=== PATIENT | male | born 1980 | race Caucasian/White ===

== ENCOUNTER 2017-03-16 21:17 | Emergency (ER) | payer SELFPAY ==
[~2017-03-16] VITALS: Ht 177.8 cm; Wt 114.3 kg
[2017-03-16 21:17] VITALS: Ht 177.8 cm; Wt 114.3 kg
[~2017-03-16 21:17] MED LIST: HYDR-4246 PO
--- NOTE | 2017-03-16 21:25 | NUR ---
PROVIDER DR VEGA IN ROOM TO SEE PT
--- NOTE | 2017-03-16 21:35 | NUR ---
JOHN CONTACTED WELDING PANTOGRAPH OPERATOR TO PAGE ULTRASOUND CONSTRUCTION LABORER
--- NOTE | 2017-03-16 21:46 | ERPDOC ---
Departure Disposition Decision Date: March 16, 2017 Disposition Decision Time: 23:54 Disposition: 01 DISCHARGED HOME, SELF-CARE Impression Impression Impression: Primary Impression: Lower extremity cellulitis Laterality: left Qualified Codes: L03.116 - Cellulitis of left lower limb Additional Impressions: Hypokalemia Dehydration Chronic alcohol abuse Fatty liver Severity: Moderate Condition: Improved Seen By: Physician only Patient Instructions: Cellulitis (ED), Hypokalemia (ED) Problems/Meds/Labs Reviewed?: Yes Medications reviewed and manag: Yes Additional Instructions: Take KDur 20meq daily Keflex 500 mg 3 times daily for 10 days Call [facility] tomorrow to make an appointment for sometime in the next week Reduce alcohol intake as much as possible Drink at least 6-8 glasses of fluid daily Follow up care ordered?: Yes Mental Status: Alert, Oriented Scripts Cephalexin (Keflex) 500 Mg Capsule 500 MG PO TID, #30 CAP Prov: RHODA VEGA MD 03/16/17 Potassium Chloride (Potassium Chloride) 20 Meq Packet 20 MEQ PO DAILY, #10 PACKET Prov: RHODA VEGA MD 03/16/17 HPI - Lower Extremity General Chief Complaint: Lower Extremity Pain Stated Complaint: LT LEG SWELLING Time Seen by Provider: 21:26 Source: patient Exam Limitations: no limitations HPI - Lower Extremity Initial Comments Bilateral feet swelling for the past several months, and then the patient developed increased redness and swelling to the anterior ewing today. And has a long history of alcohol abuse, drinking at least one to one and a half pints of hard liquor daily for the past year and a half. Patient also has a history of untreated hypertension, strong family history of diabetes, and is worried that he might be getting cirrhosis due to frequent morning nausea and vomiting. Patient has no job, no insurance, has not followed up with any physician is one to 2 years. Patient has established care in the past at [facility], and is simply not gone back to them. Patient presents tonight due to the increasing symptoms in the left leg, and his fear of some "major problem." Occurred At: home Onset/Timing: Gradual Severity: moderate Pain/Injury Location: left leg, bilateral foot 1 - Swelling, redness, and mild burning pain 2 - Swelling and redness Method of Injury: unknown Allergies: Coded Allergies: No Known Drug Allergies (Unverified Allergy, Unknown, NONE, 05/08/15) Past History Past Medical History Metabolic: hypertension Psychological: alcohol abuse Surgical History Denies Surgeries Vaccines Hx Tetanus, Diptheria, Pertuss: No Social History Smoking Status: Current every day smoker Does patient use chewing tobac: No Second Hand Exposure: Yes Substance Use Type: does not use Alcohol Intake: daily, 2+ drinks per day Sexuality: female partner Record Review Pertinent history updated: Yes Review of Systems Constitutional Constitutional: DENIES: appetite decrease, appetite increase, chills, dizziness , fever, weakness ENMT Ears: DENIES: pain Hearing: DENIES: hearing loss, tinnitus Balance: DENIES: vertigo Mouth/Throat: DENIES: change in swallowing, change in voice, hoarsness, painful swallowing, sore throat Cardiovascular Cardiac: DENIES: chest pain, dyspnea on exertion Rhythm/Rate: DENIES: irregular beat, palpitations, tachycardia Vascular: DENIES: pedal edema Pulmonary Respiratory: DENIES: cough, dyspnea, pleuritic chest pain GI Upper Abdomen: nausea, vomiting (every morning), DENIES: dysphagia, heartburn/ indigestion, pain Lower Abdomen: DENIES: blood in stool, constipation, diarrhea, pain General: DENIES: burning, dysuria, frequency, pain, urgency Musculoskeletal General: DENIES: cramps, joint pain, joint swelling, pain, weakness Integumentary Skin: DENIES: rash, sores Neurological General: DENIES: headache, numbness, tingling, vertigo, weakness Psychiatric Psychiatric: DENIES: anxiety, depression, nervousness Physical Exam General General Nourishment: well nourished, well developed, appears stated age, no acute distress General Body Habitus: disheveled Vitals and Pain First Documented Vital Signs Date Time Temp Pulse Resp B/P Pulse Ox O2 Delivery O2 Flow Rate FiO2 03/16/17 21:17 98.2 126 20 207/127 95 Room Air Weight: Kilograms: Height (feet): 5 Height (inches): 10.00 Triage Pain Scale: RN VS reviewed by Provider: Yes Normal Exams: Head: Normocephalic w/o trauma Eyes: Pupils are PERRLA w/ EOMI, No scleral icterus, irritation, or foreign bodies noted ENMT: No facial trauma, nasal exudates, pharyngeal erythema, or exudates are noted Neck: Full range of motion, without adenopathy, JVD, bruits or thyromegaly Chest/Resp: Clear all pinzon, with good airflow, and symmetry bilaterally CV: Regular rate and rhythm, without murmur or gallop, Pulses 2+ all extremities, capillary refill, <2 seconds all ext., no pedal edema noted Abdomen: Bowel sounds positive, soft, non-tender, non-distended, no hepatosplenomegaly, masses or bruits noted Integumentary: No rashes, hives, or bruising noted, hair and nails, without abnormality Neurologic: Patient is alert, and oriented, cranial nerves, motor/sensory/ cerebellar, exams w/o gross deficits, to observation Psychiatric: Patient exhibits, appropriate attention, emotion and affect Lymphatic (brief) Lymphatic Brief: FOUND: lymphedema (bilateral 2+ pitting edema, left greater than right, left extending into the anterior as well as posterior lower leg.), NOT FOUND: adenopathy Musculoskeletal (brief) Musculoskeletal Brief: NOT FOUND: deformity, loss of motion, spasm, tenderness Integumentary (brief) Integumentary Brief: FOUND: dry, pink, warm Comments Erythema and warmth to the bilateral feet and anterior left ewing Progress Results/Orders Orders Procedure Category Date Status Time Iv Lock (Ed Only) EDM 03/16/17 Transmitted 21:31 Cbc W/Auto LAB 03/16/17 Complete Diff-Reflex Manual Cmp - Comprehensive LAB 03/16/17 Complete Metabolic Lipase LAB 03/16/17 Complete INR LAB 03/16/17 Complete Ethanol LAB 03/16/17 Complete Us Venous Duplex, US 03/16/17 Logged Lower Ext Bi Lactate - Lactic Acid LAB 03/16/17 Complete Potassium Chloride PHA 03/16/17 Complete (Kdur) 23:15 Normal Saline PHA 03/16/17 In Process (Norm... W/Potassium 23:15 EKG EKG 03/16/17 Logged Us Gallbladder US 03/16/17 Logged Lab Results Laboratory Tests Test 03/16/17 21:59 03/16/17 22:00 Prothromb Time International Ratio 1.12 White Blood Count 7.4T/MM3 Red Blood Count 4.38M/MM3 Hemoglobin 17.4GM/DL Hematocrit 47.7% Mean Corpuscular Volume 108.9UM3 Mean Corpuscular Hemoglobin 39.7UUG Mean Corpuscular Hemoglobin Concent 36.5GM/DL RDW Standard Deviation 48.9FL Platelet Count 157T/MM3 Mean Platelet Volume 10.6UM3 Immature Granulocyte % (Auto) 0.1% Neutrophils (%) (Auto) 73.2% Lymphocytes (%) (Auto) 16.0% Monocytes (%) (Auto) 9.6% Eosinophils (%) (Auto) 0.7% Basophils (%) (Auto) 0.4% Absolute Immature Granulocyte (auto 0.01T/MM3 Absolute Neutrophils (auto) 5.4T/MM3 Absolute Lymphocytes (auto) 1.2T/MM3 Absolute Monocytes (auto) 0.7T/MM3 Absolute Eosinophils (auto) 0.1T/MM3 Absolute Basophils (auto) 0.0T/MM3 Turbidity < 20 Sodium Level 144MEQ/L Potassium Level 2.6MEQ/L Chloride Level 96MEQ/L Carbon Dioxide Level 30MEQ/L Anion Gap 18MEQ/L Blood Urea Nitrogen 5.0MG/DL Creatinine 0.8MG/DL Glomerular Filtration Rate Calc 110 BUN/Creatinine Ratio 6RATIO Glucose Level 135MG/DL Calculated Osmolality 276MOSM/KG Calcium Level 9.6MG/DL Total Bilirubin 1.40MG/DL Icterus Index < 2 Aspartate Amino Transf (AST/SGOT) 165U/L Alanine Aminotransferase (ALT/SGPT) 99U/L Alkaline Phosphatase 134U/L Total Protein 7.9G/DL Albumin 4.7G/DL Globulin 3.2G/DL Albumin/Globulin Ratio 1.5RATIO Lipase 169U/L Plasma Lactate 2.9MMOL/L Chemistry Specimen Hemolysis < 15 Alcohol, Quantitative 236MG/DL Medications Current ED Medications Potassium Chloride 40 meq 40 meq O ONCE PO Last administered on 03/16/17t 23: 16; Start 03/16/17 at 23:15; Stop 03/16/17 at 23:16; Status DC Potassium Chloride/Sodium Chloride (KCl/Normal Saline IV) 1,020 ml @ 125 mls/ hr Q8H10M IV ; Start 03/16/17 at 23:15 Progress Progress CBC - n CMP/L - hypokalemia at 2.6, evidence of dehydration with minor irregularities. Mild elevation in liver enzymes, mild elevation of bilirubin. INR - n EtOH - elevated 236 Bilateral venous Dopplers lower extremity - negative Gallbladder sono negative Case discussed with the patient, this examiner, and hospitalist Dr. Jimenez. Shared decision-making, we will start the patient on outpatient therapy for hypokalemia, and antibody therapy for possible early cellulitis of the left lower extremity. Patient will decrease his alcohol intake as much as possible, hydrate with nonalcoholic fluids, and follow-up at [facility] within the next week. RHODA VEGA MD March 16, 2017 21:46
[2017-03-16 22:10] LABS: INR 1.12 (0.76-1.04); PROTHROMBIN TIME 12.2 SEC (9.31-12.49)
[2017-03-16 22:14] LABS: LACTATE - LACTIC ACID 2.9 MMOL/L (0.6-2.2)
[2017-03-16 22:15] LABS: ALBUMIN 4.7 G/DL (3.5-5.0); ALBUMIN/GLOBULIN RATIO 1.5 RATIO (1.1-2.2); ALKALINE PHOSPHATASE 134 U/L (38-126); ALT (SGPT) 99 U/L (21-72); ANION GAP 18 MEQ/L (5-15); AST (SGOT) 165 U/L (17-59); BUN/CREATININE RATIO 6 RATIO (6-26); CALCIUM 9.6 MG/DL (8.4-10.2); CHLORIDE 96 MEQ/L (98-107); CO2 - CARBON DIOXIDE 30 MEQ/L (22-30); CREATININE 0.8 MG/DL (0.8-1.5); ETHANOL 236 MG/DL (<10); GLOMERULAR FILTRATION RATE 110; GLUCOSE 135 MG/DL (75-110); SODIUM 144 MEQ/L (134-144); TOTAL PROTEIN 7.9 G/DL (6.3-8.2)
[2017-03-16 22:24] LABS: LIPASE 169 U/L (23-300)
[2017-03-16 22:35] LABS: POTASSIUM 2.6 MEQ/L (3.6-5)
[2017-03-16 22:40] LABS: BASOPHILS % (AUTO) 0.4 % (0-2); EOSINOPHILS # (AUTO) 0.1 T/MM3 (0-0.5); EOSINOPHILS % (AUTO) 0.7 % (0-4); HCT - HEMATOCRIT 47.7 % (41-53); HGB - HEMOGLOBIN 17.4 GM/DL (13.5-17.5); IMMATURE GRANULOCYTE # (AUTO) 0.01 T/MM3 (0.00-0.03); IMMATURE GRANULOCYTE % (AUTO) 0.1 % (0.0-0.5); LYMPHOCYTES # (AUTO) 1.2 T/MM3 (1-4.8); MEAN CORPUSCULAR HGB 39.7 UUG (26-34); MEAN CORPUSCULAR HGB CONC(MCHC 36.5 GM/DL (31-37); MEAN CORPUSCULAR VOLUME 108.9 UM3 (80-100); MEAN PLATELET VOLUME 10.6 UM3 (9.4-12.4); MONOCYTES # (AUTO) 0.7 T/MM3 (0-0.8); MONOCYTES % (AUTO) 9.6 % (0-9.0); NEUTROPHILS #(AUTO)-ABSOLUTE 5.4 T/MM3 (1.8-7.7); NEUTROPHILS % (AUTO) 73.2 % (33-66); RED BLOOD COUNT 4.38 M/MM3 (4.50-5.90); WBC - WHITE BLOOD COUNT 7.4 T/MM3 (4.5-11.0)
--- NOTE | 2017-03-16 22:45 | NUR ---
STATUS PT UP TO THE BATHROOM
--- NOTE | 2017-03-16 22:53 | NUR ---
SONO JOURNALISM TEACHER IS HERE AND IN PROCESS OF US LOWER EXT
[2017-03-16] MEDS ORDERED: POTASSIUM CHLORIDE 40 MEQ in NORMAL SALINE 1,000 ML IV SCH (23:15)
[2017-03-16] MEDS ORDERED: POTASSIUM CHLORIDE 20 MEQ TABLET PO ONE (23:15)
--- NOTE | 2017-03-16 23:30 | NUR ---
SONO SONO TECH IN ROOM FOR GALLBLADDER SONO.
[2017-03-16] MEDS ORDERED: CEFTRIAXONE I.V. (ER USE ONLY) 1 G in NORMAL SALINE 100 ML IV ONE (23:45)
[2017-03-16] MEDS ORDERED: CEPH-583 PO (23:57)
[2017-03-16] MEDS ORDERED: [UNRECOGNIZED DRUG - CODE] PO (23:57)
--- NOTE | 2017-03-17 00:22 | NUR ---
STATUS NS WITH 40 KCL STARTED INFUSING. PT UNDERSTANDS THAT THIS WILL TAKE 2 HOURS
--- NOTE | 2017-03-17 01:30 | NUR ---
STATUS PT AND ARE GIVEN A WARM BLANKET
[2017-03-17 02:30] VITALS: BP 183/107; PULSE 127; RESP 18; TEMP 98; O2SAT 97
--- NOTE | 2017-03-17 02:30 | NUR ---
DEPART PT IS GIVEN DISMISSAL INSTRUCTIONS WITH VERBAL UNDERSTANDING. PT GIVEN SCRIPTS. PT LEAVES AMBULATORY WITH TO ED EXIT
--- NOTE | 2017-03-17 08:10 | DI ---
Indication: ITS.REASON: elevated liver enzymes and bili with vomiting PROCEDURE: US GALLBLADDER: Encounter: Initial Comparison: None Technique: Grayscale and color Doppler sonographic imaging of the right upper quadrant of the abdomen was performed. Findings: Hepatic parenchyma is echogenic and sonographically dense without evidence for focal mass. The gallbladder is normal. There is no wall thickening, pericholecystic fluid, sonographic Stock's sign or cholelithiasis. Both the intra and extrahepatic biliary system are of normal caliber with the common duct measuring 5 mm in dimension. Pancreas is not well seen due to shadowing bowel gas. The right kidney is present without collecting system dilatation. The right kidney measures 10.6 cm in length. Impression: Normal gallbladder. Hepatic steatosis. There is a preliminary report by [facility]. .
--- NOTE | 2017-03-17 08:11 | DI ---
Indication: ITS.REASON: BILATERAL LEG SWELLING WITH DVT RISKS PROCEDURE: US VENOUS DUPLEX, LOWER EXT BI: Encounter: Initial Comparison: None Technique: Color Doppler duplex and grayscale sonographic imaging of both lower extremities was performed. Findings: There is no evidence for acute deep venous thrombosis in either thigh. Specifically, serial graded compression was performed from the inguinal ligament to the popliteal bifurcation, bilaterally, demonstrating appropriate compressibility of the deep venous system. In addition, color and pulsed Doppler demonstrate appropriate spontaneous flow, variation with respiration, and augmentation with calf compression. At the ankle, normal flow is identified in the posterior tibial veins; these vessels are also normal in caliber. Impression: No evidence of acute DVT in either lower limb. There is a preliminary report by [facility]. .
== END 2017-03-17 02:30 | disposition home or self-care (01) ==
LOC: ED 21:17
DX: L03.116 Cellulitis of left lower limb (principal); E87.6 Hypokalemia; E86.0 Dehydration; F10.10 Alcohol abuse, uncomplicated; Y90.7 Blood alcohol level of 200-239 mg/100 ml; K76.0 Fatty (change of) liver, not elsewhere classified
CPT/HCPCS: 80053; 80307; 83605; 83690; 85025; 85610; 93005

== ENCOUNTER 2017-06-03 22:47 | Inpatient (IN) ==
[2017-06-03] MEDS ORDERED: ONDANSETRON 4 MG/2 ML INJECTION IVP ONE (23:33)
[2017-06-03] MEDS ORDERED: KETOROLAC 30 MG/ML INJECTION IVP ONE (23:33)
[2017-06-03] MEDS ORDERED: NS 1,000 ML IV ONE (23:33)
--- NOTE | 2017-06-03 23:38 | Emergency Department Report ---
Abdominal Pain HPI - General Chief Complaint: Nausea/Vomiting/Diarrhea Stated Complaint: Trouble breading/vomiting Time Seen by Provider: 06/03/17 23:20 Source: patient, family, old records reviewed Mode of arrival: ambulatory Limitations: no limitations - History of Present Illness HPI narrative: 36yo man presents to the ER tonight for N/V and colicky abdominal pain. Pt had similar sx when he presented to this ER 3 months ago. At that time he was noted to have LE cellulitis b/l and sequelae of alcoholism (electrolyte disturbances, hepatitis, etc). Pt has followed up with his PCM and has been dx'ed/treated for HTN. Tonight, pt has crampy, colicky abd pain that makes catching his breath difficult. In addition, pt has been spitting up fluid 2/2 his nausea. MD complaint: abdominal pain Onset (ago): hour(s) Consistency: colicky Location: epigastric, L flank, R flank Severity: severe Severity scale (1-10): 8 Quality: stabbing, sharp Migration to: no migration Relieving factors: nothing Exacerbating factors: vomiting, movement Context: history of similar episodes Associated symptoms: denies other symptoms Treatments prior to arrival: NSAIDs - Related Data Home Medications Medication Instructions Recorded Confirmed Potassium Chloride 20 meq PO BID 06/04/17 06/04/17 Allergies Allergy/AdvReac Type Severity Reaction Status Date / Time No Known Drug Allergies Allergy Unknown NONE Verified 06/04/17 00:05 Review of Systems All systems: reviewed and negative except as stated Gastrointestinal: Reports: as per HPI, abdominal pain, nausea, vomiting PFSH Medical History Updates: HTN Physical Exam - Limitations Limitations: no limitations - General General appearance: alert, in no apparent distress, obese - Normal Exams: Head:: Normocephalic without trauma Eyes:: Pupils are PERRLA w/ EOMI, No scleral icterus, irritation, or foreign bodies noted ENMT:: No facial trauma, nasal exudates, pharyngeal erythema, or exudates are noted Neck:: Full range of motion, without adenopathy, JVD, bruits or thyromegaly Chest/Respirations:: Clear all pinzon, with good airflow, and symmetry bilaterally Cardiovascular:: Regular rate and rhythm, without murmur or gallop, Pulses 2+ all extremities, capillary refill, <2 seconds all extremities Abdomen:: Bowel sounds positive, soft, non-tender, non-distended, no hepatosplenomegaly, masses or bruits noted Lymphatic:: No lymphadenopathy, or lymphedema noted Musculoskeletal:: No tenderness, or deformity noted, good range of motion, all extremities Integumentary:: No rashes, hives, or bruising noted, hair and nails, without abnormality Neurological:: Patient is alert, and oriented, cranial nerves, motor/sensory/ cerebellar, exams w/o gross deficits, to observation Psychiatric:: Patient exhibits, appropriate attention, emotion and affect Course - Consultations Consultation #1: Ihsan Telemed: Agrees to admit pt, but requests RUQ-US prior to admission. Time: 00:45 Abdominal Pain - Differential Diagnosis Differential diagnosis: Likely: abdominal pain, constipation, diverticulitis, gastroenteritis, pancreatitis, small bowel obstruction - Medical Records Attestation: I reviewed the patient's medical records. - Lab Data Attestation: I reviewed the patient's lab results. Result diagrams: 06/15/17 05:23 06/16/17 05:29 - Radiology Data Attestation: I reviewed the patient's radiology results. Acute Abd series: Non-obstructing bowel gas pattern; No acute CT pathology. Disposition Clinical Impression: PANCREATITIS Disposition: 02 To [facility] Condition: Improved - Seen By: physician
[2017-06-04] MEDS: SALINE FLUSH 10ml SYRINGE IVF PRN ×5 (00:10→12:55)
[2017-06-04] MEDS ORDERED: MORPHINE SULFATE 2 MG SYRINGE IVP ONE (00:45)
[2017-06-04] MEDS ORDERED: ONDANSETRON 4 MG/2 ML INJECTION IVP ONE (01:14)
[2017-06-04] MEDS ORDERED: ONDANSETRON 4 MG/2 ML INJECTION IVP PRN (02:29)
[2017-06-04] MEDS ORDERED: PROMETHAZINE 25 MG INJECTION IVP PRN (02:29)
[2017-06-04] MEDS: NS 1,000 ML IV SCH ×7 (02:42→21:33)
[2017-06-04] MEDS: CEFTRIAXONE 1 G in NS 100 ML IV SCH ×2 (03:01→14:58)
[2017-06-04] MEDS: MORPHINE SULFATE 4 MG SYRINGE IVP PRN ×5 (03:31→20:23)
--- NOTE | 2017-06-04 03:31 | History & Physical Report ---
History of Present Illness Date: 06/04/17 Chief complaint: abdominal pain HPI: 36yo man with PMH of HTN, obesity and alcoholism presented to the ER tonight for N/V and colicky abdominal pain. Pt had similar sx when he presented to this ER 3 months ago. At that time he was noted to have LE cellulitis b/l and sequelae of alcoholism (electrolyte disturbances, hepatitis, etc). Pt has followed up with his PCM and has been dx'ed/treated for HTN. Tonight, pt has crampy, colicky abd pain that makes catching his breath difficult. He reports nausea and vomiting. Reports is has been dark colored fluid. He reports continued drinking. He denies HX of pancreatitis in the past. He was found to have severe pancreatitis in the ED, RUQ US was negative for gallstone obstruction. He was admitted for further evaluation and treatment. Review of Systems Comprehensive ROS: completed and no additional positive findings except those as stated PFSH Patient Stated Medical History Hypertension Yes Pneumonia Yes Gastroesophageal Reflux Yes Disease Substance Use Disorder Yes: PAST, PT DENIES NOW Medical History Updates: HTN - Social History Smoking status: Current every day smoker Medications Home Medications Medication Instructions Recorded Confirmed Type Potassium Chloride 20 meq PO BID 06/04/17 06/04/17 History Allergies Allergy/AdvReac Type Severity Reaction Status Date / Time No Known Drug Allergies Allergy Unknown NONE Verified 06/04/17 00:05 Exam Vital Signs: Temperature 97.8 F 06/04/17 02:32 Pulse Rate 92 06/04/17 03:20 Respiratory Rate 24 06/04/17 02:32 Blood Pressure 175/112 H 06/04/17 03:20 Pulse Oximetry 97 06/04/17 03:20 Oxygen Delivery Method Room Air Height: 1.85 m Weight: 114.2 kg Body Mass Index: 33.2 - Constitutional Present: well nourished, well developed - Routine Cardiovascular Exam Present: RRR. Absent: murmur - Routine Abdominal Exam Present: soft, tenderness, distended Comments: yeast underneath pannus - Routine Extremities Exam Present: normal capillary refill - Routine Skin Exam Present: dry, warm - Routine Neurological Exam Present: alert, oriented X3, CN II-XII intact - Routine Psychiatric Exam Present: normal affect Results - Labs CBC & Chem 7: 06/04/17 00:00 06/04/17 00:00 Assessment and Plan (1) Pancreatitis Current visit: Yes Status: Acute 06/04/17 03:34 due to continued drinking. RUQ US negative for obstructive stones. Patient started on aggressive IVF, electrolyte replacement and morphine PRN. Repeat labs at 7:00 am. Patient does have elevated lacate, likely due to acute pancreatitis. Continue supportive care. (2) Alcoholic liver damage Current visit: Yes Status: Acute (3) Hypertension Current visit: Yes Status: Acute (4) Hypokalemia Current visit: Yes Status: Acute DVT Prophylaxis: SCD's GI Prophylaxis: Protonix Resuscitation Status: Full Code Sepsis Assessment - Evaluation Sepsis screening result: No Definite Risk Possible source: GI tract/intra-abdominal Confirmed Suspected Infection: No Hospital Course Summary Disclaimer: The visit summary below is not to be considered part of the above Progress Note.
[2017-06-04] MEDS: POTASSIUM CHLORIDE PREMIX 10 MEQ/100 ML BAG IV SCH ×10 (03:44→21:31)
--- NOTE | 2017-06-04 07:50 | Ultrasound Report ---
Indication: pancreatitis with elevated bili PROCEDURE: US abdomen limited: Encounter: Initial Comparison: Gallbladder ultrasound dated March 16, 2017 Technique: Grayscale and color Doppler sonographic imaging of the right upper quadrant of the abdomen was performed. Findings: Hepatic parenchyma is sonographically dense without evidence for focal mass. The gallbladder shows echogenic sludge without shadowing gallstones or wall thickening. Sonographic Stock's sign was negative. Intrahepatic bile ducts appear normal. Extrahepatic common duct could not be seen. Pancreas could not be seen due to shadowing bowel gas. The right kidney is present without collecting system dilatation. The right kidney measures 11.3 cm in length. Small amount of ascites Impression: Limited exam with gallbladder sludge. No sonographic evidence for acute cholecystitis. There is a preliminary report by [employer]. .
--- NOTE | 2017-06-04 07:51 | XRay Report ---
Indication: Abd pain; colicky PROCEDURE: PA view of the chest with supine and upright AP views of the abdomen Encounter: Initial Comparison: None FINDINGS: The lungs are clear. There is no abnormal airspace opacity, pleural effusion or pneumothorax identified. The heart size, pulmonary vasculature and mediastinum are within normal limits. There is no free air on the upright view. The bowel gas pattern is nonobstructive and nonspecific. Gas is seen in nondilated small and large bowel to the level of the rectum. Moderate stool is seen throughout the colon. The bony structures are grossly unremarkable. IMPRESSION: 1. No acute cardiopulmonary abnormality. 2. No evidence of acute obstruction or free air. .
[2017-06-04] MEDS: HYDRALAZINE 20 MG/ML INJECTION IVP PRN (08:12)
[2017-06-04] MEDS ORDERED: THIAMINE 100 MG, FOLIC ACID INJ 1 MG, MULTI-VIT INFUSION 10 ML in NS 1,000 ML IV ONE (10:45)
[2017-06-04] MEDS: NICOTINE 21 MG PATCH TD SCH (11:32)
[2017-06-04] MEDS: NICOTINE PATCH REMOVAL TD SCH (11:32)
[2017-06-04] MEDS: OXAZEPAM 30 MG CAPSULE PO SCH ×3 (11:33→20:33)
[2017-06-04] MEDS ORDERED: MAGNESIUM SULFATE 6gm PREMIX 6 GM/50 ML BAG IV ONE (14:02)
[2017-06-04] MEDS ORDERED: MILRINONE DRIP 20 MG/100 ML BAG IV SCH (14:15)
[2017-06-04] MEDS: CLONIDINE 0.2 MG/24 HR PATCH TD SCH (15:16)
--- NOTE | 2017-06-04 18:31 | Magnetic Resonance Report ---
Indication: R/O Biliary obstruction, pancreatitis with high bilirubin PROCEDURE: MR MRCP: Encounter: Initial Comparison: Abdominal ultrasound from earlier today Technique: Multiplanar multisequence MR imaging was performed without contrast. Sequences include Coronal 3-D thick slab heavily T2-weighted MRCP images were performed. Coronal and axial SSFP localizer images were also performed along with axial in and out of phase, T2 axial FSE, T2 coronal FSE and axial diffusion-weighted sequences. Findings: The MRCP images are nondiagnostic due to severe motion artifact and patient body habitus. No acute abnormality seen on the diffusion-weighted sequences. No obvious gallstones seen on the localizer and T2-weighted images. Small left pleural effusion and small volume ascites. The pancreatic head appears somewhat thickened. This could be due to inflammation from pancreatitis or potentially pancreatic mass. The pancreatic duct does not appear dilated. Intrahepatic ducts do not appear dilated. No obvious gallstone within the common duct. Impression: 1. No cholelithiasis or intrahepatic bile duct dilatation. Evaluation of the extrahepatic common duct is poor due to motion artifact and patient body habitus. No obvious common duct stone. 2. Enlargement of the pancreatic head which could be due to inflammation from pancreatitis or potentially neoplasm. Recommend further evaluation with a contrast-enhanced CT of the abdomen. .
[2017-06-05] MEDS: POTASSIUM CHLORIDE PREMIX 10 MEQ/100 ML BAG IV SCH (00:39)
[2017-06-05] MEDS: HYDRALAZINE 20 MG/ML INJECTION IVP PRN (01:45)
[2017-06-05] MEDS: CEFTRIAXONE 1 G in NS 100 ML IV SCH ×2 (01:53→14:18)
[2017-06-05] MEDS ORDERED: HALOPERIDOL 5 MG/ML INJECTION IVP ONE (02:35)
[2017-06-05] MEDS: OXAZEPAM 30 MG CAPSULE PO SCH ×4 (02:50→22:10)
[2017-06-05] MEDS: NS 1,000 ML IV SCH ×2 (03:17→05:37)
[2017-06-05] MEDS: POTASSIUM CHLORIDE INJ 40 MEQ in NS 1,000 ML IV SCH ×3 (07:14→19:30)
[2017-06-05] MEDS: HALOPERIDOL 5 MG/ML INJECTION IVP PRN ×2 (08:04→21:43)
[2017-06-05] MEDS: NICOTINE 21 MG PATCH TD SCH (08:05)
[2017-06-05] MEDS: NICOTINE PATCH REMOVAL TD SCH (08:05)
[2017-06-05] MEDS ORDERED: ZIPRASIDONE 20 MG/ML IM ONE (08:58)
[2017-06-05] MEDS: PROPOFOL 1,000 MG/100 ML VIAL IV PRN ×3 (10:11→22:09)
[2017-06-05] MEDS ORDERED: HYDROMORPHONE 2 MG/ML INJECTION IVP ONE (10:30)
[2017-06-05] MEDS ORDERED: NS IV ONE (11:30)
[2017-06-05] MEDS ORDERED: POTASSIUM PHOSPHATE IV ONE (11:30)
[2017-06-05] MEDS: MORPHINE SULFATE 4 MG SYRINGE IVP PRN ×2 (14:23→19:55)
--- NOTE | 2017-06-05 14:56 | Progress Note ---
Subjective: Pt was very combative this AM and had to be restrained. It took 6 of us to be able to control him after he had received 20mg IM of Geodon and 4mg of IM ativan. About 30 min after these 2 IM injections - pt was still very agitated so he was placed on Propofol which has calmed him down. His HR was 150 to 160 sinus tachycardia - he is not down to 120. Objective Vital signs: Temperature 101.1 F H 06/05/17 14:00 Pulse Rate 133 H 06/05/17 14:00 Respiratory Rate 35 H 06/05/17 14:00 Blood Pressure 120/68 06/05/17 14:00 Pulse Oximetry 99 06/05/17 14:00 Oxygen Delivery Method BiPAP Fraction of Inspired Oxygen 50 Rhythm: Sinus Tachycardia Weight: 115 kg - Constitutional Present: severe distress Comments: Agitated - Routine HEENT Exam Head: Present: normocephalic, atraumatic Eye: Present: EOMI, PERRL ENT: Present: mucous membranes dry - Routine Cardiovascular Exam Comments: Cant examine pt combative - Routine Abdominal Exam Comments: Cant examine pt combative - Routine Extremities Exam Present: clubbing, edema. Absent: cyanosis - Routine Neurological Exam Confused, combative, kicking,biting spitting. - Routine Psychiatric Exam Present: agitated, unable to assess Results - Labs CBC & Chem 7: 06/05/17 04:14 06/05/17 04:14 Assessment and Plan (1) Pancreatitis Current visit: Yes Status: Acute 06/04/17 03:34 due to continued drinking. RUQ US negative for obstructive stones. Patient started on aggressive IVF, electrolyte replacement and morphine PRN. Repeat labs at 7:00 am. Patient does have elevated lacate, likely due to acute pancreatitis. Continue supportive care. (2) Alcoholic liver damage Current visit: Yes Status: Acute (3) Hypertension Current visit: Yes Status: Acute (4) Hypokalemia Current visit: Yes Status: Acute Assessment and Plan: Pt seen and examined, very agitated (See above) A/P 1) ALCOHOL ABUSE WITH A) SEVERE AGITATION/CONFUSION ? OF HALLUCINATIONS MOST LIKELY DUE TO ALCOHOL WITHDRAWALS - On Propofol drip - Tachycardic - Will also give Ativan IV IN. - Check CPK (R/O Rhabdo due to agitation) - Aggressive hydration and electrolyte replenishment. B) Pancreatitis most likely related to ETOH MRCP "........................ Impression: 1. No cholelithiasis or intrahepatic bile duct dilatation. Evaluation of the extrahepatic common duct is poor due to motion artifact and patient body habitus. No obvious common duct stone. 2. Enlargement of the pancreatic head which could be due to inflammation from pancreatitis or potentially neoplasm. Recommend further evaluation with a contrast-enhanced CT of the abdomen. ...................................." - Lipase coming down - Check CA 19-9 prior to D/C and follow closely his pancreatic anatomy by CT/MRI. C) Hypokalemia, hypomagnesemia, hypophosphatemia - Replace K, and K for now. D) Dehydration - continue aggressive hydration. 2) UTI - very high lactate - high WBC - On Rocephin will continue for now. - Check lactate now. 3) Obstructive Sleep Apnea (New Dx) - Elevated hemoglobin on admisison now down to 14.5 (normal range) - Continue with CPAP. PREVENTION DVT - LOVENOX PUD - PPI. - Time spent with patient greater than 35 minutes Sepsis Assessment - Evaluation Sepsis screening result: No Definite Risk Hospital Course Summary Disclaimer: The visit summary below is not to be considered part of the above Progress Note.
[2017-06-05] MEDS: PANTOPRAZOLE 40 MG INJECTION IVP SCH (15:39)
[2017-06-05] MEDS ORDERED: METOPROLOL 5mg/5ml INJECTION IVP PRN (18:55)
[2017-06-05] MEDS: ALBUTEROL/IPRATROPIUM 2.5mg-0.5mg/3ml NEB AEROSOL SCH ×2 (19:00→23:17)
[2017-06-05] MEDS ORDERED: ALBUTEROL/IPRATROPIUM 2.5mg-0.5mg/3ml NEB ORAL INH SCH (21:00)
--- NOTE | 2017-06-05 21:19 | XRay Report ---
Indication: PNEUMONIA XR chest 1V: Comparison: None Technique: Single portable upright chest Findings: Patient shows mild prominence of the heart size with poor definition of the left hemidiaphragm suggesting fluid and infiltrate or atelectasis. Mildly increased markings are seen in the perihilar regions bilaterally. No acute bony findings identified. Impression: 1. Loss of the left diaphragm which suggests fluid and/or infiltrate or atelectasis. 2. Mild perihilar prominence with heart size mildly prominent. .
[2017-06-06] MEDS: POTASSIUM CHLORIDE INJ 40 MEQ in NS 1,000 ML IV SCH (01:20)
[2017-06-06] MEDS: HALOPERIDOL 5 MG/ML INJECTION IVP PRN ×4 (01:47→19:55)
[2017-06-06] MEDS: MORPHINE SULFATE 4 MG SYRINGE IVP PRN ×3 (02:07→14:18)
[2017-06-06] MEDS: PROPOFOL 1,000 MG/100 ML VIAL IV PRN ×4 (03:26→21:07)
[2017-06-06] MEDS: CEFTRIAXONE 1 G in NS 100 ML IV SCH (03:35)
[2017-06-06] MEDS: OXAZEPAM 30 MG CAPSULE PO SCH ×2 (03:37→09:11)
[2017-06-06] MEDS: ALBUTEROL/IPRATROPIUM 2.5mg-0.5mg/3ml NEB AEROSOL SCH ×6 (03:38→23:46)
[2017-06-06] MEDS: NS 1,000 ML IV SCH ×3 (03:42→23:19)
[2017-06-06] MEDS: PANTOPRAZOLE 40 MG INJECTION IVP SCH (09:10)
--- NOTE | 2017-06-06 10:00 | Pharmacy Consult-Antibiotics ---
Pharmacy Consult-Vancomycin - Laboratory Information WBC 6.8 T/MM3 (4.5-11.0) 06/06/17 08:49 BUN 13.0 MG/DL (9-20) 06/06/17 08:50 Creatinine 0.9 MG/DL (0.8-1.5) 06/05/17 14:23 36yo M with suspected aspiration. Covering with Abx [Cefepime, Clindamycin, Vancomycin] Pt wt today = 121.5kg Renal fx has been stable. Will start with VANCOMYCIN 2gm IV q8hrs. Check Vancomycin Trough tomorrow. Target range = 15-20mcg/ml
[2017-06-06] MEDS ORDERED: NS IV ONE (10:45)
[2017-06-06] MEDS ORDERED: SODIUM PHOSPHATE IV ONE (10:45)
[2017-06-06] MEDS: CEFEPIME 1 GM in NS 100 ML IV SCH ×3 (10:47→23:04)
--- NOTE | 2017-06-06 10:52 | Progress Note ---
Subjective: Pt remains in the ICU with propofol drip. Over night sock and stocking ironer was trying to wean him off Propofol. Pt was also on CPAP. Pt oxygenation has severely deteriorated over the last 24 hrs. CXR yesterday showed L pleural effussion which can be seen with pancreatitis - pancreatitis does not seem to be severe enough to explain this large effussion. HRCT was done this AM - showed a Large L pleural effussion - with ? of intrabronchial mass vs a mucus plug. K is now corrected but Phosphorus dropped under 1. Pt has also developed hypocalcemia and his platelets have dropped gradually. Objective Vital signs: Temperature 98.6 F 06/06/17 04:00 Pulse Rate 122 H 06/06/17 08:42 Respiratory Rate 35 H 06/06/17 07:05 Blood Pressure 112/72 06/06/17 06:30 Pulse Oximetry 95 06/06/17 07:05 Oxygen Delivery Method BiPAP Fraction of Inspired Oxygen 80 Rhythm: Sinus Tachycardia Weight: 121.5 kg - Constitutional Comments: Sedated. - Routine HEENT Exam Head: Present: normocephalic, atraumatic Eye: Present: PERRL ENT: Present: mucous membranes dry - Routine Respiratory Exam Present: decreased breath sounds, crackles - Routine Cardiovascular Exam Present: tachycardia - Routine Abdominal Exam Present: distended - Routine Extremities Exam Present: clubbing. Absent: cyanosis, edema - Routine Neurological Exam Pt is sedated due to severe DT Results - Labs CBC & Chem 7: 06/06/17 08:49 06/06/17 08:50 - ABG Interpretation ABG results: 06/05/17 06/06/17 06/06/17 17:41 04:35 09:25 ABG pH 7.360 7.380 7.460 H ABG pCO2 55 H 53 H 42 ABG pO2 114 H 64 L 133 H ABG HCO3 31 H 31 H 30 H ABG Total CO2 32.8 H 33.0 H 31.2 H ABG O2 Saturation 98.0 92.0 L 99.0 H ABG Base Excess 4.4 H 5.0 H 5.5 H Assessment and Plan (1) Pancreatitis Current visit: Yes Status: Acute 06/04/17 03:34 due to continued drinking. RUQ US negative for obstructive stones. Patient started on aggressive IVF, electrolyte replacement and morphine PRN. Repeat labs at 7:00 am. Patient does have elevated lacate, likely due to acute pancreatitis. Continue supportive care. (2) Alcoholic liver damage Current visit: Yes Status: Acute (3) Hypertension Current visit: Yes Status: Acute (4) Hypokalemia Current visit: Yes Status: Acute Assessment and Plan: DIAGNOSIS 1) PULMONARY ASSESMENT A) Pt has developed ALI/ARDS - ABG on FIO2 of 80% showed PaO2 of 133 with CO2 of 42 - huge a-A gradient that has increased since yesterday. - Pt was intubated successfully by ED MD - Saturations are 91 on 100% FIO2. ET tube appears to be well positioned. - Pt requires high PEEP. - Could be related to pancreatitis, or PNA - Pt has a L sided effussion - could be related to pancreatitis. Must R/O Boherhave's syndrome will try a CT chest with gastrograffin injection in the mid esophagus (Discussed with radiologist - Dr Zaidi) - Start coverage for HAP - Vanco + cefepime + steroids - Add Mucomyst for possible mucus plugg. - Case discussed with his NOK - significant other, she consented for intubation. - Reculture blood & sputum B) Obstructive Sleep Apnea (New Dx) - Was on CPAP - now intubated. 2) ALCOHOL ABUSE WITH MULTIPLE COMPLICATIONS - A) SEVERE AGITATION/CONFUSION ? OF HALLUCINATIONS MOST LIKELY DUE TO ALCOHOL WITHDRAWALS - On propofol since yesterday. - On Propofol drip - Continue. - Tachycardic/hypertensive - CPK - 1261 Yesterday - C/W rhadbomyolisis - will rehceck - Aggressive hydration and electrolyte replenishment. B) Pancreatitis most likely related to ETOH MRCP "........................ Impression: 1. No cholelithiasis or intrahepatic bile duct dilatation. Evaluation of the extrahepatic common duct is poor due to motion artifact and patient body habitus. No obvious common duct stone. 2. Enlargement of the pancreatic head which could be due to inflammation from pancreatitis or potentially neoplasm. Recommend further evaluation with a contrast-enhanced CT of the abdomen. ...................................." - Lipase coming down - Check CA 19-9 prior to D/C and follow closely his pancreatic anatomy by CT/MRI. - Add Banana bags - C) Hypokalemia on admission - K is high today. - Stop NS with K - Recheck later. D) Hypomagnesemia - now improved. E) Severe hypophosphatemia - Risk of hemolysis - CHF & could be causing low Platelets. - PO4 is under 1 - Spoke with Pharm Jasmine - Ant De Souza - Will give 90 Mmol of Na Phosphate F) Dehydration - Appears improved now, will hold off on aggressive hydration will place on Banana bag @ 50ml/hr x 3 Liters. G) Rhabdomyolisis - cuuld be due to his severe agitation. - Recheck CPK now. 2) INFECTIOUS DISEASE ASSESMENT A) UTI - very high lactate - high WBC - On Rocephin will continue for now. B) ? Of HAP ? - Will cover with Vanco + Cefepime - Add Mucomyst for possible mucus plug - Continue Duonebs - Add Steroids. - Lactate is dropping 3) CARDIOVASCULAR ASSESSMENT A) Hypertension - moderate to severe - On BB PRN will schedule with parameters B) Will check EKG due to low Ca and due to severe agitation - R.O MO. - Check 2-D echo - Consult Cardiology (BNP was very high and has Pleural effussion - Alcoholic TANK PUMPER ?) PREVENTION DVT - SCD'S PUD - PPI. - Time spent with patient greater than 35 minutes Sepsis Assessment - Evaluation Sepsis screening result: Sepsis Risk Hospital Course Summary Disclaimer: The visit summary below is not to be considered part of the above Progress Note.
[2017-06-06] MEDS: METHYLPREDNISOLONE SOD SUCC 40mg/ml INJECTION IVP SCH ×2 (10:57→17:09)
[2017-06-06] MEDS: CLINDAMYCIN PB 600 MG/50 ML BAG IV SCH ×3 (11:38→23:10)
[2017-06-06] MEDS: METOPROLOL 5mg/5ml INJECTION IVP SCH ×3 (13:17→23:12)
[2017-06-06] MEDS ORDERED: SUCCINYLCHOLINE 20mg/mL 10mL INJECTION IVP ONE (14:12)
[2017-06-06] MEDS ORDERED: PROPOFOL 200 MG/20 ML INJECTION IVP ONE (14:12)
[2017-06-06] MEDS ORDERED: FentaNYL 100 MCG/2 ML INJECTION IVP ONE (14:12)
[2017-06-06] MEDS ORDERED: SALINE FLUSH 10ml SYRINGE IV ONE (14:12)
--- NOTE | 2017-06-06 14:30 | XRay Report ---
Indication: check et tube placement XR chest 1V: Comparison: 06/05/2017 Technique: Single portable chest Findings: Since previous day patient has been intubated. The endotracheal tube is above the prosper. Patient shows much more extensive patchy infiltrative changes throughout both sides of the chest most prominently in the left base where the patient continues to show an obliterated diaphragm indicating fluid and/or infiltrate/atelectasis. The heart size is similar. Impression: 1. Significant worsening in the appearance of the chest since previous day's examination with patchy infiltrative changes throughout both sides of the chest most prominently in the left base. 2. Endotracheal tube now in place 3 cm above the carinal bifurcation. .
--- NOTE | 2017-06-06 14:50 | CT Scan Report ---
Indication: resp distress CT chest high res: Comparison: Chest radiograph earlier in the day Technique: Patient is scanned from above the thoracic inlet to below the diaphragms. Dose reduction imaging technology is utilized with reformatted sagittal and coronal images. Findings: As on the chest radiograph patient shows extensive patchy infiltrative changes throughout most of the pulmonary segments as well as bilateral pleural effusions more prominently on the left side. No abnormal free air was identified to suggest a tear in the esophagus. Patient does however show extensive patchy infiltrates which could represent widespread pneumonitis. The anterior consolidations would not seem typical for aspiration. Reformatted imaging shows mild degenerative changes in the thoracic spine. Impression: 1. No obvious tear in the esophagus as there is no significant abnormal air collections identified. 2. Patchy infiltrative changes throughout most pulmonary segments with most prominent findings in the lung bases particularly on the left side where combination of sizable pleural effusion and infiltrate or atelectasis is identified. .
[2017-06-06] MEDS ORDERED: DIATRIZOATE MEGLUMINE/SOD. (66%/10%) 120ml SOLN ONE (15:13)
[2017-06-06] MEDS ORDERED: DEXTROSE 50% SYRINGE 50ml (1 AMP) IVP PRN (15:28)
[2017-06-06] MEDS ORDERED: MULTI VIT INFUSION IVP SCH (16:00)
[2017-06-06] MEDS ORDERED: NS IVP SCH (16:00)
[2017-06-06] MEDS ORDERED: THIAMINE IVP SCH (16:00)
[2017-06-06] MEDS ORDERED: FOLIC ACID IVP SCH (16:00)
[2017-06-06] MEDS: ACETYLCYSTEINE AEROSOL SCH ×3 (16:20→23:46)
[2017-06-06] MEDS: MORPHINE SULFATE 4 MG SYRINGE IVP SCH ×3 (18:07→23:00)
[2017-06-06] MEDS ORDERED: FUROSEMIDE 20 MG/2 ML INJECTION IVP ONE (20:51)
[2017-06-06] MEDS ORDERED: CALCIUM GLUCONATE 1,000mg/10ml INJECTION IVP ONE (22:40)
[2017-06-07] MEDS: PROPOFOL 1,000 MG/100 ML VIAL IV PRN ×8 (00:14→21:39)
[2017-06-07] MEDS ORDERED: CALCIUM GLUCONATE 1,000mg/10ml INJECTION IVP ONE (00:48)
[2017-06-07] MEDS: METHYLPREDNISOLONE SOD SUCC 40mg/ml INJECTION IVP SCH ×3 (01:02→17:34)
[2017-06-07] MEDS: MORPHINE SULFATE 4 MG SYRINGE IVP SCH ×5 (01:06→12:39)
[2017-06-07] MEDS: NS 1,000 ML IV SCH (02:28)
[2017-06-07] MEDS: ALBUTEROL/IPRATROPIUM 2.5mg-0.5mg/3ml NEB AEROSOL SCH ×5 (03:30→19:47)
[2017-06-07] MEDS: ACETYLCYSTEINE AEROSOL SCH ×5 (03:30→19:48)
[2017-06-07] MEDS: METOPROLOL 5mg/5ml INJECTION IVP SCH ×4 (04:10→20:46)
[2017-06-07] MEDS: CEFEPIME 1 GM in NS 100 ML IV SCH ×4 (04:15→20:15)
[2017-06-07] MEDS: CLINDAMYCIN PB 600 MG/50 ML BAG IV SCH ×4 (04:50→21:38)
[2017-06-07] MEDS: PANTOPRAZOLE 40 MG INJECTION IVP SCH (09:00)
--- NOTE | 2017-06-07 10:19 | XRay Report ---
EXAM: XR chest 1V LOCATION OF DICTATION: [facility] HISTORY: Intubated: ET tube placement, f/u infiltrate. COMPARISON: One day earlier. FINDINGS: Endotracheal tube in stable position 3.9 cm above the prosper. Nasal enteric catheter extends in the stomach. The heart is mildly enlarged and partially obscured. There are patchy alveolar opacities again noted within the bilateral lungs which is stable to slightly improved from one day earlier and continued follow-up is recommended. There are no pleural effusions. There is no pneumothorax. Osseous structures are stable. Impression: 1. Patchy alveolar opacities within the bilateral lungs is stable to slightly improved from one day earlier. Continued follow up is recommended. 2. Endotracheal tube and nasoenteric catheter are in stable position. 3. Heart size is mildly enlarged. .
--- NOTE | 2017-06-07 10:56 | Progress Note ---
Subjective: F/U: Pancreatitis, Acute Respiratory failure, DT Pt sedated and on vent. Per nursing report, pt becomes very restless/agitated with sedation holiday. RT able to decrease FIO2 to 75% and saturations maintained. Objective Vital signs: Temperature 99.3 F 06/07/17 04:00 Pulse Rate 83 06/07/17 10:09 Respiratory Rate 15 06/07/17 09:26 Blood Pressure 143/80 H 06/07/17 05:45 Pulse Oximetry 70 L 06/07/17 10:09 Oxygen Delivery Method Mechanical Ventilation Fraction of Inspired Oxygen 75 Weight: 117 kg - Routine HEENT Exam Head: Present: normocephalic, atraumatic ENT: Present: mucous membranes moist - Routine Respiratory Exam Present: decreased breath sounds, rhonchi, stridor, diminished air movement - Routine Cardiovascular Exam Present: RRR - Routine Abdominal Exam Present: soft, distended (Mild), drain (NG tube). Absent: normoactive bowel sounds (Minimal Bowel sounds ), rebound - Routine Exam Comments: Moe cath - Routine Extremities Exam Present: edema (+2). Absent: cyanosis, clubbing - Routine Musculoskeletal Exam Musculoskeletal: Present: no clubbing or cyanosis - Routine Skin Exam Present: intact, warm. Absent: mottling - Routine Neurological Exam Pt sedated - Routine Psychiatric Exam Present: unable to assess (Pt sedated. ) Results - Labs CBC & Chem 7: 06/07/17 04:15 06/07/17 04:15 Microbiology Results: Microbiology 06/06/17 11:00 Sputum, Suctioned Gram Stain - Final 06/06/17 11:00 Sputum, Suctioned Sputum Culture - Preliminary Culture Initiated - Results Pending 06/06/17 11:34 Peripheral/Iv Start Blood Culture - Preliminary Culture Initiated - Results Pending 06/06/17 11:34 Peripheral/Iv Start Blood Culture - Preliminary Culture Initiated - Results Pending - ABG Interpretation ABG results: 06/05/17 06/06/17 06/06/17 17:41 04:35 09:25 ABG pH 7.360 7.380 7.460 H ABG pCO2 55 H 53 H 42 ABG pO2 114 H 64 L 133 H ABG HCO3 31 H 31 H 30 H ABG Total CO2 32.8 H 33.0 H 31.2 H ABG O2 Saturation 98.0 92.0 L 99.0 H ABG Base Excess 4.4 H 5.0 H 5.5 H 06/06/17 06/07/17 15:05 09:55 ABG pH 7.450 7.370 ABG pCO2 41 52 H ABG pO2 65 L 82 ABG HCO3 29 H 30 H ABG Total CO2 29.8 H 31.7 H ABG O2 Saturation 93.0 L 96.0 ABG Base Excess 4.1 H 3.7 H Assessment and Plan (1) Pancreatitis Problem details: POA: ETOH induced. Current visit: Yes Status: Acute (2) Acute respiratory failure Current visit: Yes Status: Acute (3) DTs (delirium tremens) Current visit: Yes Status: Acute (4) Alcoholic liver damage Current visit: Yes Status: Acute (5) Hypokalemia Problem details: POA Current visit: Yes Status: Acute (6) Hypomagnesemia Problem details: POA Current visit: Yes Status: Acute (7) Hypophosphatemia Current visit: Yes Status: Acute (8) Hypocalcemia Current visit: Yes Status: Acute (9) Rhabdomyolysis Current visit: Yes Status: Acute (10) ETOHism Current visit: Yes Status: Chronic (11) Tobacco dependence Current visit: Yes Status: Chronic (12) Hypertension Current visit: Yes Status: Chronic (13) Obesity (BMI 30-39.9) Current visit: Yes Status: Chronic DVT Prophylaxis: SCD's GI Prophylaxis: Protonix Resuscitation Status: Full Code Assessment and Plan: Will consult with Dr Renee for Pulm evaluation and to help with ventilator management. Continue IV antibiotics - possible aspiration pneumonia/pneumonitis Continue Sedation - with current decreased pulmonary statue, likely too early to work on weaning sedation. Start TPN for nutritional support. Will stop IVF when TPN ready. Continue to monitor lab due to pt's severity of illness. Patient remains critically ill, ICU care warranted. Discussed with CM, nursing, and pt's significant other. Time spent with patient care greater than 35 minutes. High risk medication involved: Propofol for sedation. - Time spent with patient greater than 35 minutes Sepsis Assessment - Evaluation Sepsis screening result: Severe Sepsis Risk Hospital Course Summary Disclaimer: The visit summary below is not to be considered part of the above Progress Note. Hospital Course: 06/04/17 1) Alcohol use and abuse with ongoing pancreatitis, this could be related to ETOH, or due to gallstones (U/S could not see distal CBD - bilirrubin high) or both. - Check Abd/Pelvic CT with IV contrast re: Extent of pancreatic swelling ? abscess ? hemorrhage ? also Pyelonephritis ? - Check MRCP - pt could be obstructed since Bilirrubin is high. Pt states he noticed his skin is yellow. - Aggressive hydration with NS 500cc/hr x 6 hrs then reasses 2) UTI - very high lactate - high WBC - On Rocephin will continue for now. 3) Hypokalemia/Hypomagenesemia - Will give Mg + K 4) Lactic acidosis - due to ? sepsis ? hypoperfusion ? - Will recheck later today. 5) Elevated hemoglobin - Will follow serially. 06/05/17 1) ALCOHOL ABUSE WITH A) SEVERE AGITATION/CONFUSION ? OF HALLUCINATIONS MOST LIKELY DUE TO ALCOHOL WITHDRAWALS - On Propofol drip - Tachycardic - Will also give Ativan IV CO. - Check CPK (R/O Rhabdo due to agitation) - Aggressive hydration and electrolyte replenishment. B) Pancreatitis most likely related to ETOH MRCP Impression: 1. No cholelithiasis or intrahepatic bile duct dilatation. Evaluation of the extrahepatic common duct is poor due to motion artifact and patient body habitus. No obvious common duct stone. 2. Enlargement of the pancreatic head which could be due to inflammation from pancreatitis or potentially neoplasm. Recommend further evaluation with a contrast-enhanced CT of the abdomen. - Lipase coming down - Check CA 19-9 prior to D/C and follow closely his pancreatic anatomy by CT/ MRI. 06/06/17 1) PULMONARY ASSESMENT A) Pt has developed ALI/ARDS - ABG on FIO2 of 80% showed PaO2 of 133 with CO2 of 42 - huge a-A gradient that has increased since yesterday. - Pt was intubated successfully by ED MD - Saturations are 91 on 100% FIO2. ET tube appears to be well positioned. - Pt requires high PEEP. - Could be related to pancreatitis, or PNA - Pt has a L sided effussion - could be related to pancreatitis. Must R/O Boherhave's syndrome will try a CT chest with gastrograffin injection in the mid esophagus. - Start coverage for HAP - Vanco + cefepime + steroids - Add Mucomyst for possible mucus plugg. - Case discussed with his NOK - significant other, she consented for intubation. - Reculture blood & sputum B) Obstructive Sleep Apnea (New Dx) - Was on CPAP - now intubated. 2) ALCOHOL ABUSE WITH MULTIPLE COMPLICATIONS - A) SEVERE AGITATION/CONFUSION ? OF HALLUCINATIONS MOST LIKELY DUE TO ALCOHOL WITHDRAWALS - On propofol since yesterday. - On Propofol drip - Continue. - Tachycardic/hypertensive - CPK - 1261 Yesterday - C/W rhadbomyolisis - will rehceck - Aggressive hydration and electrolyte replenishment. B) Pancreatitis most likely related to ETOH - Lipase coming down - Check CA 19-9 prior to D/C and follow closely his pancreatic anatomy by CT/MRI. - Add Banana bags - C) Hypokalemia on admission - K is high today. - Stop NS with K - Recheck later. D) Hypomagnesemia - now improved. E) Severe hypophosphatemia - Risk of hemolysis - CHF & could be causing low Platelets. - PO4 is under 1 - Spoke with Pharm Jasmine De Souza - Will give 90 Mmol of Na Phosphate F) Dehydration - Appears improved now, will hold off on aggressive hydration will place on Banana bag @ 50ml/hr x 3 Liters. G) Rhabdomyolisis - cuuld be due to his severe agitation. - Recheck CPK now. 3) INFECTIOUS DISEASE ASSESMENT A) UTI - very high lactate - high WBC - On Rocephin will continue for now. B) ? Of HAP ? - Will cover with Vanco + Cefepime - Add Mucomyst for possible mucus plug - Continue Duonebs - Add Steroids. - Lactate is dropping 3) CARDIOVASCULAR ASSESSMENT A) Hypertension - moderate to severe - On BB PRN will schedule with parameters B) Will check EKG due to low Ca and due to severe agitation - R.O LA. - Check 2-D echo - Consult Cardiology (BNP was very high and has Pleural effussion - Alcoholic [employer] ?) PREVENTION DVT - SCD'S PUD - PPI. 06/07/[address] Renee for Pulm evaluation and to help with ventilator management. Continue IV antibiotics - possible aspiration pneumonia/pneumonitis Continue Sedation - with current decreased pulmonary statue, likely too early to work on weaning sedation. Start TPN for nutritional support. Will stop IVF when TPN ready. Continue to monitor lab due to pt's severity of illness. Patient remains critically ill, ICU care warranted.
[2017-06-07] MEDS: INSULIN ASPART 100unit/ml INJECTION SQ PRN ×2 (11:33→18:29)
--- NOTE | 2017-06-07 11:41 | Pharmacy Consult-TPN/PPN ---
Pharmacy Consult-TPN/PPN - Laboratory Information Chemistry Turbidity < 20 (0-20) 06/07/17 04:15 Sodium 149 MEQ/L (134-144) H 06/07/17 04:15 Potassium 3.6 MEQ/L (3.6-5) 06/07/17 04:15 Chloride 110 MEQ/L (98-107) H 06/07/17 04:15 Carbon Dioxide 30 MEQ/L (22-30) 06/07/17 04:15 Anion Gap 9 MEQ/L (5-15) 06/07/17 04:15 BUN 16.0 MG/DL (9-20) 06/07/17 04:15 Creatinine 0.7 MG/DL (0.8-1.5) L 06/07/17 04:15 GFR Calculation 128 06/07/17 04:15 BUN/Creatinine Ratio 23 RATIO (6-26) 06/07/17 04:15 Glucose 154 MG/DL (75-110) H 06/07/17 04:15 Glucometer 80 mg/dL (65-110) 06/04/17 18:27 Calculated Osmolality 290 MOSM/KG (261-280) H 06/07/17 04:15 Calcium 6.9 MG/DL (8.4-10.2) L D 06/07/17 04:15 Phosphorus 2.4 MG/DL (2.5-4.5) L 06/07/17 04:15 Magnesium 2.3 MG/DL (1.6-2.3) 06/07/17 04:15 Total Bilirubin 2.20 MG/DL (0.20-1.30) H 06/07/17 04:15 Conjugated Bilirubin 0.40 MG/DL (0.00-0.30) H 06/06/17 22:04 Unconjugated Bilirubin 0.20 MG/DL (0.00-11.10) 06/06/17 22:04 Icterus Index < 2 (0-7) 06/07/17 04:15 AST 145 U/L (17-59) H 06/07/17 04:15 ALT 63 U/L (21-72) 06/07/17 04:15 Alkaline Phosphatase 87 U/L (38-126) D 06/07/17 04:15 Creatine Kinase 603 U/L (55-170) H 06/07/17 04:15 Troponin I 0.018 ng/ml (0-0.12) 06/06/17 08:49 B-Natriuretic Peptide 266 pg/mL (0-175) H 06/07/17 04:15 Total Protein 5.4 G/DL (6.3-8.2) L 06/07/17 04:15 Albumin 2.8 G/DL (3.5-5.0) L 06/07/17 04:15 Globulin 2.6 G/DL (2.4-3.6) 06/07/17 04:15 Albumin/Globulin Ratio 1.1 RATIO (1.1-2.2) 06/07/17 04:15 Lipase 51 U/L (23-300) 06/07/17 04:15 Plasma Lactate 0.8 MMOL/L (0.6-2.2) 06/06/17 20:35 Specimen Hemolysis < 15 (0-25) 06/07/17 04:15 Intake and Output 06/06/17 06/07/17 06/08/17 06:59 06:59 06:59 Intake Total 5301.523 / 5301.523 4260.678 / 4260.678 196.72 / 196.72 Output Total 918 / 918 2640 / 2640 494 / 494 Balance 4383.523 / 4383.523 1620.678 / 1620.678 -297.28 / -297.28 Weight 115 kg 121.5 kg 117 kg Intake: IV 5301.523 / 5301.523 4260.678 / 4260.678 196.72 / 196.72 Maxipime 1 gm In Normal 400 / 400 Saline 100 ml @ 200 mls/ hr IV Q6HR [facility] Rx#: [id number] Rocephin 1 G In Normal 200 / 200 Saline 100 ml @ 200 mls/ hr IV Q12H [facility] Rx#: [id number] CLEOCIN PREMIX 600 mg In 150 / 150 50 ml @ 100 mls/hr IV Q6H [facility] Rx#:[id number] Normal Saline 1,000 ml @ 1131.667 / 1131.667 100 mls/hr IV .Q10H [facility] Rx#:[id number] KCl 40 Meq In Normal 3580.000 / 3580.000 346.667 / 346.667 Saline 1,000 ml @ 100 mls /hr IV .[id number] [facility] Rx#: [id number] K Phos Inj 30 Mmol In 164.667 / 164.667 Normal Saline 250 ml @ 65 mls/hr [facility] Rx#: [id number] DIPRIVAN 1,000 mg In 100 356.856 / 356.856 379.844 / 379.844 196.72 / 196.72 ml @ 5 MCG/KG/MIN 3.453 mls/hr IV .Q24H [facility] Rx#: [id number] Sodium Phosphate 90 Mmol 280 / 280 In Normal Saline 250 ml @ 125 mls/hr [facility] Rx#: [id number] Vancocin 2,000 mg In 1500 / 1500 Normal Saline 500 ml @ 250 mls/hr IV Q8HR [facility] Rx #:[id number] Folate 1 mg Vitamin B-1 72.500 / 72.500 300 mg Infuvite Adult 10 ml In Normal Saline 1,000 ml @ 50 mls/hr IVP 1600 [facility] Rx#:[id number] Output: Urine Amount (Catheter) 918 / 918 2640 / 2640 244 / 244 Gastric Drainage 250 / 250 Oral 250 / 250 - Consult Information We will begin this patient on standard TPN with additional 250mL of water for injection and 40mEq of KCl. Osmolality of 290 was noted with sodium of 149 and Cl of 110. 100mL of fat emulsion to be given over 2 hours daily at 1600. Ordered rate of 75mL per hour to begin with. Thanks.
[2017-06-07] MEDS ORDERED: MULTI VIT INFUSION IV SCH (14:01)
[2017-06-07] MEDS ORDERED: WATER FOR INJECTION IV SCH (14:01)
[2017-06-07] MEDS ORDERED: MULTI TRACE ELEMENTS IV SCH (14:01)
[2017-06-07] MEDS ORDERED: [UNRECOGNIZED DRUG - OTHER] IV SCH (14:01)
--- NOTE | 2017-06-07 14:59 | Pharmacy Consult-Antibiotics ---
Pharmacy Consult-Vancomycin - Laboratory Information WBC 5.0 T/MM3 (4.5-11.0) 06/07/17 04:15 BUN 16.0 MG/DL (9-20) 06/07/17 04:15 Creatinine 0.7 MG/DL (0.8-1.5) L 06/07/17 04:15 Vancomycin Trough 16.10 UG/ML (15-20) 06/07/17 08:34 - Consult Information VANCOMYCIN CONSULT: Vancomycin Trough = 16.1 mcg/ml. Today's SCr = 0.7 mg/dl. Will continue to give Vancomycin 2,000 mg IV q8hrs. Will continue to monitor and make adjustments accordingly. Thank you.
[2017-06-07] MEDS: SALINE FLUSH 10ml SYRINGE IVF PRN (15:57)
[2017-06-07] MEDS: FAT EMULSION 20% 100 ML IV SCH (17:30)
[2017-06-08] MEDS: INSULIN ASPART 100unit/ml INJECTION SQ PRN ×6 (00:10→19:27)
[2017-06-08] MEDS: METHYLPREDNISOLONE SOD SUCC 40mg/ml INJECTION IVP SCH ×3 (00:13→17:19)
[2017-06-08] MEDS: ACETYLCYSTEINE AEROSOL SCH ×5 (00:26→15:19)
[2017-06-08] MEDS: ALBUTEROL/IPRATROPIUM 2.5mg-0.5mg/3ml NEB AEROSOL SCH ×7 (00:26→23:19)
[2017-06-08] MEDS: MORPHINE SULFATE 4 MG SYRINGE IVP PRN (00:38)
[2017-06-08] MEDS: PROPOFOL 1,000 MG/100 ML VIAL IV PRN ×10 (00:39→20:10)
[2017-06-08] MEDS: CEFEPIME 1 GM in NS 100 ML IV SCH ×3 (02:38→15:17)
[2017-06-08] MEDS: METOPROLOL 5mg/5ml INJECTION IVP SCH ×4 (02:41→21:18)
[2017-06-08] MEDS: CLINDAMYCIN PB 600 MG/50 ML BAG IV SCH ×3 (03:23→15:44)
[2017-06-08] MEDS: ALBUTEROL/IPRATROPIUM 2.5mg-0.5mg/3ml NEB AEROSOL PRN (08:18)
[2017-06-08] MEDS: PANTOPRAZOLE 40 MG INJECTION IVP SCH (08:26)
--- NOTE | 2017-06-08 08:27 | Pulmonology Consult Note ---
History of Present Illness Consult date: 06/08/17 Requesting physician: Luis Forman Reason for consult: other (respiratory failure) History of present illness: 36yo man with PMH of HTN, obesity and alcoholism presented to the ER for N/V and colicky abdominal pain. Pt had similar sx when he presented to this ER 3 months ago. At that time he was noted to have LE cellulitis b/l and sequelae of alcoholism (electrolyte disturbances, hepatitis, etc). Pt has followed up with his PCM and has been dx'ed/treated for HTN. Tonight, pt has crampy, colicky abd pain that makes catching his breath difficult. He reports nausea and vomiting. Reports is has been dark colored fluid. He reports continued drinking. He denies HX of pancreatitis in the past. He was found to have severe pancreatitis in the ED, RUQ US was negative for gallstone obstruction. He was admitted for further evaluation and treatment. I was asked to consult regarding his respiratory failure and vent management. The patient is unable to provide history due to his medical condition. His is at the bedside and I discussed the case with her. [facility] Patient Stated Medical History Hypertension Yes Pneumonia Yes Gastroesophageal Reflux Yes Disease Substance Use Disorder Yes: PAST, PT DENIES NOW Medical History Updates: HTN - Social History Smoking status: Current every day smoker. Drinks heavily. Unemployed. Review of Systems ROS unobtainable: due to endotracheal tube [facility] Patient Stated Medical History Hypertension Yes Pneumonia Yes Gastroesophageal Reflux Yes Disease Hx Renal Disease No Substance Use Disorder Yes: PAST, PT DENIES NOW HTN Medical History Updates: HTN - Social History Smoking status: Current every day smoker Medications Home Medications Medication Instructions Recorded Confirmed Type Potassium Chloride 20 meq PO BID 06/04/17 06/04/17 History Allergies Allergy/AdvReac Type Severity Reaction Status Date / Time No Known Drug Allergies Allergy Unknown NONE Verified 06/04/17 00:05 Exam Vital signs: Temperature 98.1 F 06/07/17 23:00 Pulse Rate 66 06/08/17 06:00 Respiratory Rate 16 06/08/17 06:00 Blood Pressure 160/106 H 06/08/17 06:00 Pulse Oximetry 95 06/08/17 06:00 Oxygen Delivery Method Mechanical Ventilation Fraction of Inspired Oxygen 70 - Constitutional Comments: intubated with 7.5 ETT at 25 cm at the lip. No obvious cuff leak. ON PC Vent, IP 12, Peep 12, VTe approx 500 ML. FiO2 70%. rate 15. Ve 8.8 L/min. ABG reviewed and acceptable. - Routine HEENT Exam Head: Present: normocephalic, atraumatic Eye: Present: PERRL ENT: Present: mucous membranes moist - Routine Neck Exam Present: supple, full ROM - Routine Chest/Breast/Axilla Exam Chest wall: Absent: tenderness Breast: Absent: mass, swelling - Routine Respiratory Exam Present: patient mechanically ventilated, rhonchi. Absent: accessory muscle use - Routine Cardiovascular Exam Present: RRR, S1, S2. Absent: murmur - Routine Abdominal Exam Present: distended - Routine Skin Exam Present: intact, dry. Absent: cyanosis - Routine Neurological Exam Present: altered mental status. Absent: motor deficit sedated on propofol - Routine Psychiatric Exam Present: unable to assess Results - Laboratory Findings CBC and BMP: 06/08/17 04:22 06/08/17 04:22 ABG ABG pH 7.391 (7.350-7.450) 06/08/17 07:50 ABG pCO2 50 MMHG (34-45) H 06/08/17 07:50 ABG pO2 98 MMHG (80-100) 06/08/17 07:50 ABG O2 Saturation 97.0 % (95.0-98.0) 06/08/17 07:50 PT/INR, D-dimer D-Dimer 2258 NG/ML (0-230) H 06/05/17 18:11 Abnormal lab findings: Abnormal Labs 06/04/17 06/04/17 06/04/17 04:17 04:17 04:17 WBC RBC Hgb Hct MCV MCH MCHC RDW Std Deviation Plt Count Immature Gran % (Auto) Neut % (Auto) Lymph % (Auto) [place] % (Auto) Lymph # Abs Immat Gran (auto) Neutrophils % (Manual) Band Neutrophils % Lymphocytes % (Manual) Metamyelocytes % Neutrophils # (Manual) Lymphocytes # (Manual) D-Dimer ABG pH ABG pCO2 ABG pO2 ABG HCO3 ABG Total CO2 ABG O2 Saturation ABG Base Excess Turbidity Sodium Potassium 2.5 L* Chloride 88 L Carbon Dioxide Anion Gap 19 H BUN 7.0 L Creatinine BUN/Creatinine Ratio Glucose 129 H Calculated Osmolality 258 L Calcium Phosphorus Magnesium 0.7 L Total Bilirubin 3.90 H Conjugated Bilirubin AST 119 H Creatine Kinase B-Natriuretic Peptide Total Protein 6.1 L Albumin Albumin/Globulin Ratio Triglycerides Cholesterol VLDL Cholesterol HDL Cholesterol Lipase Plasma Lactate 7.7 H* Specimen Hemolysis 06/04/17 06/04/17 06/04/17 11:05 15:08 18:29 WBC 12.1 H RBC 4.14 L Hgb Hct MCV 108.9 H MCH 41.8 H MCHC 38.4 H RDW Std Deviation 52.5 H Plt Count 77 L D Immature Gran % (Auto) Neut % (Auto) Lymph % (Auto) [place] % (Auto) Lymph # Abs Immat Gran (auto) Neutrophils % (Manual) Band Neutrophils % 31.0 H D Lymphocytes % (Manual) 1.0 L Metamyelocytes % 2.0 H Neutrophils # (Manual) 8.0 H Lymphocytes # (Manual) 0.1 L D-Dimer ABG pH ABG pCO2 ABG pO2 ABG HCO3 ABG Total CO2 ABG O2 Saturation ABG Base Excess Turbidity Sodium Potassium 2.9 L* Chloride 91 L Carbon Dioxide Anion Gap 17 H BUN 8.0 L Creatinine BUN/Creatinine Ratio Glucose Calculated Osmolality 256 L Calcium 8.3 L Phosphorus Magnesium 0.7 L Total Bilirubin Conjugated Bilirubin AST Creatine Kinase B-Natriuretic Peptide Total Protein Albumin Albumin/Globulin Ratio Triglycerides Cholesterol VLDL Cholesterol HDL Cholesterol Lipase Plasma Lactate 8.5 H* 8.7 H* Specimen Hemolysis 06/04/17 06/05/17 06/05/17 18:29 04:14 04:14 WBC RBC 3.59 L Hgb Hct MCV 114.2 H MCH 40.4 H MCHC RDW Std Deviation 54.3 H Plt Count 86 L Immature Gran % (Auto) Neut % (Auto) Lymph % (Auto) [place] % (Auto) Lymph # Abs Immat Gran (auto) Neutrophils % (Manual) 80.0 H Band Neutrophils % 16.0 H D Lymphocytes % (Manual) 2.0 L Metamyelocytes % Neutrophils # (Manual) 8.0 H Lymphocytes # (Manual) 0.2 L D-Dimer ABG pH ABG pCO2 ABG pO2 ABG HCO3 ABG Total CO2 ABG O2 Saturation ABG Base Excess Turbidity Sodium Potassium 2.9 L* D Chloride 95 L 97 L Carbon Dioxide Anion Gap 17 H BUN 8.0 L 8.0 L Creatinine BUN/Creatinine Ratio Glucose Calculated Osmolality 260 L Calcium 7.8 L 7.1 L D Phosphorus 1.4 L Magnesium Total Bilirubin 4.10 H 2.70 H Conjugated Bilirubin AST 148 H 124 H Creatine Kinase B-Natriuretic Peptide Total Protein 6.2 L 5.5 L Albumin 3.0 L Albumin/Globulin Ratio Triglycerides Cholesterol VLDL Cholesterol HDL Cholesterol Lipase 617 H Plasma Lactate Specimen Hemolysis 74 H 06/05/17 06/05/17 06/05/17 14:23 14:23 14:23 WBC RBC Hgb Hct MCV MCH MCHC RDW Std Deviation Plt Count Immature Gran % (Auto) Neut % (Auto) Lymph % (Auto) [place] % (Auto) Lymph # Abs Immat Gran (auto) Neutrophils % (Manual) Band Neutrophils % Lymphocytes % (Manual) Metamyelocytes % Neutrophils # (Manual) Lymphocytes # (Manual) D-Dimer ABG pH ABG pCO2 ABG pO2 ABG HCO3 ABG Total CO2 ABG O2 Saturation ABG Base Excess Turbidity Sodium Potassium 3.1 L Chloride Carbon Dioxide Anion Gap BUN Creatinine BUN/Creatinine Ratio Glucose Calculated Osmolality Calcium 7.0 L Phosphorus Magnesium Total Bilirubin Conjugated Bilirubin AST Creatine Kinase 1261 H B-Natriuretic Peptide Total Protein Albumin Albumin/Globulin Ratio Triglycerides 216 H Cholesterol < 50 L VLDL Cholesterol 43.2 H HDL Cholesterol 13 L Lipase Plasma Lactate Specimen Hemolysis 06/05/17 06/05/17 06/05/17 14:23 17:41 18:11 WBC RBC Hgb Hct MCV MCH MCHC RDW Std Deviation Plt Count Immature Gran % (Auto) Neut % (Auto) Lymph % (Auto) [place] % (Auto) Lymph # Abs Immat Gran (auto) Neutrophils % (Manual) Band Neutrophils % Lymphocytes % (Manual) Metamyelocytes % Neutrophils # (Manual) Lymphocytes # (Manual) D-Dimer 2258 H ABG pH ABG pCO2 55 H ABG pO2 114 H ABG HCO3 31 H ABG Total CO2 32.8 H ABG O2 Saturation ABG Base Excess 4.4 H Turbidity Sodium Potassium Chloride Carbon Dioxide Anion Gap BUN Creatinine BUN/Creatinine Ratio Glucose Calculated Osmolality Calcium Phosphorus Magnesium Total Bilirubin Conjugated Bilirubin AST Creatine Kinase B-Natriuretic Peptide Total Protein Albumin Albumin/Globulin Ratio Triglycerides Cholesterol VLDL Cholesterol HDL Cholesterol Lipase Plasma Lactate 2.3 H Specimen Hemolysis 06/06/17 06/06/17 06/06/17 04:35 08:49 08:49 WBC RBC 2.71 L Hgb 11.9 L D Hct 32.5 L D MCV 119.9 H MCH 43.9 H MCHC RDW Std Deviation 59.7 H Plt Count 68 L Immature Gran % (Auto) Neut % (Auto) Lymph % (Auto) [place] % (Auto) Lymph # Abs Immat Gran (auto) Neutrophils % (Manual) 87.0 H Band Neutrophils % Lymphocytes % (Manual) 6.0 L Metamyelocytes % Neutrophils # (Manual) Lymphocytes # (Manual) 0.4 L D-Dimer ABG pH ABG pCO2 53 H ABG pO2 64 L ABG HCO3 31 H ABG Total CO2 33.0 H ABG O2 Saturation 92.0 L ABG Base Excess 5.0 H Turbidity Sodium Potassium Chloride Carbon Dioxide Anion Gap BUN Creatinine BUN/Creatinine Ratio Glucose Calculated Osmolality Calcium Phosphorus Magnesium Total Bilirubin Conjugated Bilirubin AST Creatine Kinase 991 H B-Natriuretic Peptide Total Protein Albumin Albumin/Globulin Ratio Triglycerides Cholesterol VLDL Cholesterol HDL Cholesterol Lipase Plasma Lactate Specimen Hemolysis 126 H 06/06/17 06/06/17 06/06/17 08:50 09:25 14:54 WBC RBC 2.98 L Hgb 12.3 L Hct 35.4 L MCV 118.8 H MCH 41.3 H MCHC RDW Std Deviation 58.1 H Plt Count 68 L Immature Gran % (Auto) Neut % (Auto) Lymph % (Auto) [place] % (Auto) Lymph # Abs Immat Gran (auto) Neutrophils % (Manual) Band Neutrophils % 28.0 H D Lymphocytes % (Manual) Metamyelocytes % 1.0 H Neutrophils # (Manual) Lymphocytes # (Manual) D-Dimer ABG pH 7.460 H ABG pCO2 ABG pO2 133 H ABG HCO3 30 H ABG Total CO2 31.2 H ABG O2 Saturation 99.0 H ABG Base Excess 5.5 H Turbidity Sodium 133 L D Potassium 5.7 H D Chloride Carbon Dioxide Anion Gap BUN Creatinine 0.5 L D BUN/Creatinine Ratio Glucose Calculated Osmolality 256 L Calcium 5.7 L* D Phosphorus 0.8 L Magnesium Total Bilirubin 1.80 H Conjugated Bilirubin AST 116 H Creatine Kinase B-Natriuretic Peptide Total Protein 5.0 L Albumin 2.4 L Albumin/Globulin Ratio 0.9 L Triglycerides Cholesterol VLDL Cholesterol HDL Cholesterol Lipase Plasma Lactate Specimen Hemolysis 06/06/17 06/06/17 06/06/17 14:54 15:05 22:04 WBC RBC 2.64 L Hgb 11.2 L Hct 31.7 L MCV 120.1 H MCH 42.4 H MCHC RDW Std Deviation 59.8 H Plt Count 65 L Immature Gran % (Auto) Neut % (Auto) 85.0 H Lymph % (Auto) 6.8 L [place] % (Auto) Lymph # 0.3 L Abs Immat Gran (auto) Neutrophils % (Manual) Band Neutrophils % Lymphocytes % (Manual) Metamyelocytes % Neutrophils # (Manual) Lymphocytes # (Manual) D-Dimer ABG pH ABG pCO2 ABG pO2 65 L ABG HCO3 29 H ABG Total CO2 29.8 H ABG O2 Saturation 93.0 L ABG Base Excess 4.1 H Turbidity Sodium 147 H D Potassium 3.3 L D Chloride 108 H Carbon Dioxide Anion Gap BUN Creatinine 0.7 L D BUN/Creatinine Ratio Glucose 128 H Calculated Osmolality 285 H Calcium 6.7 L D Phosphorus Magnesium Total Bilirubin 2.50 H Conjugated Bilirubin AST 154 H Creatine Kinase B-Natriuretic Peptide Total Protein 5.3 L Albumin 2.8 L Albumin/Globulin Ratio Triglycerides Cholesterol VLDL Cholesterol HDL Cholesterol Lipase Plasma Lactate Specimen Hemolysis 06/06/17 06/06/17 06/07/17 22:04 22:04 04:15 WBC RBC 2.81 L Hgb 11.5 L Hct 33.9 L MCV 120.6 H MCH 40.9 H MCHC RDW Std Deviation 60.8 H Plt Count 69 L Immature Gran % (Auto) Neut % (Auto) 81.4 H Lymph % (Auto) 8.3 L [place] % (Auto) 9.7 H Lymph # 0.4 L Abs Immat Gran (auto) Neutrophils % (Manual) Band Neutrophils % Lymphocytes % (Manual) Metamyelocytes % Neutrophils # (Manual) Lymphocytes # (Manual) D-Dimer ABG pH ABG pCO2 ABG pO2 ABG HCO3 ABG Total CO2 ABG O2 Saturation ABG Base Excess Turbidity 74 H Sodium 145 H Potassium 3.4 L Chloride 109 H Carbon Dioxide Anion Gap BUN Creatinine 0.6 L BUN/Creatinine Ratio Glucose 121 H Calculated Osmolality 281 H Calcium 5.6 L* D Phosphorus 2.3 L Magnesium Total Bilirubin 2.00 H Conjugated Bilirubin 0.40 H AST 140 H Creatine Kinase B-Natriuretic Peptide Total Protein 5.0 L Albumin 2.5 L Albumin/Globulin Ratio 1.0 L Triglycerides Cholesterol VLDL Cholesterol HDL Cholesterol Lipase Plasma Lactate Specimen Hemolysis 59 H 06/07/17 06/07/17 06/08/17 04:15 09:55 04:22 WBC RBC Hgb Hct MCV MCH MCHC RDW Std Deviation Plt Count Immature Gran % (Auto) Neut % (Auto) Lymph % (Auto) [place] % (Auto) Lymph # Abs Immat Gran (auto) Neutrophils % (Manual) Band Neutrophils % Lymphocytes % (Manual) Metamyelocytes % Neutrophils # (Manual) Lymphocytes # (Manual) D-Dimer ABG pH ABG pCO2 52 H ABG pO2 ABG HCO3 30 H ABG Total CO2 31.7 H ABG O2 Saturation ABG Base Excess 3.7 H Turbidity Sodium 149 H 149 H Potassium Chloride 110 H 111 H Carbon Dioxide 31 H Anion Gap BUN Creatinine 0.7 L 0.7 L BUN/Creatinine Ratio 29 H Glucose 154 H 373 H Calculated Osmolality 290 H 304 H Calcium 6.9 L D 7.2 L Phosphorus 2.4 L 1.5 L Magnesium 2.7 H Total Bilirubin 2.20 H 1.80 H Conjugated Bilirubin AST 145 H 103 H Creatine Kinase 603 H B-Natriuretic Peptide 266 H Total Protein 5.4 L 5.6 L Albumin 2.8 L 3.0 L Albumin/Globulin Ratio Triglycerides Cholesterol VLDL Cholesterol HDL Cholesterol Lipase Plasma Lactate Specimen Hemolysis 06/08/17 06/08/17 04:22 07:50 WBC 4.0 L RBC 2.87 L Hgb 11.8 L Hct 34.9 L MCV 121.6 H MCH 41.1 H MCHC RDW Std Deviation 60.2 H Plt Count 79 L Immature Gran % (Auto) 1.0 H Neut % (Auto) 71.0 H Lymph % (Auto) 10.7 L [place] % (Auto) 17.1 H Lymph # 0.4 L Abs Immat Gran (auto) 0.04 H Neutrophils % (Manual) Band Neutrophils % Lymphocytes % (Manual) Metamyelocytes % Neutrophils # (Manual) Lymphocytes # (Manual) D-Dimer ABG pH ABG pCO2 50 H ABG pO2 ABG HCO3 31 H ABG Total CO2 32 H ABG O2 Saturation ABG Base Excess 5.0 H Turbidity Sodium Potassium Chloride Carbon Dioxide Anion Gap BUN Creatinine BUN/Creatinine Ratio Glucose Calculated Osmolality Calcium Phosphorus Magnesium Total Bilirubin Conjugated Bilirubin AST Creatine Kinase B-Natriuretic Peptide Total Protein Albumin Albumin/Globulin Ratio Triglycerides Cholesterol VLDL Cholesterol HDL Cholesterol Lipase Plasma Lactate Specimen Hemolysis - Diagnostic Findings Chest x-ray: report reviewed, image reviewed Assessment and Plan (1) Acute respiratory failure with hypoxia Current visit: Yes Status: Acute continue mechanical ventilation with ac/pc. Wean Fio2 and Peep as tolerated. I suspect he will require a rather prolonged course of vent support. ARDS common in the setting of pancreatitis. Also watch for signs/symptoms of pneumonia which would complicate his case. Maintain normal fluid status and avoid fluid overload. may benefit from low dose steroids (from a pulm viewpoint ) and will add if he is not improving. (2) Pancreatitis Problem details: POA: ETOH induced. Current visit: Yes Status: Acute on TPN. Monitor e lytes and fluid status. may benefit from diuresis as BP is very elevated. (3) Hypertension Current visit: Yes Status: Chronic uncontrolled at this time. diuretics may be beneficial in addition to other antihyperensives. Avoid ACEi/ARB at this time (4) DTs (delirium tremens) Current visit: Yes Status: Acute recommend thiamine/folate, propofol for sedation. Monitor electrolytes and triglycerides. This problem will greatly complicate his recovery - Attestation Attestation Narrative: 06/08/17 08:48 I was present at the bedside managing his critical care issues from 814 until 08. 35 min CC time was spent with this patient
[2017-06-08] MEDS: NS 1,000 ML IV SCH (08:40)
[2017-06-08] MEDS ORDERED: INSULIN GLARGINE 100unit/ml INJECTION SQ ONE (09:20)
--- NOTE | 2017-06-08 09:20 | XRay Report ---
Indication: F/U XR chest 1V: Comparison: 06/07/2017 Technique: Single portable semiupright chest Findings: Patient continues to show patchy bilateral pulmonary infiltrates which persist greater on the left side. No marked change in the heart size or pulmonary appearance is identified. Patient shows an endotracheal tube in place just above the prosper. NG tube traverses the thorax. Impression: Continued extensive patchy bilateral pulmonary infiltrates persisting more pronounced to the left side as has been noted on prior studies. .
--- NOTE | 2017-06-08 11:32 | Pharmacy Consult-TPN/PPN ---
Pharmacy Consult-TPN/PPN - Laboratory Information Chemistry Turbidity < 20 (0-20) 06/08/17 04:22 Sodium 149 MEQ/L (134-144) H 06/08/17 04:22 Potassium 4.3 MEQ/L (3.6-5) D 06/08/17 04:22 Chloride 111 MEQ/L (98-107) H 06/08/17 04:22 Carbon Dioxide 31 MEQ/L (22-30) H 06/08/17 04:22 Anion Gap 7 MEQ/L (5-15) 06/08/17 04:22 BUN 20.0 MG/DL (9-20) 06/08/17 04:22 Creatinine 0.7 MG/DL (0.8-1.5) L 06/08/17 04:22 GFR Calculation 128 06/08/17 04:22 BUN/Creatinine Ratio 29 RATIO (6-26) H 06/08/17 04:22 Glucose 373 MG/DL (75-110) H 06/08/17 04:22 Glucometer 80 mg/dL (65-110) 06/04/17 18:27 Calculated Osmolality 304 MOSM/KG (261-280) H 06/08/17 04:22 Calcium 7.2 MG/DL (8.4-10.2) L 06/08/17 04:22 Phosphorus 1.5 MG/DL (2.5-4.5) L 06/08/17 04:22 Magnesium 2.7 MG/DL (1.6-2.3) H 06/08/17 04:22 Total Bilirubin 1.80 MG/DL (0.20-1.30) H 06/08/17 04:22 Conjugated Bilirubin 0.40 MG/DL (0.00-0.30) H 06/06/17 22:04 Unconjugated Bilirubin 0.20 MG/DL (0.00-11.10) 06/06/17 22:04 Icterus Index < 2 (0-7) 06/08/17 04:22 AST 103 U/L (17-59) H 06/08/17 04:22 ALT 66 U/L (21-72) 06/08/17 04:22 Alkaline Phosphatase 102 U/L (38-126) 06/08/17 04:22 Creatine Kinase 603 U/L (55-170) H 06/07/17 04:15 Troponin I 0.018 ng/ml (0-0.12) 06/06/17 08:49 B-Natriuretic Peptide 266 pg/mL (0-175) H 06/07/17 04:15 Total Protein 5.6 G/DL (6.3-8.2) L 06/08/17 04:22 Albumin 3.0 G/DL (3.5-5.0) L 06/08/17 04:22 Globulin 2.6 G/DL (2.4-3.6) 06/08/17 04:22 Albumin/Globulin Ratio 1.2 RATIO (1.1-2.2) 06/08/17 04:22 Triglycerides 216 MG/DL (40-160) H 06/05/17 14:23 Cholesterol < 50 MG/DL (132-199) L 06/05/17 14:23 LDL Cholesterol, Calc TNP 06/05/17 14:23 VLDL Cholesterol 43.2 MG/DL (0-28) H 06/05/17 14:23 HDL Cholesterol 13 MG/DL (40-60) L 06/05/17 14:23 Cholesterol/HDL Ratio TNP 06/05/17 14:23 Lipase 51 U/L (23-300) 06/07/17 04:15 Plasma Lactate 0.8 MMOL/L (0.6-2.2) 06/06/17 20:35 Specimen Hemolysis < 15 (0-25) 06/08/17 04:22 Intake and Output 06/07/17 06/08/17 06/09/17 06:59 06:59 06:59 Intake Total 4260.678 / 4260.678 5055.229 / 5055.229 243.567 / 243.567 Output Total 2640 / 2640 2429 / 2429 842 / 842 Balance 1620.678 / 5874.286 3796.229 / 2626.229 -598.433 / -598.433 Weight 121.5 kg 117 kg 126.5 kg Intake: IV 4260.678 / 4260.678 5055.229 / 5055.229 243.567 / 243.567 Maxipime 1 gm In Normal 400 / 400 400 / 400 100 / 100 Saline 100 ml @ 200 mls/ hr IV Q6HR [facility] Rx#: [id number] CLEOCIN PREMIX 600 mg In 150 / 150 200 / 200 50 / 50 50 ml @ 100 mls/hr IV Q6H [facility] Rx#:[id number] Intralipid 20% 100 ml @ 100 / 100 50 mls/hr IV 1600 [facility] Rx# :[id number] Normal Saline 1,000 ml @ 1131.667 / 9196.148 8767.000 / 1000.000 100 mls/hr IV .Q10H [facility] Rx#:[id number] KCl 40 Meq In Normal 346.667 / 346.667 Saline 1,000 ml @ 100 mls /hr IV .[id number] [facility] Rx#: [id number] DIPRIVAN 1,000 mg In 100 379.844 / 379.844 914.529 / 914.529 93.567 / 93.567 ml @ 5 MCG/KG/MIN 3.453 mls/hr IV .Q24H [facility] Rx#: [id number] Sodium Phosphate 90 Mmol 280 / 280 In Normal Saline 250 ml @ 125 mls/hr IV O ONE Rx#: [id number] Vancocin 2,000 mg In 1500 / 1500 1500 / 1500 Normal Saline 500 ml @ 250 mls/hr IV Q8HR [facility] Rx #:[id number] Folate 1 mg Vitamin B-1 72.500 / 72.500 940.7 / 940.7 300 mg Infuvite Adult 10 ml In Normal Saline 1,000 ml @ 50 mls/hr IVP 1600 [facility] Rx#:[id number] Output: Urine 160 / 160 Urine Amount (Catheter) 2640 / 2640 1419 / 1419 842 / 842 Gastric Drainage 850 / 850 Oral 850 / 850 - Consult Information We will make the following changes to standard TPN. Remove KCl 40mEq. Add 44mEq of potassium phosphate. Add 500mL of sterile water for injection. Continue to run at 75mL per hour for now. Blood sugar of 373 noted, sliding scale insulin on order. Osmolality of 304, attempting to correct with additional sterile water of injection. Phosphorus at 1.5 and will attempt to correct with switching KCl with K-Phos. Serum lipase is normal at 51 so we will continue fat emulsion 100mL per day. Thanks
[2017-06-08] MEDS ORDERED: INSULIN REGULAR, HUMAN 100 UNIT/ML INJECTION SQ ONE ×3 (12:15→16:30)
[2017-06-08] MEDS: [UNRECOGNIZED DRUG - OTHER] IV SCH (15:15)
[2017-06-08] MEDS: MULTI TRACE ELEMENTS IV SCH (15:15)
[2017-06-08] MEDS: WATER FOR INJECTION IV SCH (15:15)
[2017-06-08] MEDS: MULTI VIT INFUSION IV SCH (15:15)
[2017-06-08] MEDS: FAT EMULSION 20% 100 ML IV SCH (16:15)
[2017-06-08] MEDS: NICARDIPINE 50 MG in NS 500ml 500 ML IV PRN (18:09)
--- NOTE | 2017-06-08 18:21 | Progress Note ---
Subjective: F/U: Pancreatitis, Acute Respiratory failure, DT Sedated on Vent. Have not attempted sedation holiday due to his respiratory status-does start to get restless as sedation decreased. BP increasing today-IV Bumex given with improvement of urine output. Sugars increasing with TPN and steroids. Unable to obtain any history from pt as intubated/sedated. Objective Vital signs: Temperature 98.1 F 06/07/17 23:00 Pulse Rate 77 06/08/17 17:10 Respiratory Rate 14 06/08/17 17:10 Blood Pressure 184/110 H 06/08/17 16:30 Pulse Oximetry 94 06/08/17 17:10 Oxygen Delivery Method Mechanical Ventilation Fraction of Inspired Oxygen 70 Weight: 126.5 kg - Constitutional Present: obese, other (Sedated) - Routine HEENT Exam Head: Present: normocephalic, atraumatic ENT: Present: mucous membranes moist - Routine Respiratory Exam Present: decreased breath sounds. Absent: rhonchi, stridor, wheezes - Routine Cardiovascular Exam Present: RRR - Routine Abdominal Exam Present: soft, non distended, non tender. Absent: normoactive bowel sounds ( Decreased bowel sounds) - Routine Exam Comments: Moe present - Routine Extremities Exam Present: edema (+3 upper/lower). Absent: cyanosis, clubbing - Routine Musculoskeletal Exam Musculoskeletal: Present: no clubbing or cyanosis - Routine Skin Exam Present: intact, warm, normal turgor. Absent: mottling - Routine Neurological Exam Sedated - Routine Psychiatric Exam Present: unable to assess (Sedated) Results - Labs CBC & Chem 7: 06/08/17 04:22 06/08/17 04:22 Microbiology Results: Microbiology 06/06/17 11:34 Peripheral/Iv Start Blood Culture - Preliminary No Growth After 2 Days 06/06/17 11:34 Peripheral/Iv Start Blood Culture - Preliminary No Growth After 2 Days 06/06/17 11:00 Sputum, Suctioned Gram Stain - Final 06/06/17 11:00 Sputum, Suctioned Sputum Culture - Final Normal Respiratory Hilda - ABG Interpretation ABG results: 06/05/17 06/06/17 06/06/17 17:41 04:35 09:25 ABG pH 7.360 7.380 7.460 H ABG pCO2 55 H 53 H 42 ABG pO2 114 H 64 L 133 H ABG HCO3 31 H 31 H 30 H ABG Total CO2 32.8 H 33.0 H 31.2 H ABG O2 Saturation 98.0 92.0 L 99.0 H ABG Base Excess 4.4 H 5.0 H 5.5 H 06/06/17 06/07/17 06/08/17 15:05 09:55 07:50 ABG pH 7.450 7.370 7.391 ABG pCO2 41 52 H 50 H ABG pO2 65 L 82 98 ABG HCO3 29 H 30 H 31 H ABG Total CO2 29.8 H 31.7 H 32 H ABG O2 Saturation 93.0 L 96.0 97.0 ABG Base Excess 4.1 H 3.7 H 5.0 H Assessment and Plan (1) Pancreatitis Problem details: POA: ETOH induced. Current visit: Yes Status: Acute (2) Acute respiratory failure Current visit: Yes Status: Acute (3) DTs (delirium tremens) Current visit: Yes Status: Acute (4) Alcoholic liver damage Current visit: Yes Status: Acute (5) Hypokalemia Problem details: POA Current visit: Yes Status: Acute (6) Hypomagnesemia Problem details: POA Current visit: Yes Status: Acute (7) Hypophosphatemia Current visit: Yes Status: Acute (8) Hypocalcemia Current visit: Yes Status: Acute (9) Rhabdomyolysis Current visit: Yes Status: Acute (10) ETOHism Current visit: Yes Status: Chronic (11) Tobacco dependence Current visit: Yes Status: Chronic (12) Hypertension Current visit: Yes Status: Chronic (13) Obesity (BMI 30-39.9) Current visit: Yes Status: Chronic DVT Prophylaxis: SCD's GI Prophylaxis: Protonix Resuscitation Status: Full Code Assessment and Plan: Continue with mechanical ventilation as per Dr Renee. In discussion with Dr Renee, will deescalate IV antibiotic use (likely respiratory failure from ARDS due to pancreatitis, still some concern for possible aspiration) Will stop Vancomycin, cefepime and clindamycin. Initiate Unsyn for coverage. Will continue Solu-Medrol at 40mg IV q 8 hours. Will stop Mucomyst - monitor for increase secretions. Blood pressure with elevation today. Bumex 1mg given this morning and afternoon to help decrease volume. Urine output appropriate, but pressures remain high. Start Nipride drip to ease down blood pressure. TPN continues-discussed with pharm about electrolyte adjustments. 10 units of Lantus given this morning to help sugars - did monitor sugars more frequently and gave additions SQ doses of insulin. Will start 20 units of Lantus this evening. Insulin sliding scale changed to high dose regimen. Continue propofol for sedation. Patient remains critically ill. CCU care an support required. Discussed with CM, nursing, and Dr Renee. Time spent with patient care greater than 35 minutes. High risk medication involved: Propofol for sedation. Sepsis Assessment - Evaluation Sepsis screening result: No Definite Risk Hospital Course Summary Disclaimer: The visit summary below is not to be considered part of the above Progress Note. Hospital Course: 06/04/17 1) Alcohol use and abuse with ongoing pancreatitis, this could be related to ETOH, or due to gallstones (U/S could not see distal CBD - bilirrubin high) or both. - Check Abd/Pelvic CT with IV contrast re: Extent of pancreatic swelling ? abscess ? hemorrhage ? also Pyelonephritis ? - Check MRCP - pt could be obstructed since Bilirrubin is high. Pt states he noticed his skin is yellow. - Aggressive hydration with NS 500cc/hr x 6 hrs then reasses 2) UTI - very high lactate - high WBC - On Rocephin will continue for now. 3) Hypokalemia/Hypomagenesemia - Will give Mg + K 4) Lactic acidosis - due to ? sepsis ? hypoperfusion ? - Will recheck later today. 5) Elevated hemoglobin - Will follow serially. 06/05/17 1) ALCOHOL ABUSE WITH A) SEVERE AGITATION/CONFUSION ? OF HALLUCINATIONS MOST LIKELY DUE TO ALCOHOL WITHDRAWALS - On Propofol drip - Tachycardic - Will also give Ativan IV [place]. - Check CPK (R/O Rhabdo due to agitation) - Aggressive hydration and electrolyte replenishment. B) Pancreatitis most likely related to ETOH MRCP Impression: 1. No cholelithiasis or intrahepatic bile duct dilatation. Evaluation of the extrahepatic common duct is poor due to motion artifact and patient body habitus. No obvious common duct stone. 2. Enlargement of the pancreatic head which could be due to inflammation from pancreatitis or potentially neoplasm. Recommend further evaluation with a contrast-enhanced CT of the abdomen. - Lipase coming down - Check CA 19-9 prior to D/C and follow closely his pancreatic anatomy by CT/ MRI. 06/06/17 1) PULMONARY ASSESMENT A) Pt has developed ALI/ARDS - ABG on FIO2 of 80% showed PaO2 of 133 with CO2 of 42 - huge a-A gradient that has increased since yesterday. - Pt was intubated successfully by ED MD - Saturations are 91 on 100% FIO2. ET tube appears to be well positioned. - Pt requires high PEEP. - Could be related to pancreatitis, or PNA - Pt has a L sided effussion - could be related to pancreatitis. Must R/O Boherhave's syndrome will try a CT chest with gastrograffin injection in the mid esophagus. - Start coverage for HAP - Vanco + cefepime + steroids - Add Mucomyst for possible mucus plugg. - Case discussed with his NOK - significant other, she consented for intubation. - Reculture blood & sputum B) Obstructive Sleep Apnea (New Dx) - Was on CPAP - now intubated. 2) ALCOHOL ABUSE WITH MULTIPLE COMPLICATIONS - A) SEVERE AGITATION/CONFUSION ? OF HALLUCINATIONS MOST LIKELY DUE TO ALCOHOL WITHDRAWALS - On propofol since yesterday. - On Propofol drip - Continue. - Tachycardic/hypertensive - CPK - 1261 Yesterday - C/W rhadbomyolisis - will rehceck - Aggressive hydration and electrolyte replenishment. B) Pancreatitis most likely related to ETOH - Lipase coming down - Check CA 19-9 prior to D/C and follow closely his pancreatic anatomy by CT/MRI. - Add Banana bags - C) Hypokalemia on admission - K is high today. - Stop NS with K - Recheck later. D) Hypomagnesemia - now improved. E) Severe hypophosphatemia - Risk of hemolysis - CHF & could be causing low Platelets. - PO4 is under 1 - Spoke with Pharm Jasmine De Souza - Will give 90 Mmol of Na Phosphate F) Dehydration - Appears improved now, will hold off on aggressive hydration will place on Banana bag @ 50ml/hr x 3 Liters. G) Rhabdomyolisis - cuuld be due to his severe agitation. - Recheck CPK now. 3) INFECTIOUS DISEASE ASSESMENT A) UTI - very high lactate - high WBC - On Rocephin will continue for now. B) ? Of HAP ? - Will cover with Vanco + Cefepime - Add Mucomyst for possible mucus plug - Continue Duonebs - Add Steroids. - Lactate is dropping 3) CARDIOVASCULAR ASSESSMENT A) Hypertension - moderate to severe - On BB PRN will schedule with parameters B) Will check EKG due to low Ca and due to severe agitation - R.O TN. - Check 2-D echo - Consult Cardiology (BNP was very high and has Pleural effussion - Alcoholic [employer] T[employer]ER ?) PREVENTION DVT - SCD'S PUD - PPI. 06/07/[address] Renee for Pulm evaluation and to help with ventilator management. Continue IV antibiotics - possible aspiration pneumonia/pneumonitis Continue Sedation - with current decreased pulmonary statue, likely too early to work on weaning sedation. Start TPN for nutritional support. Will stop IVF when TPN ready. Continue to monitor lab due to pt's severity of illness. Patient remains critically ill, ICU care warranted. 06/08/17 Continue with mechanical ventilation as per Dr Renee. In discussion with Dr Renee, will deescalate IV antibiotic use (likely respiratory failure from ARDS due to pancreatitis, still some concern for possible aspiration) Will stop Vancomycin, cefepime and clindamycin. Initiate Unsyn for coverage. Will continue Solu-Medrol at 40mg IV q 8 hours. Will stop Mucomyst - monitor for increase secretions. Blood pressure with elevation today. Bumex 1mg given this morning and afternoon to help decrease volume. Urine output appropriate, but pressures remain high. Start Nipride drip to ease down blood pressure. TPN continues-discussed with pharm about electrolyte adjustments. 10 units of Lantus given this morning to help sugars - did monitor sugars more frequently and gave additions SQ doses of insulin. Will start 20 units of Lantus this evening. Insulin sliding scale changed to high dose regimen. Continue propofol for sedation. Patient remains critically ill. CCU care an support required.
[2017-06-08] MEDS: AMPICILLIN/SULBACTAM 3 G in NS 100 ML IV SCH (19:54)
[2017-06-08] MEDS ORDERED: INSULIN GLARGINE 100unit/ml INJECTION SQ SCH (22:00)
[2017-06-09] MEDS: PROPOFOL 1,000 MG/100 ML VIAL IV PRN ×14 (00:02→23:58)
[2017-06-09] MEDS: INSULIN ASPART 100unit/ml INJECTION SQ PRN ×3 (01:06→11:35)
[2017-06-09] MEDS: AMPICILLIN/SULBACTAM 3 G in NS 100 ML IV SCH ×4 (01:19→17:31)
[2017-06-09] MEDS: METHYLPREDNISOLONE SOD SUCC 40mg/ml INJECTION IVP SCH ×3 (01:20→16:53)
[2017-06-09] MEDS: NICARDIPINE 50 MG in NS 500ml 500 ML IV PRN ×5 (02:43→23:03)
[2017-06-09] MEDS: ALBUTEROL/IPRATROPIUM 2.5mg-0.5mg/3ml NEB AEROSOL SCH ×6 (03:50→22:50)
[2017-06-09] MEDS: METOPROLOL 5mg/5ml INJECTION IVP SCH ×4 (04:08→21:19)
--- NOTE | 2017-06-09 07:34 | XRay Report ---
Indication: F/U PROCEDURE: XR chest 1V: Encounter: Subsequent Comparison: Portable chest, 06/08/2017 Findings: ET tube lies 2 cm above the prosper and a nasogastric tube projects within the stomach. Left-sided PICC line in place in good position. There has been significant improvement in the appearance the chest with less alveolar opacity diffusely, particularly on the left. Some patchy airspace density remains peripherally in the right and in the left base. Small effusions. No cardiomegaly. No pulmonary vascular engorgement. Monitor leads overlie the chest. The bony structures are stable. Impression: Improved aeration of the lungs, particularly on the left. Moderate right sided and left basal airspace disease remains. Life support tubes unremarkable in position. .
[2017-06-09] MEDS: PANTOPRAZOLE 40 MG INJECTION IVP SCH (09:02)
--- NOTE | 2017-06-09 09:21 | Pulmonology Progress Note ---
Subjective Principal diagnosis: Acute Respiratory Failure Interval history: Pt currently sedated on the vent with propofol. Per RN no new issues noted. Per RT they decreased Peep from 15 to 12 this am, sats 97% n 80% Fio2. Exam Vital signs: Temperature 99.1 F 06/09/17 04:00 Pulse Rate 86 06/09/17 08:43 Respiratory Rate 18 06/09/17 08:43 Blood Pressure 161/90 H 06/09/17 02:15 Pulse Oximetry 100 06/09/17 08:43 Oxygen Delivery Method Mechanical Ventilation Fraction of Inspired Oxygen 80 - Constitutional no acute distress, well nourished, obese, other Comments: sedated - Routine HEENT Exam Head: Present: normocephalic, atraumatic ENT: Present: mucous membranes moist - Routine Neck Exam Present: supple, full ROM, trachea midline - Routine Respiratory Exam Present: patient mechanically ventilated, decreased breath sounds. Absent: accessory muscle use - Routine Cardiovascular Exam Present: RRR, S1, S2, no murmur - Routine Abdominal Exam Present: soft, normoactive bowel sounds - Routine Extremities Exam Present: edema. Absent: cyanosis, clubbing Comments: edema noted to upper extremities - Routine Skin Exam Present: intact, dry - Routine Neurological Exam sedated - Routine Psychiatric Exam Present: unable to assess - Urinary Catheter Management Urethral Cath placed during this visit: yes Urethral indwelling: Yes Reason for continuing: Prolonged Immobilization Insertion date: 06/05/17 Insertion time: 10:00 Progress Note-A&P (1) Acute respiratory failure with hypoxia Status: Acute Assessment and plan: Pt currently on the Vent Ac/Pc f 15, Ip 12, i.time 1.0, peep 12, Fio2 80%. ABG this am as noted, 7.4//88, sats 97%. Will continue to wean Fio2 to keep sats 90-95% and then wean peep. Likely with ARDS, currently on solumedrol 40mg q8 with improving CXR. Current Visit: Yes (2) Tobacco dependence Status: Chronic Assessment and plan: Pt currently on Duo-neb q4hr and prn. No wheezing noted, continue to follow Current Visit: Yes (3) Obesity (BMI 30-39.9) Status: Chronic Current Visit: Yes (4) Hypernatremia Status: Acute Assessment and plan: Na+ noted as 153 today, per primary management with TPN and diuresis. Current Visit: Yes (5) Pancreatitis Problem details: POA: ETOH induced. Status: Acute Current Visit: Yes (6) Hypertension Status: Chronic Assessment and plan: Currently on nicardipine per primary, SBP 150's, follow on gtt. Current Visit: Yes (7) Rhabdomyolysis Status: Acute Assessment and plan: CPK 122 today, improved after fluid resuscitation. Continue to follow. Current Visit: Yes - Time Spent With Patient Total time spent is greater than 50% in coordination of care (as documented) at patient's floor/unit and/or counseling patient: 25 - 35 minutes Sepsis Assessment - Evaluation Sepsis screening result: No Definite Risk
--- NOTE | 2017-06-09 11:50 | Progress Note ---
Subjective: F/U: Pancreatitis, Acute Respiratory failure, DT Sedated on Vent. at bedside-questions answered. Blood sugars decreasing with increase Lantus and ISS but still elevated. BP decreased to 150's systolic. Urine output increased with Bumex-sodium increased and potassium decreased. Objective Vital signs: Temperature 99.1 F 06/09/17 04:00 Pulse Rate 95 06/09/17 11:00 Respiratory Rate 22 06/09/17 11:00 Blood Pressure 156/83 H 06/09/17 10:15 Pulse Oximetry 97 06/09/17 11:00 Oxygen Delivery Method Mechanical Ventilation Oxygen Flow Rate 80 Fraction of Inspired Oxygen 70 Rhythm: Normal Sinus Rhythm Weight: 122 kg - Constitutional Present: well nourished, well developed, obese, other (Sedated ) - Routine Respiratory Exam Present: patient mechanically ventilated. Absent: respiratory distress, rhonchi , wheezes, crackles - Routine Cardiovascular Exam Present: RRR. Absent: no murmur - Routine Abdominal Exam Present: soft, non distended, non tender. Absent: normoactive bowel sounds - Routine Exam Comments: Moe present - Routine Extremities Exam Present: edema (+3 lower ext ), pulses intact. Absent: cyanosis, clubbing - Routine Musculoskeletal Exam Musculoskeletal: Present: no clubbing or cyanosis - Routine Skin Exam Present: intact, warm. Absent: cyanosis, mottling - Routine Neurological Exam Pt sedated. - Routine Psychiatric Exam Present: unable to assess (Sedated) Results - Labs CBC & Chem 7: 06/09/17 04:23 06/09/17 04:23 Labs: Laboratory Tests 06/09/17 04:23 Calcium 7.7 L Phosphorus 1.2 L Magnesium 2.1 D Total Bilirubin 1.90 H AST 138 H ALT 78 H Creatine Kinase 122 Lipase 44 Microbiology Results: Microbiology 06/06/17 11:34 Peripheral/Iv Start Blood Culture - Preliminary No Growth After 2 Days 06/06/17 11:34 Peripheral/Iv Start Blood Culture - Preliminary No Growth After 2 Days 06/06/17 11:00 Sputum, Suctioned Gram Stain - Final 06/06/17 11:00 Sputum, Suctioned Sputum Culture - Final Normal Respiratory Hilda - ABG Interpretation ABG results: 06/05/17 06/06/17 06/06/17 17:41 04:35 09:25 ABG pH 7.360 7.380 7.460 H ABG pCO2 55 H 53 H 42 ABG pO2 114 H 64 L 133 H ABG HCO3 31 H 31 H 30 H ABG Total CO2 32.8 H 33.0 H 31.2 H ABG O2 Saturation 98.0 92.0 L 99.0 H ABG Base Excess 4.4 H 5.0 H 5.5 H 06/06/17 06/07/17 06/08/17 15:05 09:55 07:50 ABG pH 7.450 7.370 7.391 ABG pCO2 41 52 H 50 H ABG pO2 65 L 82 98 ABG HCO3 29 H 30 H 31 H ABG Total CO2 29.8 H 31.7 H 32 H ABG O2 Saturation 93.0 L 96.0 97.0 ABG Base Excess 4.1 H 3.7 H 5.0 H 06/09/17 08:35 ABG pH 7.470 H ABG pCO2 44 ABG pO2 88 ABG HCO3 32 H ABG Total CO2 33.4 H ABG O2 Saturation 97.0 ABG Base Excess 7.4 H Assessment and Plan (1) Pancreatitis Problem details: POA: ETOH induced. Current visit: Yes Status: Acute 06/04/17 03:34 due to continued drinking. RUQ US negative for obstructive stones. Patient started on aggressive IVF, electrolyte replacement and morphine PRN. Repeat labs at 7:00 am. Patient does have elevated lacate, likely due to acute pancreatitis. Continue supportive care. (2) Acute respiratory failure Current visit: Yes Status: Acute (3) DTs (delirium tremens) Current visit: Yes Status: Acute (4) Alcoholic liver damage Current visit: Yes Status: Acute (5) Hypokalemia Problem details: POA Current visit: Yes Status: Acute (6) Hypomagnesemia Problem details: POA Current visit: Yes Status: Acute (7) Hypophosphatemia Current visit: Yes Status: Acute (8) Hypocalcemia Current visit: Yes Status: Acute (9) Rhabdomyolysis Current visit: Yes Status: Acute (10) ETOHism Current visit: Yes Status: Chronic (11) Tobacco dependence Current visit: Yes Status: Chronic (12) Hypertension Current visit: Yes Status: Chronic (13) Obesity (BMI 30-39.9) Current visit: Yes Status: Chronic DVT Prophylaxis: SCD's GI Prophylaxis: Protonix Resuscitation Status: Full Code Assessment and Plan: Recheck Lipase and CPK this am show normalization. Continue with mechanical ventilation as per Dr Renee. Continue Unasyn for antimicrobial coverage. Additional insulin to be given to help improve glycemic control. Extra SQ dosing during day. Increase Lantus to 45 units at night. Sugars elevated due to TPN and Solu-Medrol. Bumex 1mg given this morning to help decrease volume. Will give additional Bumex 1mg this afternoon. Nipride drip continues for BP control. TPN continues-discussed with pharm about electrolyte adjustments. Will remove sodium to decrease sodium level and OSMO. Increase KPhos. Continue propofol for sedation. Patient remains critically ill. CCU care an support required. Discussed with CM, nursing, and patients . FLMA form completed. Time spent with patient care greater than 35 minutes. High risk medication involved: Propofol for sedation. Sepsis Assessment - Evaluation Sepsis screening result: No Definite Risk Hospital Course Summary Disclaimer: The visit summary below is not to be considered part of the above Progress Note. Hospital Course: 06/04/17 1) Alcohol use and abuse with ongoing pancreatitis, this could be related to ETOH, or due to gallstones (U/S could not see distal CBD - bilirrubin high) or both. - Check Abd/Pelvic CT with IV contrast re: Extent of pancreatic swelling ? abscess ? hemorrhage ? also Pyelonephritis ? - Check MRCP - pt could be obstructed since Bilirrubin is high. Pt states he noticed his skin is yellow. - Aggressive hydration with NS 500cc/hr x 6 hrs then reasses 2) UTI - very high lactate - high WBC - On Rocephin will continue for now. 3) Hypokalemia/Hypomagenesemia - Will give Mg + K 4) Lactic acidosis - due to ? sepsis ? hypoperfusion ? - Will recheck later today. 5) Elevated hemoglobin - Will follow serially. 06/05/17 1) ALCOHOL ABUSE WITH A) SEVERE AGITATION/CONFUSION ? OF HALLUCINATIONS MOST LIKELY DUE TO ALCOHOL WITHDRAWALS - On Propofol drip - Tachycardic - Will also give Ativan IV KS. - Check CPK (R/O Rhabdo due to agitation) - Aggressive hydration and electrolyte replenishment. B) Pancreatitis most likely related to ETOH MRCP Impression: 1. No cholelithiasis or intrahepatic bile duct dilatation. Evaluation of the extrahepatic common duct is poor due to motion artifact and patient body habitus. No obvious common duct stone. 2. Enlargement of the pancreatic head which could be due to inflammation from pancreatitis or potentially neoplasm. Recommend further evaluation with a contrast-enhanced CT of the abdomen. - Lipase coming down - Check CA 19-9 prior to D/C and follow closely his pancreatic anatomy by CT/ MRI. Transferred to CCU due to alcohol withdrawal. 06/06/17 1) PULMONARY ASSESMENT A) Pt has developed ALI/ARDS - ABG on FIO2 of 80% showed PaO2 of 133 with CO2 of 42 - huge a-A gradient that has increased since yesterday. - Pt was intubated successfully by ED MD - Saturations are 91 on 100% FIO2. ET tube appears to be well positioned. - Pt requires high PEEP. - Could be related to pancreatitis, or PNA - Pt has a L sided effussion - could be related to pancreatitis. Must R/O Boherhave's syndrome will try a CT chest with gastrograffin injection in the mid esophagus. - Start coverage for HAP - Vanco + cefepime + steroids - Add Mucomyst for possible mucus plugg. - Case discussed with his NOK - significant other, she consented for intubation. - Reculture blood & sputum B) Obstructive Sleep Apnea (New Dx) - Was on CPAP - now intubated. 2) ALCOHOL ABUSE WITH MULTIPLE COMPLICATIONS - A) SEVERE AGITATION/CONFUSION ? OF HALLUCINATIONS MOST LIKELY DUE TO ALCOHOL WITHDRAWALS - On propofol since yesterday. - On Propofol drip - Continue. - Tachycardic/hypertensive - CPK - 1261 Yesterday - C/W rhadbomyolisis - will rehceck - Aggressive hydration and electrolyte replenishment. B) Pancreatitis most likely related to ETOH - Lipase coming down - Check CA 19-9 prior to D/C and follow closely his pancreatic anatomy by CT/MRI. - Add Banana bags - C) Hypokalemia on admission - K is high today. - Stop NS with K - Recheck later. D) Hypomagnesemia - now improved. E) Severe hypophosphatemia - Risk of hemolysis - CHF & could be causing low Platelets. - PO4 is under 1 - Spoke with Pharm Jasmine De Souza - Will give 90 Mmol of Na Phosphate F) Dehydration - Appears improved now, will hold off on aggressive hydration will place on Banana bag @ 50ml/hr x 3 Liters. G) Rhabdomyolisis - cuuld be due to his severe agitation. - Recheck CPK now. 3) INFECTIOUS DISEASE ASSESMENT A) UTI - very high lactate - high WBC - On Rocephin will continue for now. B) ? Of HAP ? - Will cover with Vanco + Cefepime - Add Mucomyst for possible mucus plug - Continue Duonebs - Add Steroids. - Lactate is dropping 3) CARDIOVASCULAR ASSESSMENT A) Hypertension - moderate to severe - On BB PRN will schedule with parameters B) Will check EKG due to low Ca and due to severe agitation - R.O LA. - Check 2-D echo - Consult Cardiology (BNP was very high and has Pleural effussion - Alcoholic [employer] ?) PREVENTION DVT - SCD'S PUD - PPI. 06/07/[address] Renee for Pulm evaluation and to help with ventilator management. Continue IV antibiotics - possible aspiration pneumonia/pneumonitis Continue Sedation - with current decreased pulmonary statue, likely too early to work on weaning sedation. Start TPN for nutritional support. Will stop IVF when TPN ready. Continue to monitor lab due to pt's severity of illness. Patient remains critically ill, ICU care warranted. 06/08/17 Continue with mechanical ventilation as per Dr Renee. In discussion with Dr Renee, will deescalate IV antibiotic use (likely respiratory failure from ARDS due to pancreatitis, still some concern for possible aspiration) Will stop Vancomycin, cefepime and clindamycin. Initiate Unasyn for coverage. Will continue Solu-Medrol at 40mg IV q 8 hours. Will stop Mucomyst - monitor for increase secretions. Blood pressure with elevation today. Bumex 1mg given this morning and afternoon to help decrease volume. Urine output appropriate, but pressures remain high. Start Nipride drip to ease down blood pressure. TPN continues-discussed with pharm about electrolyte adjustments. 10 units of Lantus given this morning to help sugars - did monitor sugars more frequently and gave additions SQ doses of insulin. Will start 20 units of Lantus this evening. Insulin sliding scale changed to high dose regimen. Continue propofol for sedation. Patient remains critically ill. CCU care an support required. 06/09/17 Recheck Lipase and CPK this am show normalization. Continue with mechanical ventilation as per Dr Renee. Continue Unasyn for antimicrobial coverage. Additional insulin to be given to help improve glycemic control. Extra SQ dosing during day. Increase Lantus to 45 units at night. Sugars elevated due to TPN and Solu-Medrol. Bumex 1mg given this morning to help decrease volume. Will give additional Bumex 1mg this afternoon. Nipride drip continues for BP control. TPN continues-discussed with pharm about electrolyte adjustments. Will remove sodium to decrease sodium level and OSMO. Increase KPhos. Continue propofol for sedation. Patient remains critically ill. CCU care an support required.
[2017-06-09] MEDS ORDERED: INSULIN ASPART 100unit/ml INJECTION SQ ONE ×3 (12:00→15:12)
--- NOTE | 2017-06-09 13:32 | Pharmacy Consult-TPN/PPN ---
Pharmacy Consult-TPN/PPN - Laboratory Information Chemistry Turbidity < 20 (0-20) 06/09/17 04:23 Sodium 153 MEQ/L (134-144) H 06/09/17 04:23 Potassium 3.7 MEQ/L (3.6-5) 06/09/17 04:23 Chloride 113 MEQ/L (98-107) H 06/09/17 04:23 Carbon Dioxide 32 MEQ/L (22-30) H 06/09/17 04:23 Anion Gap 8 MEQ/L (5-15) 06/09/17 04:23 BUN 22.0 MG/DL (9-20) H 06/09/17 04:23 Creatinine 0.8 MG/DL (0.8-1.5) 06/09/17 04:23 GFR Calculation 110 06/09/17 04:23 BUN/Creatinine Ratio 28 RATIO (6-26) H 06/09/17 04:23 Glucose 269 MG/DL (75-110) H 06/09/17 04:23 Glucometer 80 mg/dL (65-110) 06/04/17 18:27 Calculated Osmolality 306 MOSM/KG (261-280) H 06/09/17 04:23 Calcium 7.7 MG/DL (8.4-10.2) L 06/09/17 04:23 Phosphorus 1.2 MG/DL (2.5-4.5) L 06/09/17 04:23 Magnesium 2.1 MG/DL (1.6-2.3) D 06/09/17 04:23 Total Bilirubin 1.90 MG/DL (0.20-1.30) H 06/09/17 04:23 Conjugated Bilirubin 0.40 MG/DL (0.00-0.30) H 06/06/17 22:04 Unconjugated Bilirubin 0.20 MG/DL (0.00-11.10) 06/06/17 22:04 Icterus Index < 2 (0-7) 06/09/17 04:23 AST 138 U/L (17-59) H 06/09/17 04:23 ALT 78 U/L (21-72) H 06/09/17 04:23 Alkaline Phosphatase 133 U/L (38-126) H D 06/09/17 04:23 Creatine Kinase 122 U/L (55-170) 06/09/17 04:23 Troponin I 0.018 ng/ml (0-0.12) 06/06/17 08:49 B-Natriuretic Peptide 266 pg/mL (0-175) H 06/07/17 04:15 Total Protein 5.7 G/DL (6.3-8.2) L 06/09/17 04:23 Albumin 2.9 G/DL (3.5-5.0) L 06/09/17 04:23 Globulin 2.8 G/DL (2.4-3.6) 06/09/17 04:23 Albumin/Globulin Ratio 1.0 RATIO (1.1-2.2) L 06/09/17 04:23 Triglycerides 216 MG/DL (40-160) H 06/05/17 14:23 Cholesterol < 50 MG/DL (132-199) L 06/05/17 14:23 LDL Cholesterol, Calc TNP 06/05/17 14:23 VLDL Cholesterol 43.2 MG/DL (0-28) H 06/05/17 14:23 HDL Cholesterol 13 MG/DL (40-60) L 06/05/17 14:23 Cholesterol/HDL Ratio TNP 06/05/17 14:23 Lipase 44 U/L (23-300) 06/09/17 04:23 Plasma Lactate 0.8 MMOL/L (0.6-2.2) 06/06/17 20:35 Specimen Hemolysis < 15 (0-25) 06/09/17 04:23 Intake and Output 06/08/17 06/09/17 06/10/17 06:59 06:59 06:59 Intake Total 5055.229 / 5055.229 5558.308 / 5558.308 / Output Total 2429 / 2429 5738 / 5738 345 / 345 Balance 2626.229 / 2626.229 -179.692 / -288.876 4617.719 / 168.71 Weight 117 kg 126.5 kg 122 kg Intake: IV 5055.229 / 5055.229 5558.308 / 5558.308 Unasyn 3 G In Normal 300 / 300 Saline 100 ml @ 200 mls/ hr IV Q6H [facility] Rx#: [id number] Maxipime 1 gm In Normal 400 / 400 200 / 200 Saline 100 ml @ 200 mls/ hr IV Q6HR [facility] Rx#: [id number] CLEOCIN PREMIX 600 mg In 200 / 200 100 / 100 50 ml @ 100 mls/hr IV Q6H [facility] Rx#:[id number] Intralipid 20% 100 ml @ 100 / 100 100 / 100 50 mls/hr IV 1600 [facility] Rx# :[id number] Infuvite Adult 10 ml 1745 / 1745 Multi-Trace Elements 1 ml Water 250 ml KCl 40 Meq In TPN - Standard Formula 2,000 ml @ 75 mls/hr IV .Q24H [facility] Rx#:[id number] Infuvite Adult 10 ml 356.25 / 356.25 1050 / 1050 Multi-Trace Elements 1 ml Water 500 ml K Phos Inj 44 Meq In TPN - Standard Formula 2,000 ml @ 75 mls /hr IV .Q24H [facility] Rx#: [id number] Cardene IV 50 mg In 888.833 / 888.833 591.667 / 591.667 Normal Saline 500 ml @ 5 MG/HR 50 mls/hr IV .Q10H [facility] Rx#:[id number] Normal Saline 1,000 ml @ 1000.000 / 1000.000 100 mls/hr IV .Q10H [facility] Rx#:[id number] DIPRIVAN 1,000 mg In 100 914.529 / 914.529 868.225 / 868.225 389.052 / 389.052 ml @ 5 MCG/KG/MIN 3.453 mls/hr IV .Q24H [facility] Rx#: [id number] Vancocin 2,000 mg In 1500 / 1500 1000 / 1000 Normal Saline 500 ml @ 250 mls/hr IV Q8HR [facility] Rx #:[id number] Folate 1 mg Vitamin B-1 940.7 / 940.7 300 mg Infuvite Adult 10 ml In Normal Saline 1,000 ml @ 50 mls/hr IVP 1600 [facility] Rx#:[id number] Output: Urine 160 / 160 Urine Amount (Catheter) 1419 / 1419 5588 / 5588 345 / 345 Gastric Drainage 850 / 850 150 / 150 Oral 850 / 850 150 / 150 - Consult Information We will change this patients standard TPN formula to custom TPN formula with the following electrolytes per bag: Potassium phosphate 60mEq Magnesium sulfate 16mEq Calcium gluconate 4.65mEq Multi-vitamin infusion 10mL Multi-trace elements 1mL Potassium acetate 40mEq We will also add 500mL of water for injection to help reduce serum osmolality. This formula to run at 75mL per hour. Fat emulsion 20% 100mL daily will continue. All sodium is removed from formula. Thanks
[2017-06-09] MEDS: MULTI VIT INFUSION IV SCH (15:00)
[2017-06-09] MEDS: [UNRECOGNIZED DRUG - OTHER] IV SCH (15:00)
[2017-06-09] MEDS: MULTI TRACE ELEMENTS IV SCH (15:00)
[2017-06-09] MEDS: WATER FOR INJECTION IV SCH (15:00)
[2017-06-09] MEDS: POTASSIUM PHOSPHATE IV SCH (15:15)
[2017-06-09] MEDS: MAGNESIUM SULFATE IV SCH (15:15)
[2017-06-09] MEDS: [UNRECOGNIZED DRUG - OTHER] IV SCH (15:15)
[2017-06-09] MEDS: FAT EMULSION 20% 100 ML IV SCH (15:50)
[2017-06-09] MEDS ORDERED: INSULIN REGULAR, HUMAN 100 UNIT/ML INJECTION SQ ONE (18:18)
[2017-06-09] MEDS ORDERED: INSULIN GLARGINE 100unit/ml INJECTION SQ SCH (22:00)
[2017-06-10] MEDS: AMPICILLIN/SULBACTAM 3 G in NS 100 ML IV SCH ×4 (00:37→19:23)
[2017-06-10] MEDS: METHYLPREDNISOLONE SOD SUCC 40mg/ml INJECTION IVP SCH ×3 (00:38→18:03)
[2017-06-10] MEDS: INSULIN ASPART 100unit/ml INJECTION SQ PRN ×4 (00:38→19:22)
[2017-06-10] MEDS: PROPOFOL 1,000 MG/100 ML VIAL IV PRN ×13 (01:18→22:53)
[2017-06-10] MEDS: SALINE FLUSH 10ml SYRINGE IVF PRN ×2 (01:21→19:25)
[2017-06-10] MEDS ORDERED: FentaNYL 100 MCG/2 ML INJECTION IVP PRN (02:12)
[2017-06-10] MEDS: METOPROLOL 5mg/5ml INJECTION IVP SCH ×3 (02:48→20:15)
[2017-06-10] MEDS: ALBUTEROL/IPRATROPIUM 2.5mg-0.5mg/3ml NEB AEROSOL SCH ×5 (03:00→19:56)
[2017-06-10] MEDS: NICARDIPINE 50 MG in NS 500ml 500 ML IV PRN ×3 (04:26→17:23)
[2017-06-10] MEDS: PANTOPRAZOLE 40 MG INJECTION IVP SCH (07:59)
--- NOTE | 2017-06-10 10:00 | Pharmacy Consult-TPN/PPN ---
Pharmacy Consult-TPN/PPN - Laboratory Information Chemistry Turbidity < 20 (0-20) 06/10/17 05:07 Sodium 154 MEQ/L (134-144) H 06/10/17 05:07 Potassium 3.6 MEQ/L (3.6-5) 06/10/17 05:07 Chloride 112 MEQ/L (98-107) H 06/10/17 05:07 Carbon Dioxide 33 MEQ/L (22-30) H 06/10/17 05:07 Anion Gap 9 MEQ/L (5-15) 06/10/17 05:07 BUN 22.0 MG/DL (9-20) H 06/10/17 05:07 Creatinine 0.7 MG/DL (0.8-1.5) L 06/10/17 05:07 GFR Calculation 128 06/10/17 05:07 BUN/Creatinine Ratio 31 RATIO (6-26) H 06/10/17 05:07 Glucose 247 MG/DL (75-110) H 06/10/17 05:07 Glucometer 80 mg/dL (65-110) 06/04/17 18:27 Calculated Osmolality 306 MOSM/KG (261-280) H 06/10/17 05:07 Calcium 7.7 MG/DL (8.4-10.2) L 06/10/17 05:07 Phosphorus 2.7 MG/DL (2.5-4.5) 06/10/17 05:07 Magnesium 1.8 MG/DL (1.6-2.3) 06/10/17 05:07 Total Bilirubin 1.50 MG/DL (0.20-1.30) H 06/10/17 05:07 Conjugated Bilirubin 0.00 MG/DL (0.00-0.30) 06/10/17 05:07 Unconjugated Bilirubin 0.30 MG/DL (0.00-11.10) 06/10/17 05:07 Icterus Index < 2 (0-7) 06/10/17 05:07 AST 115 U/L (17-59) H 06/10/17 05:07 ALT 88 U/L (21-72) H 06/10/17 05:07 Alkaline Phosphatase 133 U/L (38-126) H 06/10/17 05:07 Creatine Kinase 122 U/L (55-170) 06/09/17 04:23 Troponin I 0.018 ng/ml (0-0.12) 06/06/17 08:49 B-Natriuretic Peptide 266 pg/mL (0-175) H 06/07/17 04:15 Total Protein 5.3 G/DL (6.3-8.2) L 06/10/17 05:07 Albumin 2.8 G/DL (3.5-5.0) L 06/10/17 05:07 Globulin 2.5 G/DL (2.4-3.6) 06/10/17 05:07 Albumin/Globulin Ratio 1.1 RATIO (1.1-2.2) 06/10/17 05:07 Triglycerides 192 MG/DL (40-160) H 06/09/17 04:27 Cholesterol < 50 MG/DL (132-199) L 06/05/17 14:23 LDL Cholesterol, Calc TNP 06/05/17 14:23 VLDL Cholesterol 43.2 MG/DL (0-28) H 06/05/17 14:23 HDL Cholesterol 13 MG/DL (40-60) L 06/05/17 14:23 Cholesterol/HDL Ratio TNP 06/05/17 14:23 Lipase 44 U/L (23-300) 06/09/17 04:23 Plasma Lactate 0.8 MMOL/L (0.6-2.2) 06/06/17 20:35 Specimen Hemolysis < 15 (0-25) 06/10/17 05:07 Intake and Output 06/09/17 06/10/17 06/11/17 06:59 06:59 06:59 Intake Total 5558.308 / 5558.308 6536.357 / 6536.357 100 / 100 Output Total 5738 / 5738 4155 / 4155 295 / 295 Balance -179.692 / -138.825 9499.357 / 2381.357 -195 / -195 Weight 126.5 kg 122 kg Intake: IV 5558.308 / 5558.308 6496.357 / 6496.357 100 / 100 Unasyn 3 G In Normal 300 / 300 300 / 300 Saline 100 ml @ 200 mls/ hr IV Q6H [facility] Rx#: [id number] Maxipime 1 gm In Normal 200 / 200 Saline 100 ml @ 200 mls/ hr IV Q6HR [facility] Rx#: [id number] CLEOCIN PREMIX 600 mg In 100 / 100 50 ml @ 100 mls/hr IV Q6H [facility] Rx#:[id number] Intralipid 20% 100 ml @ 100 / 100 100 / 100 50 mls/hr IV 1600 [facility] Rx# :[id number] Infuvite Adult 10 ml 1745 / 1745 Multi-Trace Elements 1 ml Water 250 ml KCl 40 Meq In TPN - Standard Formula 2,000 ml @ 75 mls/hr IV .Q24H [facility] Rx#:[id number] Infuvite Adult 10 ml 356.25 / 356.25 1425 / 1425 Multi-Trace Elements 1 ml Water 500 ml K Phos Inj 44 Meq In TPN - Standard Formula 2,000 ml @ 75 mls /hr IV .Q24H [facility] Rx#: [id number] Cardene IV 50 mg In 888.833 / 318.153 3721.334 / 2248.334 Normal Saline 500 ml @ 5 MG/HR 50 mls/hr IV .Q10H [facility] Rx#:[id number] K Phos Inj 60 Meq 1106.25 / 1106.25 Magnesium Sulfate Inj 16 Meq Calcium Gluconate 4. 65 Meq Infuvite Adult 10 ml Multi-Trace Elements 1 ml Potassium Acetate Inj 40 Meq/20 ml Water 500 ml In TPN - Custom Formula 2,000 ml @ 75 mls /hr IV .Q24H [facility] Rx#: [id number] DIPRIVAN 1,000 mg In 100 868.225 / 208.367 5699.773 / 1316.773 100 / 100 ml @ 5 MCG/KG/MIN 3.453 mls/hr IV .Q24H [facility] Rx#: [id number] Vancocin 2,000 mg In 1000 / 1000 Normal Saline 500 ml @ 250 mls/hr IV Q8HR [facility] Rx #:[id number] Intake, Gastric Tube 40 / 40 Irrigant Amount Oral 40 / 40 Output: Urine 1590 / 1590 Urine Amount (Catheter) 5588 / 5588 2360 / 2360 295 / 295 Gastric Drainage 150 / 150 205 / 205 Oral 150 / 150 205 / 205 - Consult Information Will continue current custom formula with no sodium and extra phosphate. Will check serum phosphorus tomorrow. Thank you.
--- NOTE | 2017-06-10 12:58 | Pulmonology Progress Note ---
Subjective Principal diagnosis: Acute Respiratory Failure Interval history: Pt currently sedated on the vent with propofol. ACPC IP 12, peep 12, FiO2 60%. Slowly weaning FiO2.. Per RN no new issues noted. clear secretions noted. Exam Vital signs: Temperature 99.1 F 06/10/17 07:36 Pulse Rate 100 06/10/17 12:27 Respiratory Rate 25 H 06/10/17 12:27 Blood Pressure 150/67 H 06/10/17 07:30 Pulse Oximetry 94 06/10/17 12:27 Oxygen Delivery Method Mechanical Ventilation Oxygen Flow Rate 60 Fraction of Inspired Oxygen 60 - Constitutional no acute distress Comments: intubated on [facility] vent - Routine Neck Exam Present: supple - Routine Respiratory Exam Present: patient mechanically ventilated, rhonchi - Routine Cardiovascular Exam Present: RRR - Routine Abdominal Exam Present: soft, distended - Routine Skin Exam Present: dry. Absent: lesions - Routine Neurological Exam Absent: motor deficit - Urinary Catheter Management Urethral Cath placed during this visit: yes Urethral indwelling: Yes Reason for continuing: Prolonged Immobilization Insertion date: 06/05/17 Insertion time: 10:00 Progress Note-A&P (1) Acute respiratory failure with hypoxia Status: Acute Assessment and plan: slow improvement noted. FiO2 down to 60%. Continue to wean as tolerated. Likely there will be some benefit to gentle diuresis. Agree with intermittent dosing as long as Creat and elytes are acceptable Current Visit: Yes (2) Pancreatitis Problem details: POA: ETOH induced. Status: Acute Assessment and plan: Discussed with Dr Rowland. Probably there is a benefit to placing a DHT to 3- 4 portion duodenum and trickle feed in addition to TPN. If he tolerates TF's we could d/c the TPN. Current Visit: Yes (3) Hypertension Status: Chronic Current Visit: Yes (4) DTs (delirium tremens) Status: Acute Current Visit: Yes - Time Spent With Patient Total time spent is greater than 50% in coordination of care (as documented) at patient's floor/unit and/or counseling patient: less than 15 minutes Sepsis Assessment - Evaluation Sepsis screening result: No Definite Risk
--- NOTE | 2017-06-10 13:41 | XRay Report ---
Indication: Resp failure PROCEDURE: XR chest 1V: Encounter: Initial Comparison: 06/09/2017 Findings: There is could've megaly and pulmonary vascular congestion with asymmetric interstitial pulmonary edema increased on the left with probable left pleural effusion. An ET tube is in place with its tip at the level of the or aortic arch. This is 3.1 cm above the level of the prosper. An NG tube is in place with its tip not well seen. Trachea is midline. The right lung is clear. Impression: Moderate CHF with left pleural effusion and left basilar atelectasis. .
[2017-06-10] MEDS ORDERED: FUROSEMIDE 40 MG/4 ML INJECTION IVP ONE (14:44)
[2017-06-10] MEDS ORDERED: DEXMEDETOMIDINE 200 MCG in NS 50 ML IV PRN (14:44)
--- NOTE | 2017-06-10 15:19 | Progress Note ---
Subjective: Nii was seen with multiple family members at bedside. He remains sedated on propofol; medication was held and he slowly became more responsive permitting him to open his eyes and look about/wheeze hands. Nursing reported agitation overnight requiring increased propofol dose. Minimal drainage reported per NG, small stool a couple of days ago per . Weight is up 20 kg from admission and patient has developed generalized edema in the extremities. Urine output has been good. In addition to propofol he remains on a ventilator, nicardipine drip, and TPN for support. Objective Vital signs: Temperature 99.7 F 06/10/17 14:03 Pulse Rate 100 06/10/17 14:57 Respiratory Rate 28 H 06/10/17 14:57 Blood Pressure 144/81 H 06/10/17 14:00 Pulse Oximetry 92 06/10/17 14:57 Oxygen Delivery Method Mechanical Ventilation Oxygen Flow Rate 70 PEEP 12 EXAM General-NAD, drowsy, wrist restraints on HEENT-conjunctiva clear, pupils 1 mm on propofol increasing to 4 mm and reacting briskly off propofol, conjugate gaze, sclera anicteric Lungs-respirations nonlabored, spontaneous breaths with good tidal volumes off propofol, anterior lung pinzon clear although breath sounds diminished laterally on the left Cardiac-regular rhythm, S1-S2 Abd-soft, moderately distended, nontender, scattered bowel sounds present Ext-+1-2 puffy edema 4 extremities Neuro-weakly doctor naturopathic with both upper extremities and withdraws both feet to stimulation; toes downgoing Psych-sedated/intubated; no agitation displayed in my presence - Weight: 131.9 kg Results - Labs CBC & Chem 7: 06/10/17 05:07 06/10/17 05:07 Labs: Accu-Cheks 240-340 in the past 24 hours Bilirubin 1.5 (unconjugated predominance), AST 115, ALT 88, phosphatase 133- trend to general improvement Magnesium 1.8, phosphorus 2.7 Microbiology Results: Microbiology 06/06/17 11:34 Peripheral/Iv Start Blood Culture - Preliminary No Growth After 4 Days 06/06/17 11:34 Peripheral/Iv Start Blood Culture - Preliminary No Growth After 4 Days 06/06/17 11:00 Sputum, Suctioned Gram Stain - Final 06/06/17 11:00 Sputum, Suctioned Sputum Culture - Final Normal Respiratory Hilda - ABG Interpretation ABG results: 06/05/17 06/06/17 06/06/17 17:41 04:35 09:25 ABG pH 7.360 7.380 7.460 H ABG pCO2 55 H 53 H 42 ABG pO2 114 H 64 L 133 H ABG HCO3 31 H 31 H 30 H ABG Total CO2 32.8 H 33.0 H 31.2 H ABG O2 Saturation 98.0 92.0 L 99.0 H ABG Base Excess 4.4 H 5.0 H 5.5 H 06/06/17 06/07/17 06/08/17 15:05 09:55 07:50 ABG pH 7.450 7.370 7.391 ABG pCO2 41 52 H 50 H ABG pO2 65 L 82 98 ABG HCO3 29 H 30 H 31 H ABG Total CO2 29.8 H 31.7 H 32 H ABG O2 Saturation 93.0 L 96.0 97.0 ABG Base Excess 4.1 H 3.7 H 5.0 H 06/09/17 08:35 ABG pH 7.470 H ABG pCO2 44 ABG pO2 88 ABG HCO3 32 H ABG Total CO2 33.4 H ABG O2 Saturation 97.0 ABG Base Excess 7.4 H - Imaging and Cardiology Chest x-ray Status: image reviewed by me (cardiomegaly, moderate left pleural effusion) Assessment and Plan (1) Pancreatitis Problem details: POA: ETOH induced. RUQ US negative for obstructive stones. MRCP nondiagnostic due to motion artifact however no obvious gallstones, pancreatitis head thickened, intrahepatic ducts nondilated. Current visit: Yes Status: Acute (2) Acute respiratory failure Current visit: Yes Status: Acute (3) DTs (delirium tremens) Current visit: Yes Status: Acute (4) Hypertension Current visit: Yes Status: Chronic (5) Alcoholic liver damage Current visit: Yes Status: Acute (6) Hypokalemia Problem details: POA Current visit: Yes Status: Acute (7) Hypomagnesemia Problem details: POA Current visit: Yes Status: Acute (8) Hypophosphatemia Current visit: Yes Status: Acute (9) Hypocalcemia Current visit: Yes Status: Acute (10) Rhabdomyolysis Current visit: Yes Status: Acute (11) ETOHism Current visit: Yes Status: Chronic (12) Tobacco dependence Current visit: Yes Status: Chronic (13) Obesity (BMI 30-39.9) Current visit: Yes Status: Chronic (14) Hyperglycemia Current visit: Yes Status: Acute (15) Volume overload Current visit: Yes Status: Acute DVT Prophylaxis: SCD's GI Prophylaxis: Protonix Resuscitation Status: Full Code Assessment and Plan: Patient continues to require ventilatory assistance with high pressures and FiO2 of 60% increased to 70% this afternoon after desaturating. Weight up significantly since admission, volume status +18.7 L from admission, edema on exam-will begin diuresing with scheduled Lasix. Continue propofol; discussed conversion to Precedex with Dr. Renee but with respiratory instability will not make changes at this time. Check triglycerides in a.m. Continue Unasyn/steroids. Remains hyperglycemic; Lantus increased to 50 units and corrective scale modified upward. Blood pressures modestly elevated; on IV metoprolol, Catapres patch, and nicardipine drip. Convert to enteral metoprolol per NG. Begin low-volume feedings per NG; dietary consultation for recommendations. Continue TPN for nutritional support. Patient remains critically ill. 45 minutes at the bedside/unit; additional time off unit inpatient care. Discussed with Dr. Renee, nursing, and patients family. High risk medication in use-Propofol, IV lorazepam, IV fentanyl. - Time spent with patient greater than 35 minutes (45min) Sepsis Assessment - Evaluation Sepsis screening result: No Definite Risk Hospital Course Summary Disclaimer: The visit summary below is not to be considered part of the above Progress Note. Hospital Course: 06/04/17 1) Alcohol use and abuse with ongoing pancreatitis, this could be related to ETOH, or due to gallstones (U/S could not see distal CBD - bilirrubin high) or both. - Check Abd/Pelvic CT with IV contrast re: Extent of pancreatic swelling ? abscess ? hemorrhage ? also Pyelonephritis ? - Check MRCP - pt could be obstructed since Bilirrubin is high. Pt states he noticed his skin is yellow. - Aggressive hydration with NS 500cc/hr x 6 hrs then reasses 2) UTI - very high lactate - high WBC - On Rocephin will continue for now. 3) Hypokalemia/Hypomagenesemia - Will give Mg + K 4) Lactic acidosis - due to ? sepsis ? hypoperfusion ? - Will recheck later today. 5) Elevated hemoglobin - Will follow serially. 06/05/17 1) ALCOHOL ABUSE WITH A) SEVERE AGITATION/CONFUSION ? OF HALLUCINATIONS MOST LIKELY DUE TO ALCOHOL WITHDRAWALS - On Propofol drip - Tachycardic - Will also give Ativan IV ND. - Check CPK (R/O Rhabdo due to agitation) - Aggressive hydration and electrolyte replenishment. B) Pancreatitis most likely related to ETOH MRCP Impression: 1. No cholelithiasis or intrahepatic bile duct dilatation. Evaluation of the extrahepatic common duct is poor due to motion artifact and patient body habitus. No obvious common duct stone. 2. Enlargement of the pancreatic head which could be due to inflammation from pancreatitis or potentially neoplasm. Recommend further evaluation with a contrast-enhanced CT of the abdomen. - Lipase coming down - Check CA 19-9 prior to D/C and follow closely his pancreatic anatomy by CT/ MRI. Transferred to CCU due to alcohol withdrawal. 06/06/17 1) PULMONARY ASSESMENT A) Pt has developed ALI/ARDS - ABG on FIO2 of 80% showed PaO2 of 133 with CO2 of 42 - huge a-A gradient that has increased since yesterday. - Pt was intubated successfully by ED MD - Saturations are 91 on 100% FIO2. ET tube appears to be well positioned. - Pt requires high PEEP. - Could be related to pancreatitis, or PNA - Pt has a L sided effussion - could be related to pancreatitis. Must R/O Boherhave's syndrome will try a CT chest with gastrograffin injection in the mid esophagus. - Start coverage for HAP - Vanco + cefepime + steroids - Add Mucomyst for possible mucus plugg. - Case discussed with his NOK - significant other, she consented for intubation. - Reculture blood & sputum B) Obstructive Sleep Apnea (New Dx) - Was on CPAP - now intubated. 2) ALCOHOL ABUSE WITH MULTIPLE COMPLICATIONS - A) SEVERE AGITATION/CONFUSION ? OF HALLUCINATIONS MOST LIKELY DUE TO ALCOHOL WITHDRAWALS - On propofol since yesterday. - On Propofol drip - Continue. - Tachycardic/hypertensive - CPK - 1261 Yesterday - C/W rhadbomyolisis - will rehceck - Aggressive hydration and electrolyte replenishment. B) Pancreatitis most likely related to ETOH - Lipase coming down - Check CA 19-9 prior to D/C and follow closely his pancreatic anatomy by CT/MRI. - Add Banana bags - C) Hypokalemia on admission - K is high today. - Stop NS with K - Recheck later. D) Hypomagnesemia - now improved. E) Severe hypophosphatemia - Risk of hemolysis - CHF & could be causing low Platelets. - PO4 is under 1 - Spoke with Pharm Jasmine De Souza - Will give 90 Mmol of Na Phosphate F) Dehydration - Appears improved now, will hold off on aggressive hydration will place on Banana bag @ 50ml/hr x 3 Liters. G) Rhabdomyolisis - cuuld be due to his severe agitation. - Recheck CPK now. 3) INFECTIOUS DISEASE ASSESMENT A) UTI - very high lactate - high WBC - On Rocephin will continue for now. B) ? Of HAP ? - Will cover with Vanco + Cefepime - Add Mucomyst for possible mucus plug - Continue Duonebs - Add Steroids. - Lactate is dropping 3) CARDIOVASCULAR ASSESSMENT A) Hypertension - moderate to severe - On BB PRN will schedule with parameters B) Will check EKG due to low Ca and due to severe agitation - R.O CT. - Check 2-D echo - Consult Cardiology (BNP was very high and has Pleural effussion - Alcoholic ORDER PROCESSOR ?) PREVENTION DVT - SCD'S PUD - PPI. 06/07/[address] Renee for Pulm evaluation and to help with ventilator management. Continue IV antibiotics - possible aspiration pneumonia/pneumonitis Continue Sedation - with current decreased pulmonary statue, likely too early to work on weaning sedation. Start TPN for nutritional support. Will stop IVF when TPN ready. Continue to monitor lab due to pt's severity of illness. Patient remains critically ill, ICU care warranted. 06/08/17 Continue with mechanical ventilation as per Dr Renee. In discussion with Dr Renee, will deescalate IV antibiotic use (likely respiratory failure from ARDS due to pancreatitis, still some concern for possible aspiration) Will stop Vancomycin, cefepime and clindamycin. Initiate Unasyn for coverage. Will continue Solu-Medrol at 40mg IV q 8 hours. Will stop Mucomyst - monitor for increase secretions. Blood pressure with elevation today. Bumex 1mg given this morning and afternoon to help decrease volume. Urine output appropriate, but pressures remain high. Start Nipride drip to ease down blood pressure. TPN continues-discussed with pharm about electrolyte adjustments. 10 units of Lantus given this morning to help sugars - did monitor sugars more frequently and gave additions SQ doses of insulin. Will start 20 units of Lantus this evening. Insulin sliding scale changed to high dose regimen. Continue propofol for sedation. Patient remains critically ill. CCU care an support required. 06/09/17 Recheck Lipase and CPK this am show normalization. Continue with mechanical ventilation as per Dr Renee. Continue Unasyn for antimicrobial coverage. Additional insulin to be given to help improve glycemic control. Extra SQ dosing during day. Increase Lantus to 45 units at night. Sugars elevated due to TPN and Solu-Medrol. Bumex 1mg given this morning to help decrease volume. Will give additional Bumex 1mg this afternoon. Nipride drip continues for BP control. TPN continues-discussed with pharm about electrolyte adjustments. Will remove sodium to decrease sodium level and OSMO. Increase KPhos. Continue propofol for sedation. Patient remains critically ill. CCU care an support required. 06/10/17 15:56 Patient continues to require ventilatory assistance with high pressures and FiO2 of 60% increased to 70% this afternoon after desaturating. Weight up significantly since admission, volume status +18.7 L from admission, edema on exam-will begin diuresing with scheduled Lasix. Continue propofol; discussed conversion to Precedex with Dr. Renee but with respiratory instability will not make changes at this time. Check triglycerides in a.m. Continue Unasyn/steroids. Remains hyperglycemic; Lantus increased to 50 units and corrective scale modified upward. Blood pressures modestly elevated; on IV metoprolol, Catapres patch, and nicardipine drip. Convert to enteral metoprolol per NG. Begin low-volume feedings per NG; dietary consultation for recommendations. Continue TPN for nutritional support. Patient remains critically ill.
[2017-06-10] MEDS ORDERED: PROPOFOL 1,000 MG/100 ML VIAL IV PRN (15:41)
--- NOTE | 2017-06-10 15:43 | XRay Report ---
Indication: worsening pulmonary status PROCEDURE: XR chest 1V: Encounter: Initial Comparison: 06/10/2017 Findings: There is cardiomegaly and probably vascular congestion with mild interstitial pulmonary edema. There is a probable left pleural effusion with left basilar atelectasis. There is an ET tube in place with its tip about 3.7 cm above the level of the prosper. No pneumothorax. Trachea is midline. There is an NG tube in place with its tip not well seen. Impression: Moderate CHF with left pleural effusion and left basilar atelectasis. No significant change from prior exam. .
[2017-06-10] MEDS: [UNRECOGNIZED DRUG - OTHER] IV SCH (17:39)
[2017-06-10] MEDS: POTASSIUM PHOSPHATE IV SCH (17:39)
[2017-06-10] MEDS: MAGNESIUM SULFATE IV SCH (17:39)
[2017-06-10] MEDS: FAT EMULSION 20% 100 ML IV SCH (17:42)
[2017-06-10] MEDS: METOPROLOL 5mg/5ml INJECTION IVP PRN (17:48)
[2017-06-10] MEDS: FUROSEMIDE 40 MG/4 ML INJECTION IVP SCH ×2 (18:02→18:03)
[2017-06-10] MEDS ORDERED: FALL RISK - PHARMACY CONSULT MC PRN (21:11)
[2017-06-10] MEDS: INSULIN GLARGINE 100unit/ml INJECTION SQ SCH (21:44)
[2017-06-11] MEDS: NICARDIPINE 50 MG in NS 500ml 500 ML IV PRN ×2 (00:13→06:04)
[2017-06-11] MEDS: INSULIN ASPART 100unit/ml INJECTION SQ PRN ×4 (00:13→19:14)
[2017-06-11] MEDS: PROPOFOL 1,000 MG/100 ML VIAL IV PRN ×14 (00:40→23:48)
[2017-06-11] MEDS: AMPICILLIN/SULBACTAM 3 G in NS 100 ML IV SCH ×3 (00:41→13:09)
[2017-06-11] MEDS: METHYLPREDNISOLONE SOD SUCC 40mg/ml INJECTION IVP SCH ×3 (00:41→20:24)
[2017-06-11] MEDS: FUROSEMIDE 40 MG/4 ML INJECTION IVP SCH ×4 (00:41→17:18)
[2017-06-11] MEDS: ALBUTEROL/IPRATROPIUM 2.5mg-0.5mg/3ml NEB AEROSOL SCH ×7 (04:15→21:54)
[2017-06-11] MEDS: ALBUTEROL/IPRATROPIUM 2.5mg-0.5mg/3ml NEB AEROSOL PRN (04:15)
[2017-06-11] MEDS: SALINE FLUSH 10ml SYRINGE IVF PRN ×3 (04:44→21:03)
[2017-06-11] MEDS: PANTOPRAZOLE 40 MG INJECTION IVP SCH (08:42)
[2017-06-11] MEDS: CLONIDINE 0.2 MG/24 HR PATCH TD SCH (08:51)
[2017-06-11] MEDS ORDERED: CLONIDINE 0.2 MG/24 HR PATCH TD SCH (09:00)
--- NOTE | 2017-06-11 09:05 | Pulmonology Progress Note ---
Subjective Principal diagnosis: Acute Respiratory Failure Interval history: Pt currently sedated on the vent with propofol. ACPC IP 12, peep 12, FiO2 60%. Slowly weaning FiO2.. Per RN no new issues noted. clear secretions noted. Exam Vital signs: Temperature 98.7 F 06/11/17 04:00 Pulse Rate 86 06/11/17 08:00 Respiratory Rate 18 06/11/17 07:35 Blood Pressure 153/78 H 06/11/17 05:15 Pulse Oximetry 94 06/11/17 07:35 Oxygen Delivery Method Mechanical Ventilation Oxygen Flow Rate 60 Fraction of Inspired Oxygen 50 SaO2/FiO2 Ratio 156 - Constitutional no acute distress, obese, other Comments: sedated - Routine HEENT Exam Head: Present: normocephalic, atraumatic ENT: Present: mucous membranes moist - Routine Neck Exam Present: supple, full ROM - Routine Respiratory Exam Present: patient mechanically ventilated, diminished air movement Comments: diminished LLL - Routine Cardiovascular Exam Present: RRR - Routine Abdominal Exam Present: soft, normoactive bowel sounds - Routine Extremities Exam Present: edema. Absent: cyanosis, clubbing - Routine Skin Exam Present: intact, dry. Absent: cyanosis, erythema - Routine Neurological Exam Currently sedated but opens eyes slightly to voice, no issues noted. - Routine Psychiatric Exam Present: unable to assess - Urinary Catheter Management Urethral Cath placed during this visit: yes Urethral indwelling: Yes Reason for continuing: Prolonged Immobilization Insertion date: 06/05/17 Insertion time: 10:00 Progress Note-A&P (1) Acute respiratory failure with hypoxia Status: Acute Assessment and plan: Pt currently on the vent ACPC f 15, IP 12, peep 10, Fio2 60%, sats are 97%. RT to wean to peep 8 and 50%. No CXR today, will get CXR today. Still with some secretions noted but thinner and noted as less per RN. On propofol, triglycerides improved last check 190's awaiting today. Current Visit: Yes (2) Tobacco dependence Status: Chronic Assessment and plan: Encourage cessation once extubated, cont with Bt's A/A q4hr, no wheezing noted at this time. Current Visit: Yes (3) Obesity (BMI 30-39.9) Status: Chronic Current Visit: Yes (4) Hypernatremia Status: Acute Assessment and plan: Improving today at 152, cont to monitor per primary on TPN. Current Visit: Yes (5) Pancreatitis Problem details: POA: ETOH induced. RUQ US negative for obstructive stones. MRCP nondiagnostic due to motion artifact however no obvious gallstones, pancreatitis head thickened, intrahepatic ducts nondilated. Status: Acute Assessment and plan: Currently on unasyn, lipase improving and WBC normal, currently afebrile. Treatment per primary. Current Visit: Yes (6) Hypertension Status: Chronic Assessment and plan: On nicardipine gtt, angela well. Was started on lasix 40mg IV q8hr with good UOP, I /O still + 2L. Follow closely. Current Visit: Yes (7) Rhabdomyolysis Status: Acute Assessment and plan: Improved CPK, Cr normal, follow Current Visit: Yes - Time Spent With Patient Total time spent is greater than 50% in coordination of care (as documented) at patient's floor/unit and/or counseling patient: less than 15 minutes Sepsis Assessment - Evaluation Sepsis screening result: No Definite Risk
--- NOTE | 2017-06-11 09:53 | XRay Report ---
Indication: Respiratory Failure Procedure: XR chest 1V: Encounter: Subsequent Comparison: 06/10/2017 Technique: A single portable AP chest radiograph was obtained. Findings: Life support devices: Endotracheal tube approximately 4 cm above the prosper. Enteric tube courses into the stomach and off the [id number]. Left PICC in place with tip in the proximal SVC. Lungs and airways: Persistent low lung volumes with associated basilar atelectasis. No focal airspace consolidation. Potentially minimally improved pulmonary basilar congestion Pleura: Persistent left pleural effusion. No pneumothorax. Heart and mediastinum: The cardiomediastinal silhouette and great vessels appear unchanged. Osseous structures and soft tissues: No acute osseous abnormality is seen. Impression: Redemonstration of cardiomegaly with potentially minimally improved pulmonary vascular congestion however persistent small left pleural effusion and associated left basilar atelectasis. .
[2017-06-11] MEDS ORDERED: NICARDIPINE IV PRN ×2 (11:45→12:00)
[2017-06-11] MEDS ORDERED: NS IV PRN ×2 (11:45→12:00)
--- NOTE | 2017-06-11 11:54 | Pharmacy Consult-TPN/PPN ---
Pharmacy Consult-TPN/PPN - Laboratory Information Chemistry Turbidity < 20 (0-20) 06/11/17 04:22 Sodium 152 MEQ/L (134-144) H 06/11/17 04:22 Potassium 3.6 MEQ/L (3.6-5) 06/11/17 04:22 Chloride 110 MEQ/L (98-107) H 06/11/17 04:22 Carbon Dioxide 33 MEQ/L (22-30) H 06/11/17 04:22 Anion Gap 9 MEQ/L (5-15) 06/11/17 04:22 BUN 28.0 MG/DL (9-20) H 06/11/17 04:22 Creatinine 0.7 MG/DL (0.8-1.5) L 06/11/17 04:22 GFR Calculation 128 06/11/17 04:22 BUN/Creatinine Ratio 40 RATIO (6-26) H 06/11/17 04:22 Glucose 324 MG/DL (75-110) H 06/11/17 04:22 Glucometer 385 mg/dL (65-110) 06/11/17 05:53 Calculated Osmolality 311 MOSM/KG (261-280) H 06/11/17 04:22 Calcium 7.8 MG/DL (8.4-10.2) L 06/11/17 04:22 Phosphorus 3.3 MG/DL (2.5-4.5) 06/11/17 04:22 Magnesium 1.9 MG/DL (1.6-2.3) 06/11/17 04:22 Total Bilirubin 1.50 MG/DL (0.20-1.30) H 06/10/17 05:07 Conjugated Bilirubin 0.00 MG/DL (0.00-0.30) 06/10/17 05:07 Unconjugated Bilirubin 0.30 MG/DL (0.00-11.10) 06/10/17 05:07 Icterus Index < 2 (0-7) 06/11/17 04:22 AST 115 U/L (17-59) H 06/10/17 05:07 ALT 88 U/L (21-72) H 06/10/17 05:07 Alkaline Phosphatase 133 U/L (38-126) H 06/10/17 05:07 Creatine Kinase 122 U/L (55-170) 06/09/17 04:23 Troponin I 0.018 ng/ml (0-0.12) 06/06/17 08:49 B-Natriuretic Peptide 266 pg/mL (0-175) H 06/07/17 04:15 Total Protein 5.3 G/DL (6.3-8.2) L 06/10/17 05:07 Albumin 2.8 G/DL (3.5-5.0) L 06/10/17 05:07 Globulin 2.5 G/DL (2.4-3.6) 06/10/17 05:07 Albumin/Globulin Ratio 1.1 RATIO (1.1-2.2) 06/10/17 05:07 Triglycerides 192 MG/DL (40-160) H 06/09/17 04:27 Cholesterol < 50 MG/DL (132-199) L 06/05/17 14:23 LDL Cholesterol, Calc TNP 06/05/17 14:23 VLDL Cholesterol 43.2 MG/DL (0-28) H 06/05/17 14:23 HDL Cholesterol 13 MG/DL (40-60) L 06/05/17 14:23 Cholesterol/HDL Ratio TNP 06/05/17 14:23 Lipase 44 U/L (23-300) 06/09/17 04:23 Plasma Lactate 0.8 MMOL/L (0.6-2.2) 06/06/17 20:35 Specimen Hemolysis < 15 (0-25) 06/11/17 04:22 Intake and Output 06/10/17 06/11/17 06/12/17 06:59 06:59 06:59 Intake Total 6636.357 / 6636.357 5115.420 / 5115.420 1293.408 / 1293.408 Output Total 4155 / 4155 4810 / 4810 650 / 650 Balance 2481.357 / 2481.357 305.420 / 305.420 643.408 / 643.408 Weight 122 kg 131.9 kg 128.1 kg Intake: IV 6596.357 / 6596.357 5055.420 / 5055.420 1253.408 / 1253.408 Unasyn 3 G In Normal 400 / 400 300 / 300 100 / 100 Saline 100 ml @ 200 mls/ hr IV Q6H [facility] Rx#: [id number] Intralipid 20% 100 ml @ 100 / 100 100 / 100 50 mls/hr IV 1600 [facility] Rx# :[id number] Infuvite Adult 10 ml 1425 / 1425 Multi-Trace Elements 1 ml Water 500 ml K Phos Inj 44 Meq In TPN - Standard Formula 2,000 ml @ 75 mls /hr IV .Q24H [facility] Rx#: [id number] Cardene IV 50 mg In 2248.334 / 2248.334 1843.333 / 1843.333 493.333 / 493.333 Normal Saline 500 ml @ 10 MG/HR 100 mls/hr IV .Q5H PRN Rx#:[id number] K Phos Inj 60 Meq 1106.25 / 1106.25 1738.75 / 1738.75 375 / 375 Magnesium Sulfate Inj 16 Meq Calcium Gluconate 4. 65 Meq Infuvite Adult 10 ml Multi-Trace Elements 1 ml Potassium Acetate Inj 40 Meq/20 ml Water 500 ml In TPN - Custom Formula 2,000 ml @ 75 mls /hr IV .Q24H [facility] Rx#: [id number] DIPRIVAN 1,000 mg In 100 1316.773 / 0138.905 8132.337 / 1073.337 285.075 / 285.075 ml @ 5 MCG/KG/MIN 3.957 mls/hr IV .Q24H PRN Rx#: [id number] Oral 60 / 60 Intake, Gastric Tube 40 / 40 40 / 40 Irrigant Amount Oral 40 / 40 40 / 40 Output: Urine 1590 / 1590 Urine Amount (Catheter) 2360 / 2360 4640 / 4640 650 / 650 Gastric Drainage 205 / 205 170 / 170 Oral 205 / 205 170 / 170 TPN THERAPY - DAY 5 Electrolytes somewhat stable today. Wt fluctuates each day. Urinary output is high. Yet, Osmolality continues to increase. Have add 500ml of Free Water to each TPN bag. Will continue with that. Glucoses running high. Sliding Scale has been increased. Will add 20mEq more of K Acetate to each bag in anticipation of K going intracellular. K is low normal anyway. Will continue all other ingredients the same. TPN Custom Formula infusing at 75ml/hr. Fat Emulsion 20% 100ml is being given each day to prevent EFAD and add a few more calories. Also receiving a small amount fat with the Propofol infusion. Current formula gives approximately 1730 kcal per day. Continue formula with changes noted. Thank you.
[2017-06-11] MEDS: NS IV SCH ×3 (12:02→23:10)
[2017-06-11] MEDS: NICARDIPINE IV SCH ×3 (12:02→23:10)
[2017-06-11] MEDS ORDERED: INSULIN GLARGINE 100unit/ml INJECTION SQ ONE (12:10)
[2017-06-11] MEDS: AMLODIPINE 5 MG TABLET PO SCH (13:11)
[2017-06-11] MEDS: CLONIDINE PATCH REMOVAL TD SCH (13:23)
--- NOTE | 2017-06-11 15:57 | Progress Note ---
Subjective: Nii remains sedated on propofol. Nursing reports improved urine output with 100-200 mL per hour overnight. Oxygen demand has decreased slightly. The patient moves his limbs occasionally opens his eyes; nursing reports he squeezes fingers and moves his legs to command when propofol is turned off for short periods of time. Restlessness described intermittently overnight. Objective Vital signs: Temperature 98.7 F 06/11/17 04:00 Pulse Rate 83 06/11/17 14:06 Respiratory Rate 19 06/11/17 14:06 Blood Pressure 142/73 H 06/11/17 12:45 Pulse Oximetry 92 06/11/17 14:06 Oxygen Delivery Method Mechanical Ventilation Oxygen Flow Rate 60 Fraction of Inspired Oxygen 45 SaO2/FiO2 Ratio 156 I/O 5115/4810 Weight 128.1 kg-down 3.8 kg from reported weight yesterday EXAM General-NAD, sedated HEENT-conjunctiva clear, sclera anicteric, pupils equal and round-3-4 mm bilaterally Lungs-respirations nonlabored, good airflow, slightly coarse bilaterally Cardiac-regular rhythm, S1-S2 Abd-decreased breath sounds throughout, soft, nontender Ext-+2 edema 4 extremities Neuro-slightly withdraws all 4 extremities to painful stimuli, toes downgoing Psych-sedated - Height: 1.85 m Weight: 128.1 kg Body Mass Index: 37.2 Results - Labs CBC & Chem 7: 06/10/17 05:07 06/11/17 04:22 Labs: Magnesium 1.9, phosphorus 3.3 Microbiology Results: Microbiology 06/06/17 11:34 Peripheral/Iv Start Blood Culture - Final No Growth After 5 Days 06/06/17 11:34 Peripheral/Iv Start Blood Culture - Final No Growth After 5 Days 06/06/17 11:00 Sputum, Suctioned Gram Stain - Final 06/06/17 11:00 Sputum, Suctioned Sputum Culture - Final Normal Respiratory Dinah Blood cultures 2 obtained /4-negative after 5 days Urine culture /3-negative after 2 days - ABG Interpretation ABG results: 06/05/17 06/06/17 06/06/17 17:41 04:35 09:25 ABG pH 7.360 7.380 7.460 H ABG pCO2 55 H 53 H 42 ABG pO2 114 H 64 L 133 H ABG HCO3 31 H 31 H 30 H ABG Total CO2 32.8 H 33.0 H 31.2 H ABG O2 Saturation 98.0 92.0 L 99.0 H ABG Base Excess 4.4 H 5.0 H 5.5 H 06/06/17 06/07/17 06/08/17 15:05 09:55 07:50 ABG pH 7.450 7.370 7.391 ABG pCO2 41 52 H 50 H ABG pO2 65 L 82 98 ABG HCO3 29 H 30 H 31 H ABG Total CO2 29.8 H 31.7 H 32 H ABG O2 Saturation 93.0 L 96.0 97.0 ABG Base Excess 4.1 H 3.7 H 5.0 H 06/09/17 08:35 ABG pH 7.470 H ABG pCO2 44 ABG pO2 88 ABG HCO3 32 H ABG Total CO2 33.4 H ABG O2 Saturation 97.0 ABG Base Excess 7.4 H - Imaging and Cardiology Chest x-ray Status: image reviewed by me (minor increased vascular markings and probable left pleural effusion-no significant change from yesterday; ET tube well positioned) Assessment and Plan (1) Pancreatitis Problem details: POA: ETOH induced. RUQ US negative for obstructive stones. MRCP nondiagnostic due to motion artifact however no obvious gallstones, pancreatitis head thickened, intrahepatic ducts nondilated. Current visit: Yes Status: Acute (2) Acute respiratory failure Current visit: Yes Status: Acute (3) DTs (delirium tremens) Current visit: Yes Status: Acute (4) Hypertension Current visit: Yes Status: Chronic (5) Alcoholic liver damage Current visit: Yes Status: Acute (6) Hypokalemia Problem details: POA Current visit: Yes Status: Acute (7) Hypomagnesemia Problem details: POA Current visit: Yes Status: Acute (8) Hypophosphatemia Current visit: Yes Status: Acute (9) Hypocalcemia Current visit: Yes Status: Acute (10) Rhabdomyolysis Current visit: Yes Status: Acute (11) ETOHism Current visit: Yes Status: Chronic (12) Tobacco dependence Current visit: Yes Status: Chronic (13) Obesity (BMI 30-39.9) Current visit: Yes Status: Chronic (14) Hyperglycemia Current visit: Yes Status: Acute (15) Volume overload Current visit: Yes Status: Acute DVT Prophylaxis: SCD's GI Prophylaxis: Protonix Resuscitation Status: Full Code Assessment and Plan: Patient continues to require ventilatory assistance with FiO2 of 50% and PEEP of 8-both improved from yesterday. Continue diuresis with goal of equal/negative fluid balance daily. X-ray most consistent with volume overload-no focal infiltrate. Patient has been on antibiotics since 06/04 (ceftriaxone 06/04-06/06; cefepime/ clindamycin/vancomycin 06/06-06/08; Unasyn 06/08-current); sputum culture normal dinah -we'll discontinue antibiotics. On Solu-Medrol for pulmonary inflammation-discussed with Dr. Renee-decreased dose to 40 mg every 12 hours and continue to monitor. Remains hyperglycemic; Lantus increased to 50 units daily at bedtime with 20 units added every morning. Continue corrective scale insulin. Blood pressures modestly elevated; on by mouth metoprolol, Catapres patch, and nicardipine drip. Amlodipine added. Begin low-volume feedings per NG with Glucotrol; dietary consultation for recommendations. Continue TPN for nutritional support. Triglycerides pending to monitor propofol/ TPN. Hypernatremia slightly improved with TPN modifications, low-volume free water added to enteral tube feedings. Patient remains critically ill. 25 minutes at the bedside/unit; additional time off unit inpatient care. Discussed with Dr. Renee, and nursing. High risk medication in use-Propofol, IV lorazepam, IV fentanyl. Sepsis Assessment - Evaluation Sepsis screening result: No Definite Risk Hospital Course Summary Disclaimer: The visit summary below is not to be considered part of the above Progress Note. Hospital Course: 06/04/17 1) Alcohol use and abuse with ongoing pancreatitis, this could be related to ETOH, or due to gallstones (U/S could not see distal CBD - bilirrubin high) or both. - Check Abd/Pelvic CT with IV contrast re: Extent of pancreatic swelling ? abscess ? hemorrhage ? also Pyelonephritis ? - Check MRCP - pt could be obstructed since Bilirrubin is high. Pt states he noticed his skin is yellow. - Aggressive hydration with NS 500cc/hr x 6 hrs then reasses 2) UTI - very high lactate - high WBC - On Rocephin will continue for now. 3) Hypokalemia/Hypomagenesemia - Will give Mg + K 4) Lactic acidosis - due to ? sepsis ? hypoperfusion ? - Will recheck later today. 5) Elevated hemoglobin - Will follow serially. 06/05/17 1) ALCOHOL ABUSE WITH A) SEVERE AGITATION/CONFUSION ? OF HALLUCINATIONS MOST LIKELY DUE TO ALCOHOL WITHDRAWALS - On Propofol drip - Tachycardic - Will also give Ativan IV OR. - Check CPK (R/O Rhabdo due to agitation) - Aggressive hydration and electrolyte replenishment. B) Pancreatitis most likely related to ETOH MRCP Impression: 1. No cholelithiasis or intrahepatic bile duct dilatation. Evaluation of the extrahepatic common duct is poor due to motion artifact and patient body habitus. No obvious common duct stone. 2. Enlargement of the pancreatic head which could be due to inflammation from pancreatitis or potentially neoplasm. Recommend further evaluation with a contrast-enhanced CT of the abdomen. - Lipase coming down - Check CA 19-9 prior to D/C and follow closely his pancreatic anatomy by CT/ MRI. Transferred to CCU due to alcohol withdrawal. 06/06/17 1) PULMONARY ASSESMENT A) Pt has developed ALI/ARDS - ABG on FIO2 of 80% showed PaO2 of 133 with CO2 of 42 - huge a-A gradient that has increased since yesterday. - Pt was intubated successfully by ED MD - Saturations are 91 on 100% FIO2. ET tube appears to be well positioned. - Pt requires high PEEP. - Could be related to pancreatitis, or PNA - Pt has a L sided effussion - could be related to pancreatitis. Must R/O Boherhave's syndrome will try a CT chest with gastrograffin injection in the mid esophagus. - Start coverage for HAP - Vanco + cefepime + steroids - Add Mucomyst for possible mucus plugg. - Case discussed with his NOK - significant other, she consented for intubation. - Reculture blood & sputum B) Obstructive Sleep Apnea (New Dx) - Was on CPAP - now intubated. 2) ALCOHOL ABUSE WITH MULTIPLE COMPLICATIONS - A) SEVERE AGITATION/CONFUSION ? OF HALLUCINATIONS MOST LIKELY DUE TO ALCOHOL WITHDRAWALS - On propofol since yesterday. - On Propofol drip - Continue. - Tachycardic/hypertensive - CPK - 1261 Yesterday - C/W rhadbomyolisis - will rehceck - Aggressive hydration and electrolyte replenishment. B) Pancreatitis most likely related to ETOH - Lipase coming down - Check CA 19-9 prior to D/C and follow closely his pancreatic anatomy by CT/MRI. - Add Banana bags - C) Hypokalemia on admission - K is high today. - Stop NS with K - Recheck later. D) Hypomagnesemia - now improved. E) Severe hypophosphatemia - Risk of hemolysis - CHF & could be causing low Platelets. - PO4 is under 1 - Spoke with Pharm Jasmine De Souza - Will give 90 Mmol of Na Phosphate F) Dehydration - Appears improved now, will hold off on aggressive hydration will place on Banana bag @ 50ml/hr x 3 Liters. G) Rhabdomyolisis - cuuld be due to his severe agitation. - Recheck CPK now. 3) INFECTIOUS DISEASE ASSESMENT A) UTI - very high lactate - high WBC - On Rocephin will continue for now. B) ? Of HAP ? - Will cover with Vanco + Cefepime - Add Mucomyst for possible mucus plug - Continue Duonebs - Add Steroids. - Lactate is dropping 3) CARDIOVASCULAR ASSESSMENT A) Hypertension - moderate to severe - On BB PRN will schedule with parameters B) Will check EKG due to low Ca and due to severe agitation - R.O LA. 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 06/07/[address] Renee for Pulm evaluation and to help with ventilator management. Continue IV antibiotics - possible aspiration pneumonia/pneumonitis Continue Sedation - with current decreased pulmonary statue, likely too early to work on weaning sedation. Start TPN for nutritional support. Will stop IVF when TPN ready. Continue to monitor lab due to pt's severity of illness. Patient remains critically ill, ICU care warranted. 06/08/17 Continue with mechanical ventilation as per Dr Renee. In discussion with Dr Renee, will deescalate IV antibiotic use (likely respiratory failure from ARDS due to pancreatitis, still some concern for possible aspiration) Will stop Vancomycin, cefepime and clindamycin. Initiate Unasyn for coverage. Will continue Solu-Medrol at 40mg IV q 8 hours. Will stop Mucomyst - monitor for increase secretions. Blood pressure with elevation today. Bumex 1mg given this morning and afternoon to help decrease volume. Urine output appropriate, but pressures remain high. Start Nipride drip to ease down blood pressure. TPN continues-discussed with pharm about electrolyte adjustments. 10 units of Lantus given this morning to help sugars - did monitor sugars more frequently and gave additions SQ doses of insulin. Will start 20 units of Lantus this evening. Insulin sliding scale changed to high dose regimen. Continue propofol for sedation. Patient remains critically ill. CCU care an support required. 06/09/17 Recheck Lipase and CPK this am show normalization. Continue with mechanical ventilation as per Dr Renee. Continue Unasyn for antimicrobial coverage. Additional insulin to be given to help improve glycemic control. Extra SQ dosing during day. Increase Lantus to 45 units at night. Sugars elevated due to TPN and Solu-Medrol. Bumex 1mg given this morning to help decrease volume. Will give additional Bumex 1mg this afternoon. Nipride drip continues for BP control. TPN continues-discussed with pharm about electrolyte adjustments. Will remove sodium to decrease sodium level and OSMO. Increase KPhos. Continue propofol for sedation. Patient remains critically ill. CCU care an support required. 06/10/17 15:56 Patient continues to require ventilatory assistance with high pressures and FiO2 of 60% increased to 70% this afternoon after desaturating. Weight up significantly since admission, volume status +18.7 L from admission, edema on exam-will begin diuresing with scheduled Lasix. Continue propofol; discussed conversion to Precedex with Dr. Renee but with respiratory instability will not make changes at this time. Check triglycerides in a.m. Continue Unasyn/steroids. Remains hyperglycemic; Lantus increased to 50 units and corrective scale modified upward. Blood pressures modestly elevated; on IV metoprolol, Catapres patch, and nicardipine drip. Convert to enteral metoprolol per NG. Begin low-volume feedings per NG; dietary consultation for recommendations. Continue TPN for nutritional support. Patient remains critically ill. 06/11/17 16:18 Patient continues to require ventilatory assistance with FiO2 of 50% and PEEP of 8-both improved from yesterday. Continue diuresis with goal of equal/negative fluid balance daily. X-ray most consistent with volume overload-no focal infiltrate. Patient has been on antibiotics since 06/04 (ceftriaxone 06/04-06/06; cefepime/ clindamycin/vancomycin 06/06-06/08; Unasyn 06/08-current); sputum culture normal dinah -we'll discontinue antibiotics. On Solu-Medrol for pulmonary inflammation-discussed with Dr. Renee-decreased dose to 40 mg every 12 hours and continue to monitor. Remains hyperglycemic; Lantus increased to 50 units daily at bedtime with 20 units added every morning. Continue corrective scale insulin. Blood pressures modestly elevated; on by mouth metoprolol, Catapres patch, and nicardipine drip. Amlodipine added. Begin low-volume feedings per NG with Glucotrol; dietary consultation for recommendations. Continue TPN for nutritional support. Triglycerides pending to monitor propofol/ TPN. Hypernatremia slightly improved with TPN modifications, low-volume free water added to enteral tube feedings.
[2017-06-11] MEDS: FAT EMULSION 20% 100 ML IV SCH (16:08)
--- NOTE | 2017-06-11 16:48 | Anesthesia Procedure Note ---
IRU ANES Consult Intubation - Date and Time Date and Time: 06/11/17 Diagnosis: pancreatitis Allergies/Adverse Reactions: Allergies Allergy/AdvReac Type Severity Reaction Status Date / Time No Known Drug Allergies Allergy Unknown NONE Verified 06/04/17 00:05 - Vital Signs Initial Vital Signs: Temperature 98.7 F 06/03/17 23:12 Temperature Source Axillary 06/03/17 23:12 Sepsis Recent Fever Within 48 Hours No 06/03/17 23:12 Sepsis Suspicion of Infection No 06/03/17 23:12 Sepsis New/Unexplained Change in Mental Status No 06/03/17 23:12 Sepsis Score/Level No Definite Risk 06/03/17 23:12 Sepsis Action Taken by Nursing No Action 06/03/17 23:12 Pulse Rate 112 H 06/03/17 23:12 Pulse Rhythm 06/03/17 23:12 Respiratory Rate 22 06/03/17 23:12 Respiratory Effort Non-Labored 06/03/17 23:12 Respiratory Depth Shallow 06/03/17 23:12 Blood Pressure 165/114 H 06/03/17 23:12 Blood Pressure Mean 131 06/03/17 23:12 Pulse Oximetry 99 06/03/17 23:12 Oxygen Delivery Method 06/03/17 23:12 Post Vital Signs: Temperature 98.7 F 06/11/17 04:00 Temperature Source Temporal Artery Scan 06/11/17 04:00 Sepsis Recent Fever Within 48 Hours No 06/03/17 23:12 Sepsis Suspicion of Infection No 06/03/17 23:12 Sepsis New/Unexplained Change in Mental Status No 06/03/17 23:12 Sepsis Score/Level No Definite Risk 06/03/17 23:12 Sepsis Action Taken by Nursing No Action 06/03/17 23:12 Pulse Rate 75 06/11/17 15:49 Pulse Rhythm 06/11/17 12:00 Pulse Strength Normal 06/04/17 02:01 Respiratory Rate 17 06/11/17 15:49 Respiratory Effort 06/11/17 12:00 Respiratory Depth Deep 06/07/17 04:00 Respiratory Pattern 06/06/17 08:00 Blood Pressure 142/73 H 06/11/17 12:45 Blood Pressure Mean 96 06/11/17 12:45 Blood Pressure Position Supine 06/09/17 18:00 Pulse Oximetry 92 06/11/17 15:49 Oxygen Delivery Method 06/11/17 12:00 Oxygen Flow Rate 60 06/10/17 05:30 Fraction of Inspired Oxygen 45 06/11/17 15:49 SaO2/FiO2 Ratio 156 06/10/17 19:56 - Medications Inpatient Medications: Albuterol/Ipratropium (Duoneb) 3 ml AEROSOL Q4HR [facility] Last Admin: 06/11/17 15:48 Dose: 3 ml Albuterol/Ipratropium (Duoneb) 3 ml AEROSOL PRN PRN Last Admin: 06/11/17 04:15 Dose: 3 ml Amlodipine Besylate (Norvasc) 5 mg PO DAILY [facility] Last Admin: 06/11/17 13:11 Dose: 5 mg Clonidine HCl (Catapres-Tts 2) 0.2 mg TD Q7D@0900 [facility] Last Admin: 06/11/17 08:51 Dose: 0.2 mg Clonidine HCl (Catapres Patch Removal) 1 removal TD Q7D [facility] Last Admin: 06/11/17 13:23 Dose: Not Given Dextrose (D50%W) 50 ml IVP PRN PRN PRN Reason: Hypoglycemia Fentanyl (Fentanyl) 50 mcg IVP Q1HR PRN Furosemide (Lasix) 40 mg IVP Q8HR [facility] Last Admin: 06/11/17 08:43 Dose: 40 mg Haloperidol Lactate (Haldol) 5 mg IVP Q4H PRN Last Admin: 06/06/17 19:55 Dose: 5 mg Hydralazine HCl (Apresoline) 10 mg IVP Q6HR PRN PRN Reason: Hypertension Last Admin: 06/05/17 01:45 Dose: 10 mg Fat Emulsion Intravenous (Intralipid 20%) 100 mls @ 50 mls/hr IV 1600 [facility] Last Admin: 06/11/17 16:08 Dose: 50 mls/hr Potassium Phosphate 60 meq/Magnesium Sulfate 16 meq/Calcium Gluconate 4.65 meq/ Multivitamins/Minerals 10 ml/Chromium/Copper/Manganese/Zinc 1 ml/ Potassium Acetate 40 meq/ Sterile Water 500 ml/Amino Acids/Electrolytes 2,558.6364 mls @ 75 mls/hr IV .Q24H DAVION PRN Reason: Protocol Stop: 06/11/17 17:00 Last Infusion: 06/11/17 12:00 Dose: 75 mls/hr Propofol (Diprivan) 1,000 mg in 100 mls @ 3.957 mls/hr IV .Q24H PRN; Protocol; 5 MCG/KG/MIN PRN Reason: Agitation/Restlessness Last Admin: 06/11/17 15:24 Dose: 75 mcg/kg/min, 59.355 mls/hr Potassium Acetate 60 meq/Potassium Phosphate 60 meq/Magnesium Sulfate 16 meq/ Calcium Gluconate 4.65 meq/Multivitamins/Minerals 10 ml/Chromium/Copper/ Manganese/Zinc 1 ml/ Sterile Water 500 ml/Amino Acids/Electrolytes 2,568.6364 mls @ 75 mls/hr IV .Q24H DAVION PRN Reason: Protocol Nicardipine HCl 50 mg/ Sodium (Chloride) 270 mls @ 50 mls/hr IV .Q5H24M [facility] Last Admin: 06/11/17 12:02 Dose: 50 mls/hr Insulin Aspart (Novolog) 0 unit SQ SS PRN PRN Reason: Protocol Last Admin: 06/11/17 12:09 Dose: 12 unit Insulin Glargine (Lantus) 50 unit SQ HS [facility] Last Admin: 06/10/17 21:44 Dose: 50 unit Insulin Glargine (Lantus) 20 unit SQ DAILY [facility] Lorazepam (Ativan Inj) 2 mg IVP Q2H PRN PRN Reason: Agitation/Restlessness Last Admin: 06/10/17 03:15 Dose: 2 mg Methylprednisolone Sodium Succinate (Solu-Medrol) 40 mg IVP Q12HR [facility] Metoprolol Tartrate (Lopressor) 25 mg NG BIDWM [facility] Last Admin: 06/11/17 08:43 Dose: 25 mg Metoprolol Tartrate (Lopressor) 5 mg IVP Q6HR PRN PRN Reason: Tachycardia Last Admin: 06/10/17 17:48 Dose: 5 mg Morphine Sulfate (Morphine Sulfate Inj) 4 mg IVP Q3H PRN PRN Reason: Pain Last Admin: 06/08/17 00:38 Dose: 4 mg Ondansetron HCl (Zofran) 4 mg IVP Q6H PRN PRN Reason: Nausea &/or vomiting Last Admin: 06/04/17 20:13 Dose: 4 mg Pantoprazole Sodium (Protonix Iv) 40 mg IVP DAILY [facility] Last Admin: 06/11/17 08:42 Dose: 40 mg Promethazine HCl (Phenergan Inj) 25 mg IVP Q6H PRN Sodium Chloride (Iv Flush) 10 - 80 ml IVF PRN PRN PRN Reason: Flushing Last Admin: 06/11/17 04:44 Dose: 50 ml - Home Medications Home Medications: Home Medications Medication Instructions Recorded Confirmed Type Potassium Chloride 20 meq PO BID 06/04/17 06/04/17 History - Patient History Patient History: I have evaluated this patient and found no changes in the patient's history. - Pertinent Findings Lab: INR 1.22 (0.99-1.21) H 06/09/17 04:23 06/10/17 05:07 06/11/17 04:22 EKG Rhythm: Normal Sinus Rhythm - Physical Exam Respiratory: Decreased Breath Sounds L, Decreased Breath Sounds R Cardiovascular: Regular Rate/Rhythm - Procedure Physician: consult per Dr Kearns ET Tube Depth at Upper Lip: 26 (bougie stylet used for ETT exchange - Chest X ray to be read by ED)
[2017-06-11] MEDS ORDERED: POTASSIUM ACETATE IV SCH (17:00)
[2017-06-11] MEDS ORDERED: [UNRECOGNIZED DRUG - OTHER] IV SCH (17:00)
[2017-06-11] MEDS ORDERED: POTASSIUM PHOSPHATE IV SCH (17:00)
[2017-06-11] MEDS: MAGNESIUM SULFATE IV SCH (18:16)
[2017-06-11] MEDS: [UNRECOGNIZED DRUG - OTHER] IV SCH (18:16)
[2017-06-11] MEDS: POTASSIUM PHOSPHATE IV SCH (18:16)
[2017-06-11] MEDS: METOCLOPRAMIDE 10mg/2ml INJECTION IVP SCH ×2 (18:19→23:11)
[2017-06-11] MEDS ORDERED: LACRI-LUBE EYE OINT 3.5gm EACH EYE PRN (20:57)
[2017-06-11] MEDS: MORPHINE SULFATE 4 MG SYRINGE IVP PRN (21:01)
[2017-06-11] MEDS: INSULIN GLARGINE 100unit/ml INJECTION SQ SCH (21:03)
[2017-06-12] MEDS: INSULIN ASPART 100unit/ml INJECTION SQ PRN ×5 (01:18→22:25)
[2017-06-12] MEDS: PROPOFOL 1,000 MG/100 ML VIAL IV PRN ×13 (01:34→23:35)
[2017-06-12] MEDS: ALBUTEROL/IPRATROPIUM 2.5mg-0.5mg/3ml NEB AEROSOL SCH ×5 (03:00→19:54)
[2017-06-12] MEDS: METOCLOPRAMIDE 10mg/2ml INJECTION IVP SCH ×4 (03:14→22:28)
[2017-06-12] MEDS: NS IV SCH ×3 (04:55→18:15)
[2017-06-12] MEDS: NICARDIPINE IV SCH ×3 (04:55→18:15)
--- NOTE | 2017-06-12 06:43 | XRay Report ---
Indication: ET tube placement PROCEDURE: XR chest 1V: Encounter: Subsequent Comparison: 06/10/2017 Findings: ET tube 2 cms above the prosper. Nasogastric tube present within the stomach. Plate of atelectasis in the left lower lobe with evidence of more prominent density obscuring the left hemidiaphragm medially consistent with further degree of atelectasis or consolidation. Small left pleural effusion. No pulmonary vascular engorgement. Bony structures stable and monitor leads overlie the chest. IMPRESSION: 1. Left lower lobe consolidation or atelectasis. 2. Endotracheal nasogastric tubes in good position. 3. Negative for congestive failure. .
--- NOTE | 2017-06-12 06:45 | XRay Report ---
Indication: Respiratory Failure PROCEDURE: XR chest 1V: Encounter: Subsequent Comparison: Yesterday's chest radiograph 6 Findings: Frontal chest radiograph redemonstrates unchanged position of the endotracheal and nasogastric tube and a left-sided PICC line is noted. Left basal atelectasis or infiltrate fairly similar to that seen previously. Heart not significantly enlarged like projection and there is no pulmonary vascular engorgement. IMPRESSION: 1. Stable position of life support lines and tubes. 2. Continued left basal pulmonary opacity with small parapneumonic effusion suspected. 3. Negative for volume overload/congestive heart failure. .
[2017-06-12] MEDS: INSULIN GLARGINE 100unit/ml INJECTION SQ SCH ×2 (08:36→23:21)
[2017-06-12] MEDS: SALINE FLUSH 10ml SYRINGE IVF PRN ×8 (08:41→19:30)
[2017-06-12] MEDS: PANTOPRAZOLE 40 MG INJECTION IVP SCH (08:42)
[2017-06-12] MEDS: METHYLPREDNISOLONE SOD SUCC 40mg/ml INJECTION IVP SCH ×2 (09:15→22:32)
[2017-06-12] MEDS: AMLODIPINE 5 MG TABLET PO SCH (10:05)
[2017-06-12] MEDS ORDERED: AMLODIPINE 5 MG TABLET PO ONE (10:50)
[2017-06-12] MEDS: LISINOPRIL 20 MG TABLET PO SCH (12:04)
[2017-06-12] MEDS: POTASSIUM CHLORIDE 20 MEQ/15 ML ORAL LIQUID GT SCH (12:04)
--- NOTE | 2017-06-12 12:37 | Progress Note ---
Subjective: Nii remains sedated and on the vent. He is tolerating GT feedings with low volume tube feedings with residuals of 15-20 cc after initiation of metoclopramide. He opened his eyes, squeeze fingers and wiggle toes to command on sedation holiday earlier this morning. Urine output has been good although fluid balance remained positive yesterday. He remains on nicardipine drip in addition to propofol drips and TPN. Nursing reports no bowel movements and no skin breakdown. Objective Vital signs: Temperature 98.1 F 06/12/17 07:45 Pulse Rate 71 06/12/17 11:22 Respiratory Rate 18 06/12/17 11:28 Blood Pressure 157/74 H 06/12/17 11:00 Pulse Oximetry 93 06/12/17 11:28 Oxygen Delivery Method Mechanical Ventilation, PEEP 7 Fraction of Inspired Oxygen 50 SaO2/FiO2 Ratio 204 EXAM General-sedated, opens eyes occasionally HEENT-conjugate gaze, pupils round-4 mm bilaterally, oral ET tube, OG present Lungs-respirations nonlabored, anterior breath sounds clear with diminished breath sounds left base laterally Cardiac-regular rhythm, S1-S2 Abd-soft, nontender, bowel sounds present but diminished Ext-+2 edema 4 extremities Neuro-reported to move all 4 extremities to command when sedation lightened, withdraw slightly currently to painful stimuli Psych-sedated - Weight: 133.4 kg Results - Labs CBC & Chem 7: 06/12/17 04:53 06/12/17 04:53 Labs: Bilirubin 1.5, AST 88, ALT 109, alkaline phosphatase 138, albumin 2.9 BNP 356 Triglycerides pending Microbiology Results: Microbiology 06/06/17 11:34 Peripheral/Iv Start Blood Culture - Final No Growth After 5 Days 06/06/17 11:34 Peripheral/Iv Start Blood Culture - Final No Growth After 5 Days 06/06/17 11:00 Sputum, Suctioned Gram Stain - Final 06/06/17 11:00 Sputum, Suctioned Sputum Culture - Final Normal Respiratory Dinah - ABG Interpretation ABG results: 06/05/17 06/06/17 06/06/17 17:41 04:35 09:25 ABG pH 7.360 7.380 7.460 H ABG pCO2 55 H 53 H 42 ABG pO2 114 H 64 L 133 H ABG HCO3 31 H 31 H 30 H ABG Total CO2 32.8 H 33.0 H 31.2 H ABG O2 Saturation 98.0 92.0 L 99.0 H ABG Base Excess 4.4 H 5.0 H 5.5 H 06/06/17 06/07/17 06/08/17 15:05 09:55 07:50 ABG pH 7.450 7.370 7.391 ABG pCO2 41 52 H 50 H ABG pO2 65 L 82 98 ABG HCO3 29 H 30 H 31 H ABG Total CO2 29.8 H 31.7 H 32 H ABG O2 Saturation 93.0 L 96.0 97.0 ABG Base Excess 4.1 H 3.7 H 5.0 H 06/09/17 08:35 ABG pH 7.470 H ABG pCO2 44 ABG pO2 88 ABG HCO3 32 H ABG Total CO2 33.4 H ABG O2 Saturation 97.0 ABG Base Excess 7.4 H - Imaging and Cardiology Chest x-ray Status: image reviewed by me (portable chest x-ray unchanged from yesterday morning-persistent left pleural effusion; atelectasis improved from yesterday afternoon.) Assessment and Plan (1) Pancreatitis Problem details: POA: ETOH induced. RUQ US negative for obstructive stones. MRCP nondiagnostic due to motion artifact however no obvious gallstones, pancreatitis head thickened, intrahepatic ducts nondilated. Current visit: Yes Status: Acute (2) Acute respiratory failure Current visit: Yes Status: Acute (3) DTs (delirium tremens) Current visit: Yes Status: Acute (4) Hypertension Current visit: Yes Status: Chronic (5) Alcoholic liver damage Current visit: Yes Status: Acute (6) Hypokalemia Problem details: POA Current visit: Yes Status: Acute (7) Hypomagnesemia Problem details: POA Current visit: Yes Status: Acute (8) Hypophosphatemia Current visit: Yes Status: Acute (9) Hypocalcemia Current visit: Yes Status: Acute (10) Rhabdomyolysis Current visit: Yes Status: Acute (11) ETOHism Current visit: Yes Status: Chronic (12) Tobacco dependence Current visit: Yes Status: Chronic (13) Obesity (BMI 30-39.9) Current visit: Yes Status: Chronic (14) Hyperglycemia Current visit: Yes Status: Acute (15) Volume overload Current visit: Yes Status: Acute (16) Hypernatremia Current visit: Yes Status: Acute DVT Prophylaxis: SCD's GI Prophylaxis: Protonix Resuscitation Status: Full Code Assessment and Plan: Patient continues to require ventilatory assistance with FiO2 of 50% and PEEP of 7. Continue diuresis with goal of equal/negative fluid balance daily. Bumex increased to 1 mg IV every 6 hours. Antibiotics discontinued yesterday (06/11) after total of 8 days (ceftriaxone 06/04 -06/06; cefepime/clindamycin/vancomycin 06/06-06/08; Unasyn 06/08-current). sputum culture normal dinah-we'll discontinue antibiotics. On Solu-Medrol for pulmonary inflammation 40 mg every 12 hours and continue to monitor. Remains hyperglycemic; Lantus increased to 20 units every morning and 50 units daily at bedtime yesterday. Fasting glucose 242 today. Continue corrective scale insulin. Anticipate beginning to titrate off TPN in the next couple of days-corrective scale modified but will not increase basal insulin at present. Blood pressures modestly elevated; on metoprolol, Catapres patch, and nicardipine drip. Amlodipine added yesterday-dose increased to 10 mg daily today and lisinopril added at 20 mg daily. Hope to titrate nicardipine off in next 24 hours. Tolerating Glucotrol at 25 mL per hour-rate increased to 40 mL per hour; dietary consultation for recommendations. Continue TPN for nutritional support. Triglycerides pending to monitor propofol/ TPN. Hypernatremia slightly improved with TPN modifications, low-volume free water added to enteral tube feedings. Potassium down today with diuresis-replaced and early and modified in TPN. Patient remains critically ill. 25 minutes at the bedside/unit; additional time off unit inpatient care. Discussed with Pharm.D., nursing, and family at bedside. High risk medication in use-Propofol, IV lorazepam, IV fentanyl. Sepsis Assessment - Evaluation Sepsis screening result: No Definite Risk Hospital Course Summary Disclaimer: The visit summary below is not to be considered part of the above Progress Note. Hospital Course: 06/04/17 1) Alcohol use and abuse with ongoing pancreatitis, this could be related to ETOH, or due to gallstones (U/S could not see distal CBD - bilirrubin high) or both. - Check Abd/Pelvic CT with IV contrast re: Extent of pancreatic swelling ? abscess ? hemorrhage ? also Pyelonephritis ? - Check MRCP - pt could be obstructed since Bilirrubin is high. Pt states he noticed his skin is yellow. - Aggressive hydration with NS 500cc/hr x 6 hrs then reasses 2) UTI - very high lactate - high WBC - On Rocephin will continue for now. 3) Hypokalemia/Hypomagenesemia - Will give Mg + K 4) Lactic acidosis - due to ? sepsis ? hypoperfusion ? - Will recheck later today. 5) Elevated hemoglobin - Will follow serially. 06/05/17 1) ALCOHOL ABUSE WITH A) SEVERE AGITATION/CONFUSION ? OF HALLUCINATIONS MOST LIKELY DUE TO ALCOHOL WITHDRAWALS - On Propofol drip - Tachycardic - Will also give Ativan IV TN. - Check CPK (R/O Rhabdo due to agitation) - Aggressive hydration and electrolyte replenishment. B) Pancreatitis most likely related to ETOH MRCP Impression: 1. No cholelithiasis or intrahepatic bile duct dilatation. Evaluation of the extrahepatic common duct is poor due to motion artifact and patient body habitus. No obvious common duct stone. 2. Enlargement of the pancreatic head which could be due to inflammation from pancreatitis or potentially neoplasm. Recommend further evaluation with a contrast-enhanced CT of the abdomen. - Lipase coming down - Check CA 19-9 prior to D/C and follow closely his pancreatic anatomy by CT/ MRI. Transferred to CCU due to alcohol withdrawal. 06/06/17 1) PULMONARY ASSESMENT A) Pt has developed ALI/ARDS - ABG on FIO2 of 80% showed PaO2 of 133 with CO2 of 42 - huge a-A gradient that has increased since yesterday. - Pt was intubated successfully by ED MD - Saturations are 91 on 100% FIO2. ET tube appears to be well positioned. - Pt requires high PEEP. - Could be related to pancreatitis, or PNA - Pt has a L sided effussion - could be related to pancreatitis. Must R/O Boherhave's syndrome will try a CT chest with gastrograffin injection in the mid esophagus. - Start coverage for HAP - Vanco + cefepime + steroids - Add Mucomyst for possible mucus plugg. - Case discussed with his NOK - significant other, she consented for intubation. - Reculture blood & sputum B) Obstructive Sleep Apnea (New Dx) - Was on CPAP - now intubated. 2) ALCOHOL ABUSE WITH MULTIPLE COMPLICATIONS - A) SEVERE AGITATION/CONFUSION ? OF HALLUCINATIONS MOST LIKELY DUE TO ALCOHOL WITHDRAWALS - On propofol since yesterday. - On Propofol drip - Continue. - Tachycardic/hypertensive - CPK - 1261 Yesterday - C/W rhadbomyolisis - will rehceck - Aggressive hydration and electrolyte replenishment. B) Pancreatitis most likely related to ETOH - Lipase coming down - Check CA 19-9 prior to D/C and follow closely his pancreatic anatomy by CT/MRI. - Add Banana bags - C) Hypokalemia on admission - K is high today. - Stop NS with K - Recheck later. D) Hypomagnesemia - now improved. E) Severe hypophosphatemia - Risk of hemolysis - CHF & could be causing low Platelets. - PO4 is under 1 - Spoke with Pharm Jasmine De Souza - Will give 90 Mmol of Na Phosphate F) Dehydration - Appears improved now, will hold off on aggressive hydration will place on Banana bag @ 50ml/hr x 3 Liters. G) Rhabdomyolisis - cuuld be due to his severe agitation. - Recheck CPK now. 3) INFECTIOUS DISEASE ASSESMENT A) UTI - very high lactate - high WBC - On Rocephin will continue for now. B) ? Of HAP ? - Will cover with Vanco + Cefepime - Add Mucomyst for possible mucus plug - Continue Duonebs - Add Steroids. - Lactate is dropping 3) CARDIOVASCULAR ASSESSMENT A) Hypertension - moderate to severe - On BB PRN will schedule with parameters B) Will check EKG due to low Ca and due to severe agitation - R.O [place]. 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 06/07/[address] Renee for Pulm evaluation and to help with ventilator management. Continue IV antibiotics - possible aspiration pneumonia/pneumonitis Continue Sedation - with current decreased pulmonary statue, likely too early to work on weaning sedation. Start TPN for nutritional support. Will stop IVF when TPN ready. Continue to monitor lab due to pt's severity of illness. Patient remains critically ill, ICU care warranted. 06/08/17 Continue with mechanical ventilation as per Dr Renee. In discussion with Dr Renee, will deescalate IV antibiotic use (likely respiratory failure from ARDS due to pancreatitis, still some concern for possible aspiration) Will stop Vancomycin, cefepime and clindamycin. Initiate Unasyn for coverage. Will continue Solu-Medrol at 40mg IV q 8 hours. Will stop Mucomyst - monitor for increase secretions. Blood pressure with elevation today. Bumex 1mg given this morning and afternoon to help decrease volume. Urine output appropriate, but pressures remain high. Start Nipride drip to ease down blood pressure. TPN continues-discussed with pharm about electrolyte adjustments. 10 units of Lantus given this morning to help sugars - did monitor sugars more frequently and gave additions SQ doses of insulin. Will start 20 units of Lantus this evening. Insulin sliding scale changed to high dose regimen. Continue propofol for sedation. Patient remains critically ill. CCU care an support required. 06/09/17 Recheck Lipase and CPK this am show normalization. Continue with mechanical ventilation as per Dr Renee. Continue Unasyn for antimicrobial coverage. Additional insulin to be given to help improve glycemic control. Extra SQ dosing during day. Increase Lantus to 45 units at night. Sugars elevated due to TPN and Solu-Medrol. Bumex 1mg given this morning to help decrease volume. Will give additional Bumex 1mg this afternoon. Nipride drip continues for BP control. TPN continues-discussed with pharm about electrolyte adjustments. Will remove sodium to decrease sodium level and OSMO. Increase KPhos. Continue propofol for sedation. Patient remains critically ill. CCU care an support required. 06/10/17 15:56 Patient continues to require ventilatory assistance with high pressures and FiO2 of 60% increased to 70% this afternoon after desaturating. Weight up significantly since admission, volume status +18.7 L from admission, edema on exam-will begin diuresing with scheduled Lasix. Continue propofol; discussed conversion to Precedex with Dr. Renee but with respiratory instability will not make changes at this time. Check triglycerides in a.m. Continue Unasyn/steroids. Remains hyperglycemic; Lantus increased to 50 units and corrective scale modified upward. Blood pressures modestly elevated; on IV metoprolol, Catapres patch, and nicardipine drip. Convert to enteral metoprolol per NG. Begin low-volume feedings per NG; dietary consultation for recommendations. Continue TPN for nutritional support. Patient remains critically ill. 06/11/17 16:18 Patient continues to require ventilatory assistance with FiO2 of 50% and PEEP of 8-both improved from yesterday. Continue diuresis with goal of equal/negative fluid balance daily. X-ray most consistent with volume overload-no focal infiltrate. Patient has been on antibiotics since 06/04 (ceftriaxone 06/04-06/06; cefepime/ clindamycin/vancomycin 06/06-06/08; Unasyn 06/08-current); sputum culture normal dinah -we'll discontinue antibiotics. On Solu-Medrol for pulmonary inflammation-discussed with Dr. Renee-decreased dose to 40 mg every 12 hours and continue to monitor. Remains hyperglycemic; Lantus increased to 50 units daily at bedtime with 20 units added every morning. Continue corrective scale insulin. Blood pressures modestly elevated; on by mouth metoprolol, Catapres patch, and nicardipine drip. Amlodipine added. Begin low-volume feedings per NG with Glucotrol; dietary consultation for recommendations. Continue TPN for nutritional support. Triglycerides pending to monitor propofol/ TPN. Hypernatremia slightly improved with TPN modifications, low-volume free water added to enteral tube feedings. 06/12/17 12:54 Patient continues to require ventilatory assistance with FiO2 of 50% and PEEP of 7. Continue diuresis with goal of equal/negative fluid balance daily. Bumex increased to 1 mg IV every 6 hours. Antibiotics discontinued yesterday (06/11) after total of 8 days (ceftriaxone 06/04 -06/06; cefepime/clindamycin/vancomycin 06/06-06/08; Unasyn 06/08-current). sputum culture normal dinah-we'll discontinue antibiotics. On Solu-Medrol for pulmonary inflammation 40 mg every 12 hours and continue to monitor. Remains hyperglycemic; Lantus increased to 20 units every morning and 50 units daily at bedtime yesterday. Fasting glucose 242 today. Continue corrective scale insulin. Anticipate beginning to titrate off TPN in the next couple of days-corrective scale modified but will not increase basal insulin at present. Blood pressures modestly elevated; on metoprolol, Catapres patch, and nicardipine drip. Amlodipine added yesterday-dose increased to 10 mg daily today and lisinopril added at 20 mg daily. Hope to titrate nicardipine off in next 24 hours. Tolerating Glucotrol at 25 mL per hour-rate increased to 40 mL per hour; dietary consultation for recommendations. Continue TPN for nutritional support. Triglycerides pending to monitor propofol/ TPN. Hypernatremia slightly improved with TPN modifications, low-volume free water added to enteral tube feedings. Potassium down today with diuresis-replaced and early and modified in TPN.
[2017-06-12] MEDS: MORPHINE SULFATE 4 MG SYRINGE IVP PRN ×4 (13:01→18:43)
--- NOTE | 2017-06-12 14:58 | Pulmonology Progress Note ---
Subjective Principal diagnosis: Acute Respiratory Failure Interval history: Pt currently remains on the vent with propofol for comfort and sedation. ACPC IP 12, FiO2 60%. FIO2 50% with peep at 7 now. Overall improving, albeit slowly. On Bumex q6H. Off abx. Weaning off Solumedrol. Exam Vital signs: Temperature 98.1 F 06/12/17 07:45 Pulse Rate 80 06/12/17 13:50 Respiratory Rate 16 06/12/17 13:50 Blood Pressure 157/74 H 06/12/17 11:00 Pulse Oximetry 94 06/12/17 13:50 Oxygen Delivery Method Mechanical Ventilation Oxygen Flow Rate 60 Fraction of Inspired Oxygen 50 SaO2/FiO2 Ratio 204 - Constitutional no acute distress, well nourished, obese Comments: intubated, on vent - Routine HEENT Exam Head: Present: normocephalic, atraumatic Eye: Present: EOMI - Routine Neck Exam Present: full ROM - Routine Respiratory Exam Present: patient mechanically ventilated, rhonchi. Absent: wheezes - Routine Cardiovascular Exam Present: RRR, S1, S2. Absent: murmur - Routine Abdominal Exam Present: soft, distended - Routine Extremities Exam Absent: cyanosis, clubbing - Routine Psychiatric Exam Present: unable to assess - Urinary Catheter Management Urethral Cath placed during this visit: yes Urethral indwelling: Yes Reason for continuing: Prolonged Immobilization Insertion date: 06/05/17 Insertion time: 10:00 Progress Note-A&P (1) Acute respiratory failure with hypoxia Status: Acute Assessment and plan: remains on vent, though slowly improved. wean FIO2 as tolerated. I suspect that within the next few days we may be able to start SBT trials. Agree with gently diuresis. Perhaps we can discontinue the TPN in favor of enteral feedings. repeat Trgs on propofol. Try to wean from propofol and use MSO4, Ativan for prn use. Precedex is also an option for his comfort and sedation. Current Visit: Yes (2) Pancreatitis Problem details: POA: ETOH induced. RUQ US negative for obstructive stones. MRCP nondiagnostic due to motion artifact however no obvious gallstones, pancreatitis head thickened, intrahepatic ducts nondilated. Status: Acute Current Visit: Yes (3) Hypertension Status: Chronic Current Visit: Yes (4) DTs (delirium tremens) Status: Acute Current Visit: Yes - Time Spent With Patient Total time spent is greater than 50% in coordination of care (as documented) at patient's floor/unit and/or counseling patient: less than 15 minutes Sepsis Assessment - Evaluation Sepsis screening result: No Definite Risk
--- NOTE | 2017-06-12 15:13 | Pharmacy Consult-TPN/PPN ---
Pharmacy Consult-TPN/PPN - Laboratory Information Chemistry Turbidity < 20 (0-20) 06/12/17 04:53 Sodium 151 MEQ/L (134-144) H 06/12/17 04:53 Potassium 3.3 MEQ/L (3.6-5) L 06/12/17 04:53 Chloride 108 MEQ/L (98-107) H 06/12/17 04:53 Carbon Dioxide 32 MEQ/L (22-30) H 06/12/17 04:53 Anion Gap 11 MEQ/L (5-15) 06/12/17 04:53 BUN 33.0 MG/DL (9-20) H 06/12/17 04:53 Creatinine 0.8 MG/DL (0.8-1.5) 06/12/17 04:53 GFR Calculation 110 06/12/17 04:53 BUN/Creatinine Ratio 41 RATIO (6-26) H 06/12/17 04:53 Glucose 242 MG/DL (75-110) H 06/12/17 04:53 Glucometer 205 mg/dL (65-110) 06/12/17 01:15 Calculated Osmolality 305 MOSM/KG (261-280) H 06/12/17 04:53 Calcium 7.9 MG/DL (8.4-10.2) L 06/12/17 04:53 Phosphorus 4.1 MG/DL (2.5-4.5) 06/12/17 04:53 Magnesium 1.9 MG/DL (1.6-2.3) 06/11/17 04:22 Total Bilirubin 1.50 MG/DL (0.20-1.30) H 06/12/17 04:53 Conjugated Bilirubin 0.00 MG/DL (0.00-0.30) 06/10/17 05:07 Unconjugated Bilirubin 0.30 MG/DL (0.00-11.10) 06/10/17 05:07 Icterus Index < 2 (0-7) 06/12/17 04:53 AST 88 U/L (17-59) H 06/12/17 04:53 ALT 109 U/L (21-72) H 06/12/17 04:53 Alkaline Phosphatase 138 U/L (38-126) H 06/12/17 04:53 Creatine Kinase 122 U/L (55-170) 06/09/17 04:23 Troponin I 0.018 ng/ml (0-0.12) 06/06/17 08:49 B-Natriuretic Peptide 356 pg/mL (0-175) H 06/12/17 04:53 Total Protein 5.6 G/DL (6.3-8.2) L 06/12/17 04:53 Albumin 2.9 G/DL (3.5-5.0) L 06/12/17 04:53 Globulin 2.7 G/DL (2.4-3.6) 06/12/17 04:53 Albumin/Globulin Ratio 1.1 RATIO (1.1-2.2) 06/12/17 04:53 Triglycerides 192 MG/DL (40-160) H 06/09/17 04:27 Cholesterol < 50 MG/DL (132-199) L 06/05/17 14:23 LDL Cholesterol, Calc TNP 06/05/17 14:23 VLDL Cholesterol 43.2 MG/DL (0-28) H 06/05/17 14:23 HDL Cholesterol 13 MG/DL (40-60) L 06/05/17 14:23 Cholesterol/HDL Ratio TNP 06/05/17 14:23 Lipase 44 U/L (23-300) 06/09/17 04:23 Plasma Lactate 0.8 MMOL/L (0.6-2.2) 06/06/17 20:35 Specimen Hemolysis < 15 (0-25) 06/12/17 04:53 Intake and Output 06/11/17 06/12/17 06/13/17 06:59 06:59 06:59 Intake Total 5115.420 / 5115.420 6147.4244 / 6147.4244 1669.150 / 1669.150 Output Total 4810 / 4810 3565 / 3565 493 / 493 Balance 305.420 / 644.976 3390.4244 / 2582.4244 1176.150 / 1176.150 Weight 131.9 kg 128.1 kg 133.4 kg Intake: IV 5055.420 / 5055.420 5487.4244 / 5487.4244 1274.150 / 1274.150 Unasyn 3 G In Normal 300 / 300 200 / 200 Saline 100 ml @ 200 mls/ hr IV Q6H [facility] Rx#: [id number] Intralipid 20% 100 ml @ 100 / 100 100 / 100 50 mls/hr IV 1600 [facility] Rx# :[id number] Cardene IV 50 mg In 854.167 / 854.167 353.333 / 353.333 Normal Saline 250 ml @ 50 mls/hr IV .Q5H24M [facility] Rx #:[id number] Cardene IV 50 mg In 1843.333 / 1843.333 500.000 / 500.000 Normal Saline 500 ml @ 10 MG/HR 100 mls/hr IV .Q5H PRN Rx#:[id number] Potassium Acetate Inj 40 905 / 905 525 / 525 Meq/20 ml K Phos Inj 60 Meq Magnesium Sulfate Inj 16 Meq Calcium Gluconate 4.65 Meq Infuvite Adult 10 ml Multi-Trace Elements 1 ml Water 500 ml In TPN - Custom Formula 2,000 ml @ 75 mls /hr IV .Q24H [facility] Rx#: [id number] K Phos Inj 60 Meq 1738.75 / 1738.75 1632.3864 / 1632.3864 Magnesium Sulfate Inj 16 Meq Calcium Gluconate 4. 65 Meq Infuvite Adult 10 ml Multi-Trace Elements 1 ml Potassium Acetate Inj 40 Meq/20 ml Water 500 ml In TPN - Custom Formula 2,000 ml @ 75 mls /hr IV .Q24H [facility] Rx#: [id number] DIPRIVAN 1,000 mg In 100 1073.337 / 3979.954 9068.871 / 1295.871 395.817 / 395.817 ml @ 5 MCG/KG/MIN 3.957 mls/hr IV .Q24H PRN Rx#: [id number] Oral 60 / 60 Tube Feeding 390 / 390 175 / 175 Oral 390 / 390 175 / 175 Intake, Gastric Tube 270 / 270 220 / 220 Irrigant Amount Oral 270 / 270 220 / 220 Output: Urine Amount (Catheter) 4640 / 4640 3565 / 3565 493 / 493 Gastric Drainage 170 / 170 Oral 170 / 170 - Consult Information Potassium Chloride 40 meq added to TPN formula. Current rate= 75 ml/hr TPN formula Amino Acid 8.5% 1000 ml Dextrose 50% 1000 ml KCl 40 meq K Phos 60 meq K acetate 60 meq MgSO4 16 meq Calcium gluc 4.65 meq MVI 10 ml trace elements 1 ml sterile H2O 500 ml Lipid 20% 100 ml as separate IVPB daily
[2017-06-12] MEDS: FAT EMULSION 20% 100 ML IV SCH (15:31)
[2017-06-12] MEDS ORDERED: POTASSIUM PHOSPHATE IV SCH (18:00)
[2017-06-12] MEDS ORDERED: POTASSIUM CHLORIDE IV SCH (18:00)
[2017-06-12] MEDS ORDERED: [UNRECOGNIZED DRUG - OTHER] IV SCH (18:00)
[2017-06-12] MEDS ORDERED: FALL RISK - PHARMACY CONSULT MC PRN (22:47)
[2017-06-13] MEDS: MORPHINE SULFATE 4 MG SYRINGE IVP PRN ×3 (00:06→14:09)
[2017-06-13] MEDS: PROPOFOL 1,000 MG/100 ML VIAL IV PRN ×12 (01:14→22:44)
[2017-06-13] MEDS: ALBUTEROL/IPRATROPIUM 2.5mg-0.5mg/3ml NEB AEROSOL SCH ×6 (02:55→21:39)
[2017-06-13] MEDS: METOCLOPRAMIDE 10mg/2ml INJECTION IVP SCH ×2 (03:23→08:27)
[2017-06-13] MEDS: INSULIN ASPART 100unit/ml INJECTION SQ PRN ×3 (06:21→22:01)
[2017-06-13] MEDS: NICARDIPINE IV SCH ×4 (06:27→20:49)
[2017-06-13] MEDS: NS IV SCH ×4 (06:27→20:49)
--- NOTE | 2017-06-13 07:35 | Pharmacy Consult-TPN/PPN ---
Pharmacy Consult-TPN/PPN - Laboratory Information Chemistry Turbidity < 20 (0-20) 06/13/17 04:47 Sodium 148 MEQ/L (134-144) H 06/13/17 04:47 Potassium 4.0 MEQ/L (3.6-5) D 06/13/17 04:47 Chloride 109 MEQ/L (98-107) H 06/13/17 04:47 Carbon Dioxide 30 MEQ/L (22-30) 06/13/17 04:47 Anion Gap 9 MEQ/L (5-15) 06/13/17 04:47 BUN 45.0 MG/DL (9-20) H 06/13/17 04:47 Creatinine 1.0 MG/DL (0.8-1.5) D 06/13/17 04:47 GFR Calculation 85 06/13/17 04:47 BUN/Creatinine Ratio 45 RATIO (6-26) H 06/13/17 04:47 Glucose 189 MG/DL (75-110) H 06/13/17 04:47 Glucometer 208 mg/dL (65-110) 06/13/17 06:14 Calculated Osmolality 301 MOSM/KG (261-280) H 06/13/17 04:47 Calcium 8.0 MG/DL (8.4-10.2) L 06/13/17 04:47 Phosphorus 5.6 MG/DL (2.5-4.5) H 06/13/17 04:47 Magnesium 2.0 MG/DL (1.6-2.3) 06/13/17 04:47 Total Bilirubin 1.50 MG/DL (0.20-1.30) H 06/12/17 04:53 Conjugated Bilirubin 0.00 MG/DL (0.00-0.30) 06/10/17 05:07 Unconjugated Bilirubin 0.30 MG/DL (0.00-11.10) 06/10/17 05:07 Icterus Index < 2 (0-7) 06/13/17 04:47 AST 88 U/L (17-59) H 06/12/17 04:53 ALT 109 U/L (21-72) H 06/12/17 04:53 Alkaline Phosphatase 138 U/L (38-126) H 06/12/17 04:53 Creatine Kinase 122 U/L (55-170) 06/09/17 04:23 Troponin I 0.018 ng/ml (0-0.12) 06/06/17 08:49 B-Natriuretic Peptide 356 pg/mL (0-175) H 06/12/17 04:53 Total Protein 5.6 G/DL (6.3-8.2) L 06/12/17 04:53 Albumin 2.8 G/DL (3.5-5.0) L 06/13/17 04:47 Globulin 2.7 G/DL (2.4-3.6) 06/12/17 04:53 Albumin/Globulin Ratio 1.1 RATIO (1.1-2.2) 06/12/17 04:53 Triglycerides 192 MG/DL (40-160) H 06/09/17 04:27 Cholesterol < 50 MG/DL (132-199) L 06/05/17 14:23 LDL Cholesterol, Calc TNP 06/05/17 14:23 VLDL Cholesterol 43.2 MG/DL (0-28) H 06/05/17 14:23 HDL Cholesterol 13 MG/DL (40-60) L 06/05/17 14:23 Cholesterol/HDL Ratio TNP 06/05/17 14:23 Lipase 44 U/L (23-300) 06/09/17 04:23 Plasma Lactate 0.8 MMOL/L (0.6-2.2) 06/06/17 20:35 Specimen Hemolysis < 15 (0-25) 06/13/17 04:47 Intake and Output 06/12/17 06/13/17 06/14/17 06:59 06:59 06:59 Intake Total 6147.4244 / 6147.4244 4586.021 / 4586.021 Output Total 3565 / 3565 1967 Balance 2582.4244 / 2582.4244 2618.021 / 2618.021 - Weight 128.1 kg 133.4 kg Intake: IV 5487.4244 / 5487.4244 3666.021 / 3666.021 Unasyn 3 G In Normal 200 / 200 Saline 100 ml @ 200 mls/ hr IV Q6H [facility] Rx#: [id number] Intralipid 20% 100 ml @ 100 / 100 30.831 / 30.831 50 mls/hr IV 1600 [facility] Rx# :[id number] Cardene IV 50 mg In 854.167 / 854.167 755.833 / 755.833 Normal Saline 250 ml @ 50 mls/hr IV .Q5H24M [facility] Rx #:[id number] Cardene IV 50 mg In 500.000 / 500.000 Normal Saline 500 ml @ 10 MG/HR 100 mls/hr IV .Q5H PRN Rx#:[id number] Potassium Acetate Inj 40 905 / 905 900.0 / 900.0 Meq/20 ml K Phos Inj 60 Meq Magnesium Sulfate Inj 16 Meq Calcium Gluconate 4.65 Meq Infuvite Adult 10 ml Multi-Trace Elements 1 ml Water 500 ml In TPN - Custom Formula 2,000 ml @ 75 mls /hr IV .Q24H [facility] Rx#: [id number] KCl 40 Meq K Phos Inj 60 762.5 / 762.5 Meq Magnesium Sulfate Inj 16 Meq Calcium Gluconate 4.65 Meq Infuvite Adult 10 ml Multi-Trace Elements 1 ml Water 500 ml Potassium Acetate Inj 40 Meq/20 ml In TPN - Custom Formula 2,000 ml @ 75 mls/hr IV .Q24H [facility] Rx#:[id number] K Phos Inj 60 Meq 1632.3864 / 1632.3864 Magnesium Sulfate Inj 16 Meq Calcium Gluconate 4. 65 Meq Infuvite Adult 10 ml Multi-Trace Elements 1 ml Potassium Acetate Inj 40 Meq/20 ml Water 500 ml In TPN - Custom Formula 2,000 ml @ 75 mls /hr IV .Q24H [facility] Rx#: [id number] DIPRIVAN 1,000 mg In 100 1295.871 / 6236.322 3047.857 / 1216.857 ml @ 5 MCG/KG/MIN 3.957 mls/hr IV .Q24H PRN Rx#: [id number] Tube Feeding 390 / 390 600 / 600 Oral 390 / 390 600 / 600 Intake, Gastric Tube 270 / 270 320 / 320 Irrigant Amount Oral 270 / 270 320 / 320 Output: Urine Amount (Catheter) 3565 / 3565 1967 - Consult Information Will convert 40meq of Kphos to KAcetate and add 4.65meq of calcium gluconate. Current rate is 75 mls/hr for now. Thank you.
[2017-06-13] MEDS: PANTOPRAZOLE 40 MG INJECTION IVP SCH (08:27)
[2017-06-13] MEDS: INSULIN GLARGINE 100unit/ml INJECTION SQ SCH ×2 (08:28→21:49)
[2017-06-13] MEDS: POTASSIUM CHLORIDE 20 MEQ/15 ML ORAL LIQUID GT SCH (08:37)
[2017-06-13] MEDS: LISINOPRIL 20 MG TABLET PO SCH (08:38)
[2017-06-13] MEDS: METHYLPREDNISOLONE SOD SUCC 40mg/ml INJECTION IVP SCH ×2 (08:38→21:49)
[2017-06-13] MEDS: AMLODIPINE 10 MG TABLET PO SCH (08:39)
[2017-06-13] MEDS ORDERED: METOCLOPRAMIDE 10mg/2ml INJECTION IVP PRN (11:55)
--- NOTE | 2017-06-13 14:02 | Progress Note ---
Subjective: Nii remains on propofol but is slightly more alert and nodding yes/no today. He indicates some discomfort in his throat but denies abdominal pain in the abdomen is palpated. He indicates difficulty breathing again referring to the ventilator. Nursing reports a large bowel movements overnight and his girlfriend reported that he was restless through the night. Gastric residuals have been 0 consistently. No fevers have been reported and nursing did not describe diaphoresis; no skin breakdown reported. Objective Vital signs: Temperature 99.2 F 06/13/17 08:00 Pulse Rate 90 06/13/17 13:04 Respiratory Rate 21 06/13/17 10:50 Blood Pressure 177/100 H 06/13/17 09:30 Pulse Oximetry 93 06/13/17 13:04 Oxygen Delivery Method Mechanical Ventilation Fraction of Inspired Oxygen 50, PEEP 7 I/O weight 132.2 kg EXAM General-NAD, drowsy but nods yes/no and follows simple commands HEENT-pupils round/4 mm bilaterally, conjunctiva clear, looks right/left to command Lungs-respirations nonlabored, good airflow, breath sounds slightly coarse bilaterally in the anterior pinzon Cardiac-regular rhythm, S1-S2; telemetry sinus rhythm Abd-soft, mildly distended, nontender, bowel sounds present Ext-+2-3 edema 4 extremities, edema extends to the deep tendon portions of the thighs Neuro-pad machine feeder with hands symmetrically to command, wiggles toes to request Psych-interacts to limited ability, sedated - Weight: 132.2 kg Results - Labs CBC & Chem 7: 06/12/17 04:53 06/13/17 04:47 Labs: Phosphorus 5.6, magnesium 2.0 Microbiology Results: Microbiology 06/06/17 11:34 Peripheral/Iv Start Blood Culture - Final No Growth After 5 Days 06/06/17 11:34 Peripheral/Iv Start Blood Culture - Final No Growth After 5 Days 06/06/17 11:00 Sputum, Suctioned Gram Stain - Final 06/06/17 11:00 Sputum, Suctioned Sputum Culture - Final Normal Respiratory Dinah - ABG Interpretation ABG results: 06/05/17 06/06/17 06/06/17 17:41 04:35 09:25 ABG pH 7.360 7.380 7.460 H ABG pCO2 55 H 53 H 42 ABG pO2 114 H 64 L 133 H ABG HCO3 31 H 31 H 30 H ABG Total CO2 32.8 H 33.0 H 31.2 H ABG O2 Saturation 98.0 92.0 L 99.0 H ABG Base Excess 4.4 H 5.0 H 5.5 H 06/06/17 06/07/17 06/08/17 15:05 09:55 07:50 ABG pH 7.450 7.370 7.391 ABG pCO2 41 52 H 50 H ABG pO2 65 L 82 98 ABG HCO3 29 H 30 H 31 H ABG Total CO2 29.8 H 31.7 H 32 H ABG O2 Saturation 93.0 L 96.0 97.0 ABG Base Excess 4.1 H 3.7 H 5.0 H 06/09/17 08:35 ABG pH 7.470 H ABG pCO2 44 ABG pO2 88 ABG HCO3 32 H ABG Total CO2 33.4 H ABG O2 Saturation 97.0 ABG Base Excess 7.4 H Assessment and Plan (1) Pancreatitis Problem details: POA: ETOH induced. RUQ US negative for obstructive stones. MRCP nondiagnostic due to motion artifact however no obvious gallstones, pancreatitis head thickened, intrahepatic ducts nondilated. Current visit: Yes Status: Acute 06/04/17 03:34 due to continued drinking. RUQ US negative for obstructive stones. Patient started on aggressive IVF, electrolyte replacement and morphine PRN. Repeat labs at 7:00 am. Patient does have elevated lacate, likely due to acute pancreatitis. Continue supportive care. (2) Acute respiratory failure Current visit: Yes Status: Acute (3) DTs (delirium tremens) Current visit: Yes Status: Acute (4) Hypertension Current visit: Yes Status: Chronic (5) Alcoholic liver damage Current visit: Yes Status: Acute (6) Hypokalemia Problem details: POA Current visit: Yes Status: Acute (7) Hypomagnesemia Problem details: POA Current visit: Yes Status: Acute (8) Hypophosphatemia Current visit: Yes Status: Acute (9) Hypocalcemia Current visit: Yes Status: Acute (10) Rhabdomyolysis Current visit: Yes Status: Acute (11) ETOHism Current visit: Yes Status: Chronic (12) Tobacco dependence Current visit: Yes Status: Chronic (13) Obesity (BMI 30-39.9) Current visit: Yes Status: Chronic (14) Hyperglycemia Current visit: Yes Status: Acute (15) Volume overload Current visit: Yes Status: Acute (16) Hypernatremia Current visit: Yes Status: Acute DVT Prophylaxis: SCD's GI Prophylaxis: Pepcid Resuscitation Status: Full Code Assessment and Plan: Patient continues to require ventilatory assistance with FiO2 of 50% and PEEP of 7. On Solu-Medrol for pulmonary inflammation 40 mg every 12 hours and continue to monitor. BUN/creatinine beginning to climb, Lasix and then Bumex have been ineffective in producing net diuresis. Significant edema but fluid is largely and subcutaneous tissues. Frequency of Bumex decreased to avoid worsening of renal function, XIAO siu added an attempt to mobilize fluid. Antibiotics discontinued yesterday 06/11 after total of 8 days (ceftriaxone 06/04-; cefepime/clindamycin/vancomycin 06/06-06/08; Unasyn 06/08-current). Blood sugars slowly [id number] in the past 24 hours; Lantus 20 units every morning and 50 units daily at bedtime currently. Blood pressures modestly elevated; on metoprolol 25 twice a day, amlodipine 10 daily, Catapres 2 patch, lisinopril 20/day and nicardipine drip. Tolerating Glucotrol at 25 mL per hour-intended to increase rate to 40 mL per hour yesterday however order was missed; will increase rate to 50 mL per hour 12 hours and then 75 mL per hour. Discussed with nursing. Decrease TPN infusion rate to 50% current infusion rate if continues to tolerate enteral feeds at higher rates. Continue TPN for nutritional support. Triglycerides pending to monitor propofol/ TPN. Hypernatremia improving with TPN modifications, low-volume free water added to enteral tube feedings. Patient now able to indicate throat discomfort but denies abdominal pain. Restlessness frequently described. Chronic alcohol abuse, alcohol withdrawal may still be underlying much of need for sedation/hypertension-Serax initiated at 30 mg every 6 hours. Wean propofol as able, chest x-ray/ABG in a.m. Patient remains critically ill. 25 minutes at the bedside/unit; additional time off unit inpatient care. Discussed with Pharm.D., nursing, and family at bedside. Nursing/family provided supplemental history High risk medication in use-Propofol, IV lorazepam, IV fentanyl/morphine. Sepsis Assessment - Evaluation Sepsis screening result: No Definite Risk Hospital Course Summary Disclaimer: The visit summary below is not to be considered part of the above Progress Note. Hospital Course: 06/04/17 1) Alcohol use and abuse with ongoing pancreatitis, this could be related to ETOH, or due to gallstones (U/S could not see distal CBD - bilirrubin high) or both. - Check Abd/Pelvic CT with IV contrast re: Extent of pancreatic swelling ? abscess ? hemorrhage ? also Pyelonephritis ? - Check MRCP - pt could be obstructed since Bilirrubin is high. Pt states he noticed his skin is yellow. - Aggressive hydration with NS 500cc/hr x 6 hrs then reasses 2) UTI - very high lactate - high WBC - On Rocephin will continue for now. 3) Hypokalemia/Hypomagenesemia - Will give Mg + K 4) Lactic acidosis - due to ? sepsis ? hypoperfusion ? - Will recheck later today. 5) Elevated hemoglobin - Will follow serially. 06/05/17 1) ALCOHOL ABUSE WITH A) SEVERE AGITATION/CONFUSION ? OF HALLUCINATIONS MOST LIKELY DUE TO ALCOHOL WITHDRAWALS - On Propofol drip - Tachycardic - Will also give Ativan IV TN. - Check CPK (R/O Rhabdo due to agitation) - Aggressive hydration and electrolyte replenishment. B) Pancreatitis most likely related to ETOH MRCP Impression: 1. No cholelithiasis or intrahepatic bile duct dilatation. Evaluation of the extrahepatic common duct is poor due to motion artifact and patient body habitus. No obvious common duct stone. 2. Enlargement of the pancreatic head which could be due to inflammation from pancreatitis or potentially neoplasm. Recommend further evaluation with a contrast-enhanced CT of the abdomen. - Lipase coming down - Check CA 19-9 prior to D/C and follow closely his pancreatic anatomy by CT/ MRI. Transferred to CCU due to alcohol withdrawal. 06/06/17 1) PULMONARY ASSESMENT A) Pt has developed ALI/ARDS - ABG on FIO2 of 80% showed PaO2 of 133 with CO2 of 42 - huge a-A gradient that has increased since yesterday. - Pt was intubated successfully by ED MD - Saturations are 91 on 100% FIO2. ET tube appears to be well positioned. - Pt requires high PEEP. - Could be related to pancreatitis, or PNA - Pt has a L sided effussion - could be related to pancreatitis. Must R/O Boherhave's syndrome will try a CT chest with gastrograffin injection in the mid esophagus. - Start coverage for HAP - Vanco + cefepime + steroids - Add Mucomyst for possible mucus plugg. - Case discussed with his NOK - significant other, she consented for intubation. - Reculture blood & sputum B) Obstructive Sleep Apnea (New Dx) - Was on CPAP - now intubated. 2) ALCOHOL ABUSE WITH MULTIPLE COMPLICATIONS - A) SEVERE AGITATION/CONFUSION ? OF HALLUCINATIONS MOST LIKELY DUE TO ALCOHOL WITHDRAWALS - On propofol since yesterday. - On Propofol drip - Continue. - Tachycardic/hypertensive - CPK - 1261 Yesterday - C/W rhadbomyolisis - will rehceck - Aggressive hydration and electrolyte replenishment. B) Pancreatitis most likely related to ETOH - Lipase coming down - Check CA 19-9 prior to D/C and follow closely his pancreatic anatomy by CT/MRI. - Add Banana bags - C) Hypokalemia on admission - K is high today. - Stop NS with K - Recheck later. D) Hypomagnesemia - now improved. E) Severe hypophosphatemia - Risk of hemolysis - CHF & could be causing low Platelets. - PO4 is under 1 - Spoke with Pharm Jasmine De Souza - Will give 90 Mmol of Na Phosphate F) Dehydration - Appears improved now, will hold off on aggressive hydration will place on Banana bag @ 50ml/hr x 3 Liters. G) Rhabdomyolisis - cuuld be due to his severe agitation. - Recheck CPK now. 3) INFECTIOUS DISEASE ASSESMENT A) UTI - very high lactate - high WBC - On Rocephin will continue for now. B) ? Of HAP ? - Will cover with Vanco + Cefepime - Add Mucomyst for possible mucus plug - Continue Duonebs - Add Steroids. - Lactate is dropping 3) CARDIOVASCULAR ASSESSMENT A) Hypertension - moderate to severe - On BB PRN will schedule with parameters B) Will check EKG due to low Ca and due to severe agitation - R.O KS. - Check 2-D echo - Consult Cardiology (BNP was very high and has Pleural effussion - Alcoholic DERMATOLOGY SPECIALIST ?) PREVENTION DVT - SCD'S PUD - PPI. 06/07/[address] Renee for Pulm evaluation and to help with ventilator management. Continue IV antibiotics - possible aspiration pneumonia/pneumonitis Continue Sedation - with current decreased pulmonary statue, likely too early to work on weaning sedation. Start TPN for nutritional support. Will stop IVF when TPN ready. Continue to monitor lab due to pt's severity of illness. Patient remains critically ill, ICU care warranted. 06/08/17 Continue with mechanical ventilation as per Dr Renee. In discussion with Dr Renee, will deescalate IV antibiotic use (likely respiratory failure from ARDS due to pancreatitis, still some concern for possible aspiration) Will stop Vancomycin, cefepime and clindamycin. Initiate Unasyn for coverage. Will continue Solu-Medrol at 40mg IV q 8 hours. Will stop Mucomyst - monitor for increase secretions. Blood pressure with elevation today. Bumex 1mg given this morning and afternoon to help decrease volume. Urine output appropriate, but pressures remain high. Start Nipride drip to ease down blood pressure. TPN continues-discussed with pharm about electrolyte adjustments. 10 units of Lantus given this morning to help sugars - did monitor sugars more frequently and gave additions SQ doses of insulin. Will start 20 units of Lantus this evening. Insulin sliding scale changed to high dose regimen. Continue propofol for sedation. Patient remains critically ill. CCU care an support required. 06/09/17 Recheck Lipase and CPK this am show normalization. Continue with mechanical ventilation as per Dr Renee. Continue Unasyn for antimicrobial coverage. Additional insulin to be given to help improve glycemic control. Extra SQ dosing during day. Increase Lantus to 45 units at night. Sugars elevated due to TPN and Solu-Medrol. Bumex 1mg given this morning to help decrease volume. Will give additional Bumex 1mg this afternoon. Nipride drip continues for BP control. TPN continues-discussed with pharm about electrolyte adjustments. Will remove sodium to decrease sodium level and OSMO. Increase KPhos. Continue propofol for sedation. Patient remains critically ill. CCU care an support required. 06/10/17 15:56 Patient continues to require ventilatory assistance with high pressures and FiO2 of 60% increased to 70% this afternoon after desaturating. Weight up significantly since admission, volume status +18.7 L from admission, edema on exam-will begin diuresing with scheduled Lasix. Continue propofol; discussed conversion to Precedex with Dr. Renee but with respiratory instability will not make changes at this time. Check triglycerides in a.m. Continue Unasyn/steroids. Remains hyperglycemic; Lantus increased to 50 units and corrective scale modified upward. Blood pressures modestly elevated; on IV metoprolol, Catapres patch, and nicardipine drip. Convert to enteral metoprolol per NG. Begin low-volume feedings per NG; dietary consultation for recommendations. Continue TPN for nutritional support. Patient remains critically ill. 06/11/17 16:18 Patient continues to require ventilatory assistance with FiO2 of 50% and PEEP of 8-both improved from yesterday. Continue diuresis with goal of equal/negative fluid balance daily. X-ray most consistent with volume overload-no focal infiltrate. Patient has been on antibiotics since 06/04 (ceftriaxone 06/04-06/06; cefepime/ clindamycin/vancomycin 06/06-06/08; Unasyn 06/08-current); sputum culture normal dinah -we'll discontinue antibiotics. On Solu-Medrol for pulmonary inflammation-discussed with Dr. Renee-decreased dose to 40 mg every 12 hours and continue to monitor. Remains hyperglycemic; Lantus increased to 50 units daily at bedtime with 20 units added every morning. Continue corrective scale insulin. Blood pressures modestly elevated; on by mouth metoprolol, Catapres patch, and nicardipine drip. Amlodipine added. Begin low-volume feedings per NG with Glucotrol; dietary consultation for recommendations. Continue TPN for nutritional support. Triglycerides pending to monitor propofol/ TPN. Hypernatremia slightly improved with TPN modifications, low-volume free water added to enteral tube feedings. 06/12/17 12:54 Patient continues to require ventilatory assistance with FiO2 of 50% and PEEP of 7. Continue diuresis with goal of equal/negative fluid balance daily. Bumex increased to 1 mg IV every 6 hours. Antibiotics discontinued yesterday (06/11) after total of 8 days (ceftriaxone 06/04 -06/06; cefepime/clindamycin/vancomycin 06/06-06/08; Unasyn 06/08-current). sputum culture normal dinah-we'll discontinue antibiotics. On Solu-Medrol for pulmonary inflammation 40 mg every 12 hours and continue to monitor. Remains hyperglycemic; Lantus increased to 20 units every morning and 50 units daily at bedtime yesterday. Fasting glucose 242 today. Continue corrective scale insulin. Anticipate beginning to titrate off TPN in the next couple of days-corrective scale modified but will not increase basal insulin at present. Blood pressures modestly elevated; on metoprolol, Catapres patch, and nicardipine drip. Amlodipine added yesterday-dose increased to 10 mg daily today and lisinopril added at 20 mg daily. Hope to titrate nicardipine off in next 24 hours. Tolerating Glucotrol at 25 mL per hour-rate increased to 40 mL per hour; dietary consultation for recommendations. Continue TPN for nutritional support. Triglycerides pending to monitor propofol/ TPN. Hypernatremia slightly improved with TPN modifications, low-volume free water added to enteral tube feedings. Potassium down today with diuresis-replaced and early and modified in TPN. 06/13/17 14:26 Patient continues to require ventilatory assistance with FiO2 of 50% and PEEP of 7. On Solu-Medrol for pulmonary inflammation 40 mg every 12 hours and continue to monitor. BUN/creatinine beginning to climb, Lasix and then Bumex have been ineffective in producing net diuresis. Significant edema but fluid is largely and subcutaneous tissues. Frequency of Bumex decreased to avoid worsening of renal function, XIAO siu added an attempt to mobilize fluid. Antibiotics discontinued yesterday 06/11 after total of 8 days (ceftriaxone 06/04-; cefepime/clindamycin/vancomycin 06/06-06/08; Unasyn 06/08-current). Blood sugars slowly [id number] in the past 24 hours; Lantus 20 units every morning and 50 units daily at bedtime currently. Blood pressures modestly elevated; on metoprolol 25 twice a day, amlodipine 10 daily, Catapres 2 patch, lisinopril 20/day and nicardipine drip. Tolerating Glucotrol at 25 mL per hour-intended to increase rate to 40 mL per hour yesterday however order was missed; will increase rate to 50 mL per hour 12 hours and then 75 mL per hour. Discussed with nursing. Decrease TPN infusion rate to 50% current infusion rate if continues to tolerate enteral feeds at higher rates. Continue TPN for nutritional support. Triglycerides pending to monitor propofol/ TPN. Hypernatremia improving with TPN modifications, low-volume free water added to enteral tube feedings. Patient now able to indicate throat discomfort but denies abdominal pain. Restlessness frequently described. Chronic alcohol abuse, alcohol withdrawal may still be underlying much of need for sedation/hypertension-Serax initiated at 30 mg every 6 hours. Wean propofol as able, chest x-ray/ABG in a.m.
[2017-06-13] MEDS: OXAZEPAM 30 MG CAPSULE PO SCH ×3 (15:28→21:48)
[2017-06-13] MEDS ORDERED: POTASSIUM CHLORIDE IV SCH (18:00)
[2017-06-13] MEDS ORDERED: [UNRECOGNIZED DRUG - OTHER] IV SCH (18:00)
[2017-06-13] MEDS ORDERED: POTASSIUM PHOSPHATE IV SCH (18:00)
[2017-06-13] MEDS: FAMOTIDINE 40 MG/5 ML ORAL LIQUID PO SCH (21:48)
[2017-06-14] MEDS: PROPOFOL 1,000 MG/100 ML VIAL IV PRN ×6 (01:07→12:18)
[2017-06-14] MEDS: NS IV SCH ×3 (01:08→18:01)
[2017-06-14] MEDS: NICARDIPINE IV SCH ×3 (01:08→18:01)
[2017-06-14] MEDS: MORPHINE SULFATE 4 MG SYRINGE IVP PRN ×4 (02:17→21:09)
[2017-06-14] MEDS: ALBUTEROL/IPRATROPIUM 2.5mg-0.5mg/3ml NEB AEROSOL SCH ×6 (03:00→21:30)
[2017-06-14] MEDS: OXAZEPAM 30 MG CAPSULE PO SCH ×4 (03:22→20:55)
[2017-06-14] MEDS: INSULIN ASPART 100unit/ml INJECTION SQ PRN (05:16)
[2017-06-14] MEDS: SALINE FLUSH 10ml SYRINGE IVF PRN ×4 (08:37→17:56)
[2017-06-14] MEDS: AMLODIPINE 10 MG TABLET PO SCH (08:39)
[2017-06-14] MEDS: FAMOTIDINE 40 MG/5 ML ORAL LIQUID PO SCH ×2 (08:40→20:55)
[2017-06-14] MEDS: LISINOPRIL 20 MG TABLET PO SCH (08:40)
[2017-06-14] MEDS: METHYLPREDNISOLONE SOD SUCC 40mg/ml INJECTION IVP SCH ×2 (08:43→20:54)
--- NOTE | 2017-06-14 09:00 | Pharmacy Consult-TPN/PPN ---
Pharmacy Consult-TPN/PPN - Laboratory Information Chemistry Turbidity < 20 (0-20) 06/14/17 04:44 Sodium 146 MEQ/L (134-144) H 06/14/17 04:44 Potassium 4.3 MEQ/L (3.6-5) 06/14/17 04:44 Chloride 111 MEQ/L (98-107) H 06/14/17 04:44 Carbon Dioxide 29 MEQ/L (22-30) 06/14/17 04:44 Anion Gap 6 MEQ/L (5-15) 06/14/17 04:44 BUN 56.0 MG/DL (9-20) H* 06/14/17 04:44 Creatinine 1.1 MG/DL (0.8-1.5) 06/14/17 04:44 GFR Calculation 76 06/14/17 04:44 BUN/Creatinine Ratio 51 RATIO (6-26) H 06/14/17 04:44 Glucose 162 MG/DL (75-110) H 06/14/17 04:44 Glucometer 184 mg/dL (65-110) 06/14/17 05:13 Calculated Osmolality 301 MOSM/KG (261-280) H 06/14/17 04:44 Calcium 8.0 MG/DL (8.4-10.2) L 06/14/17 04:44 Phosphorus 5.6 MG/DL (2.5-4.5) H 06/13/17 04:47 Magnesium 2.0 MG/DL (1.6-2.3) 06/13/17 04:47 Total Bilirubin 1.60 MG/DL (0.20-1.30) H 06/14/17 04:44 Conjugated Bilirubin 0.00 MG/DL (0.00-0.30) 06/10/17 05:07 Unconjugated Bilirubin 0.30 MG/DL (0.00-11.10) 06/10/17 05:07 Icterus Index < 2 (0-7) 06/14/17 04:44 AST 123 U/L (17-59) H 06/14/17 04:44 ALT 125 U/L (21-72) H 06/14/17 04:44 Alkaline Phosphatase 113 U/L (38-126) 06/14/17 04:44 Creatine Kinase 122 U/L (55-170) 06/09/17 04:23 Troponin I 0.018 ng/ml (0-0.12) 06/06/17 08:49 B-Natriuretic Peptide 356 pg/mL (0-175) H 06/12/17 04:53 Total Protein 5.0 G/DL (6.3-8.2) L 06/14/17 04:44 Albumin 2.7 G/DL (3.5-5.0) L 06/14/17 04:44 Globulin 2.3 G/DL (2.4-3.6) L 06/14/17 04:44 Albumin/Globulin Ratio 1.2 RATIO (1.1-2.2) 06/14/17 04:44 Triglycerides 192 MG/DL (40-160) H 06/09/17 04:27 Cholesterol < 50 MG/DL (132-199) L 06/05/17 14:23 LDL Cholesterol, Calc TNP 06/05/17 14:23 VLDL Cholesterol 43.2 MG/DL (0-28) H 06/05/17 14:23 HDL Cholesterol 13 MG/DL (40-60) L 06/05/17 14:23 Cholesterol/HDL Ratio TNP 06/05/17 14:23 Lipase 44 U/L (23-300) 06/09/17 04:23 Plasma Lactate 0.8 MMOL/L (0.6-2.2) 06/06/17 20:35 Specimen Hemolysis < 15 (0-25) 06/14/17 04:44 Intake and Output 06/13/17 06/14/17 06/15/17 06:59 06:59 06:59 Intake Total 4686.021 / 4686.021 3779.096 / 3779.096 100 / 100 Output Total 2027 / 2027 2809 / 2809 60 / 60 Balance 2658.021 / 2658.021 970.096 / 970.096 40 / 40 Weight 133.4 kg 132.2 kg Intake: IV 3741.021 / 3741.021 2454.096 / 2454.096 100 / 100 Intralipid 20% 100 ml @ 30.831 / 30.831 50 mls/hr IV 1600 [facility] Rx# :[id number] Cardene IV 50 mg In 755.833 / 755.833 270.00 / 270.00 Normal Saline 250 ml @ 50 mls/hr IV .Q5H24M [facility] Rx #:[id number] Potassium Acetate Inj 40 900.0 / 900.0 Meq/20 ml K Phos Inj 60 Meq Magnesium Sulfate Inj 16 Meq Calcium Gluconate 4.65 Meq Infuvite Adult 10 ml Multi-Trace Elements 1 ml Water 500 ml In TPN - Custom Formula 2,000 ml @ 75 mls /hr IV .Q24H [facility] Rx#: [id number] KCl 40 Meq K Phos Inj 20 837.5 / 837.5 1123.75 / 1123.75 Meq Magnesium Sulfate Inj 16 Meq Calcium Gluconate 9.3 Meq Infuvite Adult 10 ml Multi-Trace Elements 1 ml Water 500 ml Potassium Acetate Inj 40 Meq/20 ml In TPN - Custom Formula 2,000 ml @ 75 mls/hr IV .Q24H [facility] Rx#:[id number] DIPRIVAN 1,000 mg In 100 1216.857 / 9986.559 3452.346 / 1060.346 100 / 100 ml @ 5 MCG/KG/MIN 3.957 mls/hr IV .Q24H PRN Rx#: [id number] Tube Feeding 625 / 625 1075 / 1075 Oral 625 / 625 1075 / 1075 Intake, Gastric Tube 320 / 320 250 / 250 Irrigant Amount Oral 320 / 320 250 / 250 Output: Urine Amount (Catheter) 2027 2809 / 2809 60 / 60 - Consult Information We will continue same custom TPN formula at 75mL per hour if patient continues with TPN today.
--- NOTE | 2017-06-14 09:32 | XRay Report ---
Indication: acute resp failure PROCEDURE: XR chest 1V: Encounter: Initial Comparison: June 12, 2017 Findings: Support devices are stable in appearance and position. Continued airspace disease in the left mid to lower lung field with a small left effusion. No pneumothorax or obvious right effusion on this semiupright view. Heart size and mediastinal contours are stable. Pulmonary vascularity is unchanged. Impression: Stable appearance of the left basilar airspace disease and left effusion. .
[2017-06-14] MEDS: ALBUTEROL/IPRATROPIUM 2.5mg-0.5mg/3ml NEB IPPB SCH (16:49)
[2017-06-14] MEDS ORDERED: LISINOPRIL 20 MG TABLET PO ONE (16:59)
--- NOTE | 2017-06-14 17:23 | Progress Note ---
Subjective: Nii was seen post extubation. Speech was mumbled but he denied pain, nausea, dyspnea, or lightheadedness. He advised his girlfriend and other members of his family at the bedside that he needs to drink and he plans to go home later today. Nursing report but respirations have been slightly labored since extubation, blood pressures have been moderately elevated all day, and patient had a large bowel movement earlier today. Speech therapy recommended soft diet. Objective Vital signs: Temperature 98.5 F 06/14/17 12:00 Pulse Rate 101 H 06/14/17 14:15 Respiratory Rate 16 06/14/17 16:50 Blood Pressure 189/89 H 06/14/17 14:15 Pulse Oximetry 91 06/14/17 14:45 Oxygen Delivery Method Nasal Cannula Oxygen Flow Rate 8 EXAM General-respirations slightly labored, mumbled speech, slight diaphoresis HEENT-conjunctiva clear, conjugate gaze, tongue dry with some white secretions present, neck supple Lungs-respirations nonlabored, diminished airflow, breath sounds clear Cardiac-regular rhythm, S1-S2 Abd-soft, nontender to deep palpation, bowel sounds present Ext-+2 edema4 extremities 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-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 simple commands, 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, EOMI Psych-calm at time of my assessment - Weight: 136.8 kg Results - Labs CBC & Chem 7: 06/14/17 04:44 06/14/17 04:44 Labs: Segs 93, bands 1, lymphocytes 3, monocytes 3 Bilirubin 1.6, AST 123, ALT 125, alkaline phosphatase 113, albumin 2.7 Last 2 triglycerides still pending Blood sugars 152-184 over the past 24 hours Microbiology Results: Microbiology 06/06/17 11:34 Peripheral/Iv Start Blood Culture - Final No Growth After 5 Days 06/06/17 11:34 Peripheral/Iv Start Blood Culture - Final No Growth After 5 Days 06/06/17 11:00 Sputum, Suctioned Gram Stain - Final 06/06/17 11:00 Sputum, Suctioned Sputum Culture - Final Normal Respiratory Dinah - ABG Interpretation Attestation: I reviewed and interpreted this ABG. (pre-/post extubation- hyperventilating slightly, borderline oxygenation on 8 L) ABG results: 06/09/17 06/14/17 06/14/17 08:35 10:10 14:42 ABG pH 7.470 H 7.460 H 7.480 H ABG pCO2 44 41 36 ABG pO2 88 65 L 65 L ABG HCO3 32 H 29 H 27 H ABG Total CO2 33.4 H 30.5 H 27.9 H ABG O2 Saturation 97.0 94.0 L 94.0 L ABG Base Excess 7.4 H 4.9 H 3.3 H - Imaging and Cardiology CT scan - abdomen Status: image reviewed by me (persistent left pleural effusion-unchanged) Assessment and Plan (1) Pancreatitis Problem details: POA: ETOH induced. RUQ US negative for obstructive stones. MRCP nondiagnostic due to motion artifact however no obvious gallstones, pancreatitis head thickened, intrahepatic ducts nondilated. Current visit: Yes Status: Acute (2) Acute respiratory failure Problem details: Extubated 06/14 Current visit: Yes Status: Acute (3) DTs (delirium tremens) Current visit: Yes Status: Acute (4) Hypertension Current visit: Yes Status: Chronic (5) Alcoholic liver damage Current visit: Yes Status: Acute (6) Hypokalemia Problem details: POA Current visit: Yes Status: Acute (7) Hypomagnesemia Problem details: POA Current visit: Yes Status: Acute (8) Hypophosphatemia Current visit: Yes Status: Acute (9) Hypocalcemia Current visit: Yes Status: Acute (10) Rhabdomyolysis Current visit: Yes Status: Acute (11) ETOHism Current visit: Yes Status: Chronic (12) Tobacco dependence Current visit: Yes Status: Chronic (13) Obesity (BMI 30-39.9) Current visit: Yes Status: Chronic (14) Hyperglycemia Current visit: Yes Status: Acute (15) Volume overload Current visit: Yes Status: Acute (16) Hypernatremia Current visit: Yes Status: Acute DVT Prophylaxis: SCD's GI Prophylaxis: Pepcid Assessment and Plan: Extubated midafternoon. Requiring 8 L supplemental oxygen to maintain saturation and appears to be slightly labored at the time of my assessment. High probability that BiPAP will be needed overnight for support. Continue Solu-Medrol for pulmonary inflammation 40 mg every 12 hours and continue to monitor. BUN/creatinine up further today, diuretics on hold. Significant edema but fluid is largely and subcutaneous tissues. XIAO siu added an attempt to mobilize fluid. Antibiotics discontinued yesterday 06/11 after total of 8 days (ceftriaxone 06/04-; cefepime/clindamycin/vancomycin 06/06-06/08; Unasyn 06/08-current). Blood sugars slowly improving-TPN being discontinued, Lantus discontinued as a result. Continue to monitor blood sugars and corrective scale insulin available as needed. OG removed when patient extubated-tube feedings discontinued. Soft diet ordered postextubation with nutritional supplements. Blood pressures modestly elevated; on metoprolol 25 twice a day, amlodipine 10 daily, Catapres 2 patch, lisinopril 20/day and nicardipine drip. Lisinopril increased to 40 mg daily. Triglycerides pending to monitor propofol/TPN. Hypernatremia improving with TPN modifications, low-volume free water added to enteral tube feedings. Continue to monitor off TPN. Chronic alcohol abuse, alcohol withdrawal may still be underlying much of need for sedation/hypertension-Serax initiated at 30 mg every 6 hours. Requesting alcohol shortly after extubation; continue Serax/when necessary lorazepam. PT/OT ordered; seen by speech therapy postextubation today. Discussed with nursing and family at bedside. Nursing/family provided supplemental history High risk medication in use-Propofol, IV lorazepam, IV fentanyl/morphine. Sepsis Assessment - Evaluation Sepsis screening result: No Definite Risk Hospital Course Summary Disclaimer: The visit summary below is not to be considered part of the above Progress Note. Hospital Course: 06/04/17 1) Alcohol use and abuse with ongoing pancreatitis, this could be related to ETOH, or due to gallstones (U/S could not see distal CBD - bilirrubin high) or both. - Check Abd/Pelvic CT with IV contrast re: Extent of pancreatic swelling ? abscess ? hemorrhage ? also Pyelonephritis ? - Check MRCP - pt could be obstructed since Bilirrubin is high. Pt states he noticed his skin is yellow. - Aggressive hydration with NS 500cc/hr x 6 hrs then reasses 2) UTI - very high lactate - high WBC - On Rocephin will continue for now. 3) Hypokalemia/Hypomagenesemia - Will give Mg + K 4) Lactic acidosis - due to ? sepsis ? hypoperfusion ? - Will recheck later today. 5) Elevated hemoglobin - Will follow serially. 06/05/17 1) ALCOHOL ABUSE WITH A) SEVERE AGITATION/CONFUSION ? OF HALLUCINATIONS MOST LIKELY DUE TO ALCOHOL WITHDRAWALS - On Propofol drip - Tachycardic - Will also give Ativan IV [place]. - Check CPK (R/O Rhabdo due to agitation) - Aggressive hydration and electrolyte replenishment. B) Pancreatitis most likely related to ETOH MRCP Impression: 1. No cholelithiasis or intrahepatic bile duct dilatation. Evaluation of the extrahepatic common duct is poor due to motion artifact and patient body habitus. No obvious common duct stone. 2. Enlargement of the pancreatic head which could be due to inflammation from pancreatitis or potentially neoplasm. Recommend further evaluation with a contrast-enhanced CT of the abdomen. - Lipase coming down - Check CA 19-9 prior to D/C and follow closely his pancreatic anatomy by CT/ MRI. Transferred to CCU due to alcohol withdrawal. 06/06/17 1) PULMONARY ASSESMENT A) Pt has developed ALI/ARDS - ABG on FIO2 of 80% showed PaO2 of 133 with CO2 of 42 - huge a-A gradient that has increased since yesterday. - Pt was intubated successfully by ED MD - Saturations are 91 on 100% FIO2. ET tube appears to be well positioned. - Pt requires high PEEP. - Could be related to pancreatitis, or PNA - Pt has a L sided effussion - could be related to pancreatitis. Must R/O Boherhave's syndrome will try a CT chest with gastrograffin injection in the mid esophagus. - Start coverage for HAP - Vanco + cefepime + steroids - Add Mucomyst for possible mucus plugg. - Case discussed with his NOK - significant other, she consented for intubation. - Reculture blood & sputum B) Obstructive Sleep Apnea (New Dx) - Was on CPAP - now intubated. 2) ALCOHOL ABUSE WITH MULTIPLE COMPLICATIONS - A) SEVERE AGITATION/CONFUSION ? OF HALLUCINATIONS MOST LIKELY DUE TO ALCOHOL WITHDRAWALS - On propofol since yesterday. - On Propofol drip - Continue. - Tachycardic/hypertensive - CPK - 1261 Yesterday - C/W rhadbomyolisis - will rehceck - Aggressive hydration and electrolyte replenishment. B) Pancreatitis most likely related to ETOH - Lipase coming down - Check CA 19-9 prior to D/C and follow closely his pancreatic anatomy by CT/MRI. - Add Banana bags - C) Hypokalemia on admission - K is high today. - Stop NS with K - Recheck later. D) Hypomagnesemia - now improved. E) Severe hypophosphatemia - Risk of hemolysis - CHF & could be causing low Platelets. - PO4 is under 1 - Spoke with Pharm Jasmine De Souza - Will give 90 Mmol of Na Phosphate F) Dehydration - Appears improved now, will hold off on aggressive hydration will place on Banana bag @ 50ml/hr x 3 Liters. G) Rhabdomyolisis - cuuld be due to his severe agitation. - Recheck CPK now. 3) INFECTIOUS DISEASE ASSESMENT A) UTI - very high lactate - high WBC - On Rocephin will continue for now. B) ? Of HAP ? - Will cover with Vanco + Cefepime - Add Mucomyst for possible mucus plug - Continue Duonebs - Add Steroids. - Lactate is dropping 3) CARDIOVASCULAR ASSESSMENT A) Hypertension - moderate to severe - On BB PRN will schedule with parameters B) Will check EKG due to low Ca and due to severe agitation - R.O ID. 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 06/07/[address] Renee for Pulm evaluation and to help with ventilator management. Continue IV antibiotics - possible aspiration pneumonia/pneumonitis Continue Sedation - with current decreased pulmonary statue, likely too early to work on weaning sedation. Start TPN for nutritional support. Will stop IVF when TPN ready. Continue to monitor lab due to pt's severity of illness. Patient remains critically ill, ICU care warranted. 06/08/17 Continue with mechanical ventilation as per Dr Renee. In discussion with Dr Renee, will deescalate IV antibiotic use (likely respiratory failure from ARDS due to pancreatitis, still some concern for possible aspiration) Will stop Vancomycin, cefepime and clindamycin. Initiate Unasyn for coverage. Will continue Solu-Medrol at 40mg IV q 8 hours. Will stop Mucomyst - monitor for increase secretions. Blood pressure with elevation today. Bumex 1mg given this morning and afternoon to help decrease volume. Urine output appropriate, but pressures remain high. Start Nipride drip to ease down blood pressure. TPN continues-discussed with pharm about electrolyte adjustments. 10 units of Lantus given this morning to help sugars - did monitor sugars more frequently and gave additions SQ doses of insulin. Will start 20 units of Lantus this evening. Insulin sliding scale changed to high dose regimen. Continue propofol for sedation. Patient remains critically ill. CCU care an support required. 06/09/17 Recheck Lipase and CPK this am show normalization. Continue with mechanical ventilation as per Dr Renee. Continue Unasyn for antimicrobial coverage. Additional insulin to be given to help improve glycemic control. Extra SQ dosing during day. Increase Lantus to 45 units at night. Sugars elevated due to TPN and Solu-Medrol. Bumex 1mg given this morning to help decrease volume. Will give additional Bumex 1mg this afternoon. Nipride drip continues for BP control. TPN continues-discussed with pharm about electrolyte adjustments. Will remove sodium to decrease sodium level and OSMO. Increase KPhos. Continue propofol for sedation. Patient remains critically ill. CCU care an support required. 06/10/17 15:56 Patient continues to require ventilatory assistance with high pressures and FiO2 of 60% increased to 70% this afternoon after desaturating. Weight up significantly since admission, volume status +18.7 L from admission, edema on exam-will begin diuresing with scheduled Lasix. Continue propofol; discussed conversion to Precedex with Dr. Renee but with respiratory instability will not make changes at this time. Check triglycerides in a.m. Continue Unasyn/steroids. Remains hyperglycemic; Lantus increased to 50 units and corrective scale modified upward. Blood pressures modestly elevated; on IV metoprolol, Catapres patch, and nicardipine drip. Convert to enteral metoprolol per NG. Begin low-volume feedings per NG; dietary consultation for recommendations. Continue TPN for nutritional support. Patient remains critically ill. 06/11/17 16:18 Patient continues to require ventilatory assistance with FiO2 of 50% and PEEP of 8-both improved from yesterday. Continue diuresis with goal of equal/negative fluid balance daily. X-ray most consistent with volume overload-no focal infiltrate. Patient has been on antibiotics since 06/04 (ceftriaxone 06/04-06/06; cefepime/ clindamycin/vancomycin 06/06-06/08; Unasyn 06/08-current); sputum culture normal dinah -we'll discontinue antibiotics. On Solu-Medrol for pulmonary inflammation-discussed with Dr. Renee-decreased dose to 40 mg every 12 hours and continue to monitor. Remains hyperglycemic; Lantus increased to 50 units daily at bedtime with 20 units added every morning. Continue corrective scale insulin. Blood pressures modestly elevated; on by mouth metoprolol, Catapres patch, and nicardipine drip. Amlodipine added. Begin low-volume feedings per NG with Glucotrol; dietary consultation for recommendations. Continue TPN for nutritional support. Triglycerides pending to monitor propofol/ TPN. Hypernatremia slightly improved with TPN modifications, low-volume free water added to enteral tube feedings. 06/12/17 12:54 Patient continues to require ventilatory assistance with FiO2 of 50% and PEEP of 7. Continue diuresis with goal of equal/negative fluid balance daily. Bumex increased to 1 mg IV every 6 hours. Antibiotics discontinued yesterday (06/11) after total of 8 days (ceftriaxone 06/04 -06/06; cefepime/clindamycin/vancomycin 06/06-06/08; Unasyn 06/08-current). sputum culture normal dinah-we'll discontinue antibiotics. On Solu-Medrol for pulmonary inflammation 40 mg every 12 hours and continue to monitor. Remains hyperglycemic; Lantus increased to 20 units every morning and 50 units daily at bedtime yesterday. Fasting glucose 242 today. Continue corrective scale insulin. Anticipate beginning to titrate off TPN in the next couple of days-corrective scale modified but will not increase basal insulin at present. Blood pressures modestly elevated; on metoprolol, Catapres patch, and nicardipine drip. Amlodipine added yesterday-dose increased to 10 mg daily today and lisinopril added at 20 mg daily. Hope to titrate nicardipine off in next 24 hours. Tolerating Glucotrol at 25 mL per hour-rate increased to 40 mL per hour; dietary consultation for recommendations. Continue TPN for nutritional support. Triglycerides pending to monitor propofol/ TPN. Hypernatremia slightly improved with TPN modifications, low-volume free water added to enteral tube feedings. Potassium down today with diuresis-replaced and early and modified in TPN. 06/13/17 14:26 Patient continues to require ventilatory assistance with FiO2 of 50% and PEEP of 7. On Solu-Medrol for pulmonary inflammation 40 mg every 12 hours and continue to monitor. BUN/creatinine beginning to climb, Lasix and then Bumex have been ineffective in producing net diuresis. Significant edema but fluid is largely and subcutaneous tissues. Frequency of Bumex decreased to avoid worsening of renal function, XIAO hose added an attempt to mobilize fluid. Antibiotics discontinued yesterday 06/11 after total of 8 days (ceftriaxone 06/04-; cefepime/clindamycin/vancomycin 06/06-06/08; Unasyn 06/08-current). Blood sugars slowly [id number] in the past 24 hours; Lantus 20 units every morning and 50 units daily at bedtime currently. Blood pressures modestly elevated; on metoprolol 25 twice a day, amlodipine 10 daily, Catapres 2 patch, lisinopril 20/day and nicardipine drip. Tolerating Glucotrol at 25 mL per hour-intended to increase rate to 40 mL per hour yesterday however order was missed; will increase rate to 50 mL per hour 12 hours and then 75 mL per hour. Discussed with nursing. Decrease TPN infusion rate to 50% current infusion rate if continues to tolerate enteral feeds at higher rates. Continue TPN for nutritional support. Triglycerides pending to monitor propofol/ TPN. Hypernatremia improving with TPN modifications, low-volume free water added to enteral tube feedings. Patient now able to indicate throat discomfort but denies abdominal pain. Restlessness frequently described. Chronic alcohol abuse, alcohol withdrawal may still be underlying much of need for sedation/hypertension-Serax initiated at 30 mg every 6 hours. Wean propofol as able, chest x-ray/ABG in a.m. 06/14/17 17:39 Extubated midafternoon. Requiring 8 L supplemental oxygen to maintain saturation and appears to be slightly labored at the time of my assessment. High probability that BiPAP will be needed overnight for support. Continue Solu-Medrol for pulmonary inflammation 40 mg every 12 hours and continue to monitor. BUN/creatinine up further today, diuretics on hold. Significant edema but fluid is largely and subcutaneous tissues. XIAO hose added an attempt to mobilize fluid. Antibiotics discontinued yesterday 06/11 after total of 8 days (ceftriaxone 06/04-; cefepime/clindamycin/vancomycin 06/06-06/08; Unasyn 06/08-current). Blood sugars slowly improving-TPN being discontinued, Lantus discontinued as a result. Continue to monitor blood sugars and corrective scale insulin available as needed. OG removed when patient extubated-tube feedings discontinued. Soft diet ordered postextubation with nutritional supplements. Blood pressures modestly elevated; on metoprolol 25 twice a day, amlodipine 10 daily, Catapres 2 patch, lisinopril 20/day and nicardipine drip. Lisinopril increased to 40 mg daily. Triglycerides pending to monitor propofol/TPN. Hypernatremia improving with TPN modifications, low-volume free water added to enteral tube feedings. Continue to monitor off TPN. Chronic alcohol abuse, alcohol withdrawal may still be underlying much of need for sedation/hypertension-Serax initiated at 30 mg every 6 hours. Requesting alcohol shortly after extubation; continue Serax/when necessary lorazepam. PT/OT ordered; seen by speech therapy postextubation today.
[2017-06-14] MEDS: METOPROLOL 5mg/5ml INJECTION IVP PRN (21:56)
[2017-06-14] MEDS: HALOPERIDOL 5 MG/ML INJECTION IVP PRN (22:22)
[2017-06-15] MEDS: ALBUTEROL/IPRATROPIUM 2.5mg-0.5mg/3ml NEB AEROSOL SCH ×5 (01:23→20:00)
[2017-06-15] MEDS: OXAZEPAM 30 MG CAPSULE PO SCH ×4 (02:50→20:43)
[2017-06-15] MEDS: MetroNIDAZOLE 500 MG TABLET PO SCH ×4 (02:50→17:35)
[2017-06-15] MEDS: HALOPERIDOL 5 MG/ML INJECTION IVP PRN ×3 (07:20→18:10)
[2017-06-15] MEDS: SALINE FLUSH 10ml SYRINGE IVF PRN (07:22)
[2017-06-15] MEDS: FAMOTIDINE 40 MG/5 ML ORAL LIQUID PO SCH (08:24)
[2017-06-15] MEDS: AMLODIPINE 10 MG TABLET PO SCH (08:25)
[2017-06-15] MEDS: LISINOPRIL 40 MG TABLET PO SCH (08:25)
[2017-06-15] MEDS: METHYLPREDNISOLONE SOD SUCC 40mg/ml INJECTION IVP SCH (09:00)
[2017-06-15] MEDS ORDERED: NICOTINE 21 MG PATCH TD SCH (09:30)
[2017-06-15] MEDS: LACTOBACILLUS (15B cfu) CAPSULE PO SCH ×3 (09:52→17:34)
[2017-06-15] MEDS: NICOTINE 21 MG PATCH TD SCH (09:56)
[2017-06-15] MEDS: NS IV SCH (11:18)
[2017-06-15] MEDS: NICARDIPINE IV SCH (11:18)
[2017-06-15] MEDS: ALBUTEROL/IPRATROPIUM 2.5mg-0.5mg/3ml NEB IPPB SCH ×3 (11:50→16:01)
[2017-06-15] MEDS: ACETAMINOPHEN 325 MG TABLET PO PRN (12:20)
[2017-06-15] MEDS: INSULIN ASPART 100unit/ml INJECTION SQ PRN (14:35)
[2017-06-15] MEDS ORDERED: HYDRALAZINE 20 MG/ML INJECTION IVP PRN (15:10)
--- NOTE | 2017-06-15 15:12 | Progress Note ---
Subjective: Nii reported that he was in [facility] this morning and then mumbled about [place]. Nursing reports he's been drinking liquids well; had increased diarrhea overnight with C. difficile identified and treatment initiated. The patient denies virtually any symptom asked including dyspnea, pain, nausea, or lightheadedness. He denied weakness but when asked to sit forward he was unable to do so. Ongoing emotional lability was reported by nursing requiring sedation intermittently. Blood pressures have been elevated requiring increase in nicardipine dose overnight. Objective Vital signs: Temperature 97.0 F 06/15/17 11:12 Pulse Rate 101 H 06/15/17 14:30 Respiratory Rate 23 06/15/17 14:30 Blood Pressure 179/94 H 06/15/17 14:30 Pulse Oximetry 98 06/15/17 14:30 Oxygen Delivery Method Nasal Cannula Oxygen Flow Rate 4 L I/O 2902/3156 Weight down 0.7 kg although remains significantly above admission white EXAM General-NAD, drowsy/moderately confused, mumbled speech somewhat improved from yesterday afternoon HEENT-conjunctiva clear, conjugate gaze, EOMI, sclera anicteric, oropharynx clear with minimal thin white secretions on the tongue Lungs-respirations nonlabored, decreased inspiratory effort, breath sounds clear anterior Cardiac-regular rhythm, low-grade tachycardia, S1-S2 Abd-soft, nontender, active bowel sounds Ext-+1-2 edema 4 extremities Neuro-moving all extremities to request, 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, unable to reposition himself independently Psych-confused, oriented to [facility], cannot identify date - Rhythm: Normal Sinus Rhythm Height/Weight/BMI: Height 1.85 m Weight 136.1 kg Body Mass Index 37.2 Results - Labs CBC & Chem 7: 06/15/17 05:23 06/15/17 05:23 Labs: Segs 88, bands 3, lymphocytes 3, monocytes Triglyceride 159, 116 on 06/11 and 06/13 respectively Microbiology Results: Microbiology 06/06/17 11:34 Peripheral/Iv Start Blood Culture - Final No Growth After 5 Days 06/06/17 11:34 Peripheral/Iv Start Blood Culture - Final No Growth After 5 Days 06/06/17 11:00 Sputum, Suctioned Gram Stain - Final 06/06/17 11:00 Sputum, Suctioned Sputum Culture - Final Normal Respiratory Dinah C. difficile toxin + 06/14/70 - ABG Interpretation ABG results: 06/05/17 06/06/17 06/06/17 17:41 04:35 09:25 ABG pH 7.360 7.380 7.460 H ABG pCO2 55 H 53 H 42 ABG pO2 114 H 64 L 133 H ABG HCO3 31 H 31 H 30 H ABG Total CO2 32.8 H 33.0 H 31.2 H ABG O2 Saturation 98.0 92.0 L 99.0 H ABG Base Excess 4.4 H 5.0 H 5.5 H 06/06/17 06/07/17 06/08/17 15:05 09:55 07:50 ABG pH 7.450 7.370 7.391 ABG pCO2 41 52 H 50 H ABG pO2 65 L 82 98 ABG HCO3 29 H 30 H 31 H ABG Total CO2 29.8 H 31.7 H 32 H ABG O2 Saturation 93.0 L 96.0 97.0 ABG Base Excess 4.1 H 3.7 H 5.0 H 06/09/17 06/14/17 06/14/17 08:35 10:10 14:42 ABG pH 7.470 H 7.460 H 7.480 H ABG pCO2 44 41 36 ABG pO2 88 65 L 65 L ABG HCO3 32 H 29 H 27 H ABG Total CO2 33.4 H 30.5 H 27.9 H ABG O2 Saturation 97.0 94.0 L 94.0 L ABG Base Excess 7.4 H 4.9 H 3.3 H - ECG Data Tracing #1 Telemetry reviewed-sinus rhythm/sinus tach Assessment and Plan (1) Pancreatitis Problem details: POA: ETOH induced. RUQ US negative for obstructive stones. MRCP nondiagnostic due to motion artifact however no obvious gallstones, pancreatitis head thickened, intrahepatic ducts nondilated. Current visit: Yes Status: Acute (2) Acute respiratory failure Problem details: Intubated 06/06-06/14; ARDS/volume overload Current visit: Yes Status: Acute (3) DTs (delirium tremens) Current visit: Yes Status: Acute (4) Hypertension Current visit: Yes Status: Chronic (5) Alcoholic liver damage Current visit: Yes Status: Acute (6) ETOHism Current visit: Yes Status: Chronic DVT Prophylaxis: SCD's GI Prophylaxis: Pepcid Resuscitation Status: Full Code Assessment and Plan: Assessment: Alcoholic pancreatitis Acute respiratory failure due to ARDS/volume overload-intubated 06/06-06/14 DTs C. difficile colitis Hypertensive emergency/urgency Chronic alcohol abuse with alcoholic liver disease Hypokalemia-POA Hypomagnesemia-POA Hypophosphatemia Hypocalcemia Hyperglycemia Hypernatremia Tobacco dependence Obesity-BMI 33.2 on admission Plan: Patient has tolerated extubation well and has titrated from 8 L supplemental oxygen to 4 L supplemental oxygen currently. Refused BiPAP last night. Diuresing without diuretics, BUN/creatinine slightly higher today. Taking liquids orally well and will continue to monitor volume/renal function. Convert to oral steroids from current low-dose Solu-Medrol. C. difficile identified overnight-oral Flagyl initiated and probiotics added today. Antibiotics discontinued 06/11 after total of 8 days (ceftriaxone 06/04-06/06; cefepime/clindamycin/vancomycin 06/06-06/08; Unasyn 06/08-06/11). Blood sugars slowly improving-TPN discontinued, Lantus discontinued yesterday. Corrective insulin as needed. Check A1c. Soft diet ordered postextubation with nutritional supplements. Blood pressure remains elevated; on metoprolol 50 twice a day, amlodipine 10 daily, Catapres 2 patch, lisinopril 40/d; nicardipine drip overnight but has been titrated off. Persistent low-grade tachycardia-metoprolol increased to 100 mg twice a day and hydralazine when necessary initiated. Hypernatremia resolving. Other electrolyte abnormalities stabilized. Chronic alcohol abuse, continue Serax at 30 mg every 6 hours. Requested alcohol shortly after extubation. As patient becomes more alert will begin tapering. PT/OT today; would like to begin getting patient out of bed if possible. Discussed with nursing and girlfriend. Nursing/family provided supplemental history High risk medication in use-IV lorazepam, IV morphine. Chest x-ray in a.m. Continues to require intensive monitoring. Sepsis Assessment - Evaluation Sepsis screening result: Severe Sepsis Risk Hospital Course Summary Disclaimer: The visit summary below is not to be considered part of the above Progress Note. Hospital Course: 06/04/17 1) Alcohol use and abuse with ongoing pancreatitis, this could be related to ETOH, or due to gallstones (U/S could not see distal CBD - bilirrubin high) or both. - Check Abd/Pelvic CT with IV contrast re: Extent of pancreatic swelling ? abscess ? hemorrhage ? also Pyelonephritis ? - Check MRCP - pt could be obstructed since Bilirrubin is high. Pt states he noticed his skin is yellow. - Aggressive hydration with NS 500cc/hr x 6 hrs then reasses 2) UTI - very high lactate - high WBC - On Rocephin will continue for now. 3) Hypokalemia/Hypomagenesemia - Will give Mg + K 4) Lactic acidosis - due to ? sepsis ? hypoperfusion ? - Will recheck later today. 5) Elevated hemoglobin - Will follow serially. 06/05/17 1) ALCOHOL ABUSE WITH A) SEVERE AGITATION/CONFUSION ? OF HALLUCINATIONS MOST LIKELY DUE TO ALCOHOL WITHDRAWALS - On Propofol drip - Tachycardic - Will also give Ativan IV IN. - Check CPK (R/O Rhabdo due to agitation) - Aggressive hydration and electrolyte replenishment. B) Pancreatitis most likely related to ETOH MRCP Impression: 1. No cholelithiasis or intrahepatic bile duct dilatation. Evaluation of the extrahepatic common duct is poor due to motion artifact and patient body habitus. No obvious common duct stone. 2. Enlargement of the pancreatic head which could be due to inflammation from pancreatitis or potentially neoplasm. Recommend further evaluation with a contrast-enhanced CT of the abdomen. - Lipase coming down - Check CA 19-9 prior to D/C and follow closely his pancreatic anatomy by CT/ MRI. Transferred to CCU due to alcohol withdrawal. 06/06/17 1) PULMONARY ASSESMENT A) Pt has developed ALI/ARDS - ABG on FIO2 of 80% showed PaO2 of 133 with CO2 of 42 - huge a-A gradient that has increased since yesterday. - Pt was intubated successfully by ED MD - Saturations are 91 on 100% FIO2. ET tube appears to be well positioned. - Pt requires high PEEP. - Could be related to pancreatitis, or PNA - Pt has a L sided effussion - could be related to pancreatitis. Must R/O Boherhave's syndrome will try a CT chest with gastrograffin injection in the mid esophagus. - Start coverage for HAP - Vanco + cefepime + steroids - Add Mucomyst for possible mucus plugg. - Case discussed with his NOK - significant other, she consented for intubation. - Reculture blood & sputum B) Obstructive Sleep Apnea (New Dx) - Was on CPAP - now intubated. 2) ALCOHOL ABUSE WITH MULTIPLE COMPLICATIONS - A) SEVERE AGITATION/CONFUSION ? OF HALLUCINATIONS MOST LIKELY DUE TO ALCOHOL WITHDRAWALS - On propofol since yesterday. - On Propofol drip - Continue. - Tachycardic/hypertensive - CPK - 1261 Yesterday - C/W rhadbomyolisis - will rehceck - Aggressive hydration and electrolyte replenishment. B) Pancreatitis most likely related to ETOH - Lipase coming down - Check CA 19-9 prior to D/C and follow closely his pancreatic anatomy by CT/MRI. - Add Banana bags - C) Hypokalemia on admission - K is high today. - Stop NS with K - Recheck later. D) Hypomagnesemia - now improved. E) Severe hypophosphatemia - Risk of hemolysis - CHF & could be causing low Platelets. - PO4 is under 1 - Spoke with Pharm Jasmine De Souza - Will give 90 Mmol of Na Phosphate F) Dehydration - Appears improved now, will hold off on aggressive hydration will place on Banana bag @ 50ml/hr x 3 Liters. G) Rhabdomyolisis - cuuld be due to his severe agitation. - Recheck CPK now. 3) INFECTIOUS DISEASE ASSESMENT A) UTI - very high lactate - high WBC - On Rocephin will continue for now. B) ? Of HAP ? - Will cover with Vanco + Cefepime - Add Mucomyst for possible mucus plug - Continue Duonebs - Add Steroids. - Lactate is dropping 3) CARDIOVASCULAR ASSESSMENT A) Hypertension - moderate to severe - On BB PRN will schedule with parameters B) Will check EKG due to low Ca and due to severe agitation - R.O HI. - Check 2-D echo - Consult Cardiology (BNP was very high and has Pleural effussion - Alcoholic [employer] ?) PREVENTION DVT - SCD'S PUD - PPI. 06/07/[address] Renee for Pulm evaluation and to help with ventilator management. Continue IV antibiotics - possible aspiration pneumonia/pneumonitis Continue Sedation - with current decreased pulmonary statue, likely too early to work on weaning sedation. Start TPN for nutritional support. Will stop IVF when TPN ready. Continue to monitor lab due to pt's severity of illness. Patient remains critically ill, ICU care warranted. 06/08/17 Continue with mechanical ventilation as per Dr Renee. In discussion with Dr Renee, will deescalate IV antibiotic use (likely respiratory failure from ARDS due to pancreatitis, still some concern for possible aspiration) Will stop Vancomycin, cefepime and clindamycin. Initiate Unasyn for coverage. Will continue Solu-Medrol at 40mg IV q 8 hours. Will stop Mucomyst - monitor for increase secretions. Blood pressure with elevation today. Bumex 1mg given this morning and afternoon to help decrease volume. Urine output appropriate, but pressures remain high. Start Nipride drip to ease down blood pressure. TPN continues-discussed with pharm about electrolyte adjustments. 10 units of Lantus given this morning to help sugars - did monitor sugars more frequently and gave additions SQ doses of insulin. Will start 20 units of Lantus this evening. Insulin sliding scale changed to high dose regimen. Continue propofol for sedation. Patient remains critically ill. CCU care an support required. 06/09/17 Recheck Lipase and CPK this am show normalization. Continue with mechanical ventilation as per Dr Renee. Continue Unasyn for antimicrobial coverage. Additional insulin to be given to help improve glycemic control. Extra SQ dosing during day. Increase Lantus to 45 units at night. Sugars elevated due to TPN and Solu-Medrol. Bumex 1mg given this morning to help decrease volume. Will give additional Bumex 1mg this afternoon. Nipride drip continues for BP control. TPN continues-discussed with pharm about electrolyte adjustments. Will remove sodium to decrease sodium level and OSMO. Increase KPhos. Continue propofol for sedation. Patient remains critically ill. CCU care an support required. 06/10/17 15:56 Patient continues to require ventilatory assistance with high pressures and FiO2 of 60% increased to 70% this afternoon after desaturating. Weight up significantly since admission, volume status +18.7 L from admission, edema on exam-will begin diuresing with scheduled Lasix. Continue propofol; discussed conversion to Precedex with Dr. Renee but with respiratory instability will not make changes at this time. Check triglycerides in a.m. Continue Unasyn/steroids. Remains hyperglycemic; Lantus increased to 50 units and corrective scale modified upward. Blood pressures modestly elevated; on IV metoprolol, Catapres patch, and nicardipine drip. Convert to enteral metoprolol per NG. Begin low-volume feedings per NG; dietary consultation for recommendations. Continue TPN for nutritional support. Patient remains critically ill. 06/11/17 16:18 Patient continues to require ventilatory assistance with FiO2 of 50% and PEEP of 8-both improved from yesterday. Continue diuresis with goal of equal/negative fluid balance daily. X-ray most consistent with volume overload-no focal infiltrate. Patient has been on antibiotics since 06/04 (ceftriaxone 06/04-06/06; cefepime/ clindamycin/vancomycin 06/06-06/08; Unasyn 06/08-current); sputum culture normal dinah -we'll discontinue antibiotics. On Solu-Medrol for pulmonary inflammation-discussed with Dr. Reene-decreased dose to 40 mg every 12 hours and continue to monitor. Remains hyperglycemic; Lantus increased to 50 units daily at bedtime with 20 units added every morning. Continue corrective scale insulin. Blood pressures modestly elevated; on by mouth metoprolol, Catapres patch, and nicardipine drip. Amlodipine added. Begin low-volume feedings per NG with Glucotrol; dietary consultation for recommendations. Continue TPN for nutritional support. Triglycerides pending to monitor propofol/ TPN. Hypernatremia slightly improved with TPN modifications, low-volume free water added to enteral tube feedings. 06/12/17 12:54 Patient continues to require ventilatory assistance with FiO2 of 50% and PEEP of 7. Continue diuresis with goal of equal/negative fluid balance daily. Bumex increased to 1 mg IV every 6 hours. Antibiotics discontinued yesterday (06/11) after total of 8 days (ceftriaxone 06/04 -06/06; cefepime/clindamycin/vancomycin 06/06-06/08; Unasyn 06/08-current). sputum culture normal dinah-we'll discontinue antibiotics. On Solu-Medrol for pulmonary inflammation 40 mg every 12 hours and continue to monitor. Remains hyperglycemic; Lantus increased to 20 units every morning and 50 units daily at bedtime yesterday. Fasting glucose 242 today. Continue corrective scale insulin. Anticipate beginning to titrate off TPN in the next couple of days-corrective scale modified but will not increase basal insulin at present. Blood pressures modestly elevated; on metoprolol, Catapres patch, and nicardipine drip. Amlodipine added yesterday-dose increased to 10 mg daily today and lisinopril added at 20 mg daily. Hope to titrate nicardipine off in next 24 hours. Tolerating Glucotrol at 25 mL per hour-rate increased to 40 mL per hour; dietary consultation for recommendations. Continue TPN for nutritional support. Triglycerides pending to monitor propofol/ TPN. Hypernatremia slightly improved with TPN modifications, low-volume free water added to enteral tube feedings. Potassium down today with diuresis-replaced and early and modified in TPN. 06/13/17 14:26 Patient continues to require ventilatory assistance with FiO2 of 50% and PEEP of 7. On Solu-Medrol for pulmonary inflammation 40 mg every 12 hours and continue to monitor. BUN/creatinine beginning to climb, Lasix and then Bumex have been ineffective in producing net diuresis. Significant edema but fluid is largely and subcutaneous tissues. Frequency of Bumex decreased to avoid worsening of renal function, XIAO siu added an attempt to mobilize fluid. Antibiotics discontinued yesterday 06/11 after total of 8 days (ceftriaxone 06/04-; cefepime/clindamycin/vancomycin 06/06-06/08; Unasyn 06/08-current). Blood sugars slowly [id number] in the past 24 hours; Lantus 20 units every morning and 50 units daily at bedtime currently. Blood pressures modestly elevated; on metoprolol 25 twice a day, amlodipine 10 daily, Catapres 2 patch, lisinopril 20/day and nicardipine drip. Tolerating Glucotrol at 25 mL per hour-intended to increase rate to 40 mL per hour yesterday however order was missed; will increase rate to 50 mL per hour 12 hours and then 75 mL per hour. Discussed with nursing. Decrease TPN infusion rate to 50% current infusion rate if continues to tolerate enteral feeds at higher rates. Continue TPN for nutritional support. Triglycerides pending to monitor propofol/ TPN. Hypernatremia improving with TPN modifications, low-volume free water added to enteral tube feedings. Patient now able to indicate throat discomfort but denies abdominal pain. Restlessness frequently described. Chronic alcohol abuse, alcohol withdrawal may still be underlying much of need for sedation/hypertension-Serax initiated at 30 mg every 6 hours. Wean propofol as able, chest x-ray/ABG in a.m. 06/14/17 17:39 Extubated midafternoon. Requiring 8 L supplemental oxygen to maintain saturation and appears to be slightly labored at the time of my assessment. High probability that BiPAP will be needed overnight for support. Continue Solu-Medrol for pulmonary inflammation 40 mg every 12 hours and continue to monitor. BUN/creatinine up further today, diuretics on hold. Significant edema but fluid is largely and subcutaneous tissues. XIAO siu added an attempt to mobilize fluid. Antibiotics discontinued yesterday 06/11 after total of 8 days (ceftriaxone 06/04-; cefepime/clindamycin/vancomycin 06/06-06/08; Unasyn 06/08-current). Blood sugars slowly improving-TPN being discontinued, Lantus discontinued as a result. Continue to monitor blood sugars and corrective scale insulin available as needed. OG removed when patient extubated-tube feedings discontinued. Soft diet ordered postextubation with nutritional supplements. Blood pressures modestly elevated; on metoprolol 25 twice a day, amlodipine 10 daily, Catapres 2 patch, lisinopril 20/day and nicardipine drip. Lisinopril increased to 40 mg daily. Triglycerides pending to monitor propofol/TPN. Hypernatremia improving with TPN modifications, low-volume free water added to enteral tube feedings. Continue to monitor off TPN. Chronic alcohol abuse, alcohol withdrawal may still be underlying much of need for sedation/hypertension-Serax initiated at 30 mg every 6 hours. Requesting alcohol shortly after extubation; continue Serax/when necessary lorazepam. PT/OT ordered; seen by speech therapy postextubation today. 06/15/17 15:51 Patient has tolerated extubation well and has titrated from 8 L supplemental oxygen to 4 L supplemental oxygen currently. Refused BiPAP last night. Diuresing without diuretics, BUN/creatinine slightly higher today. Taking liquids orally well and will continue to monitor volume/renal function. Convert to oral steroids from current low-dose Solu-Medrol. C. difficile identified overnight-oral Flagyl initiated and probiotics added today. Antibiotics discontinued 06/11 after total of 8 days (ceftriaxone 06/04-06/06; cefepime/clindamycin/vancomycin 06/06-06/08; Unasyn 06/08-06/11). Blood sugars slowly improving-TPN discontinued, Lantus discontinued yesterday. Corrective insulin as needed. Check A1c. Soft diet ordered postextubation with nutritional supplements. Blood pressure remains elevated; on metoprolol 50 twice a day, amlodipine 10 daily, Catapres 2 patch, lisinopril 40/d; nicardipine drip overnight but has been titrated off. Persistent low-grade tachycardia-metoprolol increased to 100 mg twice a day and hydralazine when necessary initiated. Hypernatremia resolving. Other electrolyte abnormalities stabilized. Chronic alcohol abuse, continue Serax at 30 mg every 6 hours. Requested alcohol shortly after extubation. As patient becomes more alert will begin tapering. PT/OT today; would like to begin getting patient out of bed if possible. 06/15/17 15:54
--- NOTE | 2017-06-15 16:34 | Pulmonology Progress Note ---
Subjective Principal diagnosis: Acute Respiratory Failure Interval history: Refused bipap, but doing well but doing ok without it. On 2 lpm O2. Using neb treatments with IPPB. Initially coughed a lot of secretions but that is improved. Having diarrhea due to C diff. On Flagyl. Exam Vital signs: Temperature 97.0 F 06/15/17 11:12 Pulse Rate 101 H 06/15/17 14:30 Respiratory Rate 16 06/15/17 16:07 Blood Pressure 179/94 H 06/15/17 14:30 Pulse Oximetry 98 06/15/17 14:30 Oxygen Delivery Method Nasal Cannula Oxygen Flow Rate 8 Fraction of Inspired Oxygen 50 SaO2/FiO2 Ratio 206 - Constitutional no acute distress, obese - Routine HEENT Exam Head: Present: normocephalic, atraumatic Eye: Present: PERRL ENT: Present: mucous membranes moist - Routine Neck Exam Present: supple, full ROM - Routine Respiratory Exam Present: decreased breath sounds, CTA bilaterally - Routine Cardiovascular Exam Present: RRR. Absent: murmur - Routine Abdominal Exam Present: soft, distended. Absent: guarding - Routine Extremities Exam Absent: cyanosis, clubbing - Urinary Catheter Management Urethral Cath placed during this visit: yes Urethral indwelling: Yes Reason for continuing: Prolonged Immobilization (Will discuss dan removal with PCP) Insertion date: 06/05/17 Insertion time: 10:00 Progress Note-A&P (1) Acute respiratory failure with hypoxia Status: Acute Assessment and plan: wean O2 as tolerated. IPPB due to secretion retention and atelectasis. RT is able to reduce the frequency of that as needed. Ok to d/c BIPAP. Wean off steroids as tolerated. Current Visit: Yes (2) Pancreatitis Problem details: POA: ETOH induced. RUQ US negative for obstructive stones. MRCP nondiagnostic due to motion artifact however no obvious gallstones, pancreatitis head thickened, intrahepatic ducts nondilated. Status: Acute Current Visit: Yes (3) Hypertension Status: Chronic Current Visit: Yes (4) DTs (delirium tremens) Status: Acute Current Visit: Yes - Time Spent With Patient Total time spent is greater than 50% in coordination of care (as documented) at patient's floor/unit and/or counseling patient: less than 15 minutes Sepsis Assessment - Evaluation Sepsis screening result: Severe Sepsis Risk
[2017-06-15] MEDS: FAMOTIDINE 20 MG TABLET PO SCH ×2 (17:34→20:43)
[2017-06-15] MEDS: PredniSONE 20 MG TABLET PO SCH (17:34)
[2017-06-16] MEDS: ALBUTEROL/IPRATROPIUM 2.5mg-0.5mg/3ml NEB AEROSOL SCH ×3 (01:09→10:26)
[2017-06-16] MEDS: OXAZEPAM 30 MG CAPSULE PO SCH ×4 (03:15→21:49)
[2017-06-16] MEDS: MetroNIDAZOLE 500 MG TABLET PO SCH ×3 (08:20→17:18)
[2017-06-16] MEDS: PredniSONE 20 MG TABLET PO SCH (08:20)
[2017-06-16] MEDS: LISINOPRIL 40 MG TABLET PO SCH (08:20)
[2017-06-16] MEDS: LACTOBACILLUS (15B cfu) CAPSULE PO SCH ×3 (08:20→17:18)
[2017-06-16] MEDS: AMLODIPINE 10 MG TABLET PO SCH (08:21)
[2017-06-16] MEDS: ACETAMINOPHEN 325 MG TABLET PO PRN (08:21)
[2017-06-16] MEDS: FAMOTIDINE 20 MG TABLET PO SCH ×2 (08:22→21:48)
[2017-06-16] MEDS: NICOTINE 21 MG PATCH TD SCH (08:22)
[2017-06-16] MEDS: NICOTINE PATCH REMOVAL TD SCH (08:22)
--- NOTE | 2017-06-16 09:04 | XRay Report ---
Indication: hypoxia PROCEDURE: XR chest 1V: Encounter: Initial Comparison: June 14, 2017 Findings: Prior endotracheal and nasogastric tube seven removed. Left PICC line remains in place. Improving aeration of the left lower lobe with a small amount of atelectasis remaining. No pneumothorax. Trace left effusion has decreased. Heart size and mediastinal contours are stable. Pulmonary vascularity appears normal. Impression: Interval extubation. Improving aeration of the left lower lobe. .
[2017-06-16] MEDS: HALOPERIDOL 5 MG/ML INJECTION IVP PRN (09:36)
[2017-06-16] MEDS: SALINE FLUSH 10ml SYRINGE IVF PRN ×4 (09:37→20:38)
--- NOTE | 2017-06-16 10:03 | Pulmonology Progress Note ---
Subjective Principal diagnosis: Acute Respiratory Failure Interval history: Pt currently on RA, no respiratory distress noted. + cough with minimal sputum, using neb treatments with IPPB q4. Currently with tremors and abdominal pain noted this am, was given ativan, Dr Rowland aware. Having diarrhea due to C diff. On Flagyl. Exam Vital signs: Temperature 97.4 F 06/16/17 04:00 Pulse Rate 118 H 06/16/17 08:00 Respiratory Rate 21 06/16/17 07:01 Blood Pressure 152/85 H 06/16/17 07:01 Pulse Oximetry 99 06/16/17 07:01 Oxygen Delivery Method Nasal Cannula Oxygen Flow Rate 1 Fraction of Inspired Oxygen 50 SaO2/FiO2 Ratio 206 - Constitutional no acute distress, obese - Routine HEENT Exam Head: Present: normocephalic, atraumatic Eye: Present: PERRL - Routine Neck Exam Present: full ROM - Routine Respiratory Exam Present: rhonchi Comments: faint rhonchi noted - Routine Cardiovascular Exam Present: S1, S2, no murmur, tachycardia - Routine Abdominal Exam Present: tenderness, non distended - Routine Extremities Exam Present: edema, full ROM - Routine Back/Spine/Pelvis Exam Back/Spine: Present: full ROM - Routine Skin Exam Present: intact, dry - Routine Neurological Exam Present: alert, CN II-XII intact - Routine Psychiatric Exam Present: normal affect - Urinary Catheter Management Urethral Cath placed during this visit: yes Urethral indwelling: Yes Reason for continuing: Prolonged Immobilization Insertion date: 06/05/17 Insertion time: 10:00 Progress Note-A&P (1) Acute respiratory failure with hypoxia Status: Acute Assessment and plan: Pt currently on RA, angela well, sats 97%. WEan down albuterol with IPPB to TID. CXR noted with cardiomegaly but improved LLL atelectasis/infiltrates. Current Visit: Yes (2) Tobacco dependence Status: Chronic Assessment and plan: [id number] cessation on dismissal. Current Visit: Yes (3) Obesity (BMI 30-39.9) Status: Chronic Current Visit: Yes (4) Hypernatremia Status: Acute Assessment and plan: Improved, 142, per primary. Current Visit: Yes (5) Pancreatitis Problem details: POA: ETOH induced. RUQ US negative for obstructive stones. MRCP nondiagnostic due to motion artifact however no obvious gallstones, pancreatitis head thickened, intrahepatic ducts nondilated. Status: Acute Assessment and plan: off abx, WBC normal, now with abdominal pain. Primary aware and will see this am. Current Visit: Yes (6) Hypertension Status: Chronic Assessment and plan: On Catapres, lisinopril, norvasc, metoprolol per primary, BP still elevated, meds per primary. Current Visit: Yes (7) Rhabdomyolysis Status: Resolved Current Visit: Yes - Time Spent With Patient Total time spent is greater than 50% in coordination of care (as documented) at patient's floor/unit and/or counseling patient: less than 15 minutes Sepsis Assessment - Evaluation Sepsis screening result: No Definite Risk
[2017-06-16] MEDS ORDERED: IODIXANOL 320mg/ml 100ml INJECTION IV ONE (11:18)
[2017-06-16] MEDS ORDERED: SALINE FLUSH 10ml SYRINGE ONE (11:19)
[2017-06-16] MEDS ORDERED: NS 100 ML ONE (11:19)
[2017-06-16] MEDS: MORPHINE SULFATE 4 MG SYRINGE IVP PRN (11:31)
--- NOTE | 2017-06-16 12:52 | CT Scan Report ---
Indication: abd pain; pancreatitis PROCEDURE: CT abdomen pelvis w con: Encounter: Initial Comparison: MRCP dated June 04, 2017 Technique: Axial CT images were performed through the abdomen and pelvis after the administration of intravenous contrast. Coronal and sagittal two-dimensional reformats. Automated Exposure Control and Iterative Reconstruction dose reducing techniques were utilized. Contrast: Visipaque 320 100 mL Findings: Small bilateral pleural effusions. Areas of compressive atelectasis in both lower lobes. Artifact from attenuation due to patient body habitus and arm positioning. The liver is homogeneous without focal mass lesion. The gallbladder is normal. The spleen is within normal limits. There is heterogeneous appearance of the pancreas with areas of nonenhancing parenchyma seen in the head, body and tail region. No significant focal fluid collection or evidence of pseudocyst formation. Main pancreatic duct is difficult to evaluate given the heterogeneity and attenuation artifact. The adrenal glands are normal. Kidneys show bilateral hydronephrosis which is mild to moderate with bilateral hydroureter to the level of a distended bladder. Moe catheter has become displaced distally with the balloon inflated in the bulbar urethra and the tip distal to the membranous urethra. No abdominal or pelvic lymphadenopathy. Diffuse subcutaneous edema consistent with anasarca. No evidence of a small bowel obstruction. Suggestion of some small bowel wall thickening distally. Bone windows show no acute findings. Impression: 1. 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 2. Malpositioning of the Moe catheter with bladder distention and hydronephrosis. 3. Anasarca and volume overload. Impression #2 was discussed with the ordering physician at 1245 on June 16, 2017. .
[2017-06-16] MEDS: ALBUTEROL/IPRATROPIUM 2.5mg-0.5mg/3ml NEB IPPB SCH ×2 (13:15→19:59)
[2017-06-16] MEDS: NS IV SCH ×2 (19:52→22:58)
[2017-06-16] MEDS: NICARDIPINE IV SCH ×2 (19:52→22:58)
--- NOTE | 2017-06-16 20:06 | Progress Note ---
Subjective: Nii complained of increased abdominal pain when seen in mid morning, pain was greatest in the lower abdomen and increased with inspiration. Nursing reported he developed bladder pressure after the Moe was clamped on 4 periods of time. He ate breakfast well eating almost 90% but subsequently developed nausea when abdominal pain worsened. He slept well. Diarrhea worsened overnight requiring placement of a rectal tube. He's had no fever. He remained on room air overnight and denies cough or dyspnea. His girlfriend is at bedside and reports his speech had improved last night but is harder to understand since his developed abdominal pain.. Haldol was given shortly before I arrived when he developed tremors in conjunction with increased pain. Objective Vital signs: Temperature 97.9 F 06/16/17 17:15 Pulse Rate 110 H 06/16/17 17:15 Respiratory Rate 24 06/16/17 17:15 Blood Pressure 113/78 06/16/17 17:01 Pulse Oximetry 90 06/16/17 17:01 Oxygen Delivery Method Room Air I/O 3660/4718 cumulative fluid balance since admission 64,693/47,111 Weight stable from yesterday EXAM General-drowsy, uncomfortable male, mumbled speech HEENT-conjunctiva clear, neck supple Lungs-respirations nonlabored, decreased airflow, breath sounds clear Cardiac-regular rhythm, S1-S2 Abd-soft, moderate tenderness to palpation primarily in the right lower quadrant or guarding is present, bowel sounds present but diminished today Ext-+1 edema 4 extremities-clearly improved from prior days Neuro-moving upper extremities spontaneously, wiggles toes to commands Skin-face flushed, lower extremities mottled Psych-apprehensive - Rhythm: Normal Sinus Rhythm Height/Weight/BMI: Height 1.85 m Weight 136 kg Body Mass Index 37.2 Results - Labs CBC & Chem 7: 06/15/17 05:23 06/16/17 05:29 Labs: Phosphorus 5.8, magnesium 2.2, LDH 2014, albumin 3.0 Blood sugars 147-182-188 today Urinalysis-3+ occult blood, nitrate and leukocyte esterase negative, 3-5 RBC, 0- 1 WBC Microbiology Results: Microbiology 06/16/17 10:45 Cath/Port/Line/Picc Blood Culture - Preliminary Culture Initiated - Results Pending 06/16/17 10:55 Cath/Port/Line/Picc Blood Culture - Preliminary Culture Initiated - Results Pending 06/06/17 11:34 Peripheral/Iv Start Blood Culture - Final No Growth After 5 Days 06/06/17 11:34 Peripheral/Iv Start Blood Culture - Final No Growth After 5 Days 06/06/17 11:00 Sputum, Suctioned Gram Stain - Final 06/06/17 11:00 Sputum, Suctioned Sputum Culture - Final Normal Respiratory Dinah - ABG Interpretation ABG results: 06/05/17 06/06/17 06/06/17 17:41 04:35 09:25 ABG pH 7.360 7.380 7.460 H ABG pCO2 55 H 53 H 42 ABG pO2 114 H 64 L 133 H ABG HCO3 31 H 31 H 30 H ABG Total CO2 32.8 H 33.0 H 31.2 H ABG O2 Saturation 98.0 92.0 L 99.0 H ABG Base Excess 4.4 H 5.0 H 5.5 H 06/06/17 06/07/17 06/08/17 15:05 09:55 07:50 ABG pH 7.450 7.370 7.391 ABG pCO2 41 52 H 50 H ABG pO2 65 L 82 98 ABG HCO3 29 H 30 H 31 H ABG Total CO2 29.8 H 31.7 H 32 H ABG O2 Saturation 93.0 L 96.0 97.0 ABG Base Excess 4.1 H 3.7 H 5.0 H 06/09/17 06/14/17 06/14/17 08:35 10:10 14:42 ABG pH 7.470 H 7.460 H 7.480 H ABG pCO2 44 41 36 ABG pO2 88 65 L 65 L ABG HCO3 32 H 29 H 27 H ABG Total CO2 33.4 H 30.5 H 27.9 H ABG O2 Saturation 97.0 94.0 L 94.0 L ABG Base Excess 7.4 H 4.9 H 3.3 H - Imaging and Cardiology CT scan - abdomen Status: image reviewed by me (marked distention of bladder with Moe in the urethra, atelectasis at both bases, no evidence of pancreatic abscess/phlegmon, no pseudocyst. Radiology reads multiple areas of pancreatic necrosis.) Chest x-ray Status: image reviewed by me (chest x-ray reviewed by myself-NAD, left lower lobe effusion improved/reexpanded) Assessment and Plan (1) Pancreatitis Problem details: POA: ETOH induced. RUQ US negative for obstructive stones. MRCP nondiagnostic due to motion artifact however no obvious gallstones, pancreatitis head thickened, intrahepatic ducts nondilated. Current visit: Yes Status: Acute (2) Acute respiratory failure Problem details: Intubated 06/06-06/14; ARDS/volume overload Current visit: Yes Status: Acute (3) DTs (delirium tremens) Current visit: Yes Status: Acute (4) Hypertension Current visit: Yes Status: Chronic (5) Alcoholic liver damage Current visit: Yes Status: Acute (6) ETOHism Current visit: Yes Status: Chronic DVT Prophylaxis: SCD's GI Prophylaxis: Pepcid Resuscitation Status: Full Code Assessment and Plan: Assessment: Alcoholic pancreatitis Acute respiratory failure due to ARDS/volume overload-intubated 06/06-06/14 DTs C. difficile colitis Abdominal pain 06/16 due to malfunctioning Moe catheter/urinary retention Hypertensive emergency/urgency Chronic alcohol abuse with alcoholic liver disease Hypokalemia-POA Hypomagnesemia-POA Hypophosphatemia Hypocalcemia Hyperglycemia-A1c 6.1 on 06/15/17 Hypernatremia Tobacco dependence Obesity-BMI 33.2 on admission Plan: CT scan repeated earlier today due to increased abdominal pain-Moe catheter found to be in urethra with massive distention of the bladder (although patient had urine output of 100-300 mL per hour at the time). Moe catheter replaced with immediate resolution of abdominal pain, nausea, and flushing. Prior to identification of urinary retention blood cultures were obtained due to concern that patient may have sepsis triggering symptoms. No indication of pancreatic or intra-abdominal abscess. Low-fat diet due to recent pancreatitis. Ongoing diarrhea-day to metronidazole/probiotics for C. difficile identified . Doing well postextubation (06/14). On 1 L or RA with good oxygenation over the past 24 hours although oxygenation is in the lower 90s this evening. Diuresing briskly prior to Moe change, appears to have post obstructive diuresis following Moe catheter change with almost 9 L urine output thus far today. May require fluid replacement therapy if blood pressure drops-discussed with nursing. IV Antibiotics discontinued 06/11 after total of 8 days (ceftriaxone 06/04-06/06; cefepime/clindamycin/vancomycin 06/06-06/08; Unasyn 06/08-06/11). Blood sugars slowly improving-TPN discontinued, Lantus discontinued 06/14. Corrective insulin as needed. A1c 6.1. Blood pressure stabilizing; on metoprolol 100 twice a day, amlodipine 10 daily, Catapres 2 patch, lisinopril 40/d; nicardipine drip off past 24 hours. Continue diuresis may be able to begin decreasing blood pressure medications. Hypernatremia resolving. Other electrolyte abnormalities stabilized. Chronic alcohol abuse, continue Serax but will decrease to 30 mg every 8 hours. Continue PT/OT; would like to begin getting patient out of bed if possible. Discussed with nursing and girlfriend. Nursing/family provided supplemental history High risk medication in use-IV lorazepam, IV morphine. Chest x-ray/CT abdomen- pelvis reviewed by myself and CT discussed with Dr. Means. If stable overnight may be able to move out of ICU tomorrow. Sepsis Assessment - Evaluation Sepsis screening result: Sepsis Risk Hospital Course Summary Disclaimer: The visit summary below is not to be considered part of the above Progress Note. Hospital Course: 06/04/17 1) Alcohol use and abuse with ongoing pancreatitis, this could be related to ETOH, or due to gallstones (U/S could not see distal CBD - bilirrubin high) or both. - Check Abd/Pelvic CT with IV contrast re: Extent of pancreatic swelling ? abscess ? hemorrhage ? also Pyelonephritis ? - Check MRCP - pt could be obstructed since Bilirrubin is high. Pt states he noticed his skin is yellow. - Aggressive hydration with NS 500cc/hr x 6 hrs then reasses 2) UTI - very high lactate - high WBC - On Rocephin will continue for now. 3) Hypokalemia/Hypomagenesemia - Will give Mg + K 4) Lactic acidosis - due to ? sepsis ? hypoperfusion ? - Will recheck later today. 5) Elevated hemoglobin - Will follow serially. 06/05/17 1) ALCOHOL ABUSE WITH A) SEVERE AGITATION/CONFUSION ? OF HALLUCINATIONS MOST LIKELY DUE TO ALCOHOL WITHDRAWALS - On Propofol drip - Tachycardic - Will also give Ativan IV ID. - Check CPK (R/O Rhabdo due to agitation) - Aggressive hydration and electrolyte replenishment. B) Pancreatitis most likely related to ETOH MRCP Impression: 1. No cholelithiasis or intrahepatic bile duct dilatation. Evaluation of the extrahepatic common duct is poor due to motion artifact and patient body habitus. No obvious common duct stone. 2. Enlargement of the pancreatic head which could be due to inflammation from pancreatitis or potentially neoplasm. Recommend further evaluation with a contrast-enhanced CT of the abdomen. - Lipase coming down - Check CA 19-9 prior to D/C and follow closely his pancreatic anatomy by CT/ MRI. Transferred to CCU due to alcohol withdrawal. 06/06/17 1) PULMONARY ASSESMENT A) Pt has developed ALI/ARDS - ABG on FIO2 of 80% showed PaO2 of 133 with CO2 of 42 - huge a-A gradient that has increased since yesterday. - Pt was intubated successfully by ED MD - Saturations are 91 on 100% FIO2. ET tube appears to be well positioned. - Pt requires high PEEP. - Could be related to pancreatitis, or PNA - Pt has a L sided effussion - could be related to pancreatitis. Must R/O Boherhave's syndrome will try a CT chest with gastrograffin injection in the mid esophagus. - Start coverage for HAP - Vanco + cefepime + steroids - Add Mucomyst for possible mucus plugg. - Case discussed with his NOK - significant other, she consented for intubation. - Reculture blood & sputum B) Obstructive Sleep Apnea (New Dx) - Was on CPAP - now intubated. 2) ALCOHOL ABUSE WITH MULTIPLE COMPLICATIONS - A) SEVERE AGITATION/CONFUSION ? OF HALLUCINATIONS MOST LIKELY DUE TO ALCOHOL WITHDRAWALS - On propofol since yesterday. - On Propofol drip - Continue. - Tachycardic/hypertensive - CPK - 1261 Yesterday - C/W rhadbomyolisis - will rehceck - Aggressive hydration and electrolyte replenishment. B) Pancreatitis most likely related to ETOH - Lipase coming down - Check CA 19-9 prior to D/C and follow closely his pancreatic anatomy by CT/MRI. - Add Banana bags - C) Hypokalemia on admission - K is high today. - Stop NS with K - Recheck later. D) Hypomagnesemia - now improved. E) Severe hypophosphatemia - Risk of hemolysis - CHF & could be causing low Platelets. - PO4 is under 1 - Spoke with Pharm D - Ant De Souza - Will give 90 Mmol of Na Phosphate F) Dehydration - Appears improved now, will hold off on aggressive hydration will place on Banana bag @ 50ml/hr x 3 Liters. G) Rhabdomyolisis - cuuld be due to his severe agitation. - Recheck CPK now. 3) INFECTIOUS DISEASE ASSESMENT A) UTI - very high lactate - high WBC - On Rocephin will continue for now. B) ? Of HAP ? - Will cover with Vanco + Cefepime - Add Mucomyst for possible mucus plug - Continue Duonebs - Add Steroids. - Lactate is dropping 3) CARDIOVASCULAR ASSESSMENT A) Hypertension - moderate to severe - On BB PRN will schedule with parameters B) Will check EKG due to low Ca and due to severe agitation - R.O ID. - Check 2-D echo - Consult Cardiology (BNP was very high and has Pleural effussion - Alcoholic [facility] ?) PREVENTION DVT - SCD'S PUD - PPI. 06/07/[address] Renee for Pulm evaluation and to help with ventilator management. Continue IV antibiotics - possible aspiration pneumonia/pneumonitis Continue Sedation - with current decreased pulmonary statue, likely too early to work on weaning sedation. Start TPN for nutritional support. Will stop IVF when TPN ready. Continue to monitor lab due to pt's severity of illness. Patient remains critically ill, ICU care warranted. 06/08/17 Continue with mechanical ventilation as per Dr Renee. In discussion with Dr Renee, will deescalate IV antibiotic use (likely respiratory failure from ARDS due to pancreatitis, still some concern for possible aspiration) Will stop Vancomycin, cefepime and clindamycin. Initiate Unasyn for coverage. Will continue Solu-Medrol at 40mg IV q 8 hours. Will stop Mucomyst - monitor for increase secretions. Blood pressure with elevation today. Bumex 1mg given this morning and afternoon to help decrease volume. Urine output appropriate, but pressures remain high. Start Nipride drip to ease down blood pressure. TPN continues-discussed with pharm about electrolyte adjustments. 10 units of Lantus given this morning to help sugars - did monitor sugars more frequently and gave additions SQ doses of insulin. Will start 20 units of Lantus this evening. Insulin sliding scale changed to high dose regimen. Continue propofol for sedation. Patient remains critically ill. CCU care an support required. 06/09/17 Recheck Lipase and CPK this am show normalization. Continue with mechanical ventilation as per Dr Renee. Continue Unasyn for antimicrobial coverage. Additional insulin to be given to help improve glycemic control. Extra SQ dosing during day. Increase Lantus to 45 units at night. Sugars elevated due to TPN and Solu-Medrol. Bumex 1mg given this morning to help decrease volume. Will give additional Bumex 1mg this afternoon. Nipride drip continues for BP control. TPN continues-discussed with pharm about electrolyte adjustments. Will remove sodium to decrease sodium level and OSMO. Increase KPhos. Continue propofol for sedation. Patient remains critically ill. CCU care an support required. 06/10/17 15:56 Patient continues to require ventilatory assistance with high pressures and FiO2 of 60% increased to 70% this afternoon after desaturating. Weight up significantly since admission, volume status +18.7 L from admission, edema on exam-will begin diuresing with scheduled Lasix. Continue propofol; discussed conversion to Precedex with Dr. Renee but with respiratory instability will not make changes at this time. Check triglycerides in a.m. Continue Unasyn/steroids. Remains hyperglycemic; Lantus increased to 50 units and corrective scale modified upward. Blood pressures modestly elevated; on IV metoprolol, Catapres patch, and nicardipine drip. Convert to enteral metoprolol per NG. Begin low-volume feedings per NG; dietary consultation for recommendations. Continue TPN for nutritional support. Patient remains critically ill. 06/11/17 16:18 Patient continues to require ventilatory assistance with FiO2 of 50% and PEEP of 8-both improved from yesterday. Continue diuresis with goal of equal/negative fluid balance daily. X-ray most consistent with volume overload-no focal infiltrate. Patient has been on antibiotics since 06/04 (ceftriaxone 06/04-06/06; cefepime/ clindamycin/vancomycin 06/06-06/08; Unasyn 06/08-current); sputum culture normal dinah -we'll discontinue antibiotics. On Solu-Medrol for pulmonary inflammation-discussed with Dr. Renee-decreased dose to 40 mg every 12 hours and continue to monitor. Remains hyperglycemic; Lantus increased to 50 units daily at bedtime with 20 units added every morning. Continue corrective scale insulin. Blood pressures modestly elevated; on by mouth metoprolol, Catapres patch, and nicardipine drip. Amlodipine added. Begin low-volume feedings per NG with Glucotrol; dietary consultation for recommendations. Continue TPN for nutritional support. Triglycerides pending to monitor propofol/ TPN. Hypernatremia slightly improved with TPN modifications, low-volume free water added to enteral tube feedings. 06/12/17 12:54 Patient continues to require ventilatory assistance with FiO2 of 50% and PEEP of 7. Continue diuresis with goal of equal/negative fluid balance daily. Bumex increased to 1 mg IV every 6 hours. Antibiotics discontinued yesterday (06/11) after total of 8 days (ceftriaxone 06/04 -06/06; cefepime/clindamycin/vancomycin 06/06-06/08; Unasyn 06/08-current). sputum culture normal dinah-we'll discontinue antibiotics. On Solu-Medrol for pulmonary inflammation 40 mg every 12 hours and continue to monitor. Remains hyperglycemic; Lantus increased to 20 units every morning and 50 units daily at bedtime yesterday. Fasting glucose 242 today. Continue corrective scale insulin. Anticipate beginning to titrate off TPN in the next couple of days-corrective scale modified but will not increase basal insulin at present. Blood pressures modestly elevated; on metoprolol, Catapres patch, and nicardipine drip. Amlodipine added yesterday-dose increased to 10 mg daily today and lisinopril added at 20 mg daily. Hope to titrate nicardipine off in next 24 hours. Tolerating Glucotrol at 25 mL per hour-rate increased to 40 mL per hour; dietary consultation for recommendations. Continue TPN for nutritional support. Triglycerides pending to monitor propofol/ TPN. Hypernatremia slightly improved with TPN modifications, low-volume free water added to enteral tube feedings. Potassium down today with diuresis-replaced and early and modified in TPN. 06/13/17 14:26 Patient continues to require ventilatory assistance with FiO2 of 50% and PEEP of 7. On Solu-Medrol for pulmonary inflammation 40 mg every 12 hours and continue to monitor. BUN/creatinine beginning to climb, Lasix and then Bumex have been ineffective in producing net diuresis. Significant edema but fluid is largely and subcutaneous tissues. Frequency of Bumex decreased to avoid worsening of renal function, XIAO siu added an attempt to mobilize fluid. Antibiotics discontinued yesterday 06/11 after total of 8 days (ceftriaxone 06/04-; cefepime/clindamycin/vancomycin 06/06-06/08; Unasyn 06/08-current). Blood sugars slowly [id number] in the past 24 hours; Lantus 20 units every morning and 50 units daily at bedtime currently. Blood pressures modestly elevated; on metoprolol 25 twice a day, amlodipine 10 daily, Catapres 2 patch, lisinopril 20/day and nicardipine drip. Tolerating Glucotrol at 25 mL per hour-intended to increase rate to 40 mL per hour yesterday however order was missed; will increase rate to 50 mL per hour 12 hours and then 75 mL per hour. Discussed with nursing. Decrease TPN infusion rate to 50% current infusion rate if continues to tolerate enteral feeds at higher rates. Continue TPN for nutritional support. Triglycerides pending to monitor propofol/ TPN. Hypernatremia improving with TPN modifications, low-volume free water added to enteral tube feedings. Patient now able to indicate throat discomfort but denies abdominal pain. Restlessness frequently described. Chronic alcohol abuse, alcohol withdrawal may still be underlying much of need for sedation/hypertension-Serax initiated at 30 mg every 6 hours. Wean propofol as able, chest x-ray/ABG in a.m. 06/14/17 17:39 Extubated midafternoon. Requiring 8 L supplemental oxygen to maintain saturation and appears to be slightly labored at the time of my assessment. High probability that BiPAP will be needed overnight for support. Continue Solu-Medrol for pulmonary inflammation 40 mg every 12 hours and continue to monitor. BUN/creatinine up further today, diuretics on hold. Significant edema but fluid is largely and subcutaneous tissues. XIAO hose added an attempt to mobilize fluid. Antibiotics discontinued yesterday 06/11 after total of 8 days (ceftriaxone 06/04-; cefepime/clindamycin/vancomycin 06/06-06/08; Unasyn 06/08-current). Blood sugars slowly improving-TPN being discontinued, Lantus discontinued as a result. Continue to monitor blood sugars and corrective scale insulin available as needed. OG removed when patient extubated-tube feedings discontinued. Soft diet ordered postextubation with nutritional supplements. Blood pressures modestly elevated; on metoprolol 25 twice a day, amlodipine 10 daily, Catapres 2 patch, lisinopril 20/day and nicardipine drip. Lisinopril increased to 40 mg daily. Triglycerides pending to monitor propofol/TPN. Hypernatremia improving with TPN modifications, low-volume free water added to enteral tube feedings. Continue to monitor off TPN. Chronic alcohol abuse, alcohol withdrawal may still be underlying much of need for sedation/hypertension-Serax initiated at 30 mg every 6 hours. Requesting alcohol shortly after extubation; continue Serax/when necessary lorazepam. PT/OT ordered; seen by speech therapy postextubation today. 06/15/17 15:51 Patient has tolerated extubation well and has titrated from 8 L supplemental oxygen to 4 L supplemental oxygen currently. Refused BiPAP last night. Diuresing without diuretics, BUN/creatinine slightly higher today. Taking liquids orally well and will continue to monitor volume/renal function. Convert to oral steroids from current low-dose Solu-Medrol. C. difficile identified overnight-oral Flagyl initiated and probiotics added today. Antibiotics discontinued 06/11 after total of 8 days (ceftriaxone 06/04-06/06; cefepime/clindamycin/vancomycin 06/06-06/08; Unasyn 06/08-06/11). Blood sugars slowly improving-TPN discontinued, Lantus discontinued yesterday. Corrective insulin as needed. Check A1c. Soft diet ordered postextubation with nutritional supplements. Blood pressure remains elevated; on metoprolol 50 twice a day, amlodipine 10 daily, Catapres 2 patch, lisinopril 40/d; nicardipine drip overnight but has been titrated off. Persistent low-grade tachycardia-metoprolol increased to 100 mg twice a day and hydralazine when necessary initiated. Hypernatremia resolving. Other electrolyte abnormalities stabilized. Chronic alcohol abuse, continue Serax at 30 mg every 6 hours. Requested alcohol shortly after extubation. As patient becomes more alert will begin tapering. PT/OT today; would like to begin getting patient out of bed if possible. 06/16/17 20:30 CT scan repeated earlier today due to increased abdominal pain-Moe catheter found to be in urethra with massive distention of the bladder (although patient had urine output of 100-300 mL per hour at the time). Moe catheter replaced with immediate resolution of abdominal pain, nausea, and flushing. Prior to identification of urinary retention blood cultures were obtained due to concern that patient may have sepsis triggering symptoms. No indication of pancreatic or intra-abdominal abscess. Low-fat diet due to recent pancreatitis. Ongoing diarrhea-day to metronidazole/probiotics for C. difficile identified . Doing well postextubation (06/14) On 1 L or RA with good oxygenation over the past 24 hours although oxygenation is in the lower 90s this evening. Diuresing briskly prior to Moe change, appears to have post obstructive diuresis following Moe catheter change with almost 9 L urine output thus far today. May require fluid replacement therapy if blood pressure drops-discussed with nursing. IV Antibiotics discontinued 06/11 after total of 8 days (ceftriaxone 06/04-06/06; cefepime/clindamycin/vancomycin 06/06-06/08; Unasyn 06/08-06/11). Blood sugars slowly improving-TPN discontinued, Lantus discontinued 06/14. Corrective insulin as needed. A1c 6.1. Blood pressure stabilizing; on metoprolol 100 twice a day, amlodipine 10 daily, Catapres 2 patch, lisinopril 40/d; nicardipine drip off past 24 hours. Continue diuresis may be able to begin decreasing blood pressure medications. Hypernatremia resolving. Other electrolyte abnormalities stabilized. Chronic alcohol abuse, continue Serax but will decrease to 30 mg every 8 hours. Continue PT/OT; would like to begin getting patient out of bed if possible.
[2017-06-16] MEDS: INSULIN ASPART 100unit/ml INJECTION SQ PRN (20:35)
[2017-06-16] MEDS ORDERED: FALL RISK - PHARMACY CONSULT MC PRN (22:30)
[2017-06-17] MEDS ORDERED: ALTEPLASE (Cathflo*) 2mg INJECTION IV ONE (04:40)
[2017-06-17] MEDS: SALINE FLUSH 10ml SYRINGE IVF PRN (04:59)
[2017-06-17] MEDS: OXAZEPAM 30 MG CAPSULE PO SCH ×3 (05:11→20:09)
[2017-06-17] MEDS: MORPHINE SULFATE 4 MG SYRINGE IVP PRN ×2 (06:01→09:31)
[2017-06-17] MEDS: ALBUTEROL/IPRATROPIUM 2.5mg-0.5mg/3ml NEB IPPB SCH ×3 (06:51→19:28)
[2017-06-17] MEDS: NICOTINE 21 MG PATCH TD SCH (08:19)
[2017-06-17] MEDS: LACTOBACILLUS (15B cfu) CAPSULE PO SCH ×3 (08:20→18:06)
[2017-06-17] MEDS: PredniSONE 20 MG TABLET PO SCH (08:20)
[2017-06-17] MEDS: FAMOTIDINE 20 MG TABLET PO SCH ×2 (08:20→20:09)
[2017-06-17] MEDS: MetroNIDAZOLE 500 MG TABLET PO SCH ×3 (08:21→18:06)
[2017-06-17] MEDS: NICOTINE PATCH REMOVAL TD SCH (09:26)
--- NOTE | 2017-06-17 09:28 | Progress Note ---
Subjective: The patient was seen morning accompanied by his and "second mom" Sarah. Overnight, the patient gradually developed tachycardia which previously had been in the 90 to low 100 range and was up to the 130s this morning. He had 6 L of urine output since midnight and almost 12 L urine output yesterday. Yesterday , he was found to have urinary obstruction with Moe in the urethra. Moe was removed and a new Moe was placed in the bladder and he has subsequently developed significant diuresis. Blood pressure was as low as 95 but is currently 132/62. While he was sitting up on the side of the bed tingling and eating breakfast he developed shaking and felt cold. He appeared dusky after sitting up for over 30 minutes. He was later laid back down in bed and is no longer dusky. Other than feeling cold this morning he states he's feeling okay. He complains of some bilateral leg pain that is a 4 on a scale of 1-10. He denies any headache, chest pain or abdominal pain. He denies any shortness of breath. He denies any nausea after breakfast. He states he didn't eat very much because he ordered a cold breakfast and that made him feel colder. Apparently, the patient had similar symptoms yesterday with shaking and duskiness to the skin that later resolved. Objective Vital signs: Temperature 99.8 F 06/17/17 04:00 Pulse Rate 123 H 06/17/17 06:00 Respiratory Rate 20 06/17/17 06:52 Blood Pressure 153/80 H 06/17/17 06:00 Pulse Oximetry 94 06/17/17 06:00 Oxygen Delivery Method Room Air Oxygen Flow Rate 1 Fraction of Inspired Oxygen 50 SaO2/FiO2 Ratio 206 Rhythm: Normal Sinus Rhythm Height/Weight/BMI: Height 1.85 m Weight 136 kg Body Mass Index 37.2 Comments: I&O yesterday 3985/11,780 I&O since midnight 1340/approximately 6 L GEN-alert, oriented, appears ill but in no distress. No tremulousness or shaking at this time HEENT-sclera anicteric, pupils equal, oropharynx is mildly dry with yellow coating on the tongue NECK-supple CV-tachycardic rate with irregular rhythm, no murmurs CHEST-good auscultation bilaterally from the anterior ABD-mild distention, bowel sounds present, nontender -Moe in place with light colored urine, currently Moe was clamped EXT-2-3+ edema in all 4 extremities, feet mildly cool but normal in color NEURO-no tremulousness, moves all 4 extremities on command, oriented to [facility], [place], , knows he is in the hospital because of complications of alcoholism SKIN-mild bruising on the legs, no mottling of the skin currently Results - Labs CBC & Chem 7: 06/17/17 04:22 06/17/17 04:22 Labs: Phosphorus 4.0, magnesium 1.6 Bilirubin 1.8 mildly up from 1.6 Albumin 2.8, calcium 8.7 AST 53 down from 123 A.l. T1 40 up from 125 Alkaline phosphatase 128 Neutrophils 85%, bands 7% up from 3% yesterday Microbiology Results: Microbiology 06/16/17 10:45 Cath/Port/Line/Picc Blood Culture - Preliminary Culture Initiated - Results Pending 06/16/17 10:55 Cath/Port/Line/Picc Blood Culture - Preliminary Culture Initiated - Results Pending 06/06/17 11:34 Peripheral/Iv Start Blood Culture - Final No Growth After 5 Days 06/06/17 11:34 Peripheral/Iv Start Blood Culture - Final No Growth After 5 Days 06/06/17 11:00 Sputum, Suctioned Gram Stain - Final 06/06/17 11:00 Sputum, Suctioned Sputum Culture - Final Normal Respiratory Dinah - ABG Interpretation ABG results: 06/05/17 06/06/17 06/06/17 17:41 04:35 09:25 ABG pH 7.360 7.380 7.460 H ABG pCO2 55 H 53 H 42 ABG pO2 114 H 64 L 133 H ABG HCO3 31 H 31 H 30 H ABG Total CO2 32.8 H 33.0 H 31.2 H ABG O2 Saturation 98.0 92.0 L 99.0 H ABG Base Excess 4.4 H 5.0 H 5.5 H 06/06/17 06/07/17 06/08/17 15:05 09:55 07:50 ABG pH 7.450 7.370 7.391 ABG pCO2 41 52 H 50 H ABG pO2 65 L 82 98 ABG HCO3 29 H 30 H 31 H ABG Total CO2 29.8 H 31.7 H 32 H ABG O2 Saturation 93.0 L 96.0 97.0 ABG Base Excess 4.1 H 3.7 H 5.0 H 06/09/17 06/14/17 06/14/17 08:35 10:10 14:42 ABG pH 7.470 H 7.460 H 7.480 H ABG pCO2 44 41 36 ABG pO2 88 65 L 65 L ABG HCO3 32 H 29 H 27 H ABG Total CO2 33.4 H 30.5 H 27.9 H ABG O2 Saturation 97.0 94.0 L 94.0 L ABG Base Excess 7.4 H 4.9 H 3.3 H Assessment and Plan (1) Pancreatitis Problem details: POA: ETOH induced. RUQ US negative for obstructive stones. MRCP nondiagnostic due to motion artifact however no obvious gallstones, pancreatitis head thickened, intrahepatic ducts nondilated. Current visit: Yes Status: Acute 06/04/17 03:34 due to continued drinking. RUQ US negative for obstructive stones. Patient started on aggressive IVF, electrolyte replacement and morphine PRN. Repeat labs at 7:00 am. Patient does have elevated lacate, likely due to acute pancreatitis. Continue supportive care. (2) Alcoholic liver damage Current visit: Yes Status: Acute (3) Hypertension Current visit: Yes Status: Chronic (4) DTs (delirium tremens) Current visit: Yes Status: Acute (5) Acute respiratory failure Problem details: Intubated 06/06-06/14; ARDS/volume overload Current visit: Yes Status: Acute (6) ETOHism Current visit: Yes Status: Chronic DVT Prophylaxis: SCD's Resuscitation Status: Full Code Assessment and Plan: 06/17/2017-Dr. Calderón Assessment: Alcoholic pancreatitis Acute respiratory failure due to ARDS/volume overload-intubated 06/06-06/14 DTs C. difficile colitis Postobstructive diuresis with almost 18 L urine output in the past day and a half Sinus tachycardia, most likely secondary to being intravascularly dry due to postobstructive diuresis less likely to be secondary to alcohol withdrawal as the patient is currently alert and oriented and not tremulous and appears in no distress Abdominal pain 06/16 due to malfunctioning Moe catheter/urinary retention Hypertensive emergency/urgency-resolved, today with occasional borderline hypotension. Chronic alcohol abuse with alcoholic liver disease Hypokalemia- Hypomagnesemia-resolved Hypophosphatemia-resolved Hypocalcemia-resolved Hyperglycemia-A1c 6.1 on 06/15/17 Hypernatremia-resolved Tobacco dependence Obesity-BMI 33.2 on admission Plan: Regarding tachycardia is most likely secondary to intravascular dryness, will give half normal saline at 250 an hour 1-2 L. The patient has already received a 500 cc normal saline bolus. We'll reassess vital signs after IV fluids have been administered. Seroquel dose decreased slightly yesterday from 30 4 times a day to 30 3 times a day-watch closely for increasing signs of withdrawal Continue metronidazole (day 3) and probiotics for C. difficile. Rectal tube DC due to decrease diarrhea. From a respiratory standpoint, patient is doing well and is currently on room air. Continue to monitor blood sugars off of TPN Discontinue steroids which were started for ARDS Repeat basic metabolic profile this afternoon Replace potassium orally Low-dose Lovenox and SCDs for DVT prophylaxis Greater than 1 hour of critical care time spent seeing and evaluating the patient and reviewing the chart. Discussed with the family, patient's nurse, and Dr. Renee. - Time spent with patient greater than 35 minutes (greater than 1 hour of critical care time) Sepsis Assessment - Evaluation Sepsis screening result: Severe Sepsis Risk Hospital Course Summary Disclaimer: The visit summary below is not to be considered part of the above Progress Note. Hospital Course: 06/04/17 1) Alcohol use and abuse with ongoing pancreatitis, this could be related to ETOH, or due to gallstones (U/S could not see distal CBD - bilirrubin high) or both. - Check Abd/Pelvic CT with IV contrast re: Extent of pancreatic swelling ? abscess ? hemorrhage ? also Pyelonephritis ? - Check MRCP - pt could be obstructed since Bilirrubin is high. Pt states he noticed his skin is yellow. - Aggressive hydration with NS 500cc/hr x 6 hrs then reasses 2) UTI - very high lactate - high WBC - On Rocephin will continue for now. 3) Hypokalemia/Hypomagenesemia - Will give Mg + K 4) Lactic acidosis - due to ? sepsis ? hypoperfusion ? - Will recheck later today. 5) Elevated hemoglobin - Will follow serially. 06/05/17 1) ALCOHOL ABUSE WITH A) SEVERE AGITATION/CONFUSION ? OF HALLUCINATIONS MOST LIKELY DUE TO ALCOHOL WITHDRAWALS - On Propofol drip - Tachycardic - Will also give Ativan IV AL. - Check CPK (R/O Rhabdo due to agitation) - Aggressive hydration and electrolyte replenishment. B) Pancreatitis most likely related to ETOH MRCP Impression: 1. No cholelithiasis or intrahepatic bile duct dilatation. Evaluation of the extrahepatic common duct is poor due to motion artifact and patient body habitus. No obvious common duct stone. 2. Enlargement of the pancreatic head which could be due to inflammation from pancreatitis or potentially neoplasm. Recommend further evaluation with a contrast-enhanced CT of the abdomen. - Lipase coming down - Check CA 19-9 prior to D/C and follow closely his pancreatic anatomy by CT/ MRI. Transferred to CCU due to alcohol withdrawal. 06/06/17 1) PULMONARY ASSESMENT A) Pt has developed ALI/ARDS - ABG on FIO2 of 80% showed PaO2 of 133 with CO2 of 42 - huge a-A gradient that has increased since yesterday. - Pt was intubated successfully by ED MD - Saturations are 91 on 100% FIO2. ET tube appears to be well positioned. - Pt requires high PEEP. - Could be related to pancreatitis, or PNA - Pt has a L sided effussion - could be related to pancreatitis. Must R/O Boherhave's syndrome will try a CT chest with gastrograffin injection in the mid esophagus. - Start coverage for HAP - Vanco + cefepime + steroids - Add Mucomyst for possible mucus plugg. - Case discussed with his NOK - significant other, she consented for intubation. - Reculture blood & sputum B) Obstructive Sleep Apnea (New Dx) - Was on CPAP - now intubated. 2) ALCOHOL ABUSE WITH MULTIPLE COMPLICATIONS - A) SEVERE AGITATION/CONFUSION ? OF HALLUCINATIONS MOST LIKELY DUE TO ALCOHOL WITHDRAWALS - On propofol since yesterday. - On Propofol drip - Continue. - Tachycardic/hypertensive - CPK - 1261 Yesterday - C/W rhadbomyolisis - will rehceck - Aggressive hydration and electrolyte replenishment. B) Pancreatitis most likely related to ETOH - Lipase coming down - Check CA 19-9 prior to D/C and follow closely his pancreatic anatomy by CT/MRI. - Add Banana bags - C) Hypokalemia on admission - K is high today. - Stop NS with K - Recheck later. D) Hypomagnesemia - now improved. E) Severe hypophosphatemia - Risk of hemolysis - CHF & could be causing low Platelets. - PO4 is under 1 - Spoke with Pharm Jasmine De Souza - Will give 90 Mmol of Na Phosphate F) Dehydration - Appears improved now, will hold off on aggressive hydration will place on Banana bag @ 50ml/hr x 3 Liters. G) Rhabdomyolisis - cuuld be due to his severe agitation. - Recheck CPK now. 3) INFECTIOUS DISEASE ASSESMENT A) UTI - very high lactate - high WBC - On Rocephin will continue for now. B) ? Of HAP ? - Will cover with Vanco + Cefepime - Add Mucomyst for possible mucus plug - Continue Duonebs - Add Steroids. - Lactate is dropping 3) CARDIOVASCULAR ASSESSMENT A) Hypertension - moderate to severe - On BB PRN will schedule with parameters B) Will check EKG due to low Ca and due to severe agitation - R.O VA. - Check 2-D echo - Consult Cardiology (BNP was very high and has Pleural effussion - Alcoholic [employer] ?) PREVENTION DVT - SCD'S PUD - PPI. 06/07/[address] Renee for Pulm evaluation and to help with ventilator management. Continue IV antibiotics - possible aspiration pneumonia/pneumonitis Continue Sedation - with current decreased pulmonary statue, likely too early to work on weaning sedation. Start TPN for nutritional support. Will stop IVF when TPN ready. Continue to monitor lab due to pt's severity of illness. Patient remains critically ill, ICU care warranted. 06/08/17 Continue with mechanical ventilation as per Dr Renee. In discussion with Dr Renee, will deescalate IV antibiotic use (likely respiratory failure from ARDS due to pancreatitis, still some concern for possible aspiration) Will stop Vancomycin, cefepime and clindamycin. Initiate Unasyn for coverage. Will continue Solu-Medrol at 40mg IV q 8 hours. Will stop Mucomyst - monitor for increase secretions. Blood pressure with elevation today. Bumex 1mg given this morning and afternoon to help decrease volume. Urine output appropriate, but pressures remain high. Start Nipride drip to ease down blood pressure. TPN continues-discussed with pharm about electrolyte adjustments. 10 units of Lantus given this morning to help sugars - did monitor sugars more frequently and gave additions SQ doses of insulin. Will start 20 units of Lantus this evening. Insulin sliding scale changed to high dose regimen. Continue propofol for sedation. Patient remains critically ill. CCU care an support required. 06/09/17 Recheck Lipase and CPK this am show normalization. Continue with mechanical ventilation as per Dr Renee. Continue Unasyn for antimicrobial coverage. Additional insulin to be given to help improve glycemic control. Extra SQ dosing during day. Increase Lantus to 45 units at night. Sugars elevated due to TPN and Solu-Medrol. Bumex 1mg given this morning to help decrease volume. Will give additional Bumex 1mg this afternoon. Nipride drip continues for BP control. TPN continues-discussed with pharm about electrolyte adjustments. Will remove sodium to decrease sodium level and OSMO. Increase KPhos. Continue propofol for sedation. Patient remains critically ill. CCU care an support required. 06/10/17 15:56 Patient continues to require ventilatory assistance with high pressures and FiO2 of 60% increased to 70% this afternoon after desaturating. Weight up significantly since admission, volume status +18.7 L from admission, edema on exam-will begin diuresing with scheduled Lasix. Continue propofol; discussed conversion to Precedex with Dr. Renee but with respiratory instability will not make changes at this time. Check triglycerides in a.m. Continue Unasyn/steroids. Remains hyperglycemic; Lantus increased to 50 units and corrective scale modified upward. Blood pressures modestly elevated; on IV metoprolol, Catapres patch, and nicardipine drip. Convert to enteral metoprolol per NG. Begin low-volume feedings per NG; dietary consultation for recommendations. Continue TPN for nutritional support. Patient remains critically ill. 06/11/17 16:18 Patient continues to require ventilatory assistance with FiO2 of 50% and PEEP of 8-both improved from yesterday. Continue diuresis with goal of equal/negative fluid balance daily. X-ray most consistent with volume overload-no focal infiltrate. Patient has been on antibiotics since 06/04 (ceftriaxone 06/04-06/06; cefepime/ clindamycin/vancomycin 06/06-06/08; Unasyn 06/08-current); sputum culture normal dinah -we'll discontinue antibiotics. On Solu-Medrol for pulmonary inflammation-discussed with Dr. Renee-decreased dose to 40 mg every 12 hours and continue to monitor. Remains hyperglycemic; Lantus increased to 50 units daily at bedtime with 20 units added every morning. Continue corrective scale insulin. Blood pressures modestly elevated; on by mouth metoprolol, Catapres patch, and nicardipine drip. Amlodipine added. Begin low-volume feedings per NG with Glucotrol; dietary consultation for recommendations. Continue TPN for nutritional support. Triglycerides pending to monitor propofol/ TPN. Hypernatremia slightly improved with TPN modifications, low-volume free water added to enteral tube feedings. 06/12/17 12:54 Patient continues to require ventilatory assistance with FiO2 of 50% and PEEP of 7. Continue diuresis with goal of equal/negative fluid balance daily. Bumex increased to 1 mg IV every 6 hours. Antibiotics discontinued yesterday (06/11) after total of 8 days (ceftriaxone 06/04 -06/06; cefepime/clindamycin/vancomycin 06/06-06/08; Unasyn 06/08-current). sputum culture normal dinah-we'll discontinue antibiotics. On Solu-Medrol for pulmonary inflammation 40 mg every 12 hours and continue to monitor. Remains hyperglycemic; Lantus increased to 20 units every morning and 50 units daily at bedtime yesterday. Fasting glucose 242 today. Continue corrective scale insulin. Anticipate beginning to titrate off TPN in the next couple of days-corrective scale modified but will not increase basal insulin at present. Blood pressures modestly elevated; on metoprolol, Catapres patch, and nicardipine drip. Amlodipine added yesterday-dose increased to 10 mg daily today and lisinopril added at 20 mg daily. Hope to titrate nicardipine off in next 24 hours. Tolerating Glucotrol at 25 mL per hour-rate increased to 40 mL per hour; dietary consultation for recommendations. Continue TPN for nutritional support. Triglycerides pending to monitor propofol/ TPN. Hypernatremia slightly improved with TPN modifications, low-volume free water added to enteral tube feedings. Potassium down today with diuresis-replaced and early and modified in TPN. 06/13/17 14:26 Patient continues to require ventilatory assistance with FiO2 of 50% and PEEP of 7. On Solu-Medrol for pulmonary inflammation 40 mg every 12 hours and continue to monitor. BUN/creatinine beginning to climb, Lasix and then Bumex have been ineffective in producing net diuresis. Significant edema but fluid is largely and subcutaneous tissues. Frequency of Bumex decreased to avoid worsening of renal function, XIAO hose added an attempt to mobilize fluid. Antibiotics discontinued yesterday 06/11 after total of 8 days (ceftriaxone 06/04-; cefepime/clindamycin/vancomycin 06/06-06/08; Unasyn 06/08-current). Blood sugars slowly [id number] in the past 24 hours; Lantus 20 units every morning and 50 units daily at bedtime currently. Blood pressures modestly elevated; on metoprolol 25 twice a day, amlodipine 10 daily, Catapres 2 patch, lisinopril 20/day and nicardipine drip. Tolerating Glucotrol at 25 mL per hour-intended to increase rate to 40 mL per hour yesterday however order was missed; will increase rate to 50 mL per hour 12 hours and then 75 mL per hour. Discussed with nursing. Decrease TPN infusion rate to 50% current infusion rate if continues to tolerate enteral feeds at higher rates. Continue TPN for nutritional support. Triglycerides pending to monitor propofol/ TPN. Hypernatremia improving with TPN modifications, low-volume free water added to enteral tube feedings. Patient now able to indicate throat discomfort but denies abdominal pain. Restlessness frequently described. Chronic alcohol abuse, alcohol withdrawal may still be underlying much of need for sedation/hypertension-Serax initiated at 30 mg every 6 hours. Wean propofol as able, chest x-ray/ABG in a.m. 06/14/17 17:39 Extubated midafternoon. Requiring 8 L supplemental oxygen to maintain saturation and appears to be slightly labored at the time of my assessment. High probability that BiPAP will be needed overnight for support. Continue Solu-Medrol for pulmonary inflammation 40 mg every 12 hours and continue to monitor. BUN/creatinine up further today, diuretics on hold. Significant edema but fluid is largely and subcutaneous tissues. XIAO hose added an attempt to mobilize fluid. Antibiotics discontinued yesterday 06/11 after total of 8 days (ceftriaxone 06/04-; cefepime/clindamycin/vancomycin 06/06-06/08; Unasyn 06/08-current). Blood sugars slowly improving-TPN being discontinued, Lantus discontinued as a result. Continue to monitor blood sugars and corrective scale insulin available as needed. OG removed when patient extubated-tube feedings discontinued. Soft diet ordered postextubation with nutritional supplements. Blood pressures modestly elevated; on metoprolol 25 twice a day, amlodipine 10 daily, Catapres 2 patch, lisinopril 20/day and nicardipine drip. Lisinopril increased to 40 mg daily. Triglycerides pending to monitor propofol/TPN. Hypernatremia improving with TPN modifications, low-volume free water added to enteral tube feedings. Continue to monitor off TPN. Chronic alcohol abuse, alcohol withdrawal may still be underlying much of need for sedation/hypertension-Serax initiated at 30 mg every 6 hours. Requesting alcohol shortly after extubation; continue Serax/when necessary lorazepam. PT/OT ordered; seen by speech therapy postextubation today. 06/15/17 15:51 Patient has tolerated extubation well and has titrated from 8 L supplemental oxygen to 4 L supplemental oxygen currently. Refused BiPAP last night. Diuresing without diuretics, BUN/creatinine slightly higher today. Taking liquids orally well and will continue to monitor volume/renal function. Convert to oral steroids from current low-dose Solu-Medrol. C. difficile identified overnight-oral Flagyl initiated and probiotics added today. Antibiotics discontinued 06/11 after total of 8 days (ceftriaxone 06/04-06/06; cefepime/clindamycin/vancomycin 06/06-06/08; Unasyn 06/08-06/11). Blood sugars slowly improving-TPN discontinued, Lantus discontinued yesterday. Corrective insulin as needed. Check A1c. Soft diet ordered postextubation with nutritional supplements. Blood pressure remains elevated; on metoprolol 50 twice a day, amlodipine 10 daily, Catapres 2 patch, lisinopril 40/d; nicardipine drip overnight but has been titrated off. Persistent low-grade tachycardia-metoprolol increased to 100 mg twice a day and hydralazine when necessary initiated. Hypernatremia resolving. Other electrolyte abnormalities stabilized. Chronic alcohol abuse, continue Serax at 30 mg every 6 hours. Requested alcohol shortly after extubation. As patient becomes more alert will begin tapering. PT/OT today; would like to begin getting patient out of bed if possible. 06/16/17 20:30 CT scan repeated earlier today due to increased abdominal pain-Moe catheter found to be in urethra with massive distention of the bladder (although patient had urine output of 100-300 mL per hour at the time). Moe catheter replaced with immediate resolution of abdominal pain, nausea, and flushing. Prior to identification of urinary retention blood cultures were obtained due to concern that patient may have sepsis triggering symptoms. No indication of pancreatic or intra-abdominal abscess. Low-fat diet due to recent pancreatitis. Ongoing diarrhea-day to metronidazole/probiotics for C. difficile identified . Doing well postextubation (06/14) On 1 L or RA with good oxygenation over the past 24 hours although oxygenation is in the lower 90s this evening. Diuresing briskly prior to Moe change, appears to have post obstructive diuresis following Moe catheter change with almost 9 L urine output thus far today. May require fluid replacement therapy if blood pressure drops-discussed with nursing. IV Antibiotics discontinued 06/11 after total of 8 days (ceftriaxone 06/04-06/06; cefepime/clindamycin/vancomycin 06/06-06/08; Unasyn 06/08-06/11). Blood sugars slowly improving-TPN discontinued, Lantus discontinued 06/14. Corrective insulin as needed. A1c 6.1. Blood pressure stabilizing; on metoprolol 100 twice a day, amlodipine 10 daily, Catapres 2 patch, lisinopril 40/d; nicardipine drip off past 24 hours. Continue diuresis may be able to begin decreasing blood pressure medications. Hypernatremia resolving. Other electrolyte abnormalities stabilized. Chronic alcohol abuse, continue Serax but will decrease to 30 mg every 8 hours. Continue PT/OT; would like to begin getting patient out of bed if possible.
[2017-06-17] MEDS: AMLODIPINE 10 MG TABLET PO SCH (10:02)
[2017-06-17] MEDS: LISINOPRIL 40 MG TABLET PO SCH ×2 (10:02→15:59)
[2017-06-17 10:40] VITALS: BMI 39.4
[2017-06-17] MEDS: 1/2 NS 1,000 ML IV SCH ×2 (10:41→13:44)
[2017-06-17] MEDS: FOLIC ACID 1 MG TABLET PO SCH (11:38)
[2017-06-17] MEDS: ENOXAPARIN 40 MG/0.4 ML INJECTION SQ SCH (11:39)
[2017-06-17] MEDS: ACETAMINOPHEN 325 MG TABLET PO PRN ×2 (11:39→23:38)
--- NOTE | 2017-06-17 12:39 | XRay Report ---
Indication: fever PROCEDURE: XR chest 1V: Encounter: Initial Comparison: Chest x-ray and CT abdomen/pelvis dated June 16, 2017 Findings: Left PICC line remains in stable position. Lungs are unchanged with linear opacity in the left lower lobe and retrocardiac consolidation. No pneumothorax or significant pleural effusion. Heart size and mediastinal contours are stable. Impression: Left retrocardiac airspace consolidation could represent atelectasis or pneumonia. .
[2017-06-17] MEDS: INSULIN ASPART 100unit/ml INJECTION SQ PRN (15:15)
[2017-06-18] MEDS: OXAZEPAM 30 MG CAPSULE PO SCH ×3 (05:22→21:12)
[2017-06-18] MEDS: ALBUTEROL/IPRATROPIUM 2.5mg-0.5mg/3ml NEB IPPB SCH ×3 (08:14→20:07)
--- NOTE | 2017-06-18 08:35 | Progress Note ---
Subjective: The patient is seen this morning accompanied by his . The patient states he didn't sleep well last night because of another patient being loud. The patient states he had a headache earlier but that resolved after taking ibuprofen. He denies any chest pain. He has mild lower abdominal pain. He denies shortness of breath. He has a mild cough. He continues to have some loose stools but not as bad as several days ago when he required a rectal tube. As a Moe catheter in place. He felt feverish earlier today and this morning had a temperature of 101 axillary. Blood pressure was fairly well-controlled overnight but is elevated this morning. Objective Vital signs: Temperature 101.0 F H 06/18/17 08:05 Pulse Rate 115 H 06/18/17 08:15 Respiratory Rate 31 H 06/18/17 08:15 Blood Pressure 174/100 H 06/18/17 07:00 Pulse Oximetry 95 06/18/17 08:15 Oxygen Delivery Method Nasal Cannula Oxygen Flow Rate 2 Fraction of Inspired Oxygen 50 SaO2/FiO2 Ratio 206 Rhythm: Normal Sinus Rhythm Height/Weight/BMI: Height 1.85 m Weight 125.8 kg Body Mass Index 39.4 Comments: Weight is 125.8 kg which is down approximately 10 kg from 06/16/2017 I&O yesterday 4249/10,850 -6.6 L Temperature is 101 axillary. Heart rate 115. Blood pressure 174/100 this morning GEN-alert, oriented to [facility], June,. He still seems somewhat confused. Speech is mumbling at times. HEENT-sclera anicteric, oropharynx is moist with coating on the tongue, he has lesions on his lips, possible HSV NECK-supple CV-borderline tachycardic rate with irregular rhythm CHEST-clear to auscultation, occasional productive cough ABD-soft, nontender, nondistended with positive bowel sounds -Moe in place with good urine output EXT-decreased edema of the legs today, +1 bilaterally. Increased edema of the left upper extremity compared to the right upper extremity NEURO-oriented 3 but still somewhat confused. SKIN-warm and dry Results - Labs CBC & Chem 7: 06/18/17 05:11 06/18/17 05:11 Labs: Albumin 2.7, calcium 7.9 Lactate yesterday 1.4 and 1.1 Microbiology Results: Microbiology 06/17/17 11:52 Cath/Port/Line/Picc Blood Culture - Preliminary Culture Initiated - Results Pending 06/17/17 11:56 Cath/Port/Line/Picc Blood Culture - Preliminary Culture Initiated - Results Pending 06/16/17 10:45 Cath/Port/Line/Picc Blood Culture - Preliminary No Growth After 1 Day 06/16/17 10:55 Cath/Port/Line/Picc Blood Culture - Preliminary No Growth After 1 Day 06/06/17 11:34 Peripheral/Iv Start Blood Culture - Final No Growth After 5 Days 06/06/17 11:34 Peripheral/Iv Start Blood Culture - Final No Growth After 5 Days 06/06/17 11:00 Sputum, Suctioned Gram Stain - Final 06/06/17 11:00 Sputum, Suctioned Sputum Culture - Final Normal Respiratory Dinah - ABG Interpretation ABG results: 06/05/17 06/06/17 06/06/17 17:41 04:35 09:25 ABG pH 7.360 7.380 7.460 H ABG pCO2 55 H 53 H 42 ABG pO2 114 H 64 L 133 H ABG HCO3 31 H 31 H 30 H ABG Total CO2 32.8 H 33.0 H 31.2 H ABG O2 Saturation 98.0 92.0 L 99.0 H ABG Base Excess 4.4 H 5.0 H 5.5 H 06/06/17 06/07/17 06/08/17 15:05 09:55 07:50 ABG pH 7.450 7.370 7.391 ABG pCO2 41 52 H 50 H ABG pO2 65 L 82 98 ABG HCO3 29 H 30 H 31 H ABG Total CO2 29.8 H 31.7 H 32 H ABG O2 Saturation 93.0 L 96.0 97.0 ABG Base Excess 4.1 H 3.7 H 5.0 H 06/09/17 06/14/17 06/14/17 08:35 10:10 14:42 ABG pH 7.470 H 7.460 H 7.480 H ABG pCO2 44 41 36 ABG pO2 88 65 L 65 L ABG HCO3 32 H 29 H 27 H ABG Total CO2 33.4 H 30.5 H 27.9 H ABG O2 Saturation 97.0 94.0 L 94.0 L ABG Base Excess 7.4 H 4.9 H 3.3 H Assessment and Plan (1) Pancreatitis Problem details: POA: ETOH induced. RUQ US negative for obstructive stones. MRCP nondiagnostic due to motion artifact however no obvious gallstones, pancreatitis head thickened, intrahepatic ducts nondilated. Current visit: Yes Status: Acute 06/04/17 03:34 due to continued drinking. RUQ US negative for obstructive stones. Patient started on aggressive IVF, electrolyte replacement and morphine PRN. Repeat labs at 7:00 am. Patient does have elevated lacate, likely due to acute pancreatitis. Continue supportive care. (2) Alcoholic liver damage Current visit: Yes Status: Acute (3) Hypertension Current visit: Yes Status: Chronic (4) DTs (delirium tremens) Current visit: Yes Status: Acute (5) Acute respiratory failure Problem details: Intubated 06/06-06/14; ARDS/volume overload Current visit: Yes Status: Acute (6) ETOHism Current visit: Yes Status: Chronic Assessment and Plan: 06/18/2017-Dr. Calderón Assessment: Necrotizing Alcoholic pancreatitis Fevers. White count is decreasing off of steroids. Blood cultures negative so far. Chest x-ray stable. Urinalysis negative. Acute respiratory failure due to ARDS/volume overload-intubated 06/06-06/14-stable on 2 L of oxygen DTs with improving encephalopathy from alcohol withdrawal C. difficile colitis Postobstructive diuresis Sinus tachycardia-improved Abdominal pain 06/16 due to malfunctioning Moe catheter/urinary retention Hypertensive emergency/kebvzff-dtsauoin-ylgoltor antihypertensives Chronic alcohol abuse with alcoholic liver disease Hypokalemia-mild Hypomagnesemia-resolved Hypophosphatemia-resolved Hypocalcemia-resolved Hyperglycemia-A1c 6.1 on 06/15/17 Hypernatremia-resolved Tobacco dependence Obesity-BMI 33.2 on admission Left arm edema with PICC line-rule out DVT Oral herpes lesions Plan: Monitor blood pressure closely after getting all of blood pressure medications this morning. Continue to monitor for signs or symptoms of infection/sepsis. Appreciate Dr. Rojas' consultation Continue Seroquel for alcohol withdrawal Check venous Doppler left arm to rule out DVT Continue metronidazole (day 4) and probiotics for C. difficile. Continue to monitor blood sugars off of TPN Steroids discontinued yesterday. They had been started for ARDS which has resolved. Replace potassium orally Low-dose Lovenox and SCDs for DVT prophylaxis Greater than 45 minutes of critical care time spent seeing and evaluating the patient and reviewing the chart. Discussed with the family, patient's nurse, and Dr. Rojas. Sepsis Assessment - Evaluation Sepsis screening result: Severe Sepsis Risk Hospital Course Summary Disclaimer: The visit summary below is not to be considered part of the above Progress Note. Hospital Course: 06/04/17 1) Alcohol use and abuse with ongoing pancreatitis, this could be related to ETOH, or due to gallstones (U/S could not see distal CBD - bilirrubin high) or both. - Check Abd/Pelvic CT with IV contrast re: Extent of pancreatic swelling ? abscess ? hemorrhage ? also Pyelonephritis ? - Check MRCP - pt could be obstructed since Bilirrubin is high. Pt states he noticed his skin is yellow. - Aggressive hydration with NS 500cc/hr x 6 hrs then reasses 2) UTI - very high lactate - high WBC - On Rocephin will continue for now. 3) Hypokalemia/Hypomagenesemia - Will give Mg + K 4) Lactic acidosis - due to ? sepsis ? hypoperfusion ? - Will recheck later today. 5) Elevated hemoglobin - Will follow serially. 06/05/17 1) ALCOHOL ABUSE WITH A) SEVERE AGITATION/CONFUSION ? OF HALLUCINATIONS MOST LIKELY DUE TO ALCOHOL WITHDRAWALS - On Propofol drip - Tachycardic - Will also give Ativan IV OR. - Check CPK (R/O Rhabdo due to agitation) - Aggressive hydration and electrolyte replenishment. B) Pancreatitis most likely related to ETOH MRCP Impression: 1. No cholelithiasis or intrahepatic bile duct dilatation. Evaluation of the extrahepatic common duct is poor due to motion artifact and patient body habitus. No obvious common duct stone. 2. Enlargement of the pancreatic head which could be due to inflammation from pancreatitis or potentially neoplasm. Recommend further evaluation with a contrast-enhanced CT of the abdomen. - Lipase coming down - Check CA 19-9 prior to D/C and follow closely his pancreatic anatomy by CT/ MRI. Transferred to CCU due to alcohol withdrawal. 06/06/17 1) PULMONARY ASSESMENT A) Pt has developed ALI/ARDS - ABG on FIO2 of 80% showed PaO2 of 133 with CO2 of 42 - huge a-A gradient that has increased since yesterday. - Pt was intubated successfully by ED MD - Saturations are 91 on 100% FIO2. ET tube appears to be well positioned. - Pt requires high PEEP. - Could be related to pancreatitis, or PNA - Pt has a L sided effussion - could be related to pancreatitis. Must R/O Boherhave's syndrome will try a CT chest with gastrograffin injection in the mid esophagus. - Start coverage for HAP - Vanco + cefepime + steroids - Add Mucomyst for possible mucus plugg. - Case discussed with his NOK - significant other, she consented for intubation. - Reculture blood & sputum B) Obstructive Sleep Apnea (New Dx) - Was on CPAP - now intubated. 2) ALCOHOL ABUSE WITH MULTIPLE COMPLICATIONS - A) SEVERE AGITATION/CONFUSION ? OF HALLUCINATIONS MOST LIKELY DUE TO ALCOHOL WITHDRAWALS - On propofol since yesterday. - On Propofol drip - Continue. - Tachycardic/hypertensive - CPK - 1261 Yesterday - C/W rhadbomyolisis - will rehceck - Aggressive hydration and electrolyte replenishment. B) Pancreatitis most likely related to ETOH - Lipase coming down - Check CA 19-9 prior to D/C and follow closely his pancreatic anatomy by CT/MRI. - Add Banana bags - C) Hypokalemia on admission - K is high today. - Stop NS with K - Recheck later. D) Hypomagnesemia - now improved. E) Severe hypophosphatemia - Risk of hemolysis - CHF & could be causing low Platelets. - PO4 is under 1 - Spoke with Pharm Jasmine De Souza - Will give 90 Mmol of Na Phosphate F) Dehydration - Appears improved now, will hold off on aggressive hydration will place on Banana bag @ 50ml/hr x 3 Liters. G) Rhabdomyolisis - cuuld be due to his severe agitation. - Recheck CPK now. 3) INFECTIOUS DISEASE ASSESMENT A) UTI - very high lactate - high WBC - On Rocephin will continue for now. B) ? Of HAP ? - Will cover with Vanco + Cefepime - Add Mucomyst for possible mucus plug - Continue Duonebs - Add Steroids. - Lactate is dropping 3) CARDIOVASCULAR ASSESSMENT A) Hypertension - moderate to severe - On BB PRN will schedule with parameters B) Will check EKG due to low Ca and due to severe agitation - R.O IN. 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 06/07/[address] Renee for Pulm evaluation and to help with ventilator management. Continue IV antibiotics - possible aspiration pneumonia/pneumonitis Continue Sedation - with current decreased pulmonary statue, likely too early to work on weaning sedation. Start TPN for nutritional support. Will stop IVF when TPN ready. Continue to monitor lab due to pt's severity of illness. Patient remains critically ill, ICU care warranted. 06/08/17 Continue with mechanical ventilation as per Dr Renee. In discussion with Dr Renee, will deescalate IV antibiotic use (likely respiratory failure from ARDS due to pancreatitis, still some concern for possible aspiration) Will stop Vancomycin, cefepime and clindamycin. Initiate Unasyn for coverage. Will continue Solu-Medrol at 40mg IV q 8 hours. Will stop Mucomyst - monitor for increase secretions. Blood pressure with elevation today. Bumex 1mg given this morning and afternoon to help decrease volume. Urine output appropriate, but pressures remain high. Start Nipride drip to ease down blood pressure. TPN continues-discussed with pharm about electrolyte adjustments. 10 units of Lantus given this morning to help sugars - did monitor sugars more frequently and gave additions SQ doses of insulin. Will start 20 units of Lantus this evening. Insulin sliding scale changed to high dose regimen. Continue propofol for sedation. Patient remains critically ill. CCU care an support required. 06/09/17 Recheck Lipase and CPK this am show normalization. Continue with mechanical ventilation as per Dr Renee. Continue Unasyn for antimicrobial coverage. Additional insulin to be given to help improve glycemic control. Extra SQ dosing during day. Increase Lantus to 45 units at night. Sugars elevated due to TPN and Solu-Medrol. Bumex 1mg given this morning to help decrease volume. Will give additional Bumex 1mg this afternoon. Nipride drip continues for BP control. TPN continues-discussed with pharm about electrolyte adjustments. Will remove sodium to decrease sodium level and OSMO. Increase KPhos. Continue propofol for sedation. Patient remains critically ill. CCU care an support required. 06/10/17 15:56 Patient continues to require ventilatory assistance with high pressures and FiO2 of 60% increased to 70% this afternoon after desaturating. Weight up significantly since admission, volume status +18.7 L from admission, edema on exam-will begin diuresing with scheduled Lasix. Continue propofol; discussed conversion to Precedex with Dr. Renee but with respiratory instability will not make changes at this time. Check triglycerides in a.m. Continue Unasyn/steroids. Remains hyperglycemic; Lantus increased to 50 units and corrective scale modified upward. Blood pressures modestly elevated; on IV metoprolol, Catapres patch, and nicardipine drip. Convert to enteral metoprolol per NG. Begin low-volume feedings per NG; dietary consultation for recommendations. Continue TPN for nutritional support. Patient remains critically ill. 06/11/17 16:18 Patient continues to require ventilatory assistance with FiO2 of 50% and PEEP of 8-both improved from yesterday. Continue diuresis with goal of equal/negative fluid balance daily. X-ray most consistent with volume overload-no focal infiltrate. Patient has been on antibiotics since 06/04 (ceftriaxone 06/04-06/06; cefepime/ clindamycin/vancomycin 06/06-06/08; Unasyn 06/08-current); sputum culture normal dinah -we'll discontinue antibiotics. On Solu-Medrol for pulmonary inflammation-discussed with Dr. Renee-decreased dose to 40 mg every 12 hours and continue to monitor. Remains hyperglycemic; Lantus increased to 50 units daily at bedtime with 20 units added every morning. Continue corrective scale insulin. Blood pressures modestly elevated; on by mouth metoprolol, Catapres patch, and nicardipine drip. Amlodipine added. Begin low-volume feedings per NG with Glucotrol; dietary consultation for recommendations. Continue TPN for nutritional support. Triglycerides pending to monitor propofol/ TPN. Hypernatremia slightly improved with TPN modifications, low-volume free water added to enteral tube feedings. 06/12/17 12:54 Patient continues to require ventilatory assistance with FiO2 of 50% and PEEP of 7. Continue diuresis with goal of equal/negative fluid balance daily. Bumex increased to 1 mg IV every 6 hours. Antibiotics discontinued yesterday (06/11) after total of 8 days (ceftriaxone 06/04 -06/06; cefepime/clindamycin/vancomycin 06/06-06/08; Unasyn 06/08-current). sputum culture normal dinah-we'll discontinue antibiotics. On Solu-Medrol for pulmonary inflammation 40 mg every 12 hours and continue to monitor. Remains hyperglycemic; Lantus increased to 20 units every morning and 50 units daily at bedtime yesterday. Fasting glucose 242 today. Continue corrective scale insulin. Anticipate beginning to titrate off TPN in the next couple of days-corrective scale modified but will not increase basal insulin at present. Blood pressures modestly elevated; on metoprolol, Catapres patch, and nicardipine drip. Amlodipine added yesterday-dose increased to 10 mg daily today and lisinopril added at 20 mg daily. Hope to titrate nicardipine off in next 24 hours. Tolerating Glucotrol at 25 mL per hour-rate increased to 40 mL per hour; dietary consultation for recommendations. Continue TPN for nutritional support. Triglycerides pending to monitor propofol/ TPN. Hypernatremia slightly improved with TPN modifications, low-volume free water added to enteral tube feedings. Potassium down today with diuresis-replaced and early and modified in TPN. 06/13/17 14:26 Patient continues to require ventilatory assistance with FiO2 of 50% and PEEP of 7. On Solu-Medrol for pulmonary inflammation 40 mg every 12 hours and continue to monitor. BUN/creatinine beginning to climb, Lasix and then Bumex have been ineffective in producing net diuresis. Significant edema but fluid is largely and subcutaneous tissues. Frequency of Bumex decreased to avoid worsening of renal function, XIAO siu added an attempt to mobilize fluid. Antibiotics discontinued yesterday 06/11 after total of 8 days (ceftriaxone 06/04-; cefepime/clindamycin/vancomycin 06/06-06/08; Unasyn 06/08-current). Blood sugars slowly [id number] in the past 24 hours; Lantus 20 units every morning and 50 units daily at bedtime currently. Blood pressures modestly elevated; on metoprolol 25 twice a day, amlodipine 10 daily, Catapres 2 patch, lisinopril 20/day and nicardipine drip. Tolerating Glucotrol at 25 mL per hour-intended to increase rate to 40 mL per hour yesterday however order was missed; will increase rate to 50 mL per hour 12 hours and then 75 mL per hour. Discussed with nursing. Decrease TPN infusion rate to 50% current infusion rate if continues to tolerate enteral feeds at higher rates. Continue TPN for nutritional support. Triglycerides pending to monitor propofol/ TPN. Hypernatremia improving with TPN modifications, low-volume free water added to enteral tube feedings. Patient now able to indicate throat discomfort but denies abdominal pain. Restlessness frequently described. Chronic alcohol abuse, alcohol withdrawal may still be underlying much of need for sedation/hypertension-Serax initiated at 30 mg every 6 hours. Wean propofol as able, chest x-ray/ABG in a.m. 06/14/17 17:39 Extubated midafternoon. Requiring 8 L supplemental oxygen to maintain saturation and appears to be slightly labored at the time of my assessment. High probability that BiPAP will be needed overnight for support. Continue Solu-Medrol for pulmonary inflammation 40 mg every 12 hours and continue to monitor. BUN/creatinine up further today, diuretics on hold. Significant edema but fluid is largely and subcutaneous tissues. XIAO siu added an attempt to mobilize fluid. Antibiotics discontinued yesterday 06/11 after total of 8 days (ceftriaxone 06/04-; cefepime/clindamycin/vancomycin 06/06-06/08; Unasyn 06/08-current). Blood sugars slowly improving-TPN being discontinued, Lantus discontinued as a result. Continue to monitor blood sugars and corrective scale insulin available as needed. OG removed when patient extubated-tube feedings discontinued. Soft diet ordered postextubation with nutritional supplements. Blood pressures modestly elevated; on metoprolol 25 twice a day, amlodipine 10 daily, Catapres 2 patch, lisinopril 20/day and nicardipine drip. Lisinopril increased to 40 mg daily. Triglycerides pending to monitor propofol/TPN. Hypernatremia improving with TPN modifications, low-volume free water added to enteral tube feedings. Continue to monitor off TPN. Chronic alcohol abuse, alcohol withdrawal may still be underlying much of need for sedation/hypertension-Serax initiated at 30 mg every 6 hours. Requesting alcohol shortly after extubation; continue Serax/when necessary lorazepam. PT/OT ordered; seen by speech therapy postextubation today. 06/15/17 15:51 Patient has tolerated extubation well and has titrated from 8 L supplemental oxygen to 4 L supplemental oxygen currently. Refused BiPAP last night. Diuresing without diuretics, BUN/creatinine slightly higher today. Taking liquids orally well and will continue to monitor volume/renal function. Convert to oral steroids from current low-dose Solu-Medrol. C. difficile identified overnight-oral Flagyl initiated and probiotics added today. Antibiotics discontinued 06/11 after total of 8 days (ceftriaxone 06/04-06/06; cefepime/clindamycin/vancomycin 06/06-06/08; Unasyn 06/08-06/11). Blood sugars slowly improving-TPN discontinued, Lantus discontinued yesterday. Corrective insulin as needed. Check A1c. Soft diet ordered postextubation with nutritional supplements. Blood pressure remains elevated; on metoprolol 50 twice a day, amlodipine 10 daily, Catapres 2 patch, lisinopril 40/d; nicardipine drip overnight but has been titrated off. Persistent low-grade tachycardia-metoprolol increased to 100 mg twice a day and hydralazine when necessary initiated. Hypernatremia resolving. Other electrolyte abnormalities stabilized. Chronic alcohol abuse, continue Serax at 30 mg every 6 hours. Requested alcohol shortly after extubation. As patient becomes more alert will begin tapering. PT/OT today; would like to begin getting patient out of bed if possible. 06/16/17 20:30 CT scan repeated earlier today due to increased abdominal pain-Moe catheter found to be in urethra with massive distention of the bladder (although patient had urine output of 100-300 mL per hour at the time). Moe catheter replaced with immediate resolution of abdominal pain, nausea, and flushing. Prior to identification of urinary retention blood cultures were obtained due to concern that patient may have sepsis triggering symptoms. No indication of pancreatic or intra-abdominal abscess. Low-fat diet due to recent pancreatitis. Ongoing diarrhea-day to metronidazole/probiotics for C. difficile identified . Doing well postextubation (06/14) On 1 L or RA with good oxygenation over the past 24 hours although oxygenation is in the lower 90s this evening. Diuresing briskly prior to Moe change, appears to have post obstructive diuresis following Moe catheter change with almost 9 L urine output thus far today. May require fluid replacement therapy if blood pressure drops-discussed with nursing. IV Antibiotics discontinued 06/11 after total of 8 days (ceftriaxone 06/04-06/06; cefepime/clindamycin/vancomycin 06/06-06/08; Unasyn 06/08-06/11). Blood sugars slowly improving-TPN discontinued, Lantus discontinued 06/14. Corrective insulin as needed. A1c 6.1. Blood pressure stabilizing; on metoprolol 100 twice a day, amlodipine 10 daily, Catapres 2 patch, lisinopril 40/d; nicardipine drip off past 24 hours. Continue diuresis may be able to begin decreasing blood pressure medications. Hypernatremia resolving. Other electrolyte abnormalities stabilized. Chronic alcohol abuse, continue Serax but will decrease to 30 mg every 8 hours. Continue PT/OT; would like to begin getting patient out of bed if possible. 06/17/2017-Dr. Calderón Assessment: Alcoholic pancreatitis Acute respiratory failure due to ARDS/volume overload-intubated 06/06-06/14 DTs C. difficile colitis Postobstructive diuresis with almost 18 L urine output in the past day and a half Sinus tachycardia, most likely secondary to being intravascularly dry due to postobstructive diuresis less likely to be secondary to alcohol withdrawal as the patient is currently alert and oriented and not tremulous and appears in no distress Abdominal pain 06/16 due to malfunctioning Moe catheter/urinary retention Hypertensive emergency/urgency-resolved, today with occasional borderline hypotension. Chronic alcohol abuse with alcoholic liver disease Hypokalemia- Hypomagnesemia-resolved Hypophosphatemia-resolved Hypocalcemia-resolved Hyperglycemia-A1c 6.1 on 06/15/17 Hypernatremia-resolved Tobacco dependence Obesity-BMI 33.2 on admission Plan: Regarding tachycardia is most likely secondary to intravascular dryness, will give half normal saline at 250 an hour 1-2 L. The patient has already received a 500 cc normal saline bolus. We'll reassess vital signs after IV fluids have been administered. Seroquel dose decreased slightly yesterday from 30 4 times a day to 30 3 times a day-watch closely for increasing signs of withdrawal Continue metronidazole (day 3) and probiotics for C. difficile. Rectal tube DC due to decrease diarrhea. From a respiratory standpoint, patient is doing well and is currently on room air. Continue to monitor blood sugars off of TPN Discontinue steroids which were started for ARDS Repeat basic metabolic profile this afternoon Replace potassium orally Low-dose Lovenox and SCDs for DVT prophylaxis Greater than 1 hour of critical care time spent seeing and evaluating the patient and reviewing the chart. Discussed with the family, patient's nurse, and Dr. Renee.
--- NOTE | 2017-06-18 08:52 | Infectious Disease Consult ---
Infectious Disease Consult Date of Consultation: 06/18/17 Requesting Physician: Nini Calderón Reason for Consultation: antibiotic recs History of Present Illness: Mr. Arshad is a 36 y/o man who was admitted here 06/03/17 with abdominal pain, N/ V and found to have alcoholic pancreatitis. His lactate on admission was 10.5, and lipase was 2368. He had an MRCP 06/04 which showed no cholelithiasis or intrahepatic bile duct dilatation. He was intubated on 06/06 for respiratory failure. He was initially treated with ceftriaxone on admission for abnormal UA , but when he was intubated, antibiotics were broadened to Vanco, Cefepime and Clindamycin. These antibiotics were narrowed on 06/08 to Unasyn. He was given some steroids for his respiratory failure. Unasyn was stopped on 06/13, after a total of 8 days of antibiotics. He was extubated on 06/14. Blood and urine cultures drawn on admission were negative. He's had at least 2 other sets of blood cultures which are NGTD. On 06/14 his stool tested positive for C. difficile. He was started on flagyl on 06/15. He had diarrhea requiring a rectal tube at one point. This is improving. He reports 6-8 loose stools yesterday, but reports they are more formed. His RN agrees with this. He had fever yesterday to 101.3, which appears to be the first fever since admission. He had another fever this morning. He has had a couple episodes of shaking and appearing "dusky" which resolved after a few minutes of lying back down. He denies any episodes of shaking chills recently. He has been advanced to a regular diet. I've been asked to help with his antibiotics. 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 His dan was removed and replaced 2 days ago. Medications Home Medications Medication Instructions Recorded Confirmed Type Potassium Chloride 20 meq PO BID 06/04/17 06/04/17 History Allergies Allergy/AdvReac Type Severity Reaction Status Date / Time No Known Drug Allergies Allergy Unknown NONE Verified 06/04/17 00:05 [facility] Patient Stated Medical History Hypertension Yes Pneumonia Yes Gastroesophageal Reflux Yes Disease Hx Renal Disease No Substance Use Disorder Yes: PAST, PT DENIES NOW Medical History Updates: HTN. alcoholic pancreatitis Surgical History: denies Family History: reviewed and non-contributory - Social History Smoking status: Current every day smoker Alcohol intake: current (drinking daily up until admission) Household members: spouse Current occupational status: unemployed Current residence: Apartment/Private Home Review of Systems - Constitutional Constitutional: Present: fever(s). Absent: chills - EENMT Eyes: Absent: change in vision - Cardiovascular Cardiovascular: Absent: chest pain - Respiratory Respiratory: Present: cough ("phelgm"). Absent: dyspnea (but he is on oxygen) - Gastrointestinal Gastrointestinal: Present: abdominal pain (but improved), diarrhea (6-8 times/ 24 hours). Absent: nausea, vomiting - Genitourinary Genitourinary: Present: other (dan was in urethra on 06/16, now replaced) - Musculoskeletal Musculoskeletal: Absent: arthralgias, myalgias - Integumentary/Breasts Integumentary: Present: other (lip lesions, h/o HSV). Absent: erythema, rash - Neurological Neurological: Present: headache(s) ("migraine") Exam Vital Signs: Temperature 101.0 F H 06/18/17 08:05 Pulse Rate 115 H 06/18/17 08:15 Respiratory Rate 31 H 06/18/17 08:15 Blood Pressure 174/100 H 06/18/17 07:00 Pulse Oximetry 95 06/18/17 08:15 Oxygen Delivery Method Nasal Cannula Oxygen Flow Rate 2 Fraction of Inspired Oxygen 50 SaO2/FiO2 Ratio 206 Height/Weight/BMI: Height 1.85 m Weight 125.8 kg Body Mass Index 39.4 - Constitutional Present: no acute distress, well developed - Routine HEENT Exam Head: Present: normocephalic, atraumatic Eye: Present: EOMI, PERRL ENT: Present: mucous membranes moist Comments: several lip lesions bilaterally consistent with HSV - Routine Neck Exam Present: supple - Routine Respiratory Exam Present: CTA bilaterally (anteriorly) Comments: On O2 by NC - Routine Cardiovascular Exam Present: RRR. Absent: murmur - Routine Abdominal Exam Present: soft, normoactive bowel sounds, distended (mild). Absent: tenderness, rebound, guarding - Routine Exam Comments: dan catheter - Routine Extremities Exam Present: edema (LUE, trace LE edema). Absent: cyanosis, clubbing Comments: PICC in LUE - Routine Skin Exam Absent: cyanosis, rash - Routine Neurological Exam Present: alert, oriented X3, CN II-XII intact. Absent: motor deficit - Routine Psychiatric Exam Present: normal affect Results - Labs CBC & Chem 7: 06/18/17 05:11 06/18/17 05:11 Labs: Procalcitonin 06/17 was 0.9 Microbiology Results: Microbiology 06/17/17 11:52 Cath/Port/Line/Picc Blood Culture - Preliminary Culture Initiated - Results Pending 06/17/17 11:56 Cath/Port/Line/Picc Blood Culture - Preliminary Culture Initiated - Results Pending 06/16/17 10:45 Cath/Port/Line/Picc Blood Culture - Preliminary No Growth After 1 Day 06/16/17 10:55 Cath/Port/Line/Picc Blood Culture - Preliminary No Growth After 1 Day 06/06/17 11:34 Peripheral/Iv Start Blood Culture - Final No Growth After 5 Days 06/06/17 11:34 Peripheral/Iv Start Blood Culture - Final No Growth After 5 Days 06/06/17 11:00 Sputum, Suctioned Gram Stain - Final 06/06/17 11:00 Sputum, Suctioned Sputum Culture - Final Normal Respiratory Hilda - ABG Interpretation ABG results: 06/05/17 06/06/17 06/06/17 17:41 04:35 09:25 ABG pH 7.360 7.380 7.460 H ABG pCO2 55 H 53 H 42 ABG pO2 114 H 64 L 133 H ABG HCO3 31 H 31 H 30 H ABG Total CO2 32.8 H 33.0 H 31.2 H ABG O2 Saturation 98.0 92.0 L 99.0 H ABG Base Excess 4.4 H 5.0 H 5.5 H 06/06/17 06/07/17 06/08/17 15:05 09:55 07:50 ABG pH 7.450 7.370 7.391 ABG pCO2 41 52 H 50 H ABG pO2 65 L 82 98 ABG HCO3 29 H 30 H 31 H ABG Total CO2 29.8 H 31.7 H 32 H ABG O2 Saturation 93.0 L 96.0 97.0 ABG Base Excess 4.1 H 3.7 H 5.0 H 06/09/17 06/14/17 06/14/17 08:35 10:10 14:42 ABG pH 7.470 H 7.460 H 7.480 H ABG pCO2 44 41 36 ABG pO2 88 65 L 65 L ABG HCO3 32 H 29 H 27 H ABG Total CO2 33.4 H 30.5 H 27.9 H ABG O2 Saturation 97.0 94.0 L 94.0 L ABG Base Excess 7.4 H 4.9 H 3.3 H - Impressions CXR 06/17 personally reviewed. 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 difficile. I would not add any additional antibiotics for pancreatic necrosis at this point. His WBC is improving. Procalcitonin is normal. His fever could be due to the pancreatitis , C. diff, vs other. I'll check a venous doppler LUE due to edema and PICC line there, and add oral acyclovir for his HSV lesions. Discussed with Dr. Calderón. Sepsis Assessment - Evaluation Sepsis screening result: Severe Sepsis Risk
[2017-06-18] MEDS: NICOTINE 21 MG PATCH TD SCH (09:51)
[2017-06-18] MEDS: MORPHINE SULFATE 4 MG SYRINGE IVP PRN (09:51)
[2017-06-18] MEDS: MetroNIDAZOLE 500 MG TABLET PO SCH ×3 (09:55→17:55)
[2017-06-18] MEDS: FOLIC ACID 1 MG TABLET PO SCH (09:56)
[2017-06-18] MEDS: LACTOBACILLUS (15B cfu) CAPSULE PO SCH ×3 (09:56→17:54)
[2017-06-18] MEDS: FAMOTIDINE 20 MG TABLET PO SCH ×2 (09:57→21:13)
[2017-06-18] MEDS: LISINOPRIL 40 MG TABLET PO SCH (09:58)
[2017-06-18] MEDS: AMLODIPINE 10 MG TABLET PO SCH (09:59)
[2017-06-18] MEDS: ACYCLOVIR 200 MG CAPSULE PO SCH ×3 (10:04→21:12)
--- NOTE | 2017-06-18 10:05 | Ultrasound Report ---
Indication: arm edema and picc, rule out dvt PROCEDURE: US venous doppler UE LT: Encounter: Initial Comparison: None Technique: Color Doppler duplex and grayscale sonographic imaging of the left upper extremity was performed. FINDINGS: There is occlusive thrombosis in the left brachial vein along the PICC line. The internal jugular, subclavian and axillary veins are patent. The cephalic vein is patent and compressible as well. Radial and ulnar veins appear and. Basilic vein was difficult to visualize but appears patent. IMPRESSION: Occlusive deep vein thrombosis in the left brachial vein. Results were called to the ordering physician at 1000 on 06/18/2017. .
[2017-06-18] MEDS: NICOTINE PATCH REMOVAL TD SCH (10:07)
[2017-06-18] MEDS: ENOXAPARIN 40 MG/0.4 ML INJECTION SQ SCH (10:07)
[2017-06-18] MEDS ORDERED: ENOXAPARIN 100 MG/ML INJECTION SQ ONE (11:15)
[2017-06-18] MEDS ORDERED: NEOMYCIN/POLYMYXIN/BACITRACIN OINT PACKET TP ONE (12:06)
[2017-06-18] MEDS: CLONIDINE 0.2 MG/24 HR PATCH TD SCH (16:24)
[2017-06-18] MEDS: CLONIDINE PATCH REMOVAL TD SCH (17:49)
[2017-06-18] MEDS: ENOXAPARIN 150 MG/ML INJECTION SQ SCH (21:13)
[2017-06-18] MEDS ORDERED: FALL RISK - PHARMACY CONSULT XX PRN (22:03)
[2017-06-19] MEDS: SALINE FLUSH 10ml SYRINGE IVF PRN ×3 (00:51→12:36)
[2017-06-19] MEDS: MORPHINE SULFATE 4 MG SYRINGE IVP PRN ×3 (00:53→20:35)
[2017-06-19] MEDS: OXAZEPAM 30 MG CAPSULE PO SCH ×3 (04:26→20:35)
[2017-06-19] MEDS: ALBUTEROL/IPRATROPIUM 2.5mg-0.5mg/3ml NEB IPPB SCH ×3 (07:00→19:35)
[2017-06-19] MEDS: MAGNESIUM SULFATE 1gm PREMIX 1 GM/100 ML BAG IV SCH ×4 (08:13→13:48)
[2017-06-19] MEDS: LACTOBACILLUS (15B cfu) CAPSULE PO SCH ×3 (08:23→17:32)
[2017-06-19] MEDS: ACYCLOVIR 200 MG CAPSULE PO SCH ×3 (08:23→20:35)
[2017-06-19] MEDS: FAMOTIDINE 20 MG TABLET PO SCH ×2 (08:24→20:35)
[2017-06-19] MEDS: LISINOPRIL 40 MG TABLET PO SCH (08:24)
[2017-06-19] MEDS: MetroNIDAZOLE 500 MG TABLET PO SCH ×3 (08:24→17:32)
[2017-06-19] MEDS: NICOTINE 21 MG PATCH TD SCH (08:24)
[2017-06-19] MEDS: ENOXAPARIN 150 MG/ML INJECTION SQ SCH ×2 (08:25→20:35)
[2017-06-19] MEDS: FOLIC ACID 1 MG TABLET PO SCH (08:27)
[2017-06-19] MEDS: NICOTINE PATCH REMOVAL TD SCH (08:31)
--- NOTE | 2017-06-19 10:33 | Progress Note ---
Subjective: The patient was seen in his room accompanied by his . He states he is feeling better and his leg edema is almost gone. He had some right lower quadrant pain earlier this morning after repositioning but it is gone now. He denies any other pain. He denies shortness of breath. 2 BMs were reported yesterday. He has some occasional confusion still. He is concerned that he might not be able to afford to go to inpatient rehabilitation. He denies any pain in his left arm where he was diagnosed with a DVT. PICC line was removed yesterday. This morning he had low potassium and magnesium. He was given IV magnesium and oral potassium 20 mEq 3 times a day. Yesterday he received 60 mEq of potassium. Objective Vital signs: Temperature 98.7 F 06/19/17 04:46 Pulse Rate 110 H 06/19/17 08:00 Respiratory Rate 14 06/19/17 07:03 Blood Pressure 155/91 H 06/19/17 07:00 Pulse Oximetry 98 06/19/17 07:00 Oxygen Delivery Method Nasal Cannula Oxygen Flow Rate 2 Fraction of Inspired Oxygen 50 SaO2/FiO2 Ratio 206 Rhythm: Normal Sinus Rhythm Height/Weight/BMI: Height 1.85 m Weight 118.6 kg Body Mass Index 39.4 Comments: Weight is 118.6 kg. Down almost 18 kg in the past 3 days. Admit weight was 111 kg I&O yesterday 1780/30 Urine output today so far is 3800 GEN-alert, oriented, still somewhat confused, speech is slightly mumbled, no acute distress HEENT-sclera anicteric, oropharynx is moist, herpes zoster lesions on the lips NECK-supple CV-regular rate and rhythm CHEST-clear to auscultation anteriorly ABD-soft, obese, nontender, nondistended with positive bowel sounds -Moe in place with large amount of urine output EXT-trace edema bilateral lower extremities and right upper extremity. +1 edema of the left upper extremity NEURO-speech is slightly mumbled. Patient has generalized weakness but feels a little weaker on the left lower extremity SKIN-warm and dry and without rashes Results - Labs CBC & Chem 7: 06/19/17 04:17 06/19/17 04:17 Labs: Magnesium level 0.9 Calcium level 7.2 Phosphorus normal at 3.4 Microbiology Results: Microbiology 06/17/17 11:52 Cath/Port/Line/Picc Blood Culture - Preliminary No Growth After 1 Day 06/17/17 11:56 Cath/Port/Line/Picc Blood Culture - Preliminary No Growth After 1 Day 06/16/17 10:45 Cath/Port/Line/Picc Blood Culture - Preliminary No Growth After 2 Days 06/16/17 10:55 Cath/Port/Line/Picc Blood Culture - Preliminary No Growth After 2 Days 06/06/17 11:34 Peripheral/Iv Start Blood Culture - Final No Growth After 5 Days 06/06/17 11:34 Peripheral/Iv Start Blood Culture - Final No Growth After 5 Days 06/06/17 11:00 Sputum, Suctioned Gram Stain - Final 06/06/17 11:00 Sputum, Suctioned Sputum Culture - Final Normal Respiratory Dinah - ABG Interpretation ABG results: 06/05/17 06/06/17 06/06/17 17:41 04:35 09:25 ABG pH 7.360 7.380 7.460 H ABG pCO2 55 H 53 H 42 ABG pO2 114 H 64 L 133 H ABG HCO3 31 H 31 H 30 H ABG Total CO2 32.8 H 33.0 H 31.2 H ABG O2 Saturation 98.0 92.0 L 99.0 H ABG Base Excess 4.4 H 5.0 H 5.5 H 06/06/17 06/07/17 06/08/17 15:05 09:55 07:50 ABG pH 7.450 7.370 7.391 ABG pCO2 41 52 H 50 H ABG pO2 65 L 82 98 ABG HCO3 29 H 30 H 31 H ABG Total CO2 29.8 H 31.7 H 32 H ABG O2 Saturation 93.0 L 96.0 97.0 ABG Base Excess 4.1 H 3.7 H 5.0 H 06/09/17 06/14/17 06/14/17 08:35 10:10 14:42 ABG pH 7.470 H 7.460 H 7.480 H ABG pCO2 44 41 36 ABG pO2 88 65 L 65 L ABG HCO3 32 H 29 H 27 H ABG Total CO2 33.4 H 30.5 H 27.9 H ABG O2 Saturation 97.0 94.0 L 94.0 L ABG Base Excess 7.4 H 4.9 H 3.3 H Assessment and Plan (1) Pancreatitis Problem details: POA: ETOH induced. RUQ US negative for obstructive stones. MRCP nondiagnostic due to motion artifact however no obvious gallstones, pancreatitis head thickened, intrahepatic ducts nondilated. Current visit: Yes Status: Acute 06/04/17 03:34 due to continued drinking. RUQ US negative for obstructive stones. Patient started on aggressive IVF, electrolyte replacement and morphine PRN. Repeat labs at 7:00 am. Patient does have elevated lacate, likely due to acute pancreatitis. Continue supportive care. (2) Alcoholic liver damage Current visit: Yes Status: Acute (3) Hypertension Current visit: Yes Status: Chronic (4) DTs (delirium tremens) Current visit: Yes Status: Acute (5) Acute respiratory failure Problem details: Intubated 06/06-06/14; ARDS/volume overload Current visit: Yes Status: Acute (6) ETOHism Current visit: Yes Status: Chronic Assessment and Plan: 06/19/2017-Dr. 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 Blood cultures negative so far. Chest x-ray stable. Urinalysis negative. Acute respiratory failure due to ARDS/volume overload-intubated 06/06-06/14-stable on 2 L of oxygen DTs with improving encephalopathy from alcohol withdrawal C. difficile colitis-decreased stools Postobstructive diuresis -weight down 18 kg in the past 3 days Sinus tachycardia-improved Abdominal pain 06/16 due to malfunctioning Moe catheter/urinary retention Hypertensive emergency/bjsfqlw-obiiqujn-gxhet pressure still elevated, restart Norvasc Chronic alcohol abuse with alcoholic liver disease-the patient states he intends to quit drinking completely after discharge Hypokalemia worse this morning despite replacement yesterday, likely secondary to continued spontaneous diuresis Hypomagnesemia-replacing IV this morning Hypophosphatemia-resolved Hypocalcemia-mild Hyperglycemia-A1c 6.1 on 06/15/17 Hypernatremia-resolved Tobacco dependence Obesity-BMI 33.2 on admission DVT left arm-PICC removed 2016 and started on therapeutic dose Lovenox Oral herpes lesions-started acyclovir 06/18/2017 Plan: Recheck potassium and magnesium and recheck Restart Norvasc for hypertension Consult pharmacy to initiate Coumadin for DVT Continue to monitor for signs or symptoms of infection/sepsis. Appreciate Dr. Rojas' consultation Continue Seroquel for alcohol withdrawal Continue metronidazole (started 06/15/2017) and probiotics for C. difficile. Blood sugars well controlled off of TPN. Will DC Accu-Cheks Steroids discontinued 06/17/2017. They had been started for ARDS which has resolved. We'll stop clamping Moe and monitor urine output. Greater than 40 minutes of critical care time spent seeing and evaluating the patient and reviewing the chart. Discussed with the family and patient's nurse. Sepsis Assessment - Evaluation Sepsis screening result: No Definite Risk Hospital Course Summary Disclaimer: The visit summary below is not to be considered part of the above Progress Note. Hospital Course: 06/04/17 1) Alcohol use and abuse with ongoing pancreatitis, this could be related to ETOH, or due to gallstones (U/S could not see distal CBD - bilirrubin high) or both. - Check Abd/Pelvic CT with IV contrast re: Extent of pancreatic swelling ? abscess ? hemorrhage ? also Pyelonephritis ? - Check MRCP - pt could be obstructed since Bilirrubin is high. Pt states he noticed his skin is yellow. - Aggressive hydration with NS 500cc/hr x 6 hrs then reasses 2) UTI - very high lactate - high WBC - On Rocephin will continue for now. 3) Hypokalemia/Hypomagenesemia - Will give Mg + K 4) Lactic acidosis - due to ? sepsis ? hypoperfusion ? - Will recheck later today. 5) Elevated hemoglobin - Will follow serially. 06/05/17 1) ALCOHOL ABUSE WITH A) SEVERE AGITATION/CONFUSION ? OF HALLUCINATIONS MOST LIKELY DUE TO ALCOHOL WITHDRAWALS - On Propofol drip - Tachycardic - Will also give Ativan IV NJ. - Check CPK (R/O Rhabdo due to agitation) - Aggressive hydration and electrolyte replenishment. B) Pancreatitis most likely related to ETOH MRCP Impression: 1. No cholelithiasis or intrahepatic bile duct dilatation. Evaluation of the extrahepatic common duct is poor due to motion artifact and patient body habitus. No obvious common duct stone. 2. Enlargement of the pancreatic head which could be due to inflammation from pancreatitis or potentially neoplasm. Recommend further evaluation with a contrast-enhanced CT of the abdomen. - Lipase coming down - Check CA 19-9 prior to D/C and follow closely his pancreatic anatomy by CT/ MRI. Transferred to CCU due to alcohol withdrawal. 06/06/17 1) PULMONARY ASSESMENT A) Pt has developed ALI/ARDS - ABG on FIO2 of 80% showed PaO2 of 133 with CO2 of 42 - huge a-A gradient that has increased since yesterday. - Pt was intubated successfully by ED MD - Saturations are 91 on 100% FIO2. ET tube appears to be well positioned. - Pt requires high PEEP. - Could be related to pancreatitis, or PNA - Pt has a L sided effussion - could be related to pancreatitis. Must R/O Boherhave's syndrome will try a CT chest with gastrograffin injection in the mid esophagus. - Start coverage for HAP - Vanco + cefepime + steroids - Add Mucomyst for possible mucus plugg. - Case discussed with his NOK - significant other, she consented for intubation. - Reculture blood & sputum B) Obstructive Sleep Apnea (New Dx) - Was on CPAP - now intubated. 2) ALCOHOL ABUSE WITH MULTIPLE COMPLICATIONS - A) SEVERE AGITATION/CONFUSION ? OF HALLUCINATIONS MOST LIKELY DUE TO ALCOHOL WITHDRAWALS - On propofol since yesterday. - On Propofol drip - Continue. - Tachycardic/hypertensive - CPK - 1261 Yesterday - C/W rhadbomyolisis - will rehceck - Aggressive hydration and electrolyte replenishment. B) Pancreatitis most likely related to ETOH - Lipase coming down - Check CA 19-9 prior to D/C and follow closely his pancreatic anatomy by CT/MRI. - Add Banana bags - C) Hypokalemia on admission - K is high today. - Stop NS with K - Recheck later. D) Hypomagnesemia - now improved. E) Severe hypophosphatemia - Risk of hemolysis - CHF & could be causing low Platelets. - PO4 is under 1 - Spoke with Pharm Jasmine De Souza - Will give 90 Mmol of Na Phosphate F) Dehydration - Appears improved now, will hold off on aggressive hydration will place on Banana bag @ 50ml/hr x 3 Liters. G) Rhabdomyolisis - cuuld be due to his severe agitation. - Recheck CPK now. 3) INFECTIOUS DISEASE ASSESMENT A) UTI - very high lactate - high WBC - On Rocephin will continue for now. B) ? Of HAP ? - Will cover with Vanco + Cefepime - Add Mucomyst for possible mucus plug - Continue Duonebs - Add Steroids. - Lactate is dropping 3) CARDIOVASCULAR ASSESSMENT A) Hypertension - moderate to severe - On BB PRN will schedule with parameters B) Will check EKG due to low Ca and due to severe agitation - R.O PA. - Check 2-D echo - Consult Cardiology (BNP was very high and has Pleural effussion - Alcoholic [employer] ?) PREVENTION DVT - SCD'S PUD - PPI. 06/07/[address] Renee for Pulm evaluation and to help with ventilator management. Continue IV antibiotics - possible aspiration pneumonia/pneumonitis Continue Sedation - with current decreased pulmonary statue, likely too early to work on weaning sedation. Start TPN for nutritional support. Will stop IVF when TPN ready. Continue to monitor lab due to pt's severity of illness. Patient remains critically ill, ICU care warranted. 06/08/17 Continue with mechanical ventilation as per Dr Renee. In discussion with Dr Renee, will deescalate IV antibiotic use (likely respiratory failure from ARDS due to pancreatitis, still some concern for possible aspiration) Will stop Vancomycin, cefepime and clindamycin. Initiate Unasyn for coverage. Will continue Solu-Medrol at 40mg IV q 8 hours. Will stop Mucomyst - monitor for increase secretions. Blood pressure with elevation today. Bumex 1mg given this morning and afternoon to help decrease volume. Urine output appropriate, but pressures remain high. Start Nipride drip to ease down blood pressure. TPN continues-discussed with pharm about electrolyte adjustments. 10 units of Lantus given this morning to help sugars - did monitor sugars more frequently and gave additions SQ doses of insulin. Will start 20 units of Lantus this evening. Insulin sliding scale changed to high dose regimen. Continue propofol for sedation. Patient remains critically ill. CCU care an support required. 06/09/17 Recheck Lipase and CPK this am show normalization. Continue with mechanical ventilation as per Dr Renee. Continue Unasyn for antimicrobial coverage. Additional insulin to be given to help improve glycemic control. Extra SQ dosing during day. Increase Lantus to 45 units at night. Sugars elevated due to TPN and Solu-Medrol. Bumex 1mg given this morning to help decrease volume. Will give additional Bumex 1mg this afternoon. Nipride drip continues for BP control. TPN continues-discussed with pharm about electrolyte adjustments. Will remove sodium to decrease sodium level and OSMO. Increase KPhos. Continue propofol for sedation. Patient remains critically ill. CCU care an support required. 06/10/17 15:56 Patient continues to require ventilatory assistance with high pressures and FiO2 of 60% increased to 70% this afternoon after desaturating. Weight up significantly since admission, volume status +18.7 L from admission, edema on exam-will begin diuresing with scheduled Lasix. Continue propofol; discussed conversion to Precedex with Dr. Renee but with respiratory instability will not make changes at this time. Check triglycerides in a.m. Continue Unasyn/steroids. Remains hyperglycemic; Lantus increased to 50 units and corrective scale modified upward. Blood pressures modestly elevated; on IV metoprolol, Catapres patch, and nicardipine drip. Convert to enteral metoprolol per NG. Begin low-volume feedings per NG; dietary consultation for recommendations. Continue TPN for nutritional support. Patient remains critically ill. 06/11/17 16:18 Patient continues to require ventilatory assistance with FiO2 of 50% and PEEP of 8-both improved from yesterday. Continue diuresis with goal of equal/negative fluid balance daily. X-ray most consistent with volume overload-no focal infiltrate. Patient has been on antibiotics since 06/04 (ceftriaxone 06/04-06/06; cefepime/ clindamycin/vancomycin 06/06-06/08; Unasyn 06/08-current); sputum culture normal dinah -we'll discontinue antibiotics. On Solu-Medrol for pulmonary inflammation-discussed with Dr. Renee-decreased dose to 40 mg every 12 hours and continue to monitor. Remains hyperglycemic; Lantus increased to 50 units daily at bedtime with 20 units added every morning. Continue corrective scale insulin. Blood pressures modestly elevated; on by mouth metoprolol, Catapres patch, and nicardipine drip. Amlodipine added. Begin low-volume feedings per NG with Glucotrol; dietary consultation for recommendations. Continue TPN for nutritional support. Triglycerides pending to monitor propofol/ TPN. Hypernatremia slightly improved with TPN modifications, low-volume free water added to enteral tube feedings. 06/12/17 12:54 Patient continues to require ventilatory assistance with FiO2 of 50% and PEEP of 7. Continue diuresis with goal of equal/negative fluid balance daily. Bumex increased to 1 mg IV every 6 hours. Antibiotics discontinued yesterday (06/11) after total of 8 days (ceftriaxone 06/04 -06/06; cefepime/clindamycin/vancomycin 06/06-06/08; Unasyn 06/08-current). sputum culture normal dinah-we'll discontinue antibiotics. On Solu-Medrol for pulmonary inflammation 40 mg every 12 hours and continue to monitor. Remains hyperglycemic; Lantus increased to 20 units every morning and 50 units daily at bedtime yesterday. Fasting glucose 242 today. Continue corrective scale insulin. Anticipate beginning to titrate off TPN in the next couple of days-corrective scale modified but will not increase basal insulin at present. Blood pressures modestly elevated; on metoprolol, Catapres patch, and nicardipine drip. Amlodipine added yesterday-dose increased to 10 mg daily today and lisinopril added at 20 mg daily. Hope to titrate nicardipine off in next 24 hours. Tolerating Glucotrol at 25 mL per hour-rate increased to 40 mL per hour; dietary consultation for recommendations. Continue TPN for nutritional support. Triglycerides pending to monitor propofol/ TPN. Hypernatremia slightly improved with TPN modifications, low-volume free water added to enteral tube feedings. Potassium down today with diuresis-replaced and early and modified in TPN. 06/13/17 14:26 Patient continues to require ventilatory assistance with FiO2 of 50% and PEEP of 7. On Solu-Medrol for pulmonary inflammation 40 mg every 12 hours and continue to monitor. BUN/creatinine beginning to climb, Lasix and then Bumex have been ineffective in producing net diuresis. Significant edema but fluid is largely and subcutaneous tissues. Frequency of Bumex decreased to avoid worsening of renal function, XIAO siu added an attempt to mobilize fluid. Antibiotics discontinued yesterday 06/11 after total of 8 days (ceftriaxone 06/04-; cefepime/clindamycin/vancomycin 06/06-06/08; Unasyn 06/08-current). Blood sugars slowly [id number] in the past 24 hours; Lantus 20 units every morning and 50 units daily at bedtime currently. Blood pressures modestly elevated; on metoprolol 25 twice a day, amlodipine 10 daily, Catapres 2 patch, lisinopril 20/day and nicardipine drip. Tolerating Glucotrol at 25 mL per hour-intended to increase rate to 40 mL per hour yesterday however order was missed; will increase rate to 50 mL per hour 12 hours and then 75 mL per hour. Discussed with nursing. Decrease TPN infusion rate to 50% current infusion rate if continues to tolerate enteral feeds at higher rates. Continue TPN for nutritional support. Triglycerides pending to monitor propofol/ TPN. Hypernatremia improving with TPN modifications, low-volume free water added to enteral tube feedings. Patient now able to indicate throat discomfort but denies abdominal pain. Restlessness frequently described. Chronic alcohol abuse, alcohol withdrawal may still be underlying much of need for sedation/hypertension-Serax initiated at 30 mg every 6 hours. Wean propofol as able, chest x-ray/ABG in a.m. 06/14/17 17:39 Extubated midafternoon. Requiring 8 L supplemental oxygen to maintain saturation and appears to be slightly labored at the time of my assessment. High probability that BiPAP will be needed overnight for support. Continue Solu-Medrol for pulmonary inflammation 40 mg every 12 hours and continue to monitor. BUN/creatinine up further today, diuretics on hold. Significant edema but fluid is largely and subcutaneous tissues. XIAO siu added an attempt to mobilize fluid. Antibiotics discontinued yesterday 06/11 after total of 8 days (ceftriaxone 06/04-; cefepime/clindamycin/vancomycin 06/06-06/08; Unasyn 06/08-current). Blood sugars slowly improving-TPN being discontinued, Lantus discontinued as a result. Continue to monitor blood sugars and corrective scale insulin available as needed. OG removed when patient extubated-tube feedings discontinued. Soft diet ordered postextubation with nutritional supplements. Blood pressures modestly elevated; on metoprolol 25 twice a day, amlodipine 10 daily, Catapres 2 patch, lisinopril 20/day and nicardipine drip. Lisinopril increased to 40 mg daily. Triglycerides pending to monitor propofol/TPN. Hypernatremia improving with TPN modifications, low-volume free water added to enteral tube feedings. Continue to monitor off TPN. Chronic alcohol abuse, alcohol withdrawal may still be underlying much of need for sedation/hypertension-Serax initiated at 30 mg every 6 hours. Requesting alcohol shortly after extubation; continue Serax/when necessary lorazepam. PT/OT ordered; seen by speech therapy postextubation today. 06/15/17 15:51 Patient has tolerated extubation well and has titrated from 8 L supplemental oxygen to 4 L supplemental oxygen currently. Refused BiPAP last night. Diuresing without diuretics, BUN/creatinine slightly higher today. Taking liquids orally well and will continue to monitor volume/renal function. Convert to oral steroids from current low-dose Solu-Medrol. C. difficile identified overnight-oral Flagyl initiated and probiotics added today. Antibiotics discontinued 06/11 after total of 8 days (ceftriaxone 06/04-06/06; cefepime/clindamycin/vancomycin 06/06-06/08; Unasyn 06/08-06/11). Blood sugars slowly improving-TPN discontinued, Lantus discontinued yesterday. Corrective insulin as needed. Check A1c. Soft diet ordered postextubation with nutritional supplements. Blood pressure remains elevated; on metoprolol 50 twice a day, amlodipine 10 daily, Catapres 2 patch, lisinopril 40/d; nicardipine drip overnight but has been titrated off. Persistent low-grade tachycardia-metoprolol increased to 100 mg twice a day and hydralazine when necessary initiated. Hypernatremia resolving. Other electrolyte abnormalities stabilized. Chronic alcohol abuse, continue Serax at 30 mg every 6 hours. Requested alcohol shortly after extubation. As patient becomes more alert will begin tapering. PT/OT today; would like to begin getting patient out of bed if possible. 06/16/17 20:30 CT scan repeated earlier today due to increased abdominal pain-Moe catheter found to be in urethra with massive distention of the bladder (although patient had urine output of 100-300 mL per hour at the time). Moe catheter replaced with immediate resolution of abdominal pain, nausea, and flushing. Prior to identification of urinary retention blood cultures were obtained due to concern that patient may have sepsis triggering symptoms. No indication of pancreatic or intra-abdominal abscess. Low-fat diet due to recent pancreatitis. Ongoing diarrhea-day to metronidazole/probiotics for C. difficile identified . Doing well postextubation (06/14) On 1 L or RA with good oxygenation over the past 24 hours although oxygenation is in the lower 90s this evening. Diuresing briskly prior to Moe change, appears to have post obstructive diuresis following Moe catheter change with almost 9 L urine output thus far today. May require fluid replacement therapy if blood pressure drops-discussed with nursing. IV Antibiotics discontinued 06/11 after total of 8 days (ceftriaxone 06/04-06/06; cefepime/clindamycin/vancomycin 06/06-06/08; Unasyn 06/08-06/11). Blood sugars slowly improving-TPN discontinued, Lantus discontinued 06/14. Corrective insulin as needed. A1c 6.1. Blood pressure stabilizing; on metoprolol 100 twice a day, amlodipine 10 daily, Catapres 2 patch, lisinopril 40/d; nicardipine drip off past 24 hours. Continue diuresis may be able to begin decreasing blood pressure medications. Hypernatremia resolving. Other electrolyte abnormalities stabilized. Chronic alcohol abuse, continue Serax but will decrease to 30 mg every 8 hours. Continue PT/OT; would like to begin getting patient out of bed if possible. 06/17/2017-Dr. Calderón Assessment: Alcoholic pancreatitis Acute respiratory failure due to ARDS/volume overload-intubated 06/06-06/14 DTs C. difficile colitis Postobstructive diuresis with almost 18 L urine output in the past day and a half Sinus tachycardia, most likely secondary to being intravascularly dry due to postobstructive diuresis less likely to be secondary to alcohol withdrawal as the patient is currently alert and oriented and not tremulous and appears in no distress Abdominal pain 06/16 due to malfunctioning Moe catheter/urinary retention Hypertensive emergency/urgency-resolved, today with occasional borderline hypotension. Chronic alcohol abuse with alcoholic liver disease Hypokalemia- Hypomagnesemia-resolved Hypophosphatemia-resolved Hypocalcemia-resolved Hyperglycemia-A1c 6.1 on 06/15/17 Hypernatremia-resolved Tobacco dependence Obesity-BMI 33.2 on admission Plan: Regarding tachycardia is most likely secondary to intravascular dryness, will give half normal saline at 250 an hour 1-2 L. The patient has already received a 500 cc normal saline bolus. We'll reassess vital signs after IV fluids have been administered. Seroquel dose decreased slightly yesterday from 30 4 times a day to 30 3 times a day-watch closely for increasing signs of withdrawal Continue metronidazole (day 3) and probiotics for C. difficile. Rectal tube DC due to decrease diarrhea. From a respiratory standpoint, patient is doing well and is currently on room air. Continue to monitor blood sugars off of TPN Discontinue steroids which were started for ARDS Repeat basic metabolic profile this afternoon Replace potassium orally Low-dose Lovenox and SCDs for DVT prophylaxis Greater than 1 hour of critical care time spent seeing and evaluating the patient and reviewing the chart. Discussed with the family, patient's nurse, and Dr. Renee. 06/18/2017-Dr. Calderón Assessment: Necrotizing Alcoholic pancreatitis Fevers. White count is decreasing off of steroids. Blood cultures negative so far. Chest x-ray stable. Urinalysis negative. Acute respiratory failure due to ARDS/volume overload-intubated 06/06-06/14-stable on 2 L of oxygen DTs with improving encephalopathy from alcohol withdrawal C. difficile colitis Postobstructive diuresis Sinus tachycardia-improved Abdominal pain 06/16 due to malfunctioning Moe catheter/urinary retention Hypertensive emergency/wjeekar-ctxdmizx-hfcuygye antihypertensives Chronic alcohol abuse with alcoholic liver disease Hypokalemia-mild Hypomagnesemia-resolved Hypophosphatemia-resolved Hypocalcemia-resolved Hyperglycemia-A1c 6.1 on 06/15/17 Hypernatremia-resolved Tobacco dependence Obesity-BMI 33.2 on admission Left arm edema with PICC line-rule out DVT Oral herpes lesions Plan: Monitor blood pressure closely after getting all of blood pressure medications this morning. Continue to monitor for signs or symptoms of infection/sepsis. Appreciate Dr. Rojas' consultation Continue Seroquel for alcohol withdrawal Check venous Doppler left arm to rule out DVT Continue metronidazole (day 4) and probiotics for C. difficile. Continue to monitor blood sugars off of TPN Steroids discontinued yesterday. They had been started for ARDS which has resolved. Replace potassium orally Low-dose Lovenox and SCDs for DVT prophylaxis Greater than 45 minutes of critical care time spent seeing and evaluating the patient and reviewing the chart. Discussed with the family, patient's nurse, and Dr. Rojas.
--- NOTE | 2017-06-19 11:11 | Pharmacy Consult ---
Pharmacy Consult-Warfarin - Laboratory Information 06/09/17 04:23 INR 1.22 H - Consult Information Consult noted to begin warfarin on Mr Arshad, who is 36 yo and weighs 118.6kg. He has a DVT. Warfarin 7.5mg po is ordered today with daily INR's starting tomorrow. Will continue to follow. Thank you.
[2017-06-19] MEDS: ACETAMINOPHEN 325 MG TABLET PO PRN ×2 (11:50→16:29)
[2017-06-19] MEDS: CALCIUM 600 + VIT D 400 TABLET PO SCH ×2 (11:51→20:35)
[2017-06-19] MEDS ORDERED: WARFARIN 7.5 MG TABLET PO SCH (12:00)
[2017-06-19] MEDS: HYDROCODONE/APAP 7.5 MG/325 MG TABLET PO PRN (17:33)
[2017-06-20] MEDS: SALINE FLUSH 10ml SYRINGE IVF PRN ×3 (01:21→12:34)
[2017-06-20] MEDS: HYDROCODONE/APAP 7.5 MG/325 MG TABLET PO PRN ×4 (01:21→18:35)
[2017-06-20] MEDS: OXAZEPAM 30 MG CAPSULE PO SCH (04:50)
[2017-06-20] MEDS: MORPHINE SULFATE 4 MG SYRINGE IVP PRN ×2 (05:02→22:15)
[2017-06-20] MEDS: ALBUTEROL/IPRATROPIUM 2.5mg-0.5mg/3ml NEB IPPB SCH ×3 (07:53→21:13)
[2017-06-20] MEDS: LACTOBACILLUS (15B cfu) CAPSULE PO SCH ×3 (08:59→17:53)
[2017-06-20] MEDS: FOLIC ACID 1 MG TABLET PO SCH (09:00)
[2017-06-20] MEDS: MetroNIDAZOLE 500 MG TABLET PO SCH ×3 (09:00→17:52)
[2017-06-20] MEDS: CALCIUM 600 + VIT D 400 TABLET PO SCH ×2 (09:02→21:00)
[2017-06-20] MEDS: FAMOTIDINE 20 MG TABLET PO SCH ×2 (09:06→21:00)
[2017-06-20] MEDS: ENOXAPARIN 150 MG/ML INJECTION SQ SCH (09:07)
[2017-06-20] MEDS: ACYCLOVIR 200 MG CAPSULE PO SCH ×3 (09:09→21:00)
[2017-06-20] MEDS: NICOTINE 21 MG PATCH TD SCH (09:11)
[2017-06-20] MEDS: NICOTINE PATCH REMOVAL TD SCH (09:16)
[2017-06-20] MEDS ORDERED: OXAZEPAM 30 MG CAPSULE PO SCH (11:09)
--- NOTE | 2017-06-20 11:15 | Progress Note ---
Subjective: The patient is seen today accompanied by his . He states he's feeling "really good" today. He has been up in a chair and walked in the room. He denies any pain currently. He denies shortness of breath. He is currently on room air. He had 2 bowel movements yesterday. Still has a Moe catheter in because of large volume diuresis. He is eating and drinking well. Confusion is improving. Objective Vital signs: Temperature 98.5 F 06/20/17 05:16 Pulse Rate 117 H 06/20/17 10:00 Respiratory Rate 27 H 06/20/17 10:00 Blood Pressure 117/73 06/20/17 10:00 Pulse Oximetry 93 06/20/17 10:00 Oxygen Delivery Method Room Air Oxygen Flow Rate 2 Fraction of Inspired Oxygen 50 SaO2/FiO2 Ratio 206 Rhythm: Normal Sinus Rhythm Height/Weight/BMI: Height 1.85 m Weight 111.8 kg Body Mass Index 39.4 Comments: Weight today was 111.8 kg which is back to admission weight I&O yesterday [id number] Patient is been afebrile for 48 hours. Blood pressures were as low as the 90s earlier today and currently in the 120s systolic. GEN-alert, less confused, no acute distress HEENT-sclera anicteric, oropharynx is moist, lip lesions from herpes NECK-supple CV-borderline tachycardic rate with irregular rhythm CHEST-mild coarse breath sounds bilaterally, more so on the right than the left ABD-soft, obese, nontender with positive bowel sounds -Moe in place with good urine output EXT-mild edema of the legs, decreased edema left upper extremity, no edema right upper extremity NEURO-generalized weakness but no focal deficits SKIN-warm and dry Results - Labs CBC & Chem 7: 06/20/17 04:14 06/20/17 04:14 Labs: Magnesium is 1.4 Phosphorus 3.2 Calcium 7.9 with albumin of 3.0 Microbiology Results: Microbiology 06/16/17 10:45 Cath/Port/Line/Picc Blood Culture - Preliminary No Growth After 4 Days 06/16/17 10:55 Cath/Port/Line/Picc Blood Culture - Preliminary No Growth After 4 Days 06/17/17 11:52 Cath/Port/Line/Picc Blood Culture - Preliminary No Growth After 2 Days 06/17/17 11:56 Cath/Port/Line/Picc Blood Culture - Preliminary No Growth After 2 Days 06/06/17 11:34 Peripheral/Iv Start Blood Culture - Final No Growth After 5 Days 06/06/17 11:34 Peripheral/Iv Start Blood Culture - Final No Growth After 5 Days 06/06/17 11:00 Sputum, Suctioned Gram Stain - Final 06/06/17 11:00 Sputum, Suctioned Sputum Culture - Final Normal Respiratory Dinah - ABG Interpretation ABG results: 06/05/17 06/06/17 06/06/17 17:41 04:35 09:25 ABG pH 7.360 7.380 7.460 H ABG pCO2 55 H 53 H 42 ABG pO2 114 H 64 L 133 H ABG HCO3 31 H 31 H 30 H ABG Total CO2 32.8 H 33.0 H 31.2 H ABG O2 Saturation 98.0 92.0 L 99.0 H ABG Base Excess 4.4 H 5.0 H 5.5 H 06/06/17 06/07/17 06/08/17 15:05 09:55 07:50 ABG pH 7.450 7.370 7.391 ABG pCO2 41 52 H 50 H ABG pO2 65 L 82 98 ABG HCO3 29 H 30 H 31 H ABG Total CO2 29.8 H 31.7 H 32 H ABG O2 Saturation 93.0 L 96.0 97.0 ABG Base Excess 4.1 H 3.7 H 5.0 H 06/09/17 06/14/17 06/14/17 08:35 10:10 14:42 ABG pH 7.470 H 7.460 H 7.480 H ABG pCO2 44 41 36 ABG pO2 88 65 L 65 L ABG HCO3 32 H 29 H 27 H ABG Total CO2 33.4 H 30.5 H 27.9 H ABG O2 Saturation 97.0 94.0 L 94.0 L ABG Base Excess 7.4 H 4.9 H 3.3 H Assessment and Plan (1) Pancreatitis Problem details: POA: ETOH induced. RUQ US negative for obstructive stones. MRCP nondiagnostic due to motion artifact however no obvious gallstones, pancreatitis head thickened, intrahepatic ducts nondilated. Current visit: Yes Status: Acute 06/04/17 03:34 due to continued drinking. RUQ US negative for obstructive stones. Patient started on aggressive IVF, electrolyte replacement and morphine PRN. Repeat labs at 7:00 am. Patient does have elevated lacate, likely due to acute pancreatitis. Continue supportive care. (2) Alcoholic liver damage Current visit: Yes Status: Acute (3) Hypertension Current visit: Yes Status: Chronic (4) DTs (delirium tremens) Current visit: Yes Status: Acute (5) Acute respiratory failure Problem details: Intubated 06/06-06/14; ARDS/volume overload Current visit: Yes Status: Acute (6) ETOHism Current visit: Yes Status: Chronic Assessment and Plan: 06/20/2017-Dr. 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 Blood cultures negative so far. Chest x-ray stable. Urinalysis negative. Acute respiratory failure due to ARDS/volume overload-intubated 06/06-06/14-on room air currently DTs with improving encephalopathy from alcohol withdrawal C. difficile colitis-decreased stools Postobstructive diuresis Fluid overload-now down to admission weight Sinus tachycardia-improved Abdominal pain 06/16 due to malfunctioning Moe catheter/urinary retention Hypertensive emergency/msesvlo-hvlenyam-zrxla pressure lower this morning, hold Norvasc, consider holding lisinopril Chronic alcohol abuse with alcoholic liver disease-the patient states he intends to quit drinking completely after discharge Hypokalemia -improved Hypomagnesemia-replacing IV this morning Hypophosphatemia-resolved Hypocalcemia-mild Hyperglycemia-A1c 6.1 on 06/15/17 Hypernatremia-resolved Tobacco dependence Obesity-BMI 33.2 on admission DVT left arm-PICC removed 06/18/2017 and started on therapeutic dose Lovenox, Coumadin initiated 06/19/2017 Oral herpes lesions-started acyclovir 06/18/2017 Plan: Replace magnesium May need to decrease potassium tomorrow, currently on 20 mEq by mouth 3 times a day Hold Norvasc Continue to monitor for signs or symptoms of infection/sepsis. Decrease Seroquel to 15 mg by mouth 3 times a day Continue metronidazole (started 06/15/2017) and probiotics for C. difficile. Steroids discontinued 06/17/2017. They had been started for ARDS which has resolved. Continue to monitor closely regarding postobstructive diuresis. If the patient is hypotensive or tachycardia worsens, may need to add IV fluids. Greater than 40 minutes of critical care time spent seeing and evaluating the patient and reviewing the chart. Discussed with the family and patient's nurse. Sepsis Assessment - Evaluation Sepsis screening result: No Definite Risk Hospital Course Summary Disclaimer: The visit summary below is not to be considered part of the above Progress Note. Hospital Course: 06/04/17 1) Alcohol use and abuse with ongoing pancreatitis, this could be related to ETOH, or due to gallstones (U/S could not see distal CBD - bilirrubin high) or both. - Check Abd/Pelvic CT with IV contrast re: Extent of pancreatic swelling ? abscess ? hemorrhage ? also Pyelonephritis ? - Check MRCP - pt could be obstructed since Bilirrubin is high. Pt states he noticed his skin is yellow. - Aggressive hydration with NS 500cc/hr x 6 hrs then reasses 2) UTI - very high lactate - high WBC - On Rocephin will continue for now. 3) Hypokalemia/Hypomagenesemia - Will give Mg + K 4) Lactic acidosis - due to ? sepsis ? hypoperfusion ? - Will recheck later today. 5) Elevated hemoglobin - Will follow serially. 06/05/17 1) ALCOHOL ABUSE WITH A) SEVERE AGITATION/CONFUSION ? OF HALLUCINATIONS MOST LIKELY DUE TO ALCOHOL WITHDRAWALS - On Propofol drip - Tachycardic - Will also give Ativan IV MD. - Check CPK (R/O Rhabdo due to agitation) - Aggressive hydration and electrolyte replenishment. B) Pancreatitis most likely related to ETOH MRCP Impression: 1. No cholelithiasis or intrahepatic bile duct dilatation. Evaluation of the extrahepatic common duct is poor due to motion artifact and patient body habitus. No obvious common duct stone. 2. Enlargement of the pancreatic head which could be due to inflammation from pancreatitis or potentially neoplasm. Recommend further evaluation with a contrast-enhanced CT of the abdomen. - Lipase coming down - Check CA 19-9 prior to D/C and follow closely his pancreatic anatomy by CT/ MRI. Transferred to CCU due to alcohol withdrawal. 06/06/17 1) PULMONARY ASSESMENT A) Pt has developed ALI/ARDS - ABG on FIO2 of 80% showed PaO2 of 133 with CO2 of 42 - huge a-A gradient that has increased since yesterday. - Pt was intubated successfully by ED MD - Saturations are 91 on 100% FIO2. ET tube appears to be well positioned. - Pt requires high PEEP. - Could be related to pancreatitis, or PNA - Pt has a L sided effussion - could be related to pancreatitis. Must R/O Boherhave's syndrome will try a CT chest with gastrograffin injection in the mid esophagus. - Start coverage for HAP - Vanco + cefepime + steroids - Add Mucomyst for possible mucus plugg. - Case discussed with his NOK - significant other, she consented for intubation. - Reculture blood & sputum B) Obstructive Sleep Apnea (New Dx) - Was on CPAP - now intubated. 2) ALCOHOL ABUSE WITH MULTIPLE COMPLICATIONS - A) SEVERE AGITATION/CONFUSION ? OF HALLUCINATIONS MOST LIKELY DUE TO ALCOHOL WITHDRAWALS - On propofol since yesterday. - On Propofol drip - Continue. - Tachycardic/hypertensive - CPK - 1261 Yesterday - C/W rhadbomyolisis - will rehceck - Aggressive hydration and electrolyte replenishment. B) Pancreatitis most likely related to ETOH - Lipase coming down - Check CA 19-9 prior to D/C and follow closely his pancreatic anatomy by CT/MRI. - Add Banana bags - C) Hypokalemia on admission - K is high today. - Stop NS with K - Recheck later. D) Hypomagnesemia - now improved. E) Severe hypophosphatemia - Risk of hemolysis - CHF & could be causing low Platelets. - PO4 is under 1 - Spoke with Pharm Jasmine De Souza - Will give 90 Mmol of Na Phosphate F) Dehydration - Appears improved now, will hold off on aggressive hydration will place on Banana bag @ 50ml/hr x 3 Liters. G) Rhabdomyolisis - cuuld be due to his severe agitation. - Recheck CPK now. 3) INFECTIOUS DISEASE ASSESMENT A) UTI - very high lactate - high WBC - On Rocephin will continue for now. B) ? Of HAP ? - Will cover with Vanco + Cefepime - Add Mucomyst for possible mucus plug - Continue Duonebs - Add Steroids. - Lactate is dropping 3) CARDIOVASCULAR ASSESSMENT A) Hypertension - moderate to severe - On BB PRN will schedule with parameters B) Will check EKG due to low Ca and due to severe agitation - R.O UT. 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 06/07/[address] Renee for Pulm evaluation and to help with ventilator management. Continue IV antibiotics - possible aspiration pneumonia/pneumonitis Continue Sedation - with current decreased pulmonary statue, likely too early to work on weaning sedation. Start TPN for nutritional support. Will stop IVF when TPN ready. Continue to monitor lab due to pt's severity of illness. Patient remains critically ill, ICU care warranted. 06/08/17 Continue with mechanical ventilation as per Dr Renee. In discussion with Dr Renee, will deescalate IV antibiotic use (likely respiratory failure from ARDS due to pancreatitis, still some concern for possible aspiration) Will stop Vancomycin, cefepime and clindamycin. Initiate Unasyn for coverage. Will continue Solu-Medrol at 40mg IV q 8 hours. Will stop Mucomyst - monitor for increase secretions. Blood pressure with elevation today. Bumex 1mg given this morning and afternoon to help decrease volume. Urine output appropriate, but pressures remain high. Start Nipride drip to ease down blood pressure. TPN continues-discussed with pharm about electrolyte adjustments. 10 units of Lantus given this morning to help sugars - did monitor sugars more frequently and gave additions SQ doses of insulin. Will start 20 units of Lantus this evening. Insulin sliding scale changed to high dose regimen. Continue propofol for sedation. Patient remains critically ill. CCU care an support required. 06/09/17 Recheck Lipase and CPK this am show normalization. Continue with mechanical ventilation as per Dr Renee. Continue Unasyn for antimicrobial coverage. Additional insulin to be given to help improve glycemic control. Extra SQ dosing during day. Increase Lantus to 45 units at night. Sugars elevated due to TPN and Solu-Medrol. Bumex 1mg given this morning to help decrease volume. Will give additional Bumex 1mg this afternoon. Nipride drip continues for BP control. TPN continues-discussed with pharm about electrolyte adjustments. Will remove sodium to decrease sodium level and OSMO. Increase KPhos. Continue propofol for sedation. Patient remains critically ill. CCU care an support required. 06/10/17 15:56 Patient continues to require ventilatory assistance with high pressures and FiO2 of 60% increased to 70% this afternoon after desaturating. Weight up significantly since admission, volume status +18.7 L from admission, edema on exam-will begin diuresing with scheduled Lasix. Continue propofol; discussed conversion to Precedex with Dr. Renee but with respiratory instability will not make changes at this time. Check triglycerides in a.m. Continue Unasyn/steroids. Remains hyperglycemic; Lantus increased to 50 units and corrective scale modified upward. Blood pressures modestly elevated; on IV metoprolol, Catapres patch, and nicardipine drip. Convert to enteral metoprolol per NG. Begin low-volume feedings per NG; dietary consultation for recommendations. Continue TPN for nutritional support. Patient remains critically ill. 06/11/17 16:18 Patient continues to require ventilatory assistance with FiO2 of 50% and PEEP of 8-both improved from yesterday. Continue diuresis with goal of equal/negative fluid balance daily. X-ray most consistent with volume overload-no focal infiltrate. Patient has been on antibiotics since 06/04 (ceftriaxone 06/04-06/06; cefepime/ clindamycin/vancomycin 06/06-06/08; Unasyn 06/08-current); sputum culture normal dinah -we'll discontinue antibiotics. On Solu-Medrol for pulmonary inflammation-discussed with Dr. Renee-decreased dose to 40 mg every 12 hours and continue to monitor. Remains hyperglycemic; Lantus increased to 50 units daily at bedtime with 20 units added every morning. Continue corrective scale insulin. Blood pressures modestly elevated; on by mouth metoprolol, Catapres patch, and nicardipine drip. Amlodipine added. Begin low-volume feedings per NG with Glucotrol; dietary consultation for recommendations. Continue TPN for nutritional support. Triglycerides pending to monitor propofol/ TPN. Hypernatremia slightly improved with TPN modifications, low-volume free water added to enteral tube feedings. 06/12/17 12:54 Patient continues to require ventilatory assistance with FiO2 of 50% and PEEP of 7. Continue diuresis with goal of equal/negative fluid balance daily. Bumex increased to 1 mg IV every 6 hours. Antibiotics discontinued yesterday (06/11) after total of 8 days (ceftriaxone 06/04 -06/06; cefepime/clindamycin/vancomycin 06/06-06/08; Unasyn 06/08-current). sputum culture normal dinah-we'll discontinue antibiotics. On Solu-Medrol for pulmonary inflammation 40 mg every 12 hours and continue to monitor. Remains hyperglycemic; Lantus increased to 20 units every morning and 50 units daily at bedtime yesterday. Fasting glucose 242 today. Continue corrective scale insulin. Anticipate beginning to titrate off TPN in the next couple of days-corrective scale modified but will not increase basal insulin at present. Blood pressures modestly elevated; on metoprolol, Catapres patch, and nicardipine drip. Amlodipine added yesterday-dose increased to 10 mg daily today and lisinopril added at 20 mg daily. Hope to titrate nicardipine off in next 24 hours. Tolerating Glucotrol at 25 mL per hour-rate increased to 40 mL per hour; dietary consultation for recommendations. Continue TPN for nutritional support. Triglycerides pending to monitor propofol/ TPN. Hypernatremia slightly improved with TPN modifications, low-volume free water added to enteral tube feedings. Potassium down today with diuresis-replaced and early and modified in TPN. 06/13/17 14:26 Patient continues to require ventilatory assistance with FiO2 of 50% and PEEP of 7. On Solu-Medrol for pulmonary inflammation 40 mg every 12 hours and continue to monitor. BUN/creatinine beginning to climb, Lasix and then Bumex have been ineffective in producing net diuresis. Significant edema but fluid is largely and subcutaneous tissues. Frequency of Bumex decreased to avoid worsening of renal function, XIAO siu added an attempt to mobilize fluid. Antibiotics discontinued yesterday 06/11 after total of 8 days (ceftriaxone 06/04-; cefepime/clindamycin/vancomycin 06/06-06/08; Unasyn 06/08-current). Blood sugars slowly [id number] in the past 24 hours; Lantus 20 units every morning and 50 units daily at bedtime currently. Blood pressures modestly elevated; on metoprolol 25 twice a day, amlodipine 10 daily, Catapres 2 patch, lisinopril 20/day and nicardipine drip. Tolerating Glucotrol at 25 mL per hour-intended to increase rate to 40 mL per hour yesterday however order was missed; will increase rate to 50 mL per hour 12 hours and then 75 mL per hour. Discussed with nursing. Decrease TPN infusion rate to 50% current infusion rate if continues to tolerate enteral feeds at higher rates. Continue TPN for nutritional support. Triglycerides pending to monitor propofol/ TPN. Hypernatremia improving with TPN modifications, low-volume free water added to enteral tube feedings. Patient now able to indicate throat discomfort but denies abdominal pain. Restlessness frequently described. Chronic alcohol abuse, alcohol withdrawal may still be underlying much of need for sedation/hypertension-Serax initiated at 30 mg every 6 hours. Wean propofol as able, chest x-ray/ABG in a.m. 06/14/17 17:39 Extubated midafternoon. Requiring 8 L supplemental oxygen to maintain saturation and appears to be slightly labored at the time of my assessment. High probability that BiPAP will be needed overnight for support. Continue Solu-Medrol for pulmonary inflammation 40 mg every 12 hours and continue to monitor. BUN/creatinine up further today, diuretics on hold. Significant edema but fluid is largely and subcutaneous tissues. XIAO siu added an attempt to mobilize fluid. Antibiotics discontinued yesterday 06/11 after total of 8 days (ceftriaxone 06/04-; cefepime/clindamycin/vancomycin 06/06-06/08; Unasyn 06/08-current). Blood sugars slowly improving-TPN being discontinued, Lantus discontinued as a result. Continue to monitor blood sugars and corrective scale insulin available as needed. OG removed when patient extubated-tube feedings discontinued. Soft diet ordered postextubation with nutritional supplements. Blood pressures modestly elevated; on metoprolol 25 twice a day, amlodipine 10 daily, Catapres 2 patch, lisinopril 20/day and nicardipine drip. Lisinopril increased to 40 mg daily. Triglycerides pending to monitor propofol/TPN. Hypernatremia improving with TPN modifications, low-volume free water added to enteral tube feedings. Continue to monitor off TPN. Chronic alcohol abuse, alcohol withdrawal may still be underlying much of need for sedation/hypertension-Serax initiated at 30 mg every 6 hours. Requesting alcohol shortly after extubation; continue Serax/when necessary lorazepam. PT/OT ordered; seen by speech therapy postextubation today. 06/15/17 15:51 Patient has tolerated extubation well and has titrated from 8 L supplemental oxygen to 4 L supplemental oxygen currently. Refused BiPAP last night. Diuresing without diuretics, BUN/creatinine slightly higher today. Taking liquids orally well and will continue to monitor volume/renal function. Convert to oral steroids from current low-dose Solu-Medrol. C. difficile identified overnight-oral Flagyl initiated and probiotics added today. Antibiotics discontinued 06/11 after total of 8 days (ceftriaxone 06/04-06/06; cefepime/clindamycin/vancomycin 06/06-06/08; Unasyn 06/08-06/11). Blood sugars slowly improving-TPN discontinued, Lantus discontinued yesterday. Corrective insulin as needed. Check A1c. Soft diet ordered postextubation with nutritional supplements. Blood pressure remains elevated; on metoprolol 50 twice a day, amlodipine 10 daily, Catapres 2 patch, lisinopril 40/d; nicardipine drip overnight but has been titrated off. Persistent low-grade tachycardia-metoprolol increased to 100 mg twice a day and hydralazine when necessary initiated. Hypernatremia resolving. Other electrolyte abnormalities stabilized. Chronic alcohol abuse, continue Serax at 30 mg every 6 hours. Requested alcohol shortly after extubation. As patient becomes more alert will begin tapering. PT/OT today; would like to begin getting patient out of bed if possible. 06/16/17 20:30 CT scan repeated earlier today due to increased abdominal pain-Moe catheter found to be in urethra with massive distention of the bladder (although patient had urine output of 100-300 mL per hour at the time). Moe catheter replaced with immediate resolution of abdominal pain, nausea, and flushing. Prior to identification of urinary retention blood cultures were obtained due to concern that patient may have sepsis triggering symptoms. No indication of pancreatic or intra-abdominal abscess. Low-fat diet due to recent pancreatitis. Ongoing diarrhea-day to metronidazole/probiotics for C. difficile identified . Doing well postextubation (06/14) On 1 L or RA with good oxygenation over the past 24 hours although oxygenation is in the lower 90s this evening. Diuresing briskly prior to Moe change, appears to have post obstructive diuresis following Moe catheter change with almost 9 L urine output thus far today. May require fluid replacement therapy if blood pressure drops-discussed with nursing. IV Antibiotics discontinued 06/11 after total of 8 days (ceftriaxone 06/04-06/06; cefepime/clindamycin/vancomycin 06/06-06/08; Unasyn 06/08-06/11). Blood sugars slowly improving-TPN discontinued, Lantus discontinued 06/14. Corrective insulin as needed. A1c 6.1. Blood pressure stabilizing; on metoprolol 100 twice a day, amlodipine 10 daily, Catapres 2 patch, lisinopril 40/d; nicardipine drip off past 24 hours. Continue diuresis may be able to begin decreasing blood pressure medications. Hypernatremia resolving. Other electrolyte abnormalities stabilized. Chronic alcohol abuse, continue Serax but will decrease to 30 mg every 8 hours. Continue PT/OT; would like to begin getting patient out of bed if possible. 06/17/2017-Dr. Calderón Assessment: Alcoholic pancreatitis Acute respiratory failure due to ARDS/volume overload-intubated 06/06-06/14 DTs C. difficile colitis Postobstructive diuresis with almost 18 L urine output in the past day and a half Sinus tachycardia, most likely secondary to being intravascularly dry due to postobstructive diuresis less likely to be secondary to alcohol withdrawal as the patient is currently alert and oriented and not tremulous and appears in no distress Abdominal pain 06/16 due to malfunctioning Moe catheter/urinary retention Hypertensive emergency/urgency-resolved, today with occasional borderline hypotension. Chronic alcohol abuse with alcoholic liver disease Hypokalemia- Hypomagnesemia-resolved Hypophosphatemia-resolved Hypocalcemia-resolved Hyperglycemia-A1c 6.1 on 06/15/17 Hypernatremia-resolved Tobacco dependence Obesity-BMI 33.2 on admission Plan: Regarding tachycardia is most likely secondary to intravascular dryness, will give half normal saline at 250 an hour 1-2 L. The patient has already received a 500 cc normal saline bolus. We'll reassess vital signs after IV fluids have been administered. Seroquel dose decreased slightly yesterday from 30 4 times a day to 30 3 times a day-watch closely for increasing signs of withdrawal Continue metronidazole (day 3) and probiotics for C. difficile. Rectal tube DC due to decrease diarrhea. From a respiratory standpoint, patient is doing well and is currently on room air. Continue to monitor blood sugars off of TPN Discontinue steroids which were started for ARDS Repeat basic metabolic profile this afternoon Replace potassium orally Low-dose Lovenox and SCDs for DVT prophylaxis Greater than 1 hour of critical care time spent seeing and evaluating the patient and reviewing the chart. Discussed with the family, patient's nurse, and Dr. Renee. 06/18/2017-Dr. Calderón Assessment: Necrotizing Alcoholic pancreatitis Fevers. White count is decreasing off of steroids. Blood cultures negative so far. Chest x-ray stable. Urinalysis negative. Acute respiratory failure due to ARDS/volume overload-intubated 06/06-06/14-stable on 2 L of oxygen DTs with improving encephalopathy from alcohol withdrawal C. difficile colitis Postobstructive diuresis Sinus tachycardia-improved Abdominal pain 06/16 due to malfunctioning Moe catheter/urinary retention Hypertensive emergency/ntuyfmh-xbbmquuc-wkdehvgx antihypertensives Chronic alcohol abuse with alcoholic liver disease Hypokalemia-mild Hypomagnesemia-resolved Hypophosphatemia-resolved Hypocalcemia-resolved Hyperglycemia-A1c 6.1 on 06/15/17 Hypernatremia-resolved Tobacco dependence Obesity-BMI 33.2 on admission Left arm edema with PICC line-rule out DVT Oral herpes lesions Plan: Monitor blood pressure closely after getting all of blood pressure medications this morning. Continue to monitor for signs or symptoms of infection/sepsis. Appreciate Dr. Rojas' consultation Continue Seroquel for alcohol withdrawal Check venous Doppler left arm to rule out DVT Continue metronidazole (day 4) and probiotics for C. difficile. Continue to monitor blood sugars off of TPN Steroids discontinued yesterday. They had been started for ARDS which has resolved. Replace potassium orally Low-dose Lovenox and SCDs for DVT prophylaxis Greater than 45 minutes of critical care time spent seeing and evaluating the patient and reviewing the chart. Discussed with the family, patient's nurse, and Dr. Rojas. 06/19/2017-Dr. 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 Blood cultures negative so far. Chest x-ray stable. Urinalysis negative. Acute respiratory failure due to ARDS/volume overload-intubated 06/06-06/14-stable on 2 L of oxygen DTs with improving encephalopathy from alcohol withdrawal C. difficile colitis-decreased stools Postobstructive diuresis -weight down 18 kg in the past 3 days Sinus tachycardia-improved Abdominal pain 06/16 due to malfunctioning Moe catheter/urinary retention Hypertensive emergency/kdridbx-knapqfht-iebri pressure still elevated, restart Norvasc Chronic alcohol abuse with alcoholic liver disease-the patient states he intends to quit drinking completely after discharge Hypokalemia worse this morning despite replacement yesterday, likely secondary to continued spontaneous diuresis Hypomagnesemia-replacing IV this morning Hypophosphatemia-resolved Hypocalcemia-mild Hyperglycemia-A1c 6.1 on 06/15/17 Hypernatremia-resolved Tobacco dependence Obesity-BMI 33.2 on admission DVT left arm-PICC removed 2016 and started on therapeutic dose Lovenox Oral herpes lesions-started acyclovir 06/18/2017 Plan: Recheck potassium and magnesium and recheck Restart Norvasc for hypertension Consult pharmacy to initiate Coumadin for DVT Continue to monitor for signs or symptoms of infection/sepsis. Appreciate Dr. Rojas' consultation Continue Seroquel for alcohol withdrawal Continue metronidazole (started 06/15/2017) and probiotics for C. difficile. Blood sugars well controlled off of TPN. Will DC Accu-Cheks Steroids discontinued 06/17/2017. They had been started for ARDS which has resolved. We'll stop clamping Moe and monitor urine output. Greater than 40 minutes of critical care time spent seeing and evaluating the patient and reviewing the chart. Discussed with the family and patient's nurse.
[2017-06-20] MEDS: MAGNESIUM SULFATE 1gm PREMIX 1 GM/100 ML BAG IV SCH ×2 (12:33→13:50)
[2017-06-20] MEDS: LISINOPRIL 40 MG TABLET PO SCH (12:46)
[2017-06-20] MEDS: AMLODIPINE 10 MG TABLET PO SCH (12:46)
--- NOTE | 2017-06-20 12:52 | Pharmacy Consult ---
Pharmacy Consult-Warfarin - Laboratory Information 06/09/17 06/20/17 04:23 10:30 INR 1.22 H 2.30 H - Consult Information Will give no warfarin today. Also adjusted his enoxaparin dowh to correlate with his current weight. Thank you.
[2017-06-20] MEDS: OXAZEPAM 15 MG CAPSULE PO SCH ×2 (12:53→21:00)
[2017-06-20] MEDS: ACETAMINOPHEN 325 MG TABLET PO PRN (20:17)
[2017-06-20] MEDS: ENOXAPARIN 120 MG/0.8 ML INJECTION SQ SCH (21:02)
[2017-06-21] MEDS: HYDROCODONE/APAP 7.5 MG/325 MG TABLET PO PRN ×5 (01:19→23:18)
[2017-06-21] MEDS: OXAZEPAM 15 MG CAPSULE PO SCH ×3 (04:06→19:43)
[2017-06-21] MEDS: MORPHINE SULFATE 4 MG SYRINGE IVP PRN ×2 (04:06→21:07)
--- NOTE | 2017-06-21 07:23 | Pharmacy Consult ---
Pharmacy Consult-Warfarin - Laboratory Information 06/09/17 06/20/17 06/21/17 04:23 10:30 04:08 INR 1.22 H 2.30 H 2.58 H - Consult Information Will give no warfarin today. Will continue to follow. Thank you.
[2017-06-21] MEDS: ALBUTEROL/IPRATROPIUM 2.5mg-0.5mg/3ml NEB IPPB SCH ×3 (07:34→20:05)
--- NOTE | 2017-06-21 07:52 | Pulmonology Progress Note ---
Subjective Principal diagnosis: Acute Respiratory Failure Interval history: He is on room air. states he coughed up blood earlier, details unclear, nursing reports he has had right chest/shoulder pain. he did have a fever of 102 yesterday. Sputum culture and blood cultures were drawn Exam Vital signs: Temperature 99 F 06/21/17 04:00 Pulse Rate 117 H 06/21/17 05:00 Respiratory Rate 32 H 06/21/17 05:00 Blood Pressure 121/73 06/21/17 05:00 Pulse Oximetry 93 06/21/17 05:00 Oxygen Delivery Method Nasal Cannula Oxygen Flow Rate 2 Fraction of Inspired Oxygen 50 SaO2/FiO2 Ratio 206 - Constitutional no acute distress, obese - Routine HEENT Exam Head: Present: normocephalic, atraumatic - Routine Neck Exam Present: supple, full ROM - Routine Respiratory Exam Present: decreased breath sounds, rhonchi Comments: minimal rhonchi - Routine Cardiovascular Exam Present: RRR, S1, S2. Absent: murmur - Routine Abdominal Exam Present: distended. Absent: guarding - Urinary Catheter Management Urethral Cath placed during this visit: yes Urethral indwelling: Yes Reason for continuing: Prolonged Immobilization Insertion date: 06/16/17 Insertion time: 12:45 Progress Note-A&P (1) Acute respiratory failure with hypoxia Status: Acute Assessment and plan: remains resolved, on room air. Current Visit: Yes (2) Pancreatitis Problem details: POA: ETOH induced. RUQ US negative for obstructive stones. MRCP nondiagnostic due to motion artifact however no obvious gallstones, pancreatitis head thickened, intrahepatic ducts nondilated. Status: Acute Assessment and plan: still having right sided abdominal/chest pain. aytpical pain, etiology unclear. Current Visit: Yes (3) Hypertension Status: Chronic Current Visit: Yes (4) DTs (delirium tremens) Status: Acute Assessment and plan: definitely improved. Current Visit: Yes (5) Fever Status: Acute Assessment and plan: CXR 06/20 showed faint right hilar infiltrate. WBC count improved. coughing up bloody sputum. Repeat CXR today Current Visit: Yes - Time Spent With Patient Total time spent is greater than 50% in coordination of care (as documented) at patient's floor/unit and/or counseling patient: less than 15 minutes Sepsis Assessment - Evaluation Sepsis screening result: Sepsis Risk
--- NOTE | 2017-06-21 08:09 | XRay Report ---
EXAM: XR chest 1V LOCATION OF DICTATION: [facility] HISTORY: fever COMPARISON: June 17, 2017 FINDINGS: The heart size is normal. The mediastinal configuration is within normal limits. There are hazy interstitial opacities overlying the lung bases bilaterally may reflect atelectasis or pneumonitis. There are no pleural effusions. No pneumothorax. Excellent Mild spondylosis of the thoracic spine. IMPRESSION: Hazy interstitial opacities within the lung bases bilaterally may be secondary to atelectasis or pneumonitis. Recommend follow based on continued symptoms. .
--- NOTE | 2017-06-21 08:35 | XRay Report ---
EXAM: XR chest 1V LOCATION OF DICTATION: [facility] HISTORY: fever COMPARISON: June 20, 2017 and June 17, 2017. FINDINGS: The heart size is normal. The mediastinal configuration is within normal limits. Interval development of consolidation opacities within the right lung base and subjacent parapneumonic effusion. Mild haziness within the left lung base. There is no pneumothorax. The osseous structures are within normal limits for the patient's age. IMPRESSION: Developing consolidating opacities within the right lung base and subjacent small to moderate sized right parapneumonic effusion suggested. Mild haziness within the left lung base. Continued follow up is recommended. .
[2017-06-21] MEDS: LACTOBACILLUS (15B cfu) CAPSULE PO SCH ×3 (09:02→18:05)
[2017-06-21] MEDS: NICOTINE 21 MG PATCH TD SCH (09:02)
[2017-06-21] MEDS: FOLIC ACID 1 MG TABLET PO SCH (09:03)
[2017-06-21] MEDS: FAMOTIDINE 20 MG TABLET PO SCH ×3 (09:03→21:38)
[2017-06-21] MEDS: ACYCLOVIR 200 MG CAPSULE PO SCH ×3 (09:03→22:03)
[2017-06-21] MEDS: CALCIUM 600 + VIT D 400 TABLET PO SCH ×3 (09:03→21:37)
[2017-06-21] MEDS: ENOXAPARIN 120 MG/0.8 ML INJECTION SQ SCH (09:03)
[2017-06-21] MEDS: MetroNIDAZOLE 500 MG TABLET PO SCH ×3 (09:03→18:06)
[2017-06-21] MEDS: NICOTINE PATCH REMOVAL TD SCH (09:09)
[2017-06-21] MEDS ORDERED: PHYTONADIONE (Adult) INJ 5 MG in NS 50 ML IV ONE (09:09)
--- NOTE | 2017-06-21 09:17 | Progress Note ---
Subjective: The patient is seen in his room accompanied by his . He had intermittent fevers last night and developed spasms of pain in his right mid and upper back as well as pain in the right upper quadrant. He developed some hemoptysis that started yesterday. He has intermittent pleuritic pain. He has intermittent shortness of breath. He felt nauseated when he was getting a breathing treatment. He denies any lightheadedness. He is sitting up now for breakfast. Moe is in place with good urine output. He had a yellow liquid stool this morning. He had 2 stools reported yesterday. Objective Vital signs: Temperature 98.8 F 06/21/17 08:00 Pulse Rate 119 H 06/21/17 08:00 Respiratory Rate 31 H 06/21/17 08:00 Blood Pressure 158/84 H 06/21/17 08:00 Pulse Oximetry 92 06/21/17 08:00 Oxygen Delivery Method Nasal Cannula Oxygen Flow Rate 2 Fraction of Inspired Oxygen 50 SaO2/FiO2 Ratio 206 Rhythm: Normal Sinus Rhythm Height/Weight/BMI: Height 1.85 m Weight 117.1 kg Body Mass Index 39.4 - Routine HEENT Exam Comments: I&O is 3940/7975 - 4035 GEN-alert, oriented, no acute distress HEENT-sclera anicteric, oropharynx is moist NECK-supple CV-tachycardic rate with irregular rhythm and no murmur CHEST-minimal rhonchi ABD-soft, tender right upper quadrant, positive bowel sounds -Moe in place with good urine output EXT-trace lower extremity edema NEURO-no focal deficits, speech sounds better SKIN-warm and dry and without rashes Results - Labs CBC & Chem 7: 06/21/17 04:08 06/21/17 04:08 Labs: Neutrophils 91%, bands 0 INR today is 2.58, he did not receive any Coumadin yesterday and is only dose of Coumadin was on 06/19/2017 which was 7.5 mg Magnesium is 1.4 again today despite replacement with 2 g of magnesium yesterday Calcium is improved at 8.1. Phosphorus is normal at 3.4. Albumin is 2.9 UA 2 yesterday shows no significant white cells, no nitrates, leukocyte esterase negative. Plus one occult blood noted. Low specific gravity. Microbiology Results: Microbiology 06/20/17 20:30 Peripheral/Iv Start Blood Culture - Preliminary Culture Initiated - Results Pending 06/20/17 20:31 Peripheral/Iv Start Blood Culture - Preliminary Culture Initiated - Results Pending 06/20/17 16:30 Sputum, Expectorated Gram Stain - Final 06/20/17 16:30 Sputum, Expectorated Sputum Culture - Preliminary Culture Initiated - Results Pending 06/17/17 11:52 Cath/Port/Line/Picc Blood Culture - Preliminary No Growth After 3 Days 06/17/17 11:56 Cath/Port/Line/Picc Blood Culture - Preliminary No Growth After 3 Days 06/16/17 10:45 Cath/Port/Line/Picc Blood Culture - Preliminary No Growth After 4 Days 06/16/17 10:55 Cath/Port/Line/Picc Blood Culture - Preliminary No Growth After 4 Days 06/06/17 11:34 Peripheral/Iv Start Blood Culture - Final No Growth After 5 Days 06/06/17 11:34 Peripheral/Iv Start Blood Culture - Final No Growth After 5 Days 06/06/17 11:00 Sputum, Suctioned Gram Stain - Final 06/06/17 11:00 Sputum, Suctioned Sputum Culture - Final Normal Respiratory Dinah - ABG Interpretation ABG results: 06/05/17 06/06/17 06/06/17 17:41 04:35 09:25 ABG pH 7.360 7.380 7.460 H ABG pCO2 55 H 53 H 42 ABG pO2 114 H 64 L 133 H ABG HCO3 31 H 31 H 30 H ABG Total CO2 32.8 H 33.0 H 31.2 H ABG O2 Saturation 98.0 92.0 L 99.0 H ABG Base Excess 4.4 H 5.0 H 5.5 H 06/06/17 06/07/17 06/08/17 15:05 09:55 07:50 ABG pH 7.450 7.370 7.391 ABG pCO2 41 52 H 50 H ABG pO2 65 L 82 98 ABG HCO3 29 H 30 H 31 H ABG Total CO2 29.8 H 31.7 H 32 H ABG O2 Saturation 93.0 L 96.0 97.0 ABG Base Excess 4.1 H 3.7 H 5.0 H 06/09/17 06/14/17 06/14/17 08:35 10:10 14:42 ABG pH 7.470 H 7.460 H 7.480 H ABG pCO2 44 41 36 ABG pO2 88 65 L 65 L ABG HCO3 32 H 29 H 27 H ABG Total CO2 33.4 H 30.5 H 27.9 H ABG O2 Saturation 97.0 94.0 L 94.0 L ABG Base Excess 7.4 H 4.9 H 3.3 H - Imaging and Cardiology Chest x-ray Status: image reviewed by me Additional comments: Chest x-ray yesterday official report shows hazy interstitial opacities in the lung bases bilaterally may be atelectasis or pneumonitis. Chest x-ray today shows developing consolidating opacities within the right lung base and subadjacent small to moderate sized right parapneumonic effusion suggested. Mild haziness within the left lung base. Continued follow-up is recommended. On my view there appears to be a significant change especially in the right lung, with effusion. Assessment and Plan (1) Pancreatitis Problem details: POA: ETOH induced. RUQ US negative for obstructive stones. MRCP nondiagnostic due to motion artifact however no obvious gallstones, pancreatitis head thickened, intrahepatic ducts nondilated. Current visit: Yes Status: Acute 06/04/17 03:34 due to continued drinking. RUQ US negative for obstructive stones. Patient started on aggressive IVF, electrolyte replacement and morphine PRN. Repeat labs at 7:00 am. Patient does have elevated lacate, likely due to acute pancreatitis. Continue supportive care. (2) Alcoholic liver damage Current visit: Yes Status: Acute (3) Hypertension Current visit: Yes Status: Chronic (4) DTs (delirium tremens) Current visit: Yes Status: Acute (5) Acute respiratory failure Problem details: Intubated 06/06-06/14; ARDS/volume overload Current visit: Yes Status: Acute (6) ETOHism Current visit: Yes Status: Chronic Assessment and Plan: 06/21/2017-Dr. 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 Urinalysis negative. Chest x- ray yesterday showed possible basilar atelectasis versus early pneumonitis, today showing more infiltrate in the right base and a small to moderate pleural effusion on the right concerning for parapneumonic effusion No right-sided effusion 06/21/2017 possible pneumonia Acute respiratory failure due to ARDS/volume overload-intubated 06/06-06/14 DTs with improving encephalopathy from alcohol withdrawal-Serax decreased 2016 C. difficile colitis-decreased stools Postobstructive diuresis Fluid overload-improved Sinus tachycardia Abdominal pain 06/16 due to malfunctioning Moe catheter/urinary retention Hypertensive emergency/urgency-improved on clonidine and metoprolol. Norvasc and lisinopril are currently on hold Chronic alcohol abuse with alcoholic liver disease-the patient states he intends to quit drinking completely after discharge Hypokalemia -improved Hypomagnesemia-replacing IV this morning Hypophosphatemia-resolved Hypocalcemia-mild Hyperglycemia-A1c 6.1 on 06/15/17 Hypernatremia-resolved Tobacco dependence Obesity-BMI 33.2 on admission DVT left arm-PICC removed 06/18/2017 and started on therapeutic dose Lovenox, Coumadin initiated 06/19/2017 Oral herpes lesions-started acyclovir 06/18/2017 Plan: Discussed with Dr. Renee. Will hold Coumadin and Lovenox. Will give vitamin K 1 today. Probable thoracentesis later today regarding no effusion. Regarding possible pneumonia, will discuss with Dr. Rojas. May need to initiate antibiotics. Sputum culture shows gram-positive cocci in pairs Check pro-calcitonin and lactate Replace magnesium Replace potassium Continue metronidazole (started 06/15/2017) and probiotics for C. difficile. Steroids discontinued 06/17/2017. They had been started for ARDS which has resolved. Continue to monitor closely regarding postobstructive diuresis. If the patient is hypotensive or tachycardia worsens, may need to add IV fluids. Greater than 45 minutes of critical care time spent seeing and evaluating the patient and reviewing the chart. Discussed with the family and patient's nurse. Sepsis Assessment - Evaluation Sepsis screening result: Sepsis Risk Hospital Course Summary Disclaimer: The visit summary below is not to be considered part of the above Progress Note. Hospital Course: 06/04/17 1) Alcohol use and abuse with ongoing pancreatitis, this could be related to ETOH, or due to gallstones (U/S could not see distal CBD - bilirrubin high) or both. - Check Abd/Pelvic CT with IV contrast re: Extent of pancreatic swelling ? abscess ? hemorrhage ? also Pyelonephritis ? - Check MRCP - pt could be obstructed since Bilirrubin is high. Pt states he noticed his skin is yellow. - Aggressive hydration with NS 500cc/hr x 6 hrs then reasses 2) UTI - very high lactate - high WBC - On Rocephin will continue for now. 3) Hypokalemia/Hypomagenesemia - Will give Mg + K 4) Lactic acidosis - due to ? sepsis ? hypoperfusion ? - Will recheck later today. 5) Elevated hemoglobin - Will follow serially. 06/05/17 1) ALCOHOL ABUSE WITH A) SEVERE AGITATION/CONFUSION ? OF HALLUCINATIONS MOST LIKELY DUE TO ALCOHOL WITHDRAWALS - On Propofol drip - Tachycardic - Will also give Ativan IV DC. - Check CPK (R/O Rhabdo due to agitation) - Aggressive hydration and electrolyte replenishment. B) Pancreatitis most likely related to ETOH MRCP Impression: 1. No cholelithiasis or intrahepatic bile duct dilatation. Evaluation of the extrahepatic common duct is poor due to motion artifact and patient body habitus. No obvious common duct stone. 2. Enlargement of the pancreatic head which could be due to inflammation from pancreatitis or potentially neoplasm. Recommend further evaluation with a contrast-enhanced CT of the abdomen. - Lipase coming down - Check CA 19-9 prior to D/C and follow closely his pancreatic anatomy by CT/ MRI. Transferred to CCU due to alcohol withdrawal. 06/06/17 1) PULMONARY ASSESMENT A) Pt has developed ALI/ARDS - ABG on FIO2 of 80% showed PaO2 of 133 with CO2 of 42 - huge a-A gradient that has increased since yesterday. - Pt was intubated successfully by ED MD - Saturations are 91 on 100% FIO2. ET tube appears to be well positioned. - Pt requires high PEEP. - Could be related to pancreatitis, or PNA - Pt has a L sided effussion - could be related to pancreatitis. Must R/O Boherhave's syndrome will try a CT chest with gastrograffin injection in the mid esophagus. - Start coverage for HAP - Vanco + cefepime + steroids - Add Mucomyst for possible mucus plugg. - Case discussed with his NOK - significant other, she consented for intubation. - Reculture blood & sputum B) Obstructive Sleep Apnea (New Dx) - Was on CPAP - now intubated. 2) ALCOHOL ABUSE WITH MULTIPLE COMPLICATIONS - A) SEVERE AGITATION/CONFUSION ? OF HALLUCINATIONS MOST LIKELY DUE TO ALCOHOL WITHDRAWALS - On propofol since yesterday. - On Propofol drip - Continue. - Tachycardic/hypertensive - CPK - 1261 Yesterday - C/W rhadbomyolisis - will rehceck - Aggressive hydration and electrolyte replenishment. B) Pancreatitis most likely related to ETOH - Lipase coming down - Check CA 19-9 prior to D/C and follow closely his pancreatic anatomy by CT/MRI. - Add Banana bags - C) Hypokalemia on admission - K is high today. - Stop NS with K - Recheck later. D) Hypomagnesemia - now improved. E) Severe hypophosphatemia - Risk of hemolysis - CHF & could be causing low Platelets. - PO4 is under 1 - Spoke with Pharm Jasmine De Souza - Will give 90 Mmol of Na Phosphate F) Dehydration - Appears improved now, will hold off on aggressive hydration will place on Banana bag @ 50ml/hr x 3 Liters. G) Rhabdomyolisis - cuuld be due to his severe agitation. - Recheck CPK now. 3) INFECTIOUS DISEASE ASSESMENT A) UTI - very high lactate - high WBC - On Rocephin will continue for now. B) ? Of HAP ? - Will cover with Vanco + Cefepime - Add Mucomyst for possible mucus plug - Continue Duonebs - Add Steroids. - Lactate is dropping 3) CARDIOVASCULAR ASSESSMENT A) Hypertension - moderate to severe - On BB PRN will schedule with parameters B) Will check EKG due to low Ca and due to severe agitation - R.O CA. - Check 2-D echo - Consult Cardiology (BNP was very high and has Pleural effussion - Alcoholic [employer] ?) PREVENTION DVT - SCD'S PUD - PPI. 06/07/[address] Renee for Pulm evaluation and to help with ventilator management. Continue IV antibiotics - possible aspiration pneumonia/pneumonitis Continue Sedation - with current decreased pulmonary statue, likely too early to work on weaning sedation. Start TPN for nutritional support. Will stop IVF when TPN ready. Continue to monitor lab due to pt's severity of illness. Patient remains critically ill, ICU care warranted. 06/08/17 Continue with mechanical ventilation as per Dr Renee. In discussion with Dr Renee, will deescalate IV antibiotic use (likely respiratory failure from ARDS due to pancreatitis, still some concern for possible aspiration) Will stop Vancomycin, cefepime and clindamycin. Initiate Unasyn for coverage. Will continue Solu-Medrol at 40mg IV q 8 hours. Will stop Mucomyst - monitor for increase secretions. Blood pressure with elevation today. Bumex 1mg given this morning and afternoon to help decrease volume. Urine output appropriate, but pressures remain high. Start Nipride drip to ease down blood pressure. TPN continues-discussed with pharm about electrolyte adjustments. 10 units of Lantus given this morning to help sugars - did monitor sugars more frequently and gave additions SQ doses of insulin. Will start 20 units of Lantus this evening. Insulin sliding scale changed to high dose regimen. Continue propofol for sedation. Patient remains critically ill. CCU care an support required. 06/09/17 Recheck Lipase and CPK this am show normalization. Continue with mechanical ventilation as per Dr Renee. Continue Unasyn for antimicrobial coverage. Additional insulin to be given to help improve glycemic control. Extra SQ dosing during day. Increase Lantus to 45 units at night. Sugars elevated due to TPN and Solu-Medrol. Bumex 1mg given this morning to help decrease volume. Will give additional Bumex 1mg this afternoon. Nipride drip continues for BP control. TPN continues-discussed with pharm about electrolyte adjustments. Will remove sodium to decrease sodium level and OSMO. Increase KPhos. Continue propofol for sedation. Patient remains critically ill. CCU care an support required. 06/10/17 15:56 Patient continues to require ventilatory assistance with high pressures and FiO2 of 60% increased to 70% this afternoon after desaturating. Weight up significantly since admission, volume status +18.7 L from admission, edema on exam-will begin diuresing with scheduled Lasix. Continue propofol; discussed conversion to Precedex with Dr. Renee but with respiratory instability will not make changes at this time. Check triglycerides in a.m. Continue Unasyn/steroids. Remains hyperglycemic; Lantus increased to 50 units and corrective scale modified upward. Blood pressures modestly elevated; on IV metoprolol, Catapres patch, and nicardipine drip. Convert to enteral metoprolol per NG. Begin low-volume feedings per NG; dietary consultation for recommendations. Continue TPN for nutritional support. Patient remains critically ill. 06/11/17 16:18 Patient continues to require ventilatory assistance with FiO2 of 50% and PEEP of 8-both improved from yesterday. Continue diuresis with goal of equal/negative fluid balance daily. X-ray most consistent with volume overload-no focal infiltrate. Patient has been on antibiotics since 06/04 (ceftriaxone 06/04-06/06; cefepime/ clindamycin/vancomycin 06/06-06/08; Unasyn 06/08-current); sputum culture normal dinah -we'll discontinue antibiotics. On Solu-Medrol for pulmonary inflammation-discussed with Dr. Renee-decreased dose to 40 mg every 12 hours and continue to monitor. Remains hyperglycemic; Lantus increased to 50 units daily at bedtime with 20 units added every morning. Continue corrective scale insulin. Blood pressures modestly elevated; on by mouth metoprolol, Catapres patch, and nicardipine drip. Amlodipine added. Begin low-volume feedings per NG with Glucotrol; dietary consultation for recommendations. Continue TPN for nutritional support. Triglycerides pending to monitor propofol/ TPN. Hypernatremia slightly improved with TPN modifications, low-volume free water added to enteral tube feedings. 06/12/17 12:54 Patient continues to require ventilatory assistance with FiO2 of 50% and PEEP of 7. Continue diuresis with goal of equal/negative fluid balance daily. Bumex increased to 1 mg IV every 6 hours. Antibiotics discontinued yesterday (06/11) after total of 8 days (ceftriaxone 06/04 -06/06; cefepime/clindamycin/vancomycin 06/06-06/08; Unasyn 06/08-current). sputum culture normal dinah-we'll discontinue antibiotics. On Solu-Medrol for pulmonary inflammation 40 mg every 12 hours and continue to monitor. Remains hyperglycemic; Lantus increased to 20 units every morning and 50 units daily at bedtime yesterday. Fasting glucose 242 today. Continue corrective scale insulin. Anticipate beginning to titrate off TPN in the next couple of days-corrective scale modified but will not increase basal insulin at present. Blood pressures modestly elevated; on metoprolol, Catapres patch, and nicardipine drip. Amlodipine added yesterday-dose increased to 10 mg daily today and lisinopril added at 20 mg daily. Hope to titrate nicardipine off in next 24 hours. Tolerating Glucotrol at 25 mL per hour-rate increased to 40 mL per hour; dietary consultation for recommendations. Continue TPN for nutritional support. Triglycerides pending to monitor propofol/ TPN. Hypernatremia slightly improved with TPN modifications, low-volume free water added to enteral tube feedings. Potassium down today with diuresis-replaced and early and modified in TPN. 06/13/17 14:26 Patient continues to require ventilatory assistance with FiO2 of 50% and PEEP of 7. On Solu-Medrol for pulmonary inflammation 40 mg every 12 hours and continue to monitor. BUN/creatinine beginning to climb, Lasix and then Bumex have been ineffective in producing net diuresis. Significant edema but fluid is largely and subcutaneous tissues. Frequency of Bumex decreased to avoid worsening of renal function, XIAO siu added an attempt to mobilize fluid. Antibiotics discontinued yesterday 06/11 after total of 8 days (ceftriaxone 06/04-; cefepime/clindamycin/vancomycin 06/06-06/08; Unasyn 06/08-current). Blood sugars slowly [id number] in the past 24 hours; Lantus 20 units every morning and 50 units daily at bedtime currently. Blood pressures modestly elevated; on metoprolol 25 twice a day, amlodipine 10 daily, Catapres 2 patch, lisinopril 20/day and nicardipine drip. Tolerating Glucotrol at 25 mL per hour-intended to increase rate to 40 mL per hour yesterday however order was missed; will increase rate to 50 mL per hour 12 hours and then 75 mL per hour. Discussed with nursing. Decrease TPN infusion rate to 50% current infusion rate if continues to tolerate enteral feeds at higher rates. Continue TPN for nutritional support. Triglycerides pending to monitor propofol/ TPN. Hypernatremia improving with TPN modifications, low-volume free water added to enteral tube feedings. Patient now able to indicate throat discomfort but denies abdominal pain. Restlessness frequently described. Chronic alcohol abuse, alcohol withdrawal may still be underlying much of need for sedation/hypertension-Serax initiated at 30 mg every 6 hours. Wean propofol as able, chest x-ray/ABG in a.m. 06/14/17 17:39 Extubated midafternoon. Requiring 8 L supplemental oxygen to maintain saturation and appears to be slightly labored at the time of my assessment. High probability that BiPAP will be needed overnight for support. Continue Solu-Medrol for pulmonary inflammation 40 mg every 12 hours and continue to monitor. BUN/creatinine up further today, diuretics on hold. Significant edema but fluid is largely and subcutaneous tissues. XIAO siu added an attempt to mobilize fluid. Antibiotics discontinued yesterday 06/11 after total of 8 days (ceftriaxone 06/04-; cefepime/clindamycin/vancomycin 06/06-06/08; Unasyn 06/08-current). Blood sugars slowly improving-TPN being discontinued, Lantus discontinued as a result. Continue to monitor blood sugars and corrective scale insulin available as needed. OG removed when patient extubated-tube feedings discontinued. Soft diet ordered postextubation with nutritional supplements. Blood pressures modestly elevated; on metoprolol 25 twice a day, amlodipine 10 daily, Catapres 2 patch, lisinopril 20/day and nicardipine drip. Lisinopril increased to 40 mg daily. Triglycerides pending to monitor propofol/TPN. Hypernatremia improving with TPN modifications, low-volume free water added to enteral tube feedings. Continue to monitor off TPN. Chronic alcohol abuse, alcohol withdrawal may still be underlying much of need for sedation/hypertension-Serax initiated at 30 mg every 6 hours. Requesting alcohol shortly after extubation; continue Serax/when necessary lorazepam. PT/OT ordered; seen by speech therapy postextubation today. 06/15/17 15:51 Patient has tolerated extubation well and has titrated from 8 L supplemental oxygen to 4 L supplemental oxygen currently. Refused BiPAP last night. Diuresing without diuretics, BUN/creatinine slightly higher today. Taking liquids orally well and will continue to monitor volume/renal function. Convert to oral steroids from current low-dose Solu-Medrol. C. difficile identified overnight-oral Flagyl initiated and probiotics added today. Antibiotics discontinued 06/11 after total of 8 days (ceftriaxone 06/04-06/06; cefepime/clindamycin/vancomycin 06/06-06/08; Unasyn 06/08-06/11). Blood sugars slowly improving-TPN discontinued, Lantus discontinued yesterday. Corrective insulin as needed. Check A1c. Soft diet ordered postextubation with nutritional supplements. Blood pressure remains elevated; on metoprolol 50 twice a day, amlodipine 10 daily, Catapres 2 patch, lisinopril 40/d; nicardipine drip overnight but has been titrated off. Persistent low-grade tachycardia-metoprolol increased to 100 mg twice a day and hydralazine when necessary initiated. Hypernatremia resolving. Other electrolyte abnormalities stabilized. Chronic alcohol abuse, continue Serax at 30 mg every 6 hours. Requested alcohol shortly after extubation. As patient becomes more alert will begin tapering. PT/OT today; would like to begin getting patient out of bed if possible. 06/16/17 20:30 CT scan repeated earlier today due to increased abdominal pain-Moe catheter found to be in urethra with massive distention of the bladder (although patient had urine output of 100-300 mL per hour at the time). Moe catheter replaced with immediate resolution of abdominal pain, nausea, and flushing. Prior to identification of urinary retention blood cultures were obtained due to concern that patient may have sepsis triggering symptoms. No indication of pancreatic or intra-abdominal abscess. Low-fat diet due to recent pancreatitis. Ongoing diarrhea-day to metronidazole/probiotics for C. difficile identified . Doing well postextubation (06/14) On 1 L or RA with good oxygenation over the past 24 hours although oxygenation is in the lower 90s this evening. Diuresing briskly prior to Moe change, appears to have post obstructive diuresis following Moe catheter change with almost 9 L urine output thus far today. May require fluid replacement therapy if blood pressure drops-discussed with nursing. IV Antibiotics discontinued 06/11 after total of 8 days (ceftriaxone 06/04-06/06; cefepime/clindamycin/vancomycin 06/06-06/08; Unasyn 06/08-06/11). Blood sugars slowly improving-TPN discontinued, Lantus discontinued 06/14. Corrective insulin as needed. A1c 6.1. Blood pressure stabilizing; on metoprolol 100 twice a day, amlodipine 10 daily, Catapres 2 patch, lisinopril 40/d; nicardipine drip off past 24 hours. Continue diuresis may be able to begin decreasing blood pressure medications. Hypernatremia resolving. Other electrolyte abnormalities stabilized. Chronic alcohol abuse, continue Serax but will decrease to 30 mg every 8 hours. Continue PT/OT; would like to begin getting patient out of bed if possible. 06/17/2017-Dr. Calderón Assessment: Alcoholic pancreatitis Acute respiratory failure due to ARDS/volume overload-intubated 06/06-06/14 DTs C. difficile colitis Postobstructive diuresis with almost 18 L urine output in the past day and a half Sinus tachycardia, most likely secondary to being intravascularly dry due to postobstructive diuresis less likely to be secondary to alcohol withdrawal as the patient is currently alert and oriented and not tremulous and appears in no distress Abdominal pain 06/16 due to malfunctioning Moe catheter/urinary retention Hypertensive emergency/urgency-resolved, today with occasional borderline hypotension. Chronic alcohol abuse with alcoholic liver disease Hypokalemia- Hypomagnesemia-resolved Hypophosphatemia-resolved Hypocalcemia-resolved Hyperglycemia-A1c 6.1 on 06/15/17 Hypernatremia-resolved Tobacco dependence Obesity-BMI 33.2 on admission Plan: Regarding tachycardia is most likely secondary to intravascular dryness, will give half normal saline at 250 an hour 1-2 L. The patient has already received a 500 cc normal saline bolus. We'll reassess vital signs after IV fluids have been administered. Seroquel dose decreased slightly yesterday from 30 4 times a day to 30 3 times a day-watch closely for increasing signs of withdrawal Continue metronidazole (day 3) and probiotics for C. difficile. Rectal tube DC due to decrease diarrhea. From a respiratory standpoint, patient is doing well and is currently on room air. Continue to monitor blood sugars off of TPN Discontinue steroids which were started for ARDS Repeat basic metabolic profile this afternoon Replace potassium orally Low-dose Lovenox and SCDs for DVT prophylaxis Greater than 1 hour of critical care time spent seeing and evaluating the patient and reviewing the chart. Discussed with the family, patient's nurse, and Dr. Renee. 06/18/2017-Dr. Calderón Assessment: Necrotizing Alcoholic pancreatitis Fevers. White count is decreasing off of steroids. Blood cultures negative so far. Chest x-ray stable. Urinalysis negative. Acute respiratory failure due to ARDS/volume overload-intubated 06/06-06/14-stable on 2 L of oxygen DTs with improving encephalopathy from alcohol withdrawal C. difficile colitis Postobstructive diuresis Sinus tachycardia-improved Abdominal pain 06/16 due to malfunctioning Moe catheter/urinary retention Hypertensive emergency/oykzikg-lkpezcqv-ppemparm antihypertensives Chronic alcohol abuse with alcoholic liver disease Hypokalemia-mild Hypomagnesemia-resolved Hypophosphatemia-resolved Hypocalcemia-resolved Hyperglycemia-A1c 6.1 on 06/15/17 Hypernatremia-resolved Tobacco dependence Obesity-BMI 33.2 on admission Left arm edema with PICC line-rule out DVT Oral herpes lesions Plan: Monitor blood pressure closely after getting all of blood pressure medications this morning. Continue to monitor for signs or symptoms of infection/sepsis. Appreciate Dr. Rojas' consultation Continue Seroquel for alcohol withdrawal Check venous Doppler left arm to rule out DVT Continue metronidazole (day 4) and probiotics for C. difficile. Continue to monitor blood sugars off of TPN Steroids discontinued yesterday. They had been started for ARDS which has resolved. Replace potassium orally Low-dose Lovenox and SCDs for DVT prophylaxis Greater than 45 minutes of critical care time spent seeing and evaluating the patient and reviewing the chart. Discussed with the family, patient's nurse, and Dr. Rojas. 06/19/2017-Dr. 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 Blood cultures negative so far. Chest x-ray stable. Urinalysis negative. Acute respiratory failure due to ARDS/volume overload-intubated 06/06-06/14-stable on 2 L of oxygen DTs with improving encephalopathy from alcohol withdrawal C. difficile colitis-decreased stools Postobstructive diuresis -weight down 18 kg in the past 3 days Sinus tachycardia-improved Abdominal pain 06/16 due to malfunctioning Moe catheter/urinary retention Hypertensive emergency/oejjsff-trbhqgcz-daxxc pressure still elevated, restart Norvasc Chronic alcohol abuse with alcoholic liver disease-the patient states he intends to quit drinking completely after discharge Hypokalemia worse this morning despite replacement yesterday, likely secondary to continued spontaneous diuresis Hypomagnesemia-replacing IV this morning Hypophosphatemia-resolved Hypocalcemia-mild Hyperglycemia-A1c 6.1 on 06/15/17 Hypernatremia-resolved Tobacco dependence Obesity-BMI 33.2 on admission DVT left arm-PICC removed 2016 and started on therapeutic dose Lovenox Oral herpes lesions-started acyclovir 06/18/2017 Plan: Recheck potassium and magnesium and recheck Restart Norvasc for hypertension Consult pharmacy to initiate Coumadin for DVT Continue to monitor for signs or symptoms of infection/sepsis. Appreciate Dr. Rojas' consultation Continue Seroquel for alcohol withdrawal Continue metronidazole (started 06/15/2017) and probiotics for C. difficile. Blood sugars well controlled off of TPN. Will DC Accu-Cheks Steroids discontinued 06/17/2017. They had been started for ARDS which has resolved. We'll stop clamping Moe and monitor urine output. Greater than 40 minutes of critical care time spent seeing and evaluating the patient and reviewing the chart. Discussed with the family and patient's nurse. 06/20/2017-Dr. 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 Blood cultures negative so far. Chest x-ray stable. Urinalysis negative. Acute respiratory failure due to ARDS/volume overload-intubated 06/06-06/14-on room air currently DTs with improving encephalopathy from alcohol withdrawal C. difficile colitis-decreased stools Postobstructive diuresis Fluid overload-now down to admission weight Sinus tachycardia-improved Abdominal pain 06/16 due to malfunctioning Moe catheter/urinary retention Hypertensive emergency/mtbxohu-dlgivwkt-xitpr pressure lower this morning, hold Norvasc, consider holding lisinopril Chronic alcohol abuse with alcoholic liver disease-the patient states he intends to quit drinking completely after discharge Hypokalemia -improved Hypomagnesemia-replacing IV this morning Hypophosphatemia-resolved Hypocalcemia-mild Hyperglycemia-A1c 6.1 on 06/15/17 Hypernatremia-resolved Tobacco dependence Obesity-BMI 33.2 on admission DVT left arm-PICC removed 06/18/2017 and started on therapeutic dose Lovenox, Coumadin initiated 06/19/2017 Oral herpes lesions-started acyclovir 06/18/2017 Plan: Replace magnesium May need to decrease potassium tomorrow, currently on 20 mEq by mouth 3 times a day Hold Norvasc Continue to monitor for signs or symptoms of infection/sepsis. Decrease Seroquel to 15 mg by mouth 3 times a day Continue metronidazole (started 06/15/2017) and probiotics for C. difficile. Steroids discontinued 06/17/2017. They had been started for ARDS which has resolved. Continue to monitor closely regarding postobstructive diuresis. If the patient is hypotensive or tachycardia worsens, may need to add IV fluids. Greater than 40 minutes of critical care time spent seeing and evaluating the patient and reviewing the chart. Discussed with the family and patient's nurse.
[2017-06-21] MEDS ORDERED: MAGNESIUM SULFATE 1gm PREMIX 1 GM/100 ML BAG IV ONE (09:37)
--- NOTE | 2017-06-21 11:18 | Progress Note ---
Subjective Date: 06/21/17 Subjective: Patient reports having fevers since yesterday. Tm is 102.5. He started having crampy/spasm-type pains in the right neck, going down the right side of his back. Reports he was up walking some over the weekend. He denies cough or dyspnea. He is on O2. CXR this morning shows R-sided infiltrate/effusion. Blood cultures were repeated, and sputum culture, which is showing normal dinah. He reports the diarrhea is getting a little more formed, and the volume and frequency seem to be improving. Exam Vital Signs: Temperature 98.8 F 06/21/17 08:00 Pulse Rate 119 H 06/21/17 08:00 Respiratory Rate 31 H 06/21/17 08:00 Blood Pressure 158/84 H 06/21/17 08:00 Pulse Oximetry 92 06/21/17 08:00 Oxygen Delivery Method Nasal Cannula Oxygen Flow Rate 2 Fraction of Inspired Oxygen 50 SaO2/FiO2 Ratio 206 Height/Weight/BMI: Height 1.85 m Weight 117.1 kg Body Mass Index 39.4 - Constitutional Present: no acute distress, well nourished, well developed - Routine HEENT Exam Head: Present: normocephalic, atraumatic Eye: Present: EOMI, PERRL ENT: Present: mucous membranes moist, dentition normal Comments: lip lesions consistent with HSV, scabbed - Routine Neck Exam Present: supple - Routine Respiratory Exam Present: decreased breath sounds (R base), CTA bilaterally (anteriorly) - Routine Cardiovascular Exam Present: RRR. Absent: murmur - Routine Abdominal Exam Present: soft, non distended. Absent: tenderness, rebound, guarding Comments: decreased bowel sounds - Routine Extremities Exam Present: edema (mild, LUE, trace edema LEs). Absent: cyanosis - Routine Skin Exam Present: intact. Absent: rash - Routine Neurological Exam Present: alert, oriented X3, CN II-XII intact - Routine Psychiatric Exam Present: normal affect Results - Labs CBC & Chem 7: 06/21/17 04:08 06/21/17 04:08 Microbiology Results: Microbiology 06/16/17 10:45 Cath/Port/Line/Picc Blood Culture - Final No Growth After 5 Days 06/16/17 10:55 Cath/Port/Line/Picc Blood Culture - Final No Growth After 5 Days 06/20/17 16:30 Sputum, Expectorated Gram Stain - Final 06/20/17 16:30 Sputum, Expectorated Sputum Culture - Preliminary Normal Respiratory Dinah Present 06/20/17 20:30 Peripheral/Iv Start Blood Culture - Preliminary Culture Initiated - Results Pending 06/20/17 20:31 Peripheral/Iv Start Blood Culture - Preliminary Culture Initiated - Results Pending 06/17/17 11:52 Cath/Port/Line/Picc Blood Culture - Preliminary No Growth After 3 Days 06/17/17 11:56 Cath/Port/Line/Picc Blood Culture - Preliminary No Growth After 3 Days 06/06/17 11:34 Peripheral/Iv Start Blood Culture - Final No Growth After 5 Days 06/06/17 11:34 Peripheral/Iv Start Blood Culture - Final No Growth After 5 Days 06/06/17 11:00 Sputum, Suctioned Gram Stain - Final 06/06/17 11:00 Sputum, Suctioned Sputum Culture - Final Normal Respiratory Dinah - ABG Interpretation ABG results: 06/05/17 06/06/17 06/06/17 17:41 04:35 09:25 ABG pH 7.360 7.380 7.460 H ABG pCO2 55 H 53 H 42 ABG pO2 114 H 64 L 133 H ABG HCO3 31 H 31 H 30 H ABG Total CO2 32.8 H 33.0 H 31.2 H ABG O2 Saturation 98.0 92.0 L 99.0 H ABG Base Excess 4.4 H 5.0 H 5.5 H 06/06/17 06/07/17 06/08/17 15:05 09:55 07:50 ABG pH 7.450 7.370 7.391 ABG pCO2 41 52 H 50 H ABG pO2 65 L 82 98 ABG HCO3 29 H 30 H 31 H ABG Total CO2 29.8 H 31.7 H 32 H ABG O2 Saturation 93.0 L 96.0 97.0 ABG Base Excess 4.1 H 3.7 H 5.0 H 06/09/17 06/14/17 06/14/17 08:35 10:10 14:42 ABG pH 7.470 H 7.460 H 7.480 H ABG pCO2 44 41 36 ABG pO2 88 65 L 65 L ABG HCO3 32 H 29 H 27 H ABG Total CO2 33.4 H 30.5 H 27.9 H ABG O2 Saturation 97.0 94.0 L 94.0 L ABG Base Excess 7.4 H 4.9 H 3.3 H Impression: Sepsis secondary to GI source, improving R infiltrate and pleural effusion, ? VAP vs effusion secondary to pancreatitis Alcoholic pancreatitis, with pancreatic necrosis seen on CT Clostridium difficile infection Acute hypoxic respiratory failure, improved, s/p steroids DTs with improving encephalopathy from alcohol withdrawal Alcoholic liver disease Oral HSV Fever Recommendation: Continue flagyl for C. difficile. Will add cefepime and Vancomycin for VAP coverage. Per Dr. Calderón, thoracentesis is planned today. Would send pleural fluid for gram stain and culture. Continue Acyclovir for now. Sepsis Assessment - Evaluation Sepsis screening result: Sepsis Risk
[2017-06-21] MEDS ORDERED: VANCOMYCIN - PHARMACY CONSULT MC ONE (11:30)
[2017-06-21] MEDS ORDERED: NS 1,000 ML IV SCH (12:15)
[2017-06-21] MEDS: CEFEPIME 1 GM in NS 100 ML IV SCH ×2 (13:04→18:02)
--- NOTE | 2017-06-21 19:17 | Pharmacy Consult-Antibiotics ---
Pharmacy Consult-Vancomycin - Laboratory Information WBC 11.4 T/MM3 (4.5-11.0) H 06/21/17 04:08 BUN 11.0 MG/DL (9-20) 06/21/17 04:08 Creatinine 0.6 MG/DL (0.8-1.5) L 06/21/17 04:08 Procalcitonin 1.71 NG/ML 06/21/17 09:57 Vancomycin Trough 16.10 UG/ML (15-20) 06/07/17 08:34 - Consult Information 36 y.o male started on Vancomycin per pharmacy protocol for coverage of VAP. goal trough range= 15 to 20 mcg/ml Will give Vancomycin 2 G IV Q8H. This gives a predicted trough of 15 mcg/ml. Pharmacy will continue to monitor and adjust as needed. Thank you for the Vancomycin dosing protocol, Alicia Ocasio [facility]
[2017-06-21] MEDS: AMLODIPINE 10 MG TABLET PO SCH (19:40)
[2017-06-22] MEDS: CEFEPIME 1 GM in NS 100 ML IV SCH ×4 (00:25→18:48)
[2017-06-22] MEDS: MORPHINE SULFATE 4 MG SYRINGE IVP PRN ×3 (01:01→17:00)
[2017-06-22] MEDS: OXAZEPAM 15 MG CAPSULE PO SCH ×5 (02:56→20:50)
[2017-06-22] MEDS: ALBUTEROL/IPRATROPIUM 2.5mg-0.5mg/3ml NEB IPPB SCH ×3 (07:19→18:54)
--- NOTE | 2017-06-22 08:43 | XRay Report ---
Indication: pneumonia and effusion PROCEDURE: XR chest 1V: Encounter: Initial Comparison: June 21, 2017 Findings: New right PICC line in place with the tip projecting over the lower SVC. Continued consolidation in the right lung base with small bilateral pleural effusions, right greater than left. No pneumothorax. No significant change from the prior. Heart size and mediastinal contours are stable. Pulmonary vascularity is mildly congested. Impression: New right PICC line appears appropriately positioned. .
[2017-06-22] MEDS: LACTOBACILLUS (15B cfu) CAPSULE PO SCH ×3 (08:45→16:56)
[2017-06-22] MEDS: MetroNIDAZOLE 500 MG TABLET PO SCH ×3 (08:45→16:56)
[2017-06-22] MEDS: CALCIUM 600 + VIT D 400 TABLET PO SCH ×2 (08:46→20:50)
[2017-06-22] MEDS: NICOTINE 21 MG PATCH TD SCH (08:47)
[2017-06-22] MEDS: NICOTINE PATCH REMOVAL TD SCH (08:47)
[2017-06-22] MEDS: FOLIC ACID 1 MG TABLET PO SCH (08:47)
[2017-06-22] MEDS: ACYCLOVIR 200 MG CAPSULE PO SCH ×3 (08:48→20:50)
[2017-06-22] MEDS: HYDROCODONE/APAP 7.5 MG/325 MG TABLET PO PRN ×4 (08:48→21:58)
[2017-06-22] MEDS: AMLODIPINE 10 MG TABLET PO SCH (08:48)
[2017-06-22] MEDS: FAMOTIDINE 20 MG TABLET PO SCH ×2 (08:49→20:50)
--- NOTE | 2017-06-22 10:00 | Progress Note ---
Subjective: The patient was seen this morning in his room accompanied by his . He was sitting up in a chair. Heart rate was 120s to 130s. Systolic blood pressure was 140/107. He stated that he thinks he got caffeinated coffee this morning instead of decaf and has been feeling a little jittery. His nurse states that he has had more anxiety since finding out he needed a thoracentesis yesterday. He has required IV Ativan and IV narcotics and this seems to have helped. The patient continues to have occasional right upper quadrant pain, right sided back pain and right sided pain around the clavicle. He states he received pain medication recently and the pain is currently better. He states he is taking deeper breaths today to help with his feeling of being anxious. He denies specifically feeling short of breath. He denies any hemoptysis today. Stool was more formed today. He still has a Moe catheter in and urine output has slowed down compared to last week when he had postobstructive diuresis Objective Vital signs: Temperature 99.2 F 06/22/17 07:00 Pulse Rate 120 H 06/22/17 07:00 Respiratory Rate 16 06/22/17 07:18 Blood Pressure 157/102 H 06/22/17 07:00 Pulse Oximetry 96 06/22/17 07:00 Oxygen Delivery Method Nasal Cannula Oxygen Flow Rate 2 Fraction of Inspired Oxygen 50 SaO2/FiO2 Ratio 206 Rhythm: Normal Sinus Rhythm Height/Weight/BMI: Height 1.85 m Weight 118.7 kg Body Mass Index 39.4 Comments: GEN-alert, oriented, mild anxiety HEENT-sclera anicteric, oropharynx is moist NECK-supple CV-tachycardic rate with irregular rhythm CHEST-decreased breath sounds in the right lower lung field ABD-soft, nontender, nondistended with positive bowel sounds -Moe in place with good urine output EXT-+1-2 lower extremity edema bilaterally. No edema in the upper extremities. PICC line in the right arm NEURO-no tremulousness, no focal deficits SKIN-warm and dry without rashes Results - Labs CBC & Chem 7: 06/22/17 04:23 06/22/17 04:23 Labs: INR is 1.46 down from 2.58 yesterday. He did receive vitamin K 1 Hemoglobin is 9.6 and his been trending down lowly since last week where it was mostly in the 11.5-12 range Magnesium is 1.4 Phosphorus 3.6, calcium 8.1, Albumin 2.9 Lactate yesterday was 2. 7 in the morning, 2. 3 in the afternoon, and 2.0 in the evening Microbiology Results: Microbiology 06/20/17 16:30 Sputum, Expectorated Gram Stain - Final 06/20/17 16:30 Sputum, Expectorated Sputum Culture - Final Normal Respiratory Dinah including Yeast Present 06/20/17 20:30 Peripheral/Iv Start Blood Culture - Preliminary No Growth After 1 Day 06/20/17 20:31 Peripheral/Iv Start Blood Culture - Preliminary No Growth After 1 Day 06/17/17 11:52 Cath/Port/Line/Picc Blood Culture - Preliminary No Growth After 4 Days 06/17/17 11:56 Cath/Port/Line/Picc Blood Culture - Preliminary No Growth After 4 Days 06/16/17 10:45 Cath/Port/Line/Picc Blood Culture - Final No Growth After 5 Days 06/16/17 10:55 Cath/Port/Line/Picc Blood Culture - Final No Growth After 5 Days 06/06/17 11:34 Peripheral/Iv Start Blood Culture - Final No Growth After 5 Days 06/06/17 11:34 Peripheral/Iv Start Blood Culture - Final No Growth After 5 Days 06/06/17 11:00 Sputum, Suctioned Gram Stain - Final 06/06/17 11:00 Sputum, Suctioned Sputum Culture - Final Normal Respiratory Dinah - ABG Interpretation ABG results: 06/05/17 06/06/17 06/06/17 17:41 04:35 09:25 ABG pH 7.360 7.380 7.460 H ABG pCO2 55 H 53 H 42 ABG pO2 114 H 64 L 133 H ABG HCO3 31 H 31 H 30 H ABG Total CO2 32.8 H 33.0 H 31.2 H ABG O2 Saturation 98.0 92.0 L 99.0 H ABG Base Excess 4.4 H 5.0 H 5.5 H 06/06/17 06/07/17 06/08/17 15:05 09:55 07:50 ABG pH 7.450 7.370 7.391 ABG pCO2 41 52 H 50 H ABG pO2 65 L 82 98 ABG HCO3 29 H 30 H 31 H ABG Total CO2 29.8 H 31.7 H 32 H ABG O2 Saturation 93.0 L 96.0 97.0 ABG Base Excess 4.1 H 3.7 H 5.0 H 06/09/17 06/14/17 06/14/17 08:35 10:10 14:42 ABG pH 7.470 H 7.460 H 7.480 H ABG pCO2 44 41 36 ABG pO2 88 65 L 65 L ABG HCO3 32 H 29 H 27 H ABG Total CO2 33.4 H 30.5 H 27.9 H ABG O2 Saturation 97.0 94.0 L 94.0 L ABG Base Excess 7.4 H 4.9 H 3.3 H - Impressions Chest x-ray today shows continued consolidation in the right lung base with small bilateral pleural effusions, right greater than left. No pneumothorax. No significant change from yesterday. I have reviewed the films and agree. Assessment and Plan (1) Pancreatitis Problem details: POA: ETOH induced. RUQ US negative for obstructive stones. MRCP nondiagnostic due to motion artifact however no obvious gallstones, pancreatitis head thickened, intrahepatic ducts nondilated. Current visit: Yes Status: Acute 06/04/17 03:34 due to continued drinking. RUQ US negative for obstructive stones. Patient started on aggressive IVF, electrolyte replacement and morphine PRN. Repeat labs at 7:00 am. Patient does have elevated lacate, likely due to acute pancreatitis. Continue supportive care. (2) Alcoholic liver damage Current visit: Yes Status: Acute (3) Hypertension Current visit: Yes Status: Chronic (4) DTs (delirium tremens) Current visit: Yes Status: Acute (5) Acute respiratory failure Problem details: Intubated 06/06-06/14; ARDS/volume overload Current visit: Yes Status: Acute (6) ETOHism Current visit: Yes Status: Chronic Assessment and Plan: 06/22/2017-Dr. 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 MAXIMUM TEMPERATURE 100.3. Blood cultures negative so far. Urinalysis negative. Chest x-ray shows right sided infiltrate and bilateral pleural effusions. Cefepime and Vanco started 2016. Elevated lactate morning of 06/21/2017, resolved with 1 L of IV fluids and initiation of antibiotics. No right-sided effusion 06/21/2017-scheduled for thoracentesis 06/22/2017 Healthcare associated pneumonia- Cefepime and Vanco started 06/21/2017. Acute respiratory failure due to ARDS/volume overload-intubated 06/06-06/14 DTs with improving encephalopathy from alcohol withdrawal-Serax decreased 2016 C. difficile [id number] metronidazole since 06/15/2017 Anemia -slow trend down in hemoglobin since admission. Initiate anemia workup. Postobstructive diuresis -resolved Fluid overload-improved Sinus tachycardia Hypertensive emergency/urgency-improved on clonidine and metoprolol. Norvasc and lisinopril are currently on hold Chronic alcohol abuse with alcoholic liver disease-the patient states he intends to quit drinking completely after discharge Hypomagnesemia-stable now at 1.4 despite multiple doses of IV magnesium. Hypocalcemia-mild Tobacco dependence Obesity-BMI 33.2 on admission DVT left arm-PICC removed 06/18/2017 and started on therapeutic dose Lovenox, Coumadin initiated 06/19/2017 Oral herpes lesions-started acyclovir 06/18/2017 Plan: Thoracentesis today with Dr. Renee. Will need Gram stain and culture of fluid. INR has improved after vitamin K. Lovenox is on hold. Dr. Renee to restart Lovenox for DVT left arm post thoracentesis. Continue cefepime and Vanco for now for healthcare associated pneumonia. Continue metronidazole for C. difficile. Continue acyclovir for recurrent herpes outbreak of mouth. Start oral magnesium and monitor magnesium level Restart lisinopril for hypertension but at lower dose of 20 mg instead of 40 mg. We'll increase further if needed Initiate anemia workup CATHRYN Meo later today after thoracentesis if patient doing well. Greater than 45 minutes of critical care time spent seeing and evaluating the patient and reviewing the chart. Discussed with the family and patient's nurse. Sepsis Assessment - Evaluation Sepsis screening result: Sepsis Risk Hospital Course Summary Disclaimer: The visit summary below is not to be considered part of the above Progress Note. Hospital Course: 06/04/17 1) Alcohol use and abuse with ongoing pancreatitis, this could be related to ETOH, or due to gallstones (U/S could not see distal CBD - bilirrubin high) or both. - Check Abd/Pelvic CT with IV contrast re: Extent of pancreatic swelling ? abscess ? hemorrhage ? also Pyelonephritis ? - Check MRCP - pt could be obstructed since Bilirrubin is high. Pt states he noticed his skin is yellow. - Aggressive hydration with NS 500cc/hr x 6 hrs then reasses 2) UTI - very high lactate - high WBC - On Rocephin will continue for now. 3) Hypokalemia/Hypomagenesemia - Will give Mg + K 4) Lactic acidosis - due to ? sepsis ? hypoperfusion ? - Will recheck later today. 5) Elevated hemoglobin - Will follow serially. 06/05/17 1) ALCOHOL ABUSE WITH A) SEVERE AGITATION/CONFUSION ? OF HALLUCINATIONS MOST LIKELY DUE TO ALCOHOL WITHDRAWALS - On Propofol drip - Tachycardic - Will also give Ativan IV ND. - Check CPK (R/O Rhabdo due to agitation) - Aggressive hydration and electrolyte replenishment. B) Pancreatitis most likely related to ETOH MRCP Impression: 1. No cholelithiasis or intrahepatic bile duct dilatation. Evaluation of the extrahepatic common duct is poor due to motion artifact and patient body habitus. No obvious common duct stone. 2. Enlargement of the pancreatic head which could be due to inflammation from pancreatitis or potentially neoplasm. Recommend further evaluation with a contrast-enhanced CT of the abdomen. - Lipase coming down - Check CA 19-9 prior to D/C and follow closely his pancreatic anatomy by CT/ MRI. Transferred to CCU due to alcohol withdrawal. 06/06/17 1) PULMONARY ASSESMENT A) Pt has developed ALI/ARDS - ABG on FIO2 of 80% showed PaO2 of 133 with CO2 of 42 - huge a-A gradient that has increased since yesterday. - Pt was intubated successfully by ED MD - Saturations are 91 on 100% FIO2. ET tube appears to be well positioned. - Pt requires high PEEP. - Could be related to pancreatitis, or PNA - Pt has a L sided effussion - could be related to pancreatitis. Must R/O Boherhave's syndrome will try a CT chest with gastrograffin injection in the mid esophagus. - Start coverage for HAP - Vanco + cefepime + steroids - Add Mucomyst for possible mucus plugg. - Case discussed with his NOK - significant other, she consented for intubation. - Reculture blood & sputum B) Obstructive Sleep Apnea (New Dx) - Was on CPAP - now intubated. 2) ALCOHOL ABUSE WITH MULTIPLE COMPLICATIONS - A) SEVERE AGITATION/CONFUSION ? OF HALLUCINATIONS MOST LIKELY DUE TO ALCOHOL WITHDRAWALS - On propofol since yesterday. - On Propofol drip - Continue. - Tachycardic/hypertensive - CPK - 1261 Yesterday - C/W rhadbomyolisis - will rehceck - Aggressive hydration and electrolyte replenishment. B) Pancreatitis most likely related to ETOH - Lipase coming down - Check CA 19-9 prior to D/C and follow closely his pancreatic anatomy by CT/MRI. - Add Banana bags - C) Hypokalemia on admission - K is high today. - Stop NS with K - Recheck later. D) Hypomagnesemia - now improved. E) Severe hypophosphatemia - Risk of hemolysis - CHF & could be causing low Platelets. - PO4 is under 1 - Spoke with Pharm Jasmine De Souza - Will give 90 Mmol of Na Phosphate F) Dehydration - Appears improved now, will hold off on aggressive hydration will place on Banana bag @ 50ml/hr x 3 Liters. G) Rhabdomyolisis - cuuld be due to his severe agitation. - Recheck CPK now. 3) INFECTIOUS DISEASE ASSESMENT A) UTI - very high lactate - high WBC - On Rocephin will continue for now. B) ? Of HAP ? - Will cover with Vanco + Cefepime - Add Mucomyst for possible mucus plug - Continue Duonebs - Add Steroids. - Lactate is dropping 3) CARDIOVASCULAR ASSESSMENT A) Hypertension - moderate to severe - On BB PRN will schedule with parameters B) Will check EKG due to low Ca and due to severe agitation - R.O MN. 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 06/07/[address] Renee for Pulm evaluation and to help with ventilator management. Continue IV antibiotics - possible aspiration pneumonia/pneumonitis Continue Sedation - with current decreased pulmonary statue, likely too early to work on weaning sedation. Start TPN for nutritional support. Will stop IVF when TPN ready. Continue to monitor lab due to pt's severity of illness. Patient remains critically ill, ICU care warranted. 06/08/17 Continue with mechanical ventilation as per Dr Renee. In discussion with Dr Renee, will deescalate IV antibiotic use (likely respiratory failure from ARDS due to pancreatitis, still some concern for possible aspiration) Will stop Vancomycin, cefepime and clindamycin. Initiate Unasyn for coverage. Will continue Solu-Medrol at 40mg IV q 8 hours. Will stop Mucomyst - monitor for increase secretions. Blood pressure with elevation today. Bumex 1mg given this morning and afternoon to help decrease volume. Urine output appropriate, but pressures remain high. Start Nipride drip to ease down blood pressure. TPN continues-discussed with pharm about electrolyte adjustments. 10 units of Lantus given this morning to help sugars - did monitor sugars more frequently and gave additions SQ doses of insulin. Will start 20 units of Lantus this evening. Insulin sliding scale changed to high dose regimen. Continue propofol for sedation. Patient remains critically ill. CCU care an support required. 06/09/17 Recheck Lipase and CPK this am show normalization. Continue with mechanical ventilation as per Dr Renee. Continue Unasyn for antimicrobial coverage. Additional insulin to be given to help improve glycemic control. Extra SQ dosing during day. Increase Lantus to 45 units at night. Sugars elevated due to TPN and Solu-Medrol. Bumex 1mg given this morning to help decrease volume. Will give additional Bumex 1mg this afternoon. Nipride drip continues for BP control. TPN continues-discussed with pharm about electrolyte adjustments. Will remove sodium to decrease sodium level and OSMO. Increase KPhos. Continue propofol for sedation. Patient remains critically ill. CCU care an support required. 06/10/17 15:56 Patient continues to require ventilatory assistance with high pressures and FiO2 of 60% increased to 70% this afternoon after desaturating. Weight up significantly since admission, volume status +18.7 L from admission, edema on exam-will begin diuresing with scheduled Lasix. Continue propofol; discussed conversion to Precedex with Dr. Renee but with respiratory instability will not make changes at this time. Check triglycerides in a.m. Continue Unasyn/steroids. Remains hyperglycemic; Lantus increased to 50 units and corrective scale modified upward. Blood pressures modestly elevated; on IV metoprolol, Catapres patch, and nicardipine drip. Convert to enteral metoprolol per NG. Begin low-volume feedings per NG; dietary consultation for recommendations. Continue TPN for nutritional support. Patient remains critically ill. 06/11/17 16:18 Patient continues to require ventilatory assistance with FiO2 of 50% and PEEP of 8-both improved from yesterday. Continue diuresis with goal of equal/negative fluid balance daily. X-ray most consistent with volume overload-no focal infiltrate. Patient has been on antibiotics since 06/04 (ceftriaxone 06/04-06/06; cefepime/ clindamycin/vancomycin 06/06-06/08; Unasyn 06/08-current); sputum culture normal dinah -we'll discontinue antibiotics. On Solu-Medrol for pulmonary inflammation-discussed with Dr. Renee-decreased dose to 40 mg every 12 hours and continue to monitor. Remains hyperglycemic; Lantus increased to 50 units daily at bedtime with 20 units added every morning. Continue corrective scale insulin. Blood pressures modestly elevated; on by mouth metoprolol, Catapres patch, and nicardipine drip. Amlodipine added. Begin low-volume feedings per NG with Glucotrol; dietary consultation for recommendations. Continue TPN for nutritional support. Triglycerides pending to monitor propofol/ TPN. Hypernatremia slightly improved with TPN modifications, low-volume free water added to enteral tube feedings. 06/12/17 12:54 Patient continues to require ventilatory assistance with FiO2 of 50% and PEEP of 7. Continue diuresis with goal of equal/negative fluid balance daily. Bumex increased to 1 mg IV every 6 hours. Antibiotics discontinued yesterday (06/11) after total of 8 days (ceftriaxone 06/04 -06/06; cefepime/clindamycin/vancomycin 06/06-06/08; Unasyn 06/08-current). sputum culture normal dinah-we'll discontinue antibiotics. On Solu-Medrol for pulmonary inflammation 40 mg every 12 hours and continue to monitor. Remains hyperglycemic; Lantus increased to 20 units every morning and 50 units daily at bedtime yesterday. Fasting glucose 242 today. Continue corrective scale insulin. Anticipate beginning to titrate off TPN in the next couple of days-corrective scale modified but will not increase basal insulin at present. Blood pressures modestly elevated; on metoprolol, Catapres patch, and nicardipine drip. Amlodipine added yesterday-dose increased to 10 mg daily today and lisinopril added at 20 mg daily. Hope to titrate nicardipine off in next 24 hours. Tolerating Glucotrol at 25 mL per hour-rate increased to 40 mL per hour; dietary consultation for recommendations. Continue TPN for nutritional support. Triglycerides pending to monitor propofol/ TPN. Hypernatremia slightly improved with TPN modifications, low-volume free water added to enteral tube feedings. Potassium down today with diuresis-replaced and early and modified in TPN. 06/13/17 14:26 Patient continues to require ventilatory assistance with FiO2 of 50% and PEEP of 7. On Solu-Medrol for pulmonary inflammation 40 mg every 12 hours and continue to monitor. BUN/creatinine beginning to climb, Lasix and then Bumex have been ineffective in producing net diuresis. Significant edema but fluid is largely and subcutaneous tissues. Frequency of Bumex decreased to avoid worsening of renal function, XIAO siu added an attempt to mobilize fluid. Antibiotics discontinued yesterday 06/11 after total of 8 days (ceftriaxone 06/04-; cefepime/clindamycin/vancomycin 06/06-06/08; Unasyn 06/08-current). Blood sugars slowly [id number] in the past 24 hours; Lantus 20 units every morning and 50 units daily at bedtime currently. Blood pressures modestly elevated; on metoprolol 25 twice a day, amlodipine 10 daily, Catapres 2 patch, lisinopril 20/day and nicardipine drip. Tolerating Glucotrol at 25 mL per hour-intended to increase rate to 40 mL per hour yesterday however order was missed; will increase rate to 50 mL per hour 12 hours and then 75 mL per hour. Discussed with nursing. Decrease TPN infusion rate to 50% current infusion rate if continues to tolerate enteral feeds at higher rates. Continue TPN for nutritional support. Triglycerides pending to monitor propofol/ TPN. Hypernatremia improving with TPN modifications, low-volume free water added to enteral tube feedings. Patient now able to indicate throat discomfort but denies abdominal pain. Restlessness frequently described. Chronic alcohol abuse, alcohol withdrawal may still be underlying much of need for sedation/hypertension-Serax initiated at 30 mg every 6 hours. Wean propofol as able, chest x-ray/ABG in a.m. 06/14/17 17:39 Extubated midafternoon. Requiring 8 L supplemental oxygen to maintain saturation and appears to be slightly labored at the time of my assessment. High probability that BiPAP will be needed overnight for support. Continue Solu-Medrol for pulmonary inflammation 40 mg every 12 hours and continue to monitor. BUN/creatinine up further today, diuretics on hold. Significant edema but fluid is largely and subcutaneous tissues. XIAO siu added an attempt to mobilize fluid. Antibiotics discontinued yesterday 06/11 after total of 8 days (ceftriaxone 06/04-; cefepime/clindamycin/vancomycin 06/06-06/08; Unasyn 06/08-current). Blood sugars slowly improving-TPN being discontinued, Lantus discontinued as a result. Continue to monitor blood sugars and corrective scale insulin available as needed. OG removed when patient extubated-tube feedings discontinued. Soft diet ordered postextubation with nutritional supplements. Blood pressures modestly elevated; on metoprolol 25 twice a day, amlodipine 10 daily, Catapres 2 patch, lisinopril 20/day and nicardipine drip. Lisinopril increased to 40 mg daily. Triglycerides pending to monitor propofol/TPN. Hypernatremia improving with TPN modifications, low-volume free water added to enteral tube feedings. Continue to monitor off TPN. Chronic alcohol abuse, alcohol withdrawal may still be underlying much of need for sedation/hypertension-Serax initiated at 30 mg every 6 hours. Requesting alcohol shortly after extubation; continue Serax/when necessary lorazepam. PT/OT ordered; seen by speech therapy postextubation today. 06/15/17 15:51 Patient has tolerated extubation well and has titrated from 8 L supplemental oxygen to 4 L supplemental oxygen currently. Refused BiPAP last night. Diuresing without diuretics, BUN/creatinine slightly higher today. Taking liquids orally well and will continue to monitor volume/renal function. Convert to oral steroids from current low-dose Solu-Medrol. C. difficile identified overnight-oral Flagyl initiated and probiotics added today. Antibiotics discontinued 06/11 after total of 8 days (ceftriaxone 06/04-06/06; cefepime/clindamycin/vancomycin 06/06-06/08; Unasyn 06/08-8/11). Blood sugars slowly improving-TPN discontinued, Lantus discontinued yesterday. Corrective insulin as needed. Check A1c. Soft diet ordered postextubation with nutritional supplements. Blood pressure remains elevated; on metoprolol 50 twice a day, amlodipine 10 daily, Catapres 2 patch, lisinopril 40/d; nicardipine drip overnight but has been titrated off. Persistent low-grade tachycardia-metoprolol increased to 100 mg twice a day and hydralazine when necessary initiated. Hypernatremia resolving. Other electrolyte abnormalities stabilized. Chronic alcohol abuse, continue Serax at 30 mg every 6 hours. Requested alcohol shortly after extubation. As patient becomes more alert will begin tapering. PT/OT today; would like to begin getting patient out of bed if possible. 06/16/17 20:30 CT scan repeated earlier today due to increased abdominal pain-Moe catheter found to be in urethra with massive distention of the bladder (although patient had urine output of 100-300 mL per hour at the time). Moe catheter replaced with immediate resolution of abdominal pain, nausea, and flushing. Prior to identification of urinary retention blood cultures were obtained due to concern that patient may have sepsis triggering symptoms. No indication of pancreatic or intra-abdominal abscess. Low-fat diet due to recent pancreatitis. Ongoing diarrhea-day to metronidazole/probiotics for C. difficile identified . Doing well postextubation (06/14) On 1 L or RA with good oxygenation over the past 24 hours although oxygenation is in the lower 90s this evening. Diuresing briskly prior to Moe change, appears to have post obstructive diuresis following Moe catheter change with almost 9 L urine output thus far today. May require fluid replacement therapy if blood pressure drops-discussed with nursing. IV Antibiotics discontinued 06/11 after total of 8 days (ceftriaxone 06/04-06/06; cefepime/clindamycin/vancomycin 06/06-06/08; Unasyn 06/08-06/11). Blood sugars slowly improving-TPN discontinued, Lantus discontinued 06/14. Corrective insulin as needed. A1c 6.1. Blood pressure stabilizing; on metoprolol 100 twice a day, amlodipine 10 daily, Catapres 2 patch, lisinopril 40/d; nicardipine drip off past 24 hours. Continue diuresis may be able to begin decreasing blood pressure medications. Hypernatremia resolving. Other electrolyte abnormalities stabilized. Chronic alcohol abuse, continue Serax but will decrease to 30 mg every 8 hours. Continue PT/OT; would like to begin getting patient out of bed if possible. 06/17/2017-Dr. Calderón Assessment: Alcoholic pancreatitis Acute respiratory failure due to ARDS/volume overload-intubated 06/06-06/14 DTs C. difficile colitis Postobstructive diuresis with almost 18 L urine output in the past day and a half Sinus tachycardia, most likely secondary to being intravascularly dry due to postobstructive diuresis less likely to be secondary to alcohol withdrawal as the patient is currently alert and oriented and not tremulous and appears in no distress Abdominal pain 06/16 due to malfunctioning Moe catheter/urinary retention Hypertensive emergency/urgency-resolved, today with occasional borderline hypotension. Chronic alcohol abuse with alcoholic liver disease Hypokalemia- Hypomagnesemia-resolved Hypophosphatemia-resolved Hypocalcemia-resolved Hyperglycemia-A1c 6.1 on 06/15/17 Hypernatremia-resolved Tobacco dependence Obesity-BMI 33.2 on admission Plan: Regarding tachycardia is most likely secondary to intravascular dryness, will give half normal saline at 250 an hour 1-2 L. The patient has already received a 500 cc normal saline bolus. We'll reassess vital signs after IV fluids have been administered. Seroquel dose decreased slightly yesterday from 30 4 times a day to 30 3 times a day-watch closely for increasing signs of withdrawal Continue metronidazole (day 3) and probiotics for C. difficile. Rectal tube DC due to decrease diarrhea. From a respiratory standpoint, patient is doing well and is currently on room air. Continue to monitor blood sugars off of TPN Discontinue steroids which were started for ARDS Repeat basic metabolic profile this afternoon Replace potassium orally Low-dose Lovenox and SCDs for DVT prophylaxis Greater than 1 hour of critical care time spent seeing and evaluating the patient and reviewing the chart. Discussed with the family, patient's nurse, and Dr. Renee. 06/18/2017-Dr. Calderón Assessment: Necrotizing Alcoholic pancreatitis Fevers. White count is decreasing off of steroids. Blood cultures negative so far. Chest x-ray stable. Urinalysis negative. Acute respiratory failure due to ARDS/volume overload-intubated 06/06-06/14-stable on 2 L of oxygen DTs with improving encephalopathy from alcohol withdrawal C. difficile colitis Postobstructive diuresis Sinus tachycardia-improved Abdominal pain 06/16 due to malfunctioning Moe catheter/urinary retention Hypertensive emergency/wfyxooc-flnvdudf-oejcpkoe antihypertensives Chronic alcohol abuse with alcoholic liver disease Hypokalemia-mild Hypomagnesemia-resolved Hypophosphatemia-resolved Hypocalcemia-resolved Hyperglycemia-A1c 6.1 on 06/15/17 Hypernatremia-resolved Tobacco dependence Obesity-BMI 33.2 on admission Left arm edema with PICC line-rule out DVT Oral herpes lesions Plan: Monitor blood pressure closely after getting all of blood pressure medications this morning. Continue to monitor for signs or symptoms of infection/sepsis. Appreciate Dr. Roajs' consultation Continue Seroquel for alcohol withdrawal Check venous Doppler left arm to rule out DVT Continue metronidazole (day 4) and probiotics for C. difficile. Continue to monitor blood sugars off of TPN Steroids discontinued yesterday. They had been started for ARDS which has resolved. Replace potassium orally Low-dose Lovenox and SCDs for DVT prophylaxis Greater than 45 minutes of critical care time spent seeing and evaluating the patient and reviewing the chart. Discussed with the family, patient's nurse, and Dr. Rojas. 06/19/2017-Dr. 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 Blood cultures negative so far. Chest x-ray stable. Urinalysis negative. Acute respiratory failure due to ARDS/volume overload-intubated 06/06-06/14-stable on 2 L of oxygen DTs with improving encephalopathy from alcohol withdrawal C. difficile colitis-decreased stools Postobstructive diuresis -weight down 18 kg in the past 3 days Sinus tachycardia-improved Abdominal pain 06/16 due to malfunctioning Moe catheter/urinary retention Hypertensive emergency/xhbtskf-sqbafnsr-kfqau pressure still elevated, restart Norvasc Chronic alcohol abuse with alcoholic liver disease-the patient states he intends to quit drinking completely after discharge Hypokalemia worse this morning despite replacement yesterday, likely secondary to continued spontaneous diuresis Hypomagnesemia-replacing IV this morning Hypophosphatemia-resolved Hypocalcemia-mild Hyperglycemia-A1c 6.1 on 06/15/17 Hypernatremia-resolved Tobacco dependence Obesity-BMI 33.2 on admission DVT left arm-PICC removed 18 2017 and started on therapeutic dose Lovenox Oral herpes lesions-started acyclovir 06/18/2017 Plan: Recheck potassium and magnesium and recheck Restart Norvasc for hypertension Consult pharmacy to initiate Coumadin for DVT Continue to monitor for signs or symptoms of infection/sepsis. Appreciate Dr. Rojas' consultation Continue Seroquel for alcohol withdrawal Continue metronidazole (started 06/15/2017) and probiotics for C. difficile. Blood sugars well controlled off of TPN. Will DC Accu-Cheks Steroids discontinued 06/17/2017. They had been started for ARDS which has resolved. We'll stop clamping Moe and monitor urine output. Greater than 40 minutes of critical care time spent seeing and evaluating the patient and reviewing the chart. Discussed with the family and patient's nurse. 06/20/2017-Dr. 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 Blood cultures negative so far. Chest x-ray stable. Urinalysis negative. Acute respiratory failure due to ARDS/volume overload-intubated 06/06-06/14-on room air currently DTs with improving encephalopathy from alcohol withdrawal C. difficile colitis-decreased stools Postobstructive diuresis Fluid overload-now down to admission weight Sinus tachycardia-improved Abdominal pain 06/16 due to malfunctioning Moe catheter/urinary retention Hypertensive emergency/pxityca-kcspsruv-xdcya pressure lower this morning, hold Norvasc, consider holding lisinopril Chronic alcohol abuse with alcoholic liver disease-the patient states he intends to quit drinking completely after discharge Hypokalemia -improved Hypomagnesemia-replacing IV this morning Hypophosphatemia-resolved Hypocalcemia-mild Hyperglycemia-A1c 6.1 on 06/15/17 Hypernatremia-resolved Tobacco dependence Obesity-BMI 33.2 on admission DVT left arm-PICC removed 06/18/2017 and started on therapeutic dose Lovenox, Coumadin initiated 06/19/2017 Oral herpes lesions-started acyclovir 06/18/2017 Plan: Replace magnesium May need to decrease potassium tomorrow, currently on 20 mEq by mouth 3 times a day Hold Norvasc Continue to monitor for signs or symptoms of infection/sepsis. Decrease Seroquel to 15 mg by mouth 3 times a day Continue metronidazole (started 06/15/2017) and probiotics for C. difficile. Steroids discontinued 06/17/2017. They had been started for ARDS which has resolved. Continue to monitor closely regarding postobstructive diuresis. If the patient is hypotensive or tachycardia worsens, may need to add IV fluids. Greater than 40 minutes of critical care time spent seeing and evaluating the patient and reviewing the chart. Discussed with the family and patient's nurse. 06/21/2017-Dr. 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 Urinalysis negative. Chest x- ray yesterday showed possible basilar atelectasis versus early pneumonitis, today showing more infiltrate in the right base and a small to moderate pleural effusion on the right concerning for parapneumonic effusion No right-sided effusion 06/21/2017 possible pneumonia Acute respiratory failure due to ARDS/volume overload-intubated 06/06-06/14 DTs with improving encephalopathy from alcohol withdrawal-Serax decreased 2016 C. difficile colitis-decreased stools Postobstructive diuresis Fluid overload-improved Sinus tachycardia Abdominal pain 06/16 due to malfunctioning Moe catheter/urinary retention Hypertensive emergency/urgency-improved on clonidine and metoprolol. Norvasc and lisinopril are currently on hold Chronic alcohol abuse with alcoholic liver disease-the patient states he intends to quit drinking completely after discharge Hypokalemia -improved Hypomagnesemia-replacing IV this morning Hypophosphatemia-resolved Hypocalcemia-mild Hyperglycemia-A1c 6.1 on 06/15/17 Hypernatremia-resolved Tobacco dependence Obesity-BMI 33.2 on admission DVT left arm-PICC removed 06/18/2017 and started on therapeutic dose Lovenox, Coumadin initiated 06/19/2017 Oral herpes lesions-started acyclovir 06/18/2017 Plan: Discussed with Dr. Renee. Will hold Coumadin and Lovenox. Will give vitamin K 1 today. Probable thoracentesis later today regarding no effusion. Regarding possible pneumonia, will discuss with Dr. Rojas. May need to initiate antibiotics. Sputum culture shows gram-positive cocci in pairs Check pro-calcitonin and lactate Replace magnesium Replace potassium Continue metronidazole (started 06/15/2017) and probiotics for C. difficile. Steroids discontinued 06/17/2017. They had been started for ARDS which has resolved. Continue to monitor closely regarding postobstructive diuresis. If the patient is hypotensive or tachycardia worsens, may need to add IV fluids. Greater than 45 minutes of critical care time spent seeing and evaluating the patient and reviewing the chart. Discussed with the family and patient's nurse.
[2017-06-22] MEDS: LISINOPRIL 20 MG TABLET PO SCH (11:12)
[2017-06-22] MEDS: NS FLUSH BAG 500ml IV PRN (11:58)
--- NOTE | 2017-06-22 16:59 | Procedure Note ---
Date of procedure: 06/22/17 Pre-op diagnosis: pleural effusion Post-op diagnosis: same Procedure: US guided thoracentesis Anesthesia: local Surgeon: Paulo Renee MD Estimated blood loss (mL): 0 Pathology: none sent Condition: Stable Disposition: ICU (No fluid returned with attempt at right thoracentesis. No complication. CXR ordered)
[2017-06-22] MEDS: SALINE FLUSH 10ml SYRINGE IVF PRN (17:01)
--- NOTE | 2017-06-22 17:11 | Ultrasound Report ---
Indication: pleural effusion PROCEDURE: US thoracentesis Encounter: Initial Comparison: Chest x-ray from today Findings: Ultrasound guidance was performed to assist Dr. Renee in performing a right-sided thoracentesis. There is a moderate amount of right pleural fluid present. Impression: Findings as above. Please refer to the dictated procedural note for further details. .
[2017-06-23] MEDS: CEFEPIME 1 GM in NS 100 ML IV SCH ×5 (00:27→18:04)
[2017-06-23] MEDS: HYDROCODONE/APAP 7.5 MG/325 MG TABLET PO PRN ×4 (03:15→21:34)
[2017-06-23] MEDS: SALINE FLUSH 10ml SYRINGE IVF PRN ×2 (04:19→21:51)
--- NOTE | 2017-06-23 08:10 | XRay Report ---
Indication: after attempted thoracentesis, post procedure rule out PTX PROCEDURE: XR chest 1V: Encounter: Initial Comparison: June 22, 2017 Findings: Right PICC line remains in place. No visible pneumothorax. Continued airspace consolidation in both lower lung [place]zon, right greater than left. Small bilateral pleural effusions, also larger on the right. Cardiomediastinal contours are stable. Motion artifact limits the exam. Impression: No visible pneumothorax. There is a preliminary report by virtual radi[facility]. .
[2017-06-23] MEDS: MORPHINE SULFATE 4 MG SYRINGE IVP PRN ×2 (08:25→14:14)
[2017-06-23] MEDS: NICOTINE 21 MG PATCH TD SCH (09:01)
[2017-06-23] MEDS: ACYCLOVIR 200 MG CAPSULE PO SCH ×3 (09:01→21:23)
[2017-06-23] MEDS: LACTOBACILLUS (15B cfu) CAPSULE PO SCH ×3 (09:02→17:21)
[2017-06-23] MEDS: AMLODIPINE 10 MG TABLET PO SCH (09:03)
[2017-06-23] MEDS: FAMOTIDINE 20 MG TABLET PO SCH ×2 (09:03→21:41)
[2017-06-23] MEDS: CALCIUM 600 + VIT D 400 TABLET PO SCH ×2 (09:04→21:34)
[2017-06-23] MEDS: MetroNIDAZOLE 500 MG TABLET PO SCH ×3 (09:04→17:23)
[2017-06-23] MEDS: FOLIC ACID 1 MG TABLET PO SCH (09:04)
[2017-06-23] MEDS: NICOTINE PATCH REMOVAL TD SCH (09:08)
[2017-06-23] MEDS: OXAZEPAM 15 MG CAPSULE PO SCH ×4 (09:09→21:42)
[2017-06-23] MEDS: LISINOPRIL 20 MG TABLET PO SCH (09:11)
[2017-06-23] MEDS ORDERED: OXAZEPAM 15 MG CAPSULE PO PRN (09:31)
--- NOTE | 2017-06-23 09:42 | Pharmacy Consult-Antibiotics ---
Pharmacy Consult-Vancomycin - Laboratory Information WBC 9.8 T/MM3 (4.5-11.0) 06/23/17 04:16 BUN 12.0 MG/DL (9-20) 06/23/17 04:16 Creatinine 0.5 MG/DL (0.8-1.5) L 06/23/17 04:16 Procalcitonin 1.71 NG/ML 06/21/17 09:57 Vancomycin Trough 14.01 UG/ML (15-20) L 06/23/17 04:16 - Consult Information Will leave vancomycin at max daily dose of 2 grams IV q8h. Ordered trough for .
--- NOTE | 2017-06-23 09:48 | Progress Note ---
Subjective: The patient is seen in his room this morning accompanied by his . He is sitting up in a chair. He states he does continue to have some right-sided chest , back and abdominal pain. Pain is getting better. He feels mildly short of breath sitting up without oxygen. O2 sat is 93% on room air. Heart rate is 133. He does admit to feeling anxious. He is eating and drinking well. Stools have been formed. He still has a Moe catheter in place. He has not had a fever in 48 hours. He continues to have some bloody phlegm. Objective Vital signs: Temperature 100.1 F 06/23/17 09:00 Pulse Rate 137 H 06/23/17 09:15 Respiratory Rate 34 H 06/23/17 09:15 Blood Pressure 199/121 H 06/23/17 08:00 Pulse Oximetry 94 06/23/17 09:15 Oxygen Delivery Method Nasal Cannula Oxygen Flow Rate 2 Fraction of Inspired Oxygen 50 SaO2/FiO2 Ratio 206 Rhythm: Normal Sinus Rhythm Height/Weight/BMI: Height 1.85 m Weight 115.4 kg Body Mass Index 39.4 Comments: I&O yesterday -1644. He had 6.7 L out. Today so far he is -3 L GEN-alert, oriented, no acute distress HEENT-sclera anicteric, oropharynx is moist, continues to have sores on his lips from HSV NECK-supple CV-tachycardic rate with irregular rhythm CHEST-decreased breath sounds on the right, no wheezing, no rhonchi ABD-soft, obese, nontender with positive bowel sounds -Moe in place with good urine output EXT-+1 pretibial edema in the legs bilaterally NEURO-no tremulousness, no focal deficits SKIN-warm and dry and without rashes Results - Labs CBC & Chem 7: 06/23/17 04:16 06/23/17 04:16 Labs: TSH elevated at 8.6. Free T4 is pending Magnesium is still 1.4 Iron is low at 23, iron sat is low at 12%, B-12 is 361 Microbiology Results: Microbiology 06/20/17 20:30 Peripheral/Iv Start Blood Culture - Preliminary No Growth After 2 Days 06/20/17 20:31 Peripheral/Iv Start Blood Culture - Preliminary No Growth After 2 Days 06/17/17 11:52 Cath/Port/Line/Picc Blood Culture - Final No Growth After 5 Days 06/17/17 11:56 Cath/Port/Line/Picc Blood Culture - Final No Growth After 5 Days 06/20/17 16:30 Sputum, Expectorated Gram Stain - Final 06/20/17 16:30 Sputum, Expectorated Sputum Culture - Final Normal Respiratory Dinah including Yeast Present 06/16/17 10:45 Cath/Port/Line/Picc Blood Culture - Final No Growth After 5 Days 06/16/17 10:55 Cath/Port/Line/Picc Blood Culture - Final No Growth After 5 Days 06/06/17 11:34 Peripheral/Iv Start Blood Culture - Final No Growth After 5 Days 06/06/17 11:34 Peripheral/Iv Start Blood Culture - Final No Growth After 5 Days 06/06/17 11:00 Sputum, Suctioned Gram Stain - Final 06/06/17 11:00 Sputum, Suctioned Sputum Culture - Final Normal Respiratory Dinah - ABG Interpretation ABG results: 06/05/17 06/06/17 06/06/17 17:41 04:35 09:25 ABG pH 7.360 7.380 7.460 H ABG pCO2 55 H 53 H 42 ABG pO2 114 H 64 L 133 H ABG HCO3 31 H 31 H 30 H ABG Total CO2 32.8 H 33.0 H 31.2 H ABG O2 Saturation 98.0 92.0 L 99.0 H ABG Base Excess 4.4 H 5.0 H 5.5 H 06/06/17 06/07/17 06/08/17 15:05 09:55 07:50 ABG pH 7.450 7.370 7.391 ABG pCO2 41 52 H 50 H ABG pO2 65 L 82 98 ABG HCO3 29 H 30 H 31 H ABG Total CO2 29.8 H 31.7 H 32 H ABG O2 Saturation 93.0 L 96.0 97.0 ABG Base Excess 4.1 H 3.7 H 5.0 H 06/09/17 06/14/17 06/14/17 08:35 10:10 14:42 ABG pH 7.470 H 7.460 H 7.480 H ABG pCO2 44 41 36 ABG pO2 88 65 L 65 L ABG HCO3 32 H 29 H 27 H ABG Total CO2 33.4 H 30.5 H 27.9 H ABG O2 Saturation 97.0 94.0 L 94.0 L ABG Base Excess 7.4 H 4.9 H 3.3 H Assessment and Plan (1) Pancreatitis Problem details: POA: ETOH induced. RUQ US negative for obstructive stones. MRCP nondiagnostic due to motion artifact however no obvious gallstones, pancreatitis head thickened, intrahepatic ducts nondilated. Current visit: Yes Status: Acute (2) Alcoholic liver damage Current visit: Yes Status: Acute (3) Hypertension Current visit: Yes Status: Chronic (4) DTs (delirium tremens) Current visit: Yes Status: Acute (5) Acute respiratory failure Problem details: Intubated 06/06-06/14; ARDS/volume overload Current visit: Yes Status: Acute (6) ETOHism Current visit: Yes Status: Chronic Assessment and Plan: 06/23/2017-Dr. 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 Blood cultures negative so far. Urinalysis negative. Chest x-ray shows right sided infiltrate and bilateral pleural effusions. Cefepime and Vanco started 06/21/2017. Elevated lactate morning of 06/21/2017, resolved with 1 L of IV fluids and initiation of antibiotics. Small right-sided pleural effusion-thoracentesis on 06/22/2017 revealed very minimal bloody return but no significant fluid. Healthcare associated pneumonia- Cefepime and Vanco started 06/21/2017. Acute respiratory failure due to ARDS/volume overload-intubated 06/06-06/14 DTs with improving encephalopathy from alcohol withdrawal-Serax decreased 2016 C. difficile [id number] metronidazole since 06/15/2017 Anemia -slow trend down in hemoglobin since admission. Mild iron deficiency anemia, borderline low B 12 Postobstructive diuresis -resolved Fluid overload-improved Sinus tachycardia Hypertensive emergency/urgency-improved on clonidine, Norvasc, lisinopril and metoprolol. Chronic alcohol abuse with alcoholic liver disease-the patient states he intends to quit drinking completely after discharge Hypomagnesemia-stable now at 1.4 despite multiple doses of IV magnesium. Hypocalcemia-resolved Tobacco dependence Obesity-BMI 33.2 on admission DVT left arm-PICC removed 06/18/2017 anticoagulation initiated, was held for recent transfuse this 06/22/2017 and then restarted Oral herpes lesions-started acyclovir 06/18/2017 Mild hemoptysis Plan: Restart Lovenox and Coumadin today. Discussed with pharmacy Continue cefepime and Vanco for now for healthcare associated pneumonia. Continue metronidazole for C. difficile. Continue acyclovir for recurrent herpes outbreak of mouth. Start oral magnesium Start oral iron and oral vitamin B-12 for anemia, mild iron deficiency, borderline low B 12 DC Moe Increase metoprolol for tachycardia Change to Xopenex because of the patient's tachycardia We'll ask the social media developer to see the patient regarding alcohol treatment after discharge Greater than 45 minutes of critical care time spent seeing and evaluating the patient and reviewing the chart. Discussed with the family, pharmacy, RT and patient's nurse. Sepsis Assessment - Evaluation Sepsis screening result: Sepsis Risk Hospital Course Summary Disclaimer: The visit summary below is not to be considered part of the above Progress Note. Hospital Course: 06/04/17 1) Alcohol use and abuse with ongoing pancreatitis, this could be related to ETOH, or due to gallstones (U/S could not see distal CBD - bilirrubin high) or both. - Check Abd/Pelvic CT with IV contrast re: Extent of pancreatic swelling ? abscess ? hemorrhage ? also Pyelonephritis ? - Check MRCP - pt could be obstructed since Bilirrubin is high. Pt states he noticed his skin is yellow. - Aggressive hydration with NS 500cc/hr x 6 hrs then reasses 2) UTI - very high lactate - high WBC - On Rocephin will continue for now. 3) Hypokalemia/Hypomagenesemia - Will give Mg + K 4) Lactic acidosis - due to ? sepsis ? hypoperfusion ? - Will recheck later today. 5) Elevated hemoglobin - Will follow serially. 06/05/17 1) ALCOHOL ABUSE WITH A) SEVERE AGITATION/CONFUSION ? OF HALLUCINATIONS MOST LIKELY DUE TO ALCOHOL WITHDRAWALS - On Propofol drip - Tachycardic - Will also give Ativan IV GA. - Check CPK (R/O Rhabdo due to agitation) - Aggressive hydration and electrolyte replenishment. B) Pancreatitis most likely related to ETOH MRCP Impression: 1. No cholelithiasis or intrahepatic bile duct dilatation. Evaluation of the extrahepatic common duct is poor due to motion artifact and patient body habitus. No obvious common duct stone. 2. Enlargement of the pancreatic head which could be due to inflammation from pancreatitis or potentially neoplasm. Recommend further evaluation with a contrast-enhanced CT of the abdomen. - Lipase coming down - Check CA 19-9 prior to D/C and follow closely his pancreatic anatomy by CT/ MRI. Transferred to CCU due to alcohol withdrawal. 06/06/17 1) PULMONARY ASSESMENT A) Pt has developed ALI/ARDS - ABG on FIO2 of 80% showed PaO2 of 133 with CO2 of 42 - huge a-A gradient that has increased since yesterday. - Pt was intubated successfully by ED MD - Saturations are 91 on 100% FIO2. ET tube appears to be well positioned. - Pt requires high PEEP. - Could be related to pancreatitis, or PNA - Pt has a L sided effussion - could be related to pancreatitis. Must R/O Boherhave's syndrome will try a CT chest with gastrograffin injection in the mid esophagus. - Start coverage for HAP - Vanco + cefepime + steroids - Add Mucomyst for possible mucus plugg. - Case discussed with his NOK - significant other, she consented for intubation. - Reculture blood & sputum B) Obstructive Sleep Apnea (New Dx) - Was on CPAP - now intubated. 2) ALCOHOL ABUSE WITH MULTIPLE COMPLICATIONS - A) SEVERE AGITATION/CONFUSION ? OF HALLUCINATIONS MOST LIKELY DUE TO ALCOHOL WITHDRAWALS - On propofol since yesterday. - On Propofol drip - Continue. - Tachycardic/hypertensive - CPK - 1261 Yesterday - C/W rhadbomyolisis - will rehceck - Aggressive hydration and electrolyte replenishment. B) Pancreatitis most likely related to ETOH - Lipase coming down - Check CA 19-9 prior to D/C and follow closely his pancreatic anatomy by CT/MRI. - Add Banana bags - C) Hypokalemia on admission - K is high today. - Stop NS with K - Recheck later. D) Hypomagnesemia - now improved. E) Severe hypophosphatemia - Risk of hemolysis - CHF & could be causing low Platelets. - PO4 is under 1 - Spoke with Pharm Jasmine De Souza - Will give 90 Mmol of Na Phosphate F) Dehydration - Appears improved now, will hold off on aggressive hydration will place on Banana bag @ 50ml/hr x 3 Liters. G) Rhabdomyolisis - cuuld be due to his severe agitation. - Recheck CPK now. 3) INFECTIOUS DISEASE ASSESMENT A) UTI - very high lactate - high WBC - On Rocephin will continue for now. B) ? Of HAP ? - Will cover with Vanco + Cefepime - Add Mucomyst for possible mucus plug - Continue Duonebs - Add Steroids. - Lactate is dropping 3) CARDIOVASCULAR ASSESSMENT A) Hypertension - moderate to severe - On BB PRN will schedule with parameters B) Will check EKG due to low Ca and due to severe agitation - R.O DE. 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 06/07/[address] Renee for Pulm evaluation and to help with ventilator management. Continue IV antibiotics - possible aspiration pneumonia/pneumonitis Continue Sedation - with current decreased pulmonary statue, likely too early to work on weaning sedation. Start TPN for nutritional support. Will stop IVF when TPN ready. Continue to monitor lab due to pt's severity of illness. Patient remains critically ill, ICU care warranted. 06/08/17 Continue with mechanical ventilation as per Dr Renee. In discussion with Dr Renee, will deescalate IV antibiotic use (likely respiratory failure from ARDS due to pancreatitis, still some concern for possible aspiration) Will stop Vancomycin, cefepime and clindamycin. Initiate Unasyn for coverage. Will continue Solu-Medrol at 40mg IV q 8 hours. Will stop Mucomyst - monitor for increase secretions. Blood pressure with elevation today. Bumex 1mg given this morning and afternoon to help decrease volume. Urine output appropriate, but pressures remain high. Start Nipride drip to ease down blood pressure. TPN continues-discussed with pharm about electrolyte adjustments. 10 units of Lantus given this morning to help sugars - did monitor sugars more frequently and gave additions SQ doses of insulin. Will start 20 units of Lantus this evening. Insulin sliding scale changed to high dose regimen. Continue propofol for sedation. Patient remains critically ill. CCU care an support required. 06/09/17 Recheck Lipase and CPK this am show normalization. Continue with mechanical ventilation as per Dr Renee. Continue Unasyn for antimicrobial coverage. Additional insulin to be given to help improve glycemic control. Extra SQ dosing during day. Increase Lantus to 45 units at night. Sugars elevated due to TPN and Solu-Medrol. Bumex 1mg given this morning to help decrease volume. Will give additional Bumex 1mg this afternoon. Nipride drip continues for BP control. TPN continues-discussed with pharm about electrolyte adjustments. Will remove sodium to decrease sodium level and OSMO. Increase KPhos. Continue propofol for sedation. Patient remains critically ill. CCU care an support required. 06/10/17 15:56 Patient continues to require ventilatory assistance with high pressures and FiO2 of 60% increased to 70% this afternoon after desaturating. Weight up significantly since admission, volume status +18.7 L from admission, edema on exam-will begin diuresing with scheduled Lasix. Continue propofol; discussed conversion to Precedex with Dr. Renee but with respiratory instability will not make changes at this time. Check triglycerides in a.m. Continue Unasyn/steroids. Remains hyperglycemic; Lantus increased to 50 units and corrective scale modified upward. Blood pressures modestly elevated; on IV metoprolol, Catapres patch, and nicardipine drip. Convert to enteral metoprolol per NG. Begin low-volume feedings per NG; dietary consultation for recommendations. Continue TPN for nutritional support. Patient remains critically ill. 06/11/17 16:18 Patient continues to require ventilatory assistance with FiO2 of 50% and PEEP of 8-both improved from yesterday. Continue diuresis with goal of equal/negative fluid balance daily. X-ray most consistent with volume overload-no focal infiltrate. Patient has been on antibiotics since 06/04 (ceftriaxone 06/04-06/06; cefepime/ clindamycin/vancomycin 06/06-06/08; Unasyn 06/08-current); sputum culture normal dinah -we'll discontinue antibiotics. On Solu-Medrol for pulmonary inflammation-discussed with Dr. Renee-decreased dose to 40 mg every 12 hours and continue to monitor. Remains hyperglycemic; Lantus increased to 50 units daily at bedtime with 20 units added every morning. Continue corrective scale insulin. Blood pressures modestly elevated; on by mouth metoprolol, Catapres patch, and nicardipine drip. Amlodipine added. Begin low-volume feedings per NG with Glucotrol; dietary consultation for recommendations. Continue TPN for nutritional support. Triglycerides pending to monitor propofol/ TPN. Hypernatremia slightly improved with TPN modifications, low-volume free water added to enteral tube feedings. 06/12/17 12:54 Patient continues to require ventilatory assistance with FiO2 of 50% and PEEP of 7. Continue diuresis with goal of equal/negative fluid balance daily. Bumex increased to 1 mg IV every 6 hours. Antibiotics discontinued yesterday (06/11) after total of 8 days (ceftriaxone 06/04 -06/06; cefepime/clindamycin/vancomycin 06/06-06/08; Unasyn 06/08-current). sputum culture normal dinah-we'll discontinue antibiotics. On Solu-Medrol for pulmonary inflammation 40 mg every 12 hours and continue to monitor. Remains hyperglycemic; Lantus increased to 20 units every morning and 50 units daily at bedtime yesterday. Fasting glucose 242 today. Continue corrective scale insulin. Anticipate beginning to titrate off TPN in the next couple of days-corrective scale modified but will not increase basal insulin at present. Blood pressures modestly elevated; on metoprolol, Catapres patch, and nicardipine drip. Amlodipine added yesterday-dose increased to 10 mg daily today and lisinopril added at 20 mg daily. Hope to titrate nicardipine off in next 24 hours. Tolerating Glucotrol at 25 mL per hour-rate increased to 40 mL per hour; dietary consultation for recommendations. Continue TPN for nutritional support. Triglycerides pending to monitor propofol/ TPN. Hypernatremia slightly improved with TPN modifications, low-volume free water added to enteral tube feedings. Potassium down today with diuresis-replaced and early and modified in TPN. 06/13/17 14:26 Patient continues to require ventilatory assistance with FiO2 of 50% and PEEP of 7. On Solu-Medrol for pulmonary inflammation 40 mg every 12 hours and continue to monitor. BUN/creatinine beginning to climb, Lasix and then Bumex have been ineffective in producing net diuresis. Significant edema but fluid is largely and subcutaneous tissues. Frequency of Bumex decreased to avoid worsening of renal function, XIAO siu added an attempt to mobilize fluid. Antibiotics discontinued yesterday 06/11 after total of 8 days (ceftriaxone 06/04-8 /6; cefepime/clindamycin/vancomycin 06/06-06/08; Unasyn 06/08-current). Blood sugars slowly [id number] in the past 24 hours; Lantus 20 units every morning and 50 units daily at bedtime currently. Blood pressures modestly elevated; on metoprolol 25 twice a day, amlodipine 10 daily, Catapres 2 patch, lisinopril 20/day and nicardipine drip. Tolerating Glucotrol at 25 mL per hour-intended to increase rate to 40 mL per hour yesterday however order was missed; will increase rate to 50 mL per hour 12 hours and then 75 mL per hour. Discussed with nursing. Decrease TPN infusion rate to 50% current infusion rate if continues to tolerate enteral feeds at higher rates. Continue TPN for nutritional support. Triglycerides pending to monitor propofol/ TPN. Hypernatremia improving with TPN modifications, low-volume free water added to enteral tube feedings. Patient now able to indicate throat discomfort but denies abdominal pain. Restlessness frequently described. Chronic alcohol abuse, alcohol withdrawal may still be underlying much of need for sedation/hypertension-Serax initiated at 30 mg every 6 hours. Wean propofol as able, chest x-ray/ABG in a.m. 06/14/17 17:39 Extubated midafternoon. Requiring 8 L supplemental oxygen to maintain saturation and appears to be slightly labored at the time of my assessment. High probability that BiPAP will be needed overnight for support. Continue Solu-Medrol for pulmonary inflammation 40 mg every 12 hours and continue to monitor. BUN/creatinine up further today, diuretics on hold. Significant edema but fluid is largely and subcutaneous tissues. XIAO siu added an attempt to mobilize fluid. Antibiotics discontinued yesterday 06/11 after total of 8 days (ceftriaxone 06/04-; cefepime/clindamycin/vancomycin 06/06-06/08; Unasyn 06/08-current). Blood sugars slowly improving-TPN being discontinued, Lantus discontinued as a result. Continue to monitor blood sugars and corrective scale insulin available as needed. OG removed when patient extubated-tube feedings discontinued. Soft diet ordered postextubation with nutritional supplements. Blood pressures modestly elevated; on metoprolol 25 twice a day, amlodipine 10 daily, Catapres 2 patch, lisinopril 20/day and nicardipine drip. Lisinopril increased to 40 mg daily. Triglycerides pending to monitor propofol/TPN. Hypernatremia improving with TPN modifications, low-volume free water added to enteral tube feedings. Continue to monitor off TPN. Chronic alcohol abuse, alcohol withdrawal may still be underlying much of need for sedation/hypertension-Serax initiated at 30 mg every 6 hours. Requesting alcohol shortly after extubation; continue Serax/when necessary lorazepam. PT/OT ordered; seen by speech therapy postextubation today. 06/15/17 15:51 Patient has tolerated extubation well and has titrated from 8 L supplemental oxygen to 4 L supplemental oxygen currently. Refused BiPAP last night. Diuresing without diuretics, BUN/creatinine slightly higher today. Taking liquids orally well and will continue to monitor volume/renal function. Convert to oral steroids from current low-dose Solu-Medrol. C. difficile identified overnight-oral Flagyl initiated and probiotics added today. Antibiotics discontinued 06/11 after total of 8 days (ceftriaxone 06/04-06/06; cefepime/clindamycin/vancomycin 06/06-06/08; Unasyn 06/08-06/11). Blood sugars slowly improving-TPN discontinued, Lantus discontinued yesterday. Corrective insulin as needed. Check A1c. Soft diet ordered postextubation with nutritional supplements. Blood pressure remains elevated; on metoprolol 50 twice a day, amlodipine 10 daily, Catapres 2 patch, lisinopril 40/d; nicardipine drip overnight but has been titrated off. Persistent low-grade tachycardia-metoprolol increased to 100 mg twice a day and hydralazine when necessary initiated. Hypernatremia resolving. Other electrolyte abnormalities stabilized. Chronic alcohol abuse, continue Serax at 30 mg every 6 hours. Requested alcohol shortly after extubation. As patient becomes more alert will begin tapering. PT/OT today; would like to begin getting patient out of bed if possible. 06/16/17 20:30 CT scan repeated earlier today due to increased abdominal pain-Moe catheter found to be in urethra with massive distention of the bladder (although patient had urine output of 100-300 mL per hour at the time). Moe catheter replaced with immediate resolution of abdominal pain, nausea, and flushing. Prior to identification of urinary retention blood cultures were obtained due to concern that patient may have sepsis triggering symptoms. No indication of pancreatic or intra-abdominal abscess. Low-fat diet due to recent pancreatitis. Ongoing diarrhea-day to metronidazole/probiotics for C. difficile identified . Doing well postextubation (06/14) On 1 L or RA with good oxygenation over the past 24 hours although oxygenation is in the lower 90s this evening. Diuresing briskly prior to Moe change, appears to have post obstructive diuresis following Moe catheter change with almost 9 L urine output thus far today. May require fluid replacement therapy if blood pressure drops-discussed with nursing. IV Antibiotics discontinued 06/11 after total of 8 days (ceftriaxone 06/04-06/06; cefepime/clindamycin/vancomycin 06/06-06/08; Unasyn 06/08-06/11). Blood sugars slowly improving-TPN discontinued, Lantus discontinued 06/14. Corrective insulin as needed. A1c 6.1. Blood pressure stabilizing; on metoprolol 100 twice a day, amlodipine 10 daily, Catapres 2 patch, lisinopril 40/d; nicardipine drip off past 24 hours. Continue diuresis may be able to begin decreasing blood pressure medications. Hypernatremia resolving. Other electrolyte abnormalities stabilized. Chronic alcohol abuse, continue Serax but will decrease to 30 mg every 8 hours. Continue PT/OT; would like to begin getting patient out of bed if possible. 06/17/2017-Dr. Calderón Assessment: Alcoholic pancreatitis Acute respiratory failure due to ARDS/volume overload-intubated 06/06-06/14 DTs C. difficile colitis Postobstructive diuresis with almost 18 L urine output in the past day and a half Sinus tachycardia, most likely secondary to being intravascularly dry due to postobstructive diuresis less likely to be secondary to alcohol withdrawal as the patient is currently alert and oriented and not tremulous and appears in no distress Abdominal pain 06/16 due to malfunctioning Moe catheter/urinary retention Hypertensive emergency/urgency-resolved, today with occasional borderline hypotension. Chronic alcohol abuse with alcoholic liver disease Hypokalemia- Hypomagnesemia-resolved Hypophosphatemia-resolved Hypocalcemia-resolved Hyperglycemia-A1c 6.1 on 06/15/17 Hypernatremia-resolved Tobacco dependence Obesity-BMI 33.2 on admission Plan: Regarding tachycardia is most likely secondary to intravascular dryness, will give half normal saline at 250 an hour 1-2 L. The patient has already received a 500 cc normal saline bolus. We'll reassess vital signs after IV fluids have been administered. Seroquel dose decreased slightly yesterday from 30 4 times a day to 30 3 times a day-watch closely for increasing signs of withdrawal Continue metronidazole (day 3) and probiotics for C. difficile. Rectal tube DC due to decrease diarrhea. From a respiratory standpoint, patient is doing well and is currently on room air. Continue to monitor blood sugars off of TPN Discontinue steroids which were started for ARDS Repeat basic metabolic profile this afternoon Replace potassium orally Low-dose Lovenox and SCDs for DVT prophylaxis Greater than 1 hour of critical care time spent seeing and evaluating the patient and reviewing the chart. Discussed with the family, patient's nurse, and Dr. Renee. 06/18/2017-Dr. Calderón Assessment: Necrotizing Alcoholic pancreatitis Fevers. White count is decreasing off of steroids. Blood cultures negative so far. Chest x-ray stable. Urinalysis negative. Acute respiratory failure due to ARDS/volume overload-intubated 06/06-06/14-stable on 2 L of oxygen DTs with improving encephalopathy from alcohol withdrawal C. difficile colitis Postobstructive diuresis Sinus tachycardia-improved Abdominal pain 06/16 due to malfunctioning Moe catheter/urinary retention Hypertensive emergency/nttnepe-bqxzfgqg-uyytvgtf antihypertensives Chronic alcohol abuse with alcoholic liver disease Hypokalemia-mild Hypomagnesemia-resolved Hypophosphatemia-resolved Hypocalcemia-resolved Hyperglycemia-A1c 6.1 on 06/15/17 Hypernatremia-resolved Tobacco dependence Obesity-BMI 33.2 on admission Left arm edema with PICC line-rule out DVT Oral herpes lesions Plan: Monitor blood pressure closely after getting all of blood pressure medications this morning. Continue to monitor for signs or symptoms of infection/sepsis. Appreciate Dr. Rojas' consultation Continue Seroquel for alcohol withdrawal Check venous Doppler left arm to rule out DVT Continue metronidazole (day 4) and probiotics for C. difficile. Continue to monitor blood sugars off of TPN Steroids discontinued yesterday. They had been started for ARDS which has resolved. Replace potassium orally Low-dose Lovenox and SCDs for DVT prophylaxis Greater than 45 minutes of critical care time spent seeing and evaluating the patient and reviewing the chart. Discussed with the family, patient's nurse, and Dr. Rojas. 06/19/2017-Dr. 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 Blood cultures negative so far. Chest x-ray stable. Urinalysis negative. Acute respiratory failure due to ARDS/volume overload-intubated 06/06-06/14-stable on 2 L of oxygen DTs with improving encephalopathy from alcohol withdrawal C. difficile colitis-decreased stools Postobstructive diuresis -weight down 18 kg in the past 3 days Sinus tachycardia-improved Abdominal pain 06/16 due to malfunctioning Moe catheter/urinary retention Hypertensive emergency/fczywkp-zognstql-euwkr pressure still elevated, restart Norvasc Chronic alcohol abuse with alcoholic liver disease-the patient states he intends to quit drinking completely after discharge Hypokalemia worse this morning despite replacement yesterday, likely secondary to continued spontaneous diuresis Hypomagnesemia-replacing IV this morning Hypophosphatemia-resolved Hypocalcemia-mild Hyperglycemia-A1c 6.1 on 06/15/17 Hypernatremia-resolved Tobacco dependence Obesity-BMI 33.2 on admission DVT left arm-PICC removed 2016 and started on therapeutic dose Lovenox Oral herpes lesions-started acyclovir 06/18/2017 Plan: Recheck potassium and magnesium and recheck Restart Norvasc for hypertension Consult pharmacy to initiate Coumadin for DVT Continue to monitor for signs or symptoms of infection/sepsis. Appreciate Dr. Rojas' consultation Continue Seroquel for alcohol withdrawal Continue metronidazole (started 06/15/2017) and probiotics for C. difficile. Blood sugars well controlled off of TPN. Will DC Accu-Cheks Steroids discontinued 06/17/2017. They had been started for ARDS which has resolved. We'll stop clamping Moe and monitor urine output. Greater than 40 minutes of critical care time spent seeing and evaluating the patient and reviewing the chart. Discussed with the family and patient's nurse. 06/20/2017-Dr. 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 Blood cultures negative so far. Chest x-ray stable. Urinalysis negative. Acute respiratory failure due to ARDS/volume overload-intubated 06/06-06/14-on room air currently DTs with improving encephalopathy from alcohol withdrawal C. difficile colitis-decreased stools Postobstructive diuresis Fluid overload-now down to admission weight Sinus tachycardia-improved Abdominal pain 06/16 due to malfunctioning Moe catheter/urinary retention Hypertensive emergency/rmkcnxj-kyabzfdo-ymjwq pressure lower this morning, hold Norvasc, consider holding lisinopril Chronic alcohol abuse with alcoholic liver disease-the patient states he intends to quit drinking completely after discharge Hypokalemia -improved Hypomagnesemia-replacing IV this morning Hypophosphatemia-resolved Hypocalcemia-mild Hyperglycemia-A1c 6.1 on 06/15/17 Hypernatremia-resolved Tobacco dependence Obesity-BMI 33.2 on admission DVT left arm-PICC removed 06/18/2017 and started on therapeutic dose Lovenox, Coumadin initiated 06/19/2017 Oral herpes lesions-started acyclovir 06/18/2017 Plan: Replace magnesium May need to decrease potassium tomorrow, currently on 20 mEq by mouth 3 times a day Hold Norvasc Continue to monitor for signs or symptoms of infection/sepsis. Decrease Seroquel to 15 mg by mouth 3 times a day Continue metronidazole (started 06/15/2017) and probiotics for C. difficile. Steroids discontinued 06/17/2017. They had been started for ARDS which has resolved. Continue to monitor closely regarding postobstructive diuresis. If the patient is hypotensive or tachycardia worsens, may need to add IV fluids. Greater than 40 minutes of critical care time spent seeing and evaluating the patient and reviewing the chart. Discussed with the family and patient's nurse. 06/21/2017-Dr. 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 Urinalysis negative. Chest x- ray yesterday showed possible basilar atelectasis versus early pneumonitis, today showing more infiltrate in the right base and a small to moderate pleural effusion on the right concerning for parapneumonic effusion No right-sided effusion 06/21/2017 possible pneumonia Acute respiratory failure due to ARDS/volume overload-intubated 06/06-06/14 DTs with improving encephalopathy from alcohol withdrawal-Serax decreased 2016 C. difficile colitis-decreased stools Postobstructive diuresis Fluid overload-improved Sinus tachycardia Abdominal pain 06/16 due to malfunctioning Moe catheter/urinary retention Hypertensive emergency/urgency-improved on clonidine and metoprolol. Norvasc and lisinopril are currently on hold Chronic alcohol abuse with alcoholic liver disease-the patient states he intends to quit drinking completely after discharge Hypokalemia -improved Hypomagnesemia-replacing IV this morning Hypophosphatemia-resolved Hypocalcemia-mild Hyperglycemia-A1c 6.1 on 06/15/17 Hypernatremia-resolved Tobacco dependence Obesity-BMI 33.2 on admission DVT left arm-PICC removed 06/18/2017 and started on therapeutic dose Lovenox, Coumadin initiated 06/19/2017 Oral herpes lesions-started acyclovir 06/18/2017 Plan: Discussed with Dr. Renee. Will hold Coumadin and Lovenox. Will give vitamin K 1 today. Probable thoracentesis later today regarding no effusion. Regarding possible pneumonia, will discuss with Dr. Rojas. May need to initiate antibiotics. Sputum culture shows gram-positive cocci in pairs Check pro-calcitonin and lactate Replace magnesium Replace potassium Continue metronidazole (started 06/15/2017) and probiotics for C. difficile. Steroids discontinued 06/17/2017. They had been started for ARDS which has resolved. Continue to monitor closely regarding postobstructive diuresis. If the patient is hypotensive or tachycardia worsens, may need to add IV fluids. Greater than 45 minutes of critical care time spent seeing and evaluating the patient and reviewing the chart. Discussed with the family and patient's nurse. 06/22/2017-Dr. 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 MAXIMUM TEMPERATURE 100.3. Blood cultures negative so far. Urinalysis negative. Chest x-ray shows right sided infiltrate and bilateral pleural effusions. Cefepime and Vanco started 2016. Elevated lactate morning of 06/21/2017, resolved with 1 L of IV fluids and initiation of antibiotics. No right-sided effusion 06/21/2017-scheduled for thoracentesis 06/22/2017 Healthcare associated pneumonia- Cefepime and Vanco started 06/21/2017. Acute respiratory failure due to ARDS/volume overload-intubated 06/06-06/14 DTs with improving encephalopathy from alcohol withdrawal-Serax decreased 2016 C. difficile [id number] metronidazole since 06/15/2017 Anemia -slow trend down in hemoglobin since admission. Initiate anemia workup. Postobstructive diuresis -resolved Fluid overload-improved Sinus tachycardia Hypertensive emergency/urgency-improved on clonidine and metoprolol. Norvasc and lisinopril are currently on hold Chronic alcohol abuse with alcoholic liver disease-the patient states he intends to quit drinking completely after discharge Hypomagnesemia-stable now at 1.4 despite multiple doses of IV magnesium. Hypocalcemia-mild Tobacco dependence Obesity-BMI 33.2 on admission DVT left arm-PICC removed 06/18/2017 and started on therapeutic dose Lovenox, Coumadin initiated 06/19/2017 Oral herpes lesions-started acyclovir 06/18/2017 Plan: Thoracentesis today with Dr. Renee. Will need Gram stain and culture of fluid. INR has improved after vitamin K. Lovenox is on hold. Dr. Renee to restart Lovenox for DVT left arm post thoracentesis. Continue cefepime and Vanco for now for healthcare associated pneumonia. Continue metronidazole for C. difficile. Continue acyclovir for recurrent herpes outbreak of mouth. Start oral magnesium and monitor magnesium level Restart lisinopril for hypertension but at lower dose of 20 mg instead of 40 mg. We'll increase further if needed Initiate anemia workup CATHRYN Moe later today after thoracentesis if patient doing well. Greater than 45 minutes of critical care time spent seeing and evaluating the patient and reviewing the chart. Discussed with the family and patient's nurse
--- NOTE | 2017-06-23 10:01 | Pharmacy Consult ---
Pharmacy Consult-Warfarin - Laboratory Information 06/09/17 06/20/17 06/21/17 04:23 10:30 04:08 INR 1.22 H 2.30 H 2.58 H 06/22/17 06/23/17 04:23 04:16 INR 1.46 H 1.41 H - Consult Information Enoxaparin and warfarin restarted today. Ordered warfarin 5mg today for noon. Vitamin K 5 mg given on 06/21/17 so may take a few days to achieve a therapeutic INR. Enoxaparin to be given in the interim. Will continue to monitor. Thank you.
[2017-06-23] MEDS ORDERED: WARFARIN 5 MG TABLET PO SCH (12:00)
[2017-06-23] MEDS: CYANOCOBALAMIN (B-12) 500mcg TABLET PO SCH (12:13)
[2017-06-23] MEDS: MAGNESIUM OXIDE 400 MG TABLET PO SCH ×2 (12:13→21:25)
[2017-06-23] MEDS: FERROUS SULFATE 324 MG TABLET PO SCH ×2 (12:13→21:25)
[2017-06-23] MEDS: ENOXAPARIN 120 MG/0.8 ML INJECTION SQ SCH (21:35)
[2017-06-24] MEDS: MORPHINE SULFATE 4 MG SYRINGE IVP PRN (00:04)
[2017-06-24] MEDS: SALINE FLUSH 10ml SYRINGE IVF PRN ×3 (00:05→23:35)
[2017-06-24] MEDS: CEFEPIME 1 GM in NS 100 ML IV SCH ×5 (00:41→23:34)
[2017-06-24] MEDS: HYDROCODONE/APAP 7.5 MG/325 MG TABLET PO PRN ×3 (03:22→21:10)
[2017-06-24] MEDS: MetroNIDAZOLE 500 MG TABLET PO SCH ×3 (07:47→17:31)
[2017-06-24] MEDS: LACTOBACILLUS (15B cfu) CAPSULE PO SCH ×3 (07:47→17:30)
[2017-06-24] MEDS: FERROUS SULFATE 324 MG TABLET PO SCH ×2 (07:48→17:31)
[2017-06-24] MEDS: CALCIUM 600 + VIT D 400 TABLET PO SCH ×2 (08:13→21:11)
[2017-06-24] MEDS: MAGNESIUM OXIDE 400 MG TABLET PO SCH ×2 (08:13→21:11)
[2017-06-24] MEDS: FOLIC ACID 1 MG TABLET PO SCH (08:14)
[2017-06-24] MEDS: OXAZEPAM 15 MG CAPSULE PO SCH ×4 (08:14→21:11)
[2017-06-24] MEDS: ACYCLOVIR 200 MG CAPSULE PO SCH ×3 (08:14→21:11)
[2017-06-24] MEDS: ENOXAPARIN 120 MG/0.8 ML INJECTION SQ SCH ×2 (08:15→21:11)
[2017-06-24] MEDS: CYANOCOBALAMIN (B-12) 500mcg TABLET PO SCH (08:16)
[2017-06-24] MEDS: NICOTINE 21 MG PATCH TD SCH (08:16)
[2017-06-24] MEDS: AMLODIPINE 10 MG TABLET PO SCH (08:16)
[2017-06-24] MEDS: FAMOTIDINE 20 MG TABLET PO SCH ×2 (08:16→21:11)
[2017-06-24] MEDS: LISINOPRIL 20 MG TABLET PO SCH (08:17)
[2017-06-24] MEDS: ACETAMINOPHEN 325 MG TABLET PO PRN ×2 (08:23→13:27)
--- NOTE | 2017-06-24 08:52 | Pharmacy Consult ---
Pharmacy Consult-Warfarin - Laboratory Information 06/09/17 06/20/17 06/21/17 04:23 10:30 04:08 INR 1.22 H 2.30 H 2.58 H 06/22/17 06/23/17 06/24/17 04:23 04:16 05:37 INR 1.46 H 1.41 H 1.53 H DAY 6 of Warfarin Therapy. Pt has not had any diet for some time. Vit K 5mg was given yesterday to boost coagulation cascade. Treating with Warfarin conservatively. Receiving Enoxaparin 115mg SQ bid therapeutic dose until INR is therapeutic. Will give Warfarin 5mg today. thank you
[2017-06-24] MEDS: NICOTINE PATCH REMOVAL TD SCH (11:11)
[2017-06-24] MEDS ORDERED: WARFARIN 5 MG TABLET PO SCH (12:00)
--- NOTE | 2017-06-24 13:50 | Progress Note ---
Subjective: The patient is doing well today. He states his muscular pain in his back and his abdominal pain is better today. He is eating and drinking well. He is having normal bowel movements. He is urinating without difficulty after Moe removal yesterday. He was able to walk in the halls with a walker and did well. He denies any shortness of breath. Objective Vital signs: Temperature 98.2 F 06/24/17 09:00 Pulse Rate 114 H 06/24/17 13:00 Respiratory Rate 25 H 06/24/17 13:00 Blood Pressure 191/123 H 06/24/17 13:00 Pulse Oximetry 95 06/24/17 13:00 Oxygen Delivery Method Room Air Oxygen Flow Rate 2 Fraction of Inspired Oxygen 50 SaO2/FiO2 Ratio 206 Rhythm: Normal Sinus Rhythm Height/Weight/BMI: Height 1.85 m Weight 115.4 kg Body Mass Index 39.4 Comments: I&O yesterday was +630 ML's He's been afebrile for 3 days Heart rate is mostly in the low 100s to upper 90s Systolic blood pressure improved GEN-alert, oriented, no acute distress HEENT-sclera anicteric, oropharynx is moist, continues to have healing HSV sores on his lips NECK-supple CV-borderline tachycardic rate with irregular rhythm CHEST-clear to auscultation bilaterally ABD-soft, nontender with positive bowel sounds -no Moe EXT-+ lower extremity edema NEURO-no focal deficits SKIN-warm and dry and without rashes Results - Labs CBC & Chem 7: 06/24/17 05:37 06/24/17 05:37 Labs: TSH is mildly elevated at 8.26. Free T4 is normal at 0.99 Microbiology Results: Microbiology 06/20/17 20:30 Peripheral/Iv Start Blood Culture - Preliminary No Growth After 3 Days 06/20/17 20:31 Peripheral/Iv Start Blood Culture - Preliminary No Growth After 3 Days 06/17/17 11:52 Cath/Port/Line/Picc Blood Culture - Final No Growth After 5 Days 06/17/17 11:56 Cath/Port/Line/Picc Blood Culture - Final No Growth After 5 Days 06/20/17 16:30 Sputum, Expectorated Gram Stain - Final 06/20/17 16:30 Sputum, Expectorated Sputum Culture - Final Normal Respiratory Dinah including Yeast Present 06/16/17 10:45 Cath/Port/Line/Picc Blood Culture - Final No Growth After 5 Days 06/16/17 10:55 Cath/Port/Line/Picc Blood Culture - Final No Growth After 5 Days 06/06/17 11:34 Peripheral/Iv Start Blood Culture - Final No Growth After 5 Days 06/06/17 11:34 Peripheral/Iv Start Blood Culture - Final No Growth After 5 Days 06/06/17 11:00 Sputum, Suctioned Gram Stain - Final 06/06/17 11:00 Sputum, Suctioned Sputum Culture - Final Normal Respiratory Dinah - ABG Interpretation ABG results: 06/05/17 06/06/17 06/06/17 17:41 04:35 09:25 ABG pH 7.360 7.380 7.460 H ABG pCO2 55 H 53 H 42 ABG pO2 114 H 64 L 133 H ABG HCO3 31 H 31 H 30 H ABG Total CO2 32.8 H 33.0 H 31.2 H ABG O2 Saturation 98.0 92.0 L 99.0 H ABG Base Excess 4.4 H 5.0 H 5.5 H 06/06/17 06/07/17 06/08/17 15:05 09:55 07:50 ABG pH 7.450 7.370 7.391 ABG pCO2 41 52 H 50 H ABG pO2 65 L 82 98 ABG HCO3 29 H 30 H 31 H ABG Total CO2 29.8 H 31.7 H 32 H ABG O2 Saturation 93.0 L 96.0 97.0 ABG Base Excess 4.1 H 3.7 H 5.0 H 06/09/17 06/14/17 06/14/17 08:35 10:10 14:42 ABG pH 7.470 H 7.460 H 7.480 H ABG pCO2 44 41 36 ABG pO2 88 65 L 65 L ABG HCO3 32 H 29 H 27 H ABG Total CO2 33.4 H 30.5 H 27.9 H ABG O2 Saturation 97.0 94.0 L 94.0 L ABG Base Excess 7.4 H 4.9 H 3.3 H Assessment and Plan (1) Pancreatitis Problem details: POA: ETOH induced. RUQ US negative for obstructive stones. MRCP nondiagnostic due to motion artifact however no obvious gallstones, pancreatitis head thickened, intrahepatic ducts nondilated. Current visit: Yes Status: Acute (2) Alcoholic liver damage Current visit: Yes Status: Acute (3) Hypertension Current visit: Yes Status: Chronic (4) DTs (delirium tremens) Current visit: Yes Status: Acute (5) Acute respiratory failure Problem details: Intubated 06/06-06/14; ARDS/volume overload Current visit: Yes Status: Acute (6) ETOHism Current visit: Yes Status: Chronic Assessment and Plan: 06/24/2017-Dr. 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 Blood cultures negative so far. Urinalysis negative. Chest x-ray shows right sided infiltrate and small bilateral pleural effusions. Cefepime and Vanco started 06/21/2017. Elevated lactate morning of 06/21/2017, resolved with 1 L of IV fluids and initiation of antibiotics. Small right-sided pleural effusion-thoracentesis on 06/22/2017 revealed very minimal bloody return but no significant fluid. Healthcare associated pneumonia- Cefepime and Vanco started 06/21/2017. Acute respiratory failure due to ARDS/volume overload-intubated 06/06-06/14 DTs with improving encephalopathy from alcohol withdrawal-Serax decreased 2016 C. difficile [id number] metronidazole since 06/15/2017 Anemia -slow trend down in hemoglobin since admission. Mild iron deficiency anemia, borderline low B 12 Postobstructive diuresis -resolved Fluid overload-improved Sinus tachycardia-improved with increase metoprolol to 150 by mouth twice a day and change from albuterol to Xopenex Hypertensive emergency/urgency-improved on clonidine, Norvasc, lisinopril and metoprolol. Chronic alcohol abuse with alcoholic liver disease-the patient states he intends to quit drinking completely after discharge Hypomagnesemia-stable now at 1.4 despite multiple doses of IV magnesium. Hypocalcemia-resolved Tobacco dependence Obesity-BMI 33.2 on admission DVT left arm-PICC removed 06/18/2017 anticoagulation initiated, was held for recent thoracentesis 06/22/2017 and then restarted Oral herpes lesions-started acyclovir 06/18/2017 Mild hemoptysis-improved Plan: DC vancomycin as cultures are negative. Continue cefepime for healthcare associated pneumonia and recheck chest x-ray tomorrow. Continue metronidazole for C. difficile. Continue acyclovir for recurrent herpes outbreak of mouth. Continue to monitor hemoglobin which is trending down. Give IV Lasix and potassium 1 today for lower extremity edema. His postobstructive diuresis has resolved. Continue Lovenox and Coumadin for left upper extremity DVT related to PICC line. Overall, the patient is improving. He is walking too far the distance to qualify for inpatient rehabilitation. The patient is stable for transfer to the floor today. We'll continue telemetry and monitor vitals every 4 hours. Sepsis Assessment - Evaluation Sepsis screening result: No Definite Risk Hospital Course Summary Disclaimer: The visit summary below is not to be considered part of the above Progress Note. Hospital Course: 06/04/17 1) Alcohol use and abuse with ongoing pancreatitis, this could be related to ETOH, or due to gallstones (U/S could not see distal CBD - bilirrubin high) or both. - Check Abd/Pelvic CT with IV contrast re: Extent of pancreatic swelling ? abscess ? hemorrhage ? also Pyelonephritis ? - Check MRCP - pt could be obstructed since Bilirrubin is high. Pt states he noticed his skin is yellow. - Aggressive hydration with NS 500cc/hr x 6 hrs then reasses 2) UTI - very high lactate - high WBC - On Rocephin will continue for now. 3) Hypokalemia/Hypomagenesemia - Will give Mg + K 4) Lactic acidosis - due to ? sepsis ? hypoperfusion ? - Will recheck later today. 5) Elevated hemoglobin - Will follow serially. 06/05/17 1) ALCOHOL ABUSE WITH A) SEVERE AGITATION/CONFUSION ? OF HALLUCINATIONS MOST LIKELY DUE TO ALCOHOL WITHDRAWALS - On Propofol drip - Tachycardic - Will also give Ativan IV ND. - Check CPK (R/O Rhabdo due to agitation) - Aggressive hydration and electrolyte replenishment. B) Pancreatitis most likely related to ETOH MRCP Impression: 1. No cholelithiasis or intrahepatic bile duct dilatation. Evaluation of the extrahepatic common duct is poor due to motion artifact and patient body habitus. No obvious common duct stone. 2. Enlargement of the pancreatic head which could be due to inflammation from pancreatitis or potentially neoplasm. Recommend further evaluation with a contrast-enhanced CT of the abdomen. - Lipase coming down - Check CA 19-9 prior to D/C and follow closely his pancreatic anatomy by CT/ MRI. Transferred to U due to alcohol withdrawal. 06/06/17 1) PULMONARY ASSESMENT A) Pt has developed ALI/ARDS - ABG on FIO2 of 80% showed PaO2 of 133 with CO2 of 42 - huge a-A gradient that has increased since yesterday. - Pt was intubated successfully by ED MD - Saturations are 91 on 100% FIO2. ET tube appears to be well positioned. - Pt requires high PEEP. - Could be related to pancreatitis, or PNA - Pt has a L sided effussion - could be related to pancreatitis. Must R/O Boherhave's syndrome will try a CT chest with gastrograffin injection in the mid esophagus. - Start coverage for HAP - Vanco + cefepime + steroids - Add Mucomyst for possible mucus plugg. - Case discussed with his NOK - significant other, she consented for intubation. - Reculture blood & sputum B) Obstructive Sleep Apnea (New Dx) - Was on CPAP - now intubated. 2) ALCOHOL ABUSE WITH MULTIPLE COMPLICATIONS - A) SEVERE AGITATION/CONFUSION ? OF HALLUCINATIONS MOST LIKELY DUE TO ALCOHOL WITHDRAWALS - On propofol since yesterday. - On Propofol drip - Continue. - Tachycardic/hypertensive - CPK - 1261 Yesterday - C/W rhadbomyolisis - will rehceck - Aggressive hydration and electrolyte replenishment. B) Pancreatitis most likely related to ETOH - Lipase coming down - Check CA 19-9 prior to D/C and follow closely his pancreatic anatomy by CT/MRI. - Add Banana bags - C) Hypokalemia on admission - K is high today. - Stop NS with K - Recheck later. D) Hypomagnesemia - now improved. E) Severe hypophosphatemia - Risk of hemolysis - CHF & could be causing low Platelets. - PO4 is under 1 - Spoke with Pharm Jasmine De Souza - Will give 90 Mmol of Na Phosphate F) Dehydration - Appears improved now, will hold off on aggressive hydration will place on Banana bag @ 50ml/hr x 3 Liters. G) Rhabdomyolisis - cuuld be due to his severe agitation. - Recheck CPK now. 3) INFECTIOUS DISEASE ASSESMENT A) UTI - very high lactate - high WBC - On Rocephin will continue for now. B) ? Of HAP ? - Will cover with Vanco + Cefepime - Add Mucomyst for possible mucus plug - Continue Duonebs - Add Steroids. - Lactate is dropping 3) CARDIOVASCULAR ASSESSMENT A) Hypertension - moderate to severe - On BB PRN will schedule with parameters B) Will check EKG due to low Ca and due to severe agitation - R.O MS. 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 06/07/[address] Renee for Pulm evaluation and to help with ventilator management. Continue IV antibiotics - possible aspiration pneumonia/pneumonitis Continue Sedation - with current decreased pulmonary statue, likely too early to work on weaning sedation. Start TPN for nutritional support. Will stop IVF when TPN ready. Continue to monitor lab due to pt's severity of illness. Patient remains critically ill, ICU care warranted. 06/08/17 Continue with mechanical ventilation as per Dr Renee. In discussion with Dr Renee, will deescalate IV antibiotic use (likely respiratory failure from ARDS due to pancreatitis, still some concern for possible aspiration) Will stop Vancomycin, cefepime and clindamycin. Initiate Unasyn for coverage. Will continue Solu-Medrol at 40mg IV q 8 hours. Will stop Mucomyst - monitor for increase secretions. Blood pressure with elevation today. Bumex 1mg given this morning and afternoon to help decrease volume. Urine output appropriate, but pressures remain high. Start Nipride drip to ease down blood pressure. TPN continues-discussed with pharm about electrolyte adjustments. 10 units of Lantus given this morning to help sugars - did monitor sugars more frequently and gave additions SQ doses of insulin. Will start 20 units of Lantus this evening. Insulin sliding scale changed to high dose regimen. Continue propofol for sedation. Patient remains critically ill. CCU care an support required. 06/09/17 Recheck Lipase and CPK this am show normalization. Continue with mechanical ventilation as per Dr Renee. Continue Unasyn for antimicrobial coverage. Additional insulin to be given to help improve glycemic control. Extra SQ dosing during day. Increase Lantus to 45 units at night. Sugars elevated due to TPN and Solu-Medrol. Bumex 1mg given this morning to help decrease volume. Will give additional Bumex 1mg this afternoon. Nipride drip continues for BP control. TPN continues-discussed with pharm about electrolyte adjustments. Will remove sodium to decrease sodium level and OSMO. Increase KPhos. Continue propofol for sedation. Patient remains critically ill. CCU care an support required. 06/10/17 15:56 Patient continues to require ventilatory assistance with high pressures and FiO2 of 60% increased to 70% this afternoon after desaturating. Weight up significantly since admission, volume status +18.7 L from admission, edema on exam-will begin diuresing with scheduled Lasix. Continue propofol; discussed conversion to Precedex with Dr. Renee but with respiratory instability will not make changes at this time. Check triglycerides in a.m. Continue Unasyn/steroids. Remains hyperglycemic; Lantus increased to 50 units and corrective scale modified upward. Blood pressures modestly elevated; on IV metoprolol, Catapres patch, and nicardipine drip. Convert to enteral metoprolol per NG. Begin low-volume feedings per NG; dietary consultation for recommendations. Continue TPN for nutritional support. Patient remains critically ill. 06/11/17 16:18 Patient continues to require ventilatory assistance with FiO2 of 50% and PEEP of 8-both improved from yesterday. Continue diuresis with goal of equal/negative fluid balance daily. X-ray most consistent with volume overload-no focal infiltrate. Patient has been on antibiotics since 06/04 (ceftriaxone 06/04-06/06; cefepime/ clindamycin/vancomycin 06/06-06/08; Unasyn 06/08-current); sputum culture normal dinah -we'll discontinue antibiotics. On Solu-Medrol for pulmonary inflammation-discussed with Dr. Renee-decreased dose to 40 mg every 12 hours and continue to monitor. Remains hyperglycemic; Lantus increased to 50 units daily at bedtime with 20 units added every morning. Continue corrective scale insulin. Blood pressures modestly elevated; on by mouth metoprolol, Catapres patch, and nicardipine drip. Amlodipine added. Begin low-volume feedings per NG with Glucotrol; dietary consultation for recommendations. Continue TPN for nutritional support. Triglycerides pending to monitor propofol/ TPN. Hypernatremia slightly improved with TPN modifications, low-volume free water added to enteral tube feedings. 06/12/17 12:54 Patient continues to require ventilatory assistance with FiO2 of 50% and PEEP of 7. Continue diuresis with goal of equal/negative fluid balance daily. Bumex increased to 1 mg IV every 6 hours. Antibiotics discontinued yesterday (06/11) after total of 8 days (ceftriaxone 06/04 -06/06; cefepime/clindamycin/vancomycin 06/06-06/08; Unasyn 06/08-current). sputum culture normal dinah-we'll discontinue antibiotics. On Solu-Medrol for pulmonary inflammation 40 mg every 12 hours and continue to monitor. Remains hyperglycemic; Lantus increased to 20 units every morning and 50 units daily at bedtime yesterday. Fasting glucose 242 today. Continue corrective scale insulin. Anticipate beginning to titrate off TPN in the next couple of days-corrective scale modified but will not increase basal insulin at present. Blood pressures modestly elevated; on metoprolol, Catapres patch, and nicardipine drip. Amlodipine added yesterday-dose increased to 10 mg daily today and lisinopril added at 20 mg daily. Hope to titrate nicardipine off in next 24 hours. Tolerating Glucotrol at 25 mL per hour-rate increased to 40 mL per hour; dietary consultation for recommendations. Continue TPN for nutritional support. Triglycerides pending to monitor propofol/ TPN. Hypernatremia slightly improved with TPN modifications, low-volume free water added to enteral tube feedings. Potassium down today with diuresis-replaced and early and modified in TPN. 06/13/17 14:26 Patient continues to require ventilatory assistance with FiO2 of 50% and PEEP of 7. On Solu-Medrol for pulmonary inflammation 40 mg every 12 hours and continue to monitor. BUN/creatinine beginning to climb, Lasix and then Bumex have been ineffective in producing net diuresis. Significant edema but fluid is largely and subcutaneous tissues. Frequency of Bumex decreased to avoid worsening of renal function, XIAO siu added an attempt to mobilize fluid. Antibiotics discontinued yesterday 06/11 after total of 8 days (ceftriaxone 06/04-; cefepime/clindamycin/vancomycin 06/06-06/08; Unasyn 06/08-current). Blood sugars slowly [id number] in the past 24 hours; Lantus 20 units every morning and 50 units daily at bedtime currently. Blood pressures modestly elevated; on metoprolol 25 twice a day, amlodipine 10 daily, Catapres 2 patch, lisinopril 20/day and nicardipine drip. Tolerating Glucotrol at 25 mL per hour-intended to increase rate to 40 mL per hour yesterday however order was missed; will increase rate to 50 mL per hour 12 hours and then 75 mL per hour. Discussed with nursing. Decrease TPN infusion rate to 50% current infusion rate if continues to tolerate enteral feeds at higher rates. Continue TPN for nutritional support. Triglycerides pending to monitor propofol/ TPN. Hypernatremia improving with TPN modifications, low-volume free water added to enteral tube feedings. Patient now able to indicate throat discomfort but denies abdominal pain. Restlessness frequently described. Chronic alcohol abuse, alcohol withdrawal may still be underlying much of need for sedation/hypertension-Serax initiated at 30 mg every 6 hours. Wean propofol as able, chest x-ray/ABG in a.m. 06/14/17 17:39 Extubated midafternoon. Requiring 8 L supplemental oxygen to maintain saturation and appears to be slightly labored at the time of my assessment. High probability that BiPAP will be needed overnight for support. Continue Solu-Medrol for pulmonary inflammation 40 mg every 12 hours and continue to monitor. BUN/creatinine up further today, diuretics on hold. Significant edema but fluid is largely and subcutaneous tissues. XIAO siu added an attempt to mobilize fluid. Antibiotics discontinued yesterday 06/11 after total of 8 days (ceftriaxone 06/04-; cefepime/clindamycin/vancomycin 06/06-06/08; Unasyn 06/08-current). Blood sugars slowly improving-TPN being discontinued, Lantus discontinued as a result. Continue to monitor blood sugars and corrective scale insulin available as needed. OG removed when patient extubated-tube feedings discontinued. Soft diet ordered postextubation with nutritional supplements. Blood pressures modestly elevated; on metoprolol 25 twice a day, amlodipine 10 daily, Catapres 2 patch, lisinopril 20/day and nicardipine drip. Lisinopril increased to 40 mg daily. Triglycerides pending to monitor propofol/TPN. Hypernatremia improving with TPN modifications, low-volume free water added to enteral tube feedings. Continue to monitor off TPN. Chronic alcohol abuse, alcohol withdrawal may still be underlying much of need for sedation/hypertension-Serax initiated at 30 mg every 6 hours. Requesting alcohol shortly after extubation; continue Serax/when necessary lorazepam. PT/OT ordered; seen by speech therapy postextubation today. 06/15/17 15:51 Patient has tolerated extubation well and has titrated from 8 L supplemental oxygen to 4 L supplemental oxygen currently. Refused BiPAP last night. Diuresing without diuretics, BUN/creatinine slightly higher today. Taking liquids orally well and will continue to monitor volume/renal function. Convert to oral steroids from current low-dose Solu-Medrol. C. difficile identified overnight-oral Flagyl initiated and probiotics added today. Antibiotics discontinued 06/11 after total of 8 days (ceftriaxone 06/04-06/06; cefepime/clindamycin/vancomycin 06/06-06/08; Unasyn 06/08-06/11). Blood sugars slowly improving-TPN discontinued, Lantus discontinued yesterday. Corrective insulin as needed. Check A1c. Soft diet ordered postextubation with nutritional supplements. Blood pressure remains elevated; on metoprolol 50 twice a day, amlodipine 10 daily, Catapres 2 patch, lisinopril 40/d; nicardipine drip overnight but has been titrated off. Persistent low-grade tachycardia-metoprolol increased to 100 mg twice a day and hydralazine when necessary initiated. Hypernatremia resolving. Other electrolyte abnormalities stabilized. Chronic alcohol abuse, continue Serax at 30 mg every 6 hours. Requested alcohol shortly after extubation. As patient becomes more alert will begin tapering. PT/OT today; would like to begin getting patient out of bed if possible. 06/16/17 20:30 CT scan repeated earlier today due to increased abdominal pain-Moe catheter found to be in urethra with massive distention of the bladder (although patient had urine output of 100-300 mL per hour at the time). Moe catheter replaced with immediate resolution of abdominal pain, nausea, and flushing. Prior to identification of urinary retention blood cultures were obtained due to concern that patient may have sepsis triggering symptoms. No indication of pancreatic or intra-abdominal abscess. Low-fat diet due to recent pancreatitis. Ongoing diarrhea-day to metronidazole/probiotics for C. difficile identified . Doing well postextubation (06/14) On 1 L or RA with good oxygenation over the past 24 hours although oxygenation is in the lower 90s this evening. Diuresing briskly prior to Moe change, appears to have post obstructive diuresis following Moe catheter change with almost 9 L urine output thus far today. May require fluid replacement therapy if blood pressure drops-discussed with nursing. IV Antibiotics discontinued 06/11 after total of 8 days (ceftriaxone 06/04-06/06; cefepime/clindamycin/vancomycin 06/06-06/08; Unasyn 06/08-06/11). Blood sugars slowly improving-TPN discontinued, Lantus discontinued 06/14. Corrective insulin as needed. A1c 6.1. Blood pressure stabilizing; on metoprolol 100 twice a day, amlodipine 10 daily, Catapres 2 patch, lisinopril 40/d; nicardipine drip off past 24 hours. Continue diuresis may be able to begin decreasing blood pressure medications. Hypernatremia resolving. Other electrolyte abnormalities stabilized. Chronic alcohol abuse, continue Serax but will decrease to 30 mg every 8 hours. Continue PT/OT; would like to begin getting patient out of bed if possible. 06/17/2017-Dr. Calderón Assessment: Alcoholic pancreatitis Acute respiratory failure due to ARDS/volume overload-intubated 06/06-06/14 DTs C. difficile colitis Postobstructive diuresis with almost 18 L urine output in the past day and a half Sinus tachycardia, most likely secondary to being intravascularly dry due to postobstructive diuresis less likely to be secondary to alcohol withdrawal as the patient is currently alert and oriented and not tremulous and appears in no distress Abdominal pain 06/16 due to malfunctioning Moe catheter/urinary retention Hypertensive emergency/urgency-resolved, today with occasional borderline hypotension. Chronic alcohol abuse with alcoholic liver disease Hypokalemia- Hypomagnesemia-resolved Hypophosphatemia-resolved Hypocalcemia-resolved Hyperglycemia-A1c 6.1 on 06/15/17 Hypernatremia-resolved Tobacco dependence Obesity-BMI 33.2 on admission Plan: Regarding tachycardia is most likely secondary to intravascular dryness, will give half normal saline at 250 an hour 1-2 L. The patient has already received a 500 cc normal saline bolus. We'll reassess vital signs after IV fluids have been administered. Seroquel dose decreased slightly yesterday from 30 4 times a day to 30 3 times a day-watch closely for increasing signs of withdrawal Continue metronidazole (day 3) and probiotics for C. difficile. Rectal tube DC due to decrease diarrhea. From a respiratory standpoint, patient is doing well and is currently on room air. Continue to monitor blood sugars off of TPN Discontinue steroids which were started for ARDS Repeat basic metabolic profile this afternoon Replace potassium orally Low-dose Lovenox and SCDs for DVT prophylaxis Greater than 1 hour of critical care time spent seeing and evaluating the patient and reviewing the chart. Discussed with the family, patient's nurse, and Dr. Renee. 06/18/2017-Dr. Calderón Assessment: Necrotizing Alcoholic pancreatitis Fevers. White count is decreasing off of steroids. Blood cultures negative so far. Chest x-ray stable. Urinalysis negative. Acute respiratory failure due to ARDS/volume overload-intubated 06/06-06/14-stable on 2 L of oxygen DTs with improving encephalopathy from alcohol withdrawal C. difficile colitis Postobstructive diuresis Sinus tachycardia-improved Abdominal pain 06/16 due to malfunctioning Moe catheter/urinary retention Hypertensive emergency/nlzxepk-kpsunsvq-offmnmjz antihypertensives Chronic alcohol abuse with alcoholic liver disease Hypokalemia-mild Hypomagnesemia-resolved Hypophosphatemia-resolved Hypocalcemia-resolved Hyperglycemia-A1c 6.1 on 06/15/17 Hypernatremia-resolved Tobacco dependence Obesity-BMI 33.2 on admission Left arm edema with PICC line-rule out DVT Oral herpes lesions Plan: Monitor blood pressure closely after getting all of blood pressure medications this morning. Continue to monitor for signs or symptoms of infection/sepsis. Appreciate Dr. Rojas' consultation Continue Seroquel for alcohol withdrawal Check venous Doppler left arm to rule out DVT Continue metronidazole (day 4) and probiotics for C. difficile. Continue to monitor blood sugars off of TPN Steroids discontinued yesterday. They had been started for ARDS which has resolved. Replace potassium orally Low-dose Lovenox and SCDs for DVT prophylaxis Greater than 45 minutes of critical care time spent seeing and evaluating the patient and reviewing the chart. Discussed with the family, patient's nurse, and Dr. Rojas. 06/19/2017-Dr. 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 Blood cultures negative so far. Chest x-ray stable. Urinalysis negative. Acute respiratory failure due to ARDS/volume overload-intubated 06/06-06/14-stable on 2 L of oxygen DTs with improving encephalopathy from alcohol withdrawal C. difficile colitis-decreased stools Postobstructive diuresis -weight down 18 kg in the past 3 days Sinus tachycardia-improved Abdominal pain 06/16 due to malfunctioning Moe catheter/urinary retention Hypertensive emergency/foicvam-wndnulxg-inzik pressure still elevated, restart Norvasc Chronic alcohol abuse with alcoholic liver disease-the patient states he intends to quit drinking completely after discharge Hypokalemia worse this morning despite replacement yesterday, likely secondary to continued spontaneous diuresis Hypomagnesemia-replacing IV this morning Hypophosphatemia-resolved Hypocalcemia-mild Hyperglycemia-A1c 6.1 on 06/15/17 Hypernatremia-resolved Tobacco dependence Obesity-BMI 33.2 on admission DVT left arm-PICC removed 2016 and started on therapeutic dose Lovenox Oral herpes lesions-started acyclovir 06/18/2017 Plan: Recheck potassium and magnesium and recheck Restart Norvasc for hypertension Consult pharmacy to initiate Coumadin for DVT Continue to monitor for signs or symptoms of infection/sepsis. Appreciate Dr. Rojas' consultation Continue Seroquel for alcohol withdrawal Continue metronidazole (started 06/15/2017) and probiotics for C. difficile. Blood sugars well controlled off of TPN. Will DC Accu-Cheks Steroids discontinued 06/17/2017. They had been started for ARDS which has resolved. We'll stop clamping Moe and monitor urine output. Greater than 40 minutes of critical care time spent seeing and evaluating the patient and reviewing the chart. Discussed with the family and patient's nurse. 06/20/2017-Dr. 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 Blood cultures negative so far. Chest x-ray stable. Urinalysis negative. Acute respiratory failure due to ARDS/volume overload-intubated 06/06-06/14-on room air currently DTs with improving encephalopathy from alcohol withdrawal C. difficile colitis-decreased stools Postobstructive diuresis Fluid overload-now down to admission weight Sinus tachycardia-improved Abdominal pain 06/16 due to malfunctioning Moe catheter/urinary retention Hypertensive emergency/ewhmklx-vdywhdjs-qhxlh pressure lower this morning, hold Norvasc, consider holding lisinopril Chronic alcohol abuse with alcoholic liver disease-the patient states he intends to quit drinking completely after discharge Hypokalemia -improved Hypomagnesemia-replacing IV this morning Hypophosphatemia-resolved Hypocalcemia-mild Hyperglycemia-A1c 6.1 on 06/15/17 Hypernatremia-resolved Tobacco dependence Obesity-BMI 33.2 on admission DVT left arm-PICC removed 06/18/2017 and started on therapeutic dose Lovenox, Coumadin initiated 06/19/2017 Oral herpes lesions-started acyclovir 06/18/2017 Plan: Replace magnesium May need to decrease potassium tomorrow, currently on 20 mEq by mouth 3 times a day Hold Norvasc Continue to monitor for signs or symptoms of infection/sepsis. Decrease Seroquel to 15 mg by mouth 3 times a day Continue metronidazole (started 06/15/2017) and probiotics for C. difficile. Steroids discontinued 06/17/2017. They had been started for ARDS which has resolved. Continue to monitor closely regarding postobstructive diuresis. If the patient is hypotensive or tachycardia worsens, may need to add IV fluids. Greater than 40 minutes of critical care time spent seeing and evaluating the patient and reviewing the chart. Discussed with the family and patient's nurse. 06/21/2017-Dr. 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 Urinalysis negative. Chest x- ray yesterday showed possible basilar atelectasis versus early pneumonitis, today showing more infiltrate in the right base and a small to moderate pleural effusion on the right concerning for parapneumonic effusion No right-sided effusion 06/21/2017 possible pneumonia Acute respiratory failure due to ARDS/volume overload-intubated 06/06-06/14 DTs with improving encephalopathy from alcohol withdrawal-Serax decreased 2016 C. difficile colitis-decreased stools Postobstructive diuresis Fluid overload-improved Sinus tachycardia Abdominal pain 06/16 due to malfunctioning Moe catheter/urinary retention Hypertensive emergency/urgency-improved on clonidine and metoprolol. Norvasc and lisinopril are currently on hold Chronic alcohol abuse with alcoholic liver disease-the patient states he intends to quit drinking completely after discharge Hypokalemia -improved Hypomagnesemia-replacing IV this morning Hypophosphatemia-resolved Hypocalcemia-mild Hyperglycemia-A1c 6.1 on 06/15/17 Hypernatremia-resolved Tobacco dependence Obesity-BMI 33.2 on admission DVT left arm-PICC removed 06/18/2017 and started on therapeutic dose Lovenox, Coumadin initiated 06/19/2017 Oral herpes lesions-started acyclovir 06/18/2017 Plan: Discussed with Dr. Renee. Will hold Coumadin and Lovenox. Will give vitamin K 1 today. Probable thoracentesis later today regarding no effusion. Regarding possible pneumonia, will discuss with Dr. Rojas. May need to initiate antibiotics. Sputum culture shows gram-positive cocci in pairs Check pro-calcitonin and lactate Replace magnesium Replace potassium Continue metronidazole (started 06/15/2017) and probiotics for C. difficile. Steroids discontinued 06/17/2017. They had been started for ARDS which has resolved. Continue to monitor closely regarding postobstructive diuresis. If the patient is hypotensive or tachycardia worsens, may need to add IV fluids. Greater than 45 minutes of critical care time spent seeing and evaluating the patient and reviewing the chart. Discussed with the family and patient's nurse. 06/22/2017-Dr. 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 MAXIMUM TEMPERATURE 100.3. Blood cultures negative so far. Urinalysis negative. Chest x-ray shows right sided infiltrate and bilateral pleural effusions. Cefepime and Vanco started 2016. Elevated lactate morning of 06/21/2017, resolved with 1 L of IV fluids and initiation of antibiotics. No right-sided effusion 06/21/2017-scheduled for thoracentesis 06/22/2017 Healthcare associated pneumonia- Cefepime and Vanco started 06/21/2017. Acute respiratory failure due to ARDS/volume overload-intubated 06/06-06/14 DTs with improving encephalopathy from alcohol withdrawal-Serax decreased 2016 C. difficile ssaaeik-ppzuxlarn-xk metronidazole since 06/15/2017 Anemia -slow trend down in hemoglobin since admission. Initiate anemia workup. Postobstructive diuresis -resolved Fluid overload-improved Sinus tachycardia Hypertensive emergency/urgency-improved on clonidine and metoprolol. Norvasc and lisinopril are currently on hold Chronic alcohol abuse with alcoholic liver disease-the patient states he intends to quit drinking completely after discharge Hypomagnesemia-stable now at 1.4 despite multiple doses of IV magnesium. Hypocalcemia-mild Tobacco dependence Obesity-BMI 33.2 on admission DVT left arm-PICC removed 06/18/2017 and started on therapeutic dose Lovenox, Coumadin initiated 06/19/2017 Oral herpes lesions-started acyclovir 06/18/2017 Plan: Thoracentesis today with Dr. Renee. Will need Gram stain and culture of fluid. INR has improved after vitamin K. Lovenox is on hold. Dr. Renee to restart Lovenox for DVT left arm post thoracentesis. Continue cefepime and Vanco for now for healthcare associated pneumonia. Continue metronidazole for C. difficile. Continue acyclovir for recurrent herpes outbreak of mouth. Start oral magnesium and monitor magnesium level Restart lisinopril for hypertension but at lower dose of 20 mg instead of 40 mg. We'll increase further if needed Initiate anemia workup CATHRYN Moe later today after thoracentesis if patient doing well. Greater than 45 minutes of critical care time spent seeing and evaluating the patient and reviewing the chart. Discussed with the family and patient's nurse 06/23/2017-Dr. 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 Blood cultures negative so far. Urinalysis negative. Chest x-ray shows right sided infiltrate and bilateral pleural effusions. Cefepime and Vanco started 06/21/2017. Elevated lactate morning of 06/21/2017, resolved with 1 L of IV fluids and initiation of antibiotics. Small right-sided pleural effusion-thoracentesis on 06/22/2017 revealed very minimal bloody return but no significant fluid. Healthcare associated pneumonia- Cefepime and Vanco started 06/21/2017. Acute respiratory failure due to ARDS/volume overload-intubated 06/06-06/14 DTs with improving encephalopathy from alcohol withdrawal-Serax decreased 2016 C. difficile [id number]-cv metronidazole since 06/15/2017 Anemia -slow trend down in hemoglobin since admission. Mild iron deficiency anemia, borderline low B 12 Postobstructive diuresis -resolved Fluid overload-improved Sinus tachycardia Hypertensive emergency/urgency-improved on clonidine, Norvasc, lisinopril and metoprolol. Chronic alcohol abuse with alcoholic liver disease-the patient states he intends to quit drinking completely after discharge Hypomagnesemia-stable now at 1.4 despite multiple doses of IV magnesium. Hypocalcemia-resolved Tobacco dependence Obesity-BMI 33.2 on admission DVT left arm-PICC removed 06/18/2017 anticoagulation initiated, was held for recent transfuse this 06/22/2017 and then restarted Oral herpes lesions-started acyclovir 06/18/2017 Mild hemoptysis Plan: Restart Lovenox and Coumadin today. Discussed with pharmacy Continue cefepime and Vanco for now for healthcare associated pneumonia. Continue metronidazole for C. difficile. Continue acyclovir for recurrent herpes outbreak of mouth. Start oral magnesium Start oral iron and oral vitamin B-12 for anemia, mild iron deficiency, borderline low B 12 CATHRYN Moe Increase metoprolol for tachycardia Change to Xopenex because of the patient's tachycardia We'll ask the elementary school social worker to see the patient regarding alcohol treatment after discharge Greater than 45 minutes of critical care time spent seeing and evaluating the patient and reviewing the chart. Discussed with the family, pharmacy, RT and patient's nurse.
[2017-06-24] MEDS: ALBUTEROL/IPRATROPIUM 2.5mg-0.5mg/3ml NEB IPPB SCH (17:54)
[2017-06-25] MEDS: HYDROCODONE/APAP 7.5 MG/325 MG TABLET PO PRN ×4 (03:22→21:34)
[2017-06-25] MEDS: CEFEPIME 1 GM in NS 100 ML IV SCH ×3 (05:14→18:12)
--- NOTE | 2017-06-25 07:32 | Pharmacy Consult ---
Pharmacy Consult-Warfarin - Laboratory Information 06/09/17 06/20/17 06/21/17 04:23 10:30 04:08 INR 1.22 H 2.30 H 2.58 H 06/22/17 06/23/17 06/24/17 04:23 04:16 05:37 INR 1.46 H 1.41 H 1.53 H 06/25/17 04:27 INR 1.84 H - Consult Information Ordered warfarin 5mg po for today at noon. Will continue to monitor. Thank you.
[2017-06-25] MEDS: LISINOPRIL 20 MG TABLET PO SCH (09:40)
[2017-06-25] MEDS: ACYCLOVIR 200 MG CAPSULE PO SCH ×3 (09:41→21:38)
[2017-06-25] MEDS: FAMOTIDINE 20 MG TABLET PO SCH ×2 (09:41→21:37)
[2017-06-25] MEDS: AMLODIPINE 10 MG TABLET PO SCH (09:41)
[2017-06-25] MEDS: MetroNIDAZOLE 500 MG TABLET PO SCH ×3 (09:42→18:11)
[2017-06-25] MEDS: OXAZEPAM 15 MG CAPSULE PO SCH ×4 (09:42→21:37)
[2017-06-25] MEDS: FERROUS SULFATE 324 MG TABLET PO SCH ×2 (09:42→18:08)
[2017-06-25] MEDS: FOLIC ACID 1 MG TABLET PO SCH (09:42)
[2017-06-25] MEDS: CYANOCOBALAMIN (B-12) 500mcg TABLET PO SCH (09:43)
[2017-06-25] MEDS: CALCIUM 600 + VIT D 400 TABLET PO SCH ×2 (09:44→21:37)
[2017-06-25] MEDS: LACTOBACILLUS (15B cfu) CAPSULE PO SCH ×3 (09:44→18:09)
[2017-06-25] MEDS: CLONIDINE 0.2 MG/24 HR PATCH TD SCH (09:44)
[2017-06-25] MEDS: NICOTINE 21 MG PATCH TD SCH (09:45)
[2017-06-25] MEDS: MAGNESIUM OXIDE 400 MG TABLET PO SCH ×2 (09:49→21:37)
[2017-06-25] MEDS: NICOTINE PATCH REMOVAL TD SCH (09:50)
[2017-06-25] MEDS: ENOXAPARIN 120 MG/0.8 ML INJECTION SQ SCH ×2 (09:53→21:38)
[2017-06-25] MEDS ORDERED: WARFARIN 5 MG TABLET PO SCH (12:00)
[2017-06-25] MEDS ORDERED: FUROSEMIDE 40 MG TABLET PO ONE (14:15)
[2017-06-25] MEDS: CLONIDINE PATCH REMOVAL TD SCH (14:21)
--- NOTE | 2017-06-25 18:03 | Progress Note ---
Subjective: Nii reported minimal dyspnea when seen earlier this afternoon. Has occasional cough with minor sputum production. He denied nausea or vomiting and has had no chest pain. He continues to have occasional diarrhea but is also having formed stools and overall frequency of stools is decreased significantly. His appetite is good, his ambulating without difficulty, and denies lightheadedness. He describes plans to follow-up with [employer] his sobriety at discharge. Objective Vital signs: Temperature 99.7 F 06/25/17 17:24 Pulse Rate 110 H 06/25/17 16:00 Respiratory Rate 16 06/25/17 17:24 Blood Pressure 136/98 H 06/25/17 17:24 Pulse Oximetry 96 06/25/17 17:24 Oxygen Delivery Method Room Air Oxygen Flow Rate 2 Fraction of Inspired Oxygen 50 SaO2/FiO2 Ratio 206 EXAM General-NAD, alert, fluent speech HEENT-conjunctiva clear, sclera anicteric Lungs-respirations nonlabored, good airflow, coarse sounds at the bases with faint wheezing at the left base Cardiac-regular rhythm, S1-S2 Abd-soft, minimal tenderness RUQ and epigastrium, no guarding, bowel sounds present although diminished Ext-+1 edema; localized erythema mid left ewing Neuro-MAEW Psych-calm, cooperative - Rhythm: Normal Sinus Rhythm Height/Weight/BMI: Height 1.85 m Weight 114.2 kg Body Mass Index 39.4 Results - Labs CBC & Chem 7: 06/25/17 04:27 06/25/17 04:27 Labs: INR 1.84 Magnesium 1.6 Microbiology Results: Microbiology 06/20/17 20:30 Peripheral/Iv Start Blood Culture - Preliminary No Growth After 4 Days 06/20/17 20:31 Peripheral/Iv Start Blood Culture - Preliminary No Growth After 4 Days 06/17/17 11:52 Cath/Port/Line/Picc Blood Culture - Final No Growth After 5 Days 06/17/17 11:56 Cath/Port/Line/Picc Blood Culture - Final No Growth After 5 Days 06/20/17 16:30 Sputum, Expectorated Gram Stain - Final 06/20/17 16:30 Sputum, Expectorated Sputum Culture - Final Normal Respiratory Dinah including Yeast Present 06/16/17 10:45 Cath/Port/Line/Picc Blood Culture - Final No Growth After 5 Days 06/16/17 10:55 Cath/Port/Line/Picc Blood Culture - Final No Growth After 5 Days 06/06/17 11:34 Peripheral/Iv Start Blood Culture - Final No Growth After 5 Days 06/06/17 11:34 Peripheral/Iv Start Blood Culture - Final No Growth After 5 Days 06/06/17 11:00 Sputum, Suctioned Gram Stain - Final 06/06/17 11:00 Sputum, Suctioned Sputum Culture - Final Normal Respiratory Dinah - ABG Interpretation ABG results: 06/05/17 06/06/17 06/06/17 17:41 04:35 09:25 ABG pH 7.360 7.380 7.460 H ABG pCO2 55 H 53 H 42 ABG pO2 114 H 64 L 133 H ABG HCO3 31 H 31 H 30 H ABG Total CO2 32.8 H 33.0 H 31.2 H ABG O2 Saturation 98.0 92.0 L 99.0 H ABG Base Excess 4.4 H 5.0 H 5.5 H 06/06/17 06/07/17 06/08/17 15:05 09:55 07:50 ABG pH 7.450 7.370 7.391 ABG pCO2 41 52 H 50 H ABG pO2 65 L 82 98 ABG HCO3 29 H 30 H 31 H ABG Total CO2 29.8 H 31.7 H 32 H ABG O2 Saturation 93.0 L 96.0 97.0 ABG Base Excess 4.1 H 3.7 H 5.0 H 06/09/17 06/14/17 06/14/17 08:35 10:10 14:42 ABG pH 7.470 H 7.460 H 7.480 H ABG pCO2 44 41 36 ABG pO2 88 65 L 65 L ABG HCO3 32 H 29 H 27 H ABG Total CO2 33.4 H 30.5 H 27.9 H ABG O2 Saturation 97.0 94.0 L 94.0 L ABG Base Excess 7.4 H 4.9 H 3.3 H Assessment and Plan (1) Pancreatitis Problem details: POA: ETOH induced. RUQ US negative for obstructive stones. MRCP nondiagnostic due to motion artifact however no obvious gallstones, pancreatitis head thickened, intrahepatic ducts nondilated. Current visit: Yes Status: Acute (2) Acute respiratory failure Problem details: Intubated 06/06-06/14; ARDS/volume overload Current visit: Yes Status: Acute (3) DTs (delirium tremens) Current visit: Yes Status: Acute (4) Hypertension Current visit: Yes Status: Chronic (5) ETOHism Current visit: Yes Status: Chronic DVT Prophylaxis: SCD's, Lovenox, Coumadin GI Prophylaxis: Pepcid Resuscitation Status: Full Code Assessment and Plan: 06/24/2017-Dr. 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 Healthcare associated pneumonia- Cefepime and Vanco started 06/21/2017. Acute respiratory failure due to ARDS/volume overload-intubated 06/06-06/14 DTs with improving encephalopathy from alcohol withdrawal C. difficile colitis- metronidazole started 06/15/2017 Anemia Postobstructive diuresis -resolved Fluid overload-improved Sinus tachycardia Hypertensive emergency/urgency Chronic alcohol abuse with alcoholic liver disease Hypomagnesemia Hypocalcemia-resolved Tobacco dependence Obesity-BMI 33.2 on admission DVT left arm-PICC removed 06/18/2017 anticoagulation initiated, was held for recent thoracentesis 06/22/2017 and then restarted Oral herpes lesions-started acyclovir 06/18/2017 Mild hemoptysis-improved Plan: Patient is breathing well and on room air. Blood cultures negative after 4 days. Chest x-ray 06/21 demonstrated right sided infiltrate and small bilateral pleural effusions. Cefepime and Vanco started 06/21/2017, vancomycin discontinued 06/25. Chest x-ray reordered for today. Anticipate discontinuing cefepime after 7 days. Continue metronidazole for C. difficile, day 09/14. Continue acyclovir for recurrent herpes outbreak of mouth. Continue to monitor hemoglobin which is trending down slowly-likely due primarily to phlebotomy and possible underlying chronic disease. On iron and B- 12 supplements for mild iron deficiency anemia, borderline low B 12. Blood pressure stable on multiple medications (clonidine, Norvasc, lisinopril and metoprolol), heart rate improving with increased dose metoprolol (78-112 today). Encephalopathy dramatically improved since I last saw him, taper Serax to 3 times daily. His postobstructive diuresis has resolved. Continue Lovenox and Coumadin for left upper extremity DVT related to PICC line. INR remains slightly subtherapeutic. Significant progress has been made in the past week despite infectious complications. Approaching discharge. Sepsis Assessment - Evaluation Sepsis screening result: No Definite Risk Hospital Course Summary Disclaimer: The visit summary below is not to be considered part of the above Progress Note. Hospital Course: 06/04/17 1) Alcohol use and abuse with ongoing pancreatitis, this could be related to ETOH, or due to gallstones (U/S could not see distal CBD - bilirrubin high) or both. - Check Abd/Pelvic CT with IV contrast re: Extent of pancreatic swelling ? abscess ? hemorrhage ? also Pyelonephritis ? - Check MRCP - pt could be obstructed since Bilirrubin is high. Pt states he noticed his skin is yellow. - Aggressive hydration with NS 500cc/hr x 6 hrs then reasses 2) UTI - very high lactate - high WBC - On Rocephin will continue for now. 3) Hypokalemia/Hypomagenesemia - Will give Mg + K 4) Lactic acidosis - due to ? sepsis ? hypoperfusion ? - Will recheck later today. 5) Elevated hemoglobin - Will follow serially. 06/05/17 1) ALCOHOL ABUSE WITH A) SEVERE AGITATION/CONFUSION ? OF HALLUCINATIONS MOST LIKELY DUE TO ALCOHOL WITHDRAWALS - On Propofol drip - Tachycardic - Will also give Ativan IV AR. - Check CPK (R/O Rhabdo due to agitation) - Aggressive hydration and electrolyte replenishment. B) Pancreatitis most likely related to ETOH MRCP Impression: 1. No cholelithiasis or intrahepatic bile duct dilatation. Evaluation of the extrahepatic common duct is poor due to motion artifact and patient body habitus. No obvious common duct stone. 2. Enlargement of the pancreatic head which could be due to inflammation from pancreatitis or potentially neoplasm. Recommend further evaluation with a contrast-enhanced CT of the abdomen. - Lipase coming down - Check CA 19-9 prior to D/C and follow closely his pancreatic anatomy by CT/ MRI. Transferred to CCU due to alcohol withdrawal. 06/06/17 1) PULMONARY ASSESMENT A) Pt has developed ALI/ARDS - ABG on FIO2 of 80% showed PaO2 of 133 with CO2 of 42 - huge a-A gradient that has increased since yesterday. - Pt was intubated successfully by ED MD - Saturations are 91 on 100% FIO2. ET tube appears to be well positioned. - Pt requires high PEEP. - Could be related to pancreatitis, or PNA - Pt has a L sided effussion - could be related to pancreatitis. Must R/O Boherhave's syndrome will try a CT chest with gastrograffin injection in the mid esophagus. - Start coverage for HAP - Vanco + cefepime + steroids - Add Mucomyst for possible mucus plugg. - Case discussed with his NOK - significant other, she consented for intubation. - Reculture blood & sputum B) Obstructive Sleep Apnea (New Dx) - Was on CPAP - now intubated. 2) ALCOHOL ABUSE WITH MULTIPLE COMPLICATIONS - A) SEVERE AGITATION/CONFUSION ? OF HALLUCINATIONS MOST LIKELY DUE TO ALCOHOL WITHDRAWALS - On propofol since yesterday. - On Propofol drip - Continue. - Tachycardic/hypertensive - CPK - 1261 Yesterday - C/W rhadbomyolisis - will rehceck - Aggressive hydration and electrolyte replenishment. B) Pancreatitis most likely related to ETOH - Lipase coming down - Check CA 19-9 prior to D/C and follow closely his pancreatic anatomy by CT/MRI. - Add Banana bags - C) Hypokalemia on admission - K is high today. - Stop NS with K - Recheck later. D) Hypomagnesemia - now improved. E) Severe hypophosphatemia - Risk of hemolysis - CHF & could be causing low Platelets. - PO4 is under 1 - Spoke with Pharm Jasmine De Souza - Will give 90 Mmol of Na Phosphate F) Dehydration - Appears improved now, will hold off on aggressive hydration will place on Banana bag @ 50ml/hr x 3 Liters. G) Rhabdomyolisis - cuuld be due to his severe agitation. - Recheck CPK now. 3) INFECTIOUS DISEASE ASSESMENT A) UTI - very high lactate - high WBC - On Rocephin will continue for now. B) ? Of HAP ? - Will cover with Vanco + Cefepime - Add Mucomyst for possible mucus plug - Continue Duonebs - Add Steroids. - Lactate is dropping 3) CARDIOVASCULAR ASSESSMENT A) Hypertension - moderate to severe - On BB PRN will schedule with parameters B) Will check EKG due to low Ca and due to severe agitation - R.O GA. - Check 2-D echo - Consult Cardiology (BNP was very high and has Pleural effussion - Alcoholic [place] [facility] ?) PREVENTION DVT - SCD'S PUD - PPI. 06/07/[address] Renee for Pulm evaluation and to help with ventilator management. Continue IV antibiotics - possible aspiration pneumonia/pneumonitis Continue Sedation - with current decreased pulmonary statue, likely too early to work on weaning sedation. Start TPN for nutritional support. Will stop IVF when TPN ready. Continue to monitor lab due to pt's severity of illness. Patient remains critically ill, ICU care warranted. 06/08/17 Continue with mechanical ventilation as per Dr Renee. In discussion with Dr Renee, will deescalate IV antibiotic use (likely respiratory failure from ARDS due to pancreatitis, still some concern for possible aspiration) Will stop Vancomycin, cefepime and clindamycin. Initiate Unasyn for coverage. Will continue Solu-Medrol at 40mg IV q 8 hours. Will stop Mucomyst - monitor for increase secretions. Blood pressure with elevation today. Bumex 1mg given this morning and afternoon to help decrease volume. Urine output appropriate, but pressures remain high. Start Nipride drip to ease down blood pressure. TPN continues-discussed with pharm about electrolyte adjustments. 10 units of Lantus given this morning to help sugars - did monitor sugars more frequently and gave additions SQ doses of insulin. Will start 20 units of Lantus this evening. Insulin sliding scale changed to high dose regimen. Continue propofol for sedation. Patient remains critically ill. CCU care an support required. 06/09/17 Recheck Lipase and CPK this am show normalization. Continue with mechanical ventilation as per Dr Renee. Continue Unasyn for antimicrobial coverage. Additional insulin to be given to help improve glycemic control. Extra SQ dosing during day. Increase Lantus to 45 units at night. Sugars elevated due to TPN and Solu-Medrol. Bumex 1mg given this morning to help decrease volume. Will give additional Bumex 1mg this afternoon. Nipride drip continues for BP control. TPN continues-discussed with pharm about electrolyte adjustments. Will remove sodium to decrease sodium level and OSMO. Increase KPhos. Continue propofol for sedation. Patient remains critically ill. CCU care an support required. 06/10/17 15:56 Patient continues to require ventilatory assistance with high pressures and FiO2 of 60% increased to 70% this afternoon after desaturating. Weight up significantly since admission, volume status +18.7 L from admission, edema on exam-will begin diuresing with scheduled Lasix. Continue propofol; discussed conversion to Precedex with Dr. Renee but with respiratory instability will not make changes at this time. Check triglycerides in a.m. Continue Unasyn/steroids. Remains hyperglycemic; Lantus increased to 50 units and corrective scale modified upward. Blood pressures modestly elevated; on IV metoprolol, Catapres patch, and nicardipine drip. Convert to enteral metoprolol per NG. Begin low-volume feedings per NG; dietary consultation for recommendations. Continue TPN for nutritional support. Patient remains critically ill. 06/11/17 16:18 Patient continues to require ventilatory assistance with FiO2 of 50% and PEEP of 8-both improved from yesterday. Continue diuresis with goal of equal/negative fluid balance daily. X-ray most consistent with volume overload-no focal infiltrate. Patient has been on antibiotics since 06/04 (ceftriaxone 06/04-06/06; cefepime/ clindamycin/vancomycin 06/06-06/08; Unasyn 06/08-current); sputum culture normal dinah -we'll discontinue antibiotics. On Solu-Medrol for pulmonary inflammation-discussed with Dr. Renee-decreased dose to 40 mg every 12 hours and continue to monitor. Remains hyperglycemic; Lantus increased to 50 units daily at bedtime with 20 units added every morning. Continue corrective scale insulin. Blood pressures modestly elevated; on by mouth metoprolol, Catapres patch, and nicardipine drip. Amlodipine added. Begin low-volume feedings per NG with Glucotrol; dietary consultation for recommendations. Continue TPN for nutritional support. Triglycerides pending to monitor propofol/ TPN. Hypernatremia slightly improved with TPN modifications, low-volume free water added to enteral tube feedings. 06/12/17 12:54 Patient continues to require ventilatory assistance with FiO2 of 50% and PEEP of 7. Continue diuresis with goal of equal/negative fluid balance daily. Bumex increased to 1 mg IV every 6 hours. Antibiotics discontinued yesterday (06/11) after total of 8 days (ceftriaxone 06/04 -06/06; cefepime/clindamycin/vancomycin 06/06-06/08; Unasyn 06/08-current). sputum culture normal dinah-we'll discontinue antibiotics. On Solu-Medrol for pulmonary inflammation 40 mg every 12 hours and continue to monitor. Remains hyperglycemic; Lantus increased to 20 units every morning and 50 units daily at bedtime yesterday. Fasting glucose 242 today. Continue corrective scale insulin. Anticipate beginning to titrate off TPN in the next couple of days-corrective scale modified but will not increase basal insulin at present. Blood pressures modestly elevated; on metoprolol, Catapres patch, and nicardipine drip. Amlodipine added yesterday-dose increased to 10 mg daily today and lisinopril added at 20 mg daily. Hope to titrate nicardipine off in next 24 hours. Tolerating Glucotrol at 25 mL per hour-rate increased to 40 mL per hour; dietary consultation for recommendations. Continue TPN for nutritional support. Triglycerides pending to monitor propofol/ TPN. Hypernatremia slightly improved with TPN modifications, low-volume free water added to enteral tube feedings. Potassium down today with diuresis-replaced and early and modified in TPN. 06/13/17 14:26 Patient continues to require ventilatory assistance with FiO2 of 50% and PEEP of 7. On Solu-Medrol for pulmonary inflammation 40 mg every 12 hours and continue to monitor. BUN/creatinine beginning to climb, Lasix and then Bumex have been ineffective in producing net diuresis. Significant edema but fluid is largely and subcutaneous tissues. Frequency of Bumex decreased to avoid worsening of renal function, XIAO siu added an attempt to mobilize fluid. Antibiotics discontinued yesterday 06/11 after total of 8 days (ceftriaxone 06/04-; cefepime/clindamycin/vancomycin 06/06-06/08; Unasyn 06/08-current). Blood sugars slowly [id number] in the past 24 hours; Lantus 20 units every morning and 50 units daily at bedtime currently. Blood pressures modestly elevated; on metoprolol 25 twice a day, amlodipine 10 daily, Catapres 2 patch, lisinopril 20/day and nicardipine drip. Tolerating Glucotrol at 25 mL per hour-intended to increase rate to 40 mL per hour yesterday however order was missed; will increase rate to 50 mL per hour 12 hours and then 75 mL per hour. Discussed with nursing. Decrease TPN infusion rate to 50% current infusion rate if continues to tolerate enteral feeds at higher rates. Continue TPN for nutritional support. Triglycerides pending to monitor propofol/ TPN. Hypernatremia improving with TPN modifications, low-volume free water added to enteral tube feedings. Patient now able to indicate throat discomfort but denies abdominal pain. Restlessness frequently described. Chronic alcohol abuse, alcohol withdrawal may still be underlying much of need for sedation/hypertension-Serax initiated at 30 mg every 6 hours. Wean propofol as able, chest x-ray/ABG in a.m. 06/14/17 17:39 Extubated midafternoon. Requiring 8 L supplemental oxygen to maintain saturation and appears to be slightly labored at the time of my assessment. High probability that BiPAP will be needed overnight for support. Continue Solu-Medrol for pulmonary inflammation 40 mg every 12 hours and continue to monitor. BUN/creatinine up further today, diuretics on hold. Significant edema but fluid is largely and subcutaneous tissues. XIAO siu added an attempt to mobilize fluid. Antibiotics discontinued yesterday 06/11 after total of 8 days (ceftriaxone 06/04-; cefepime/clindamycin/vancomycin 06/06-06/08; Unasyn 06/08-current). Blood sugars slowly improving-TPN being discontinued, Lantus discontinued as a result. Continue to monitor blood sugars and corrective scale insulin available as needed. OG removed when patient extubated-tube feedings discontinued. Soft diet ordered postextubation with nutritional supplements. Blood pressures modestly elevated; on metoprolol 25 twice a day, amlodipine 10 daily, Catapres 2 patch, lisinopril 20/day and nicardipine drip. Lisinopril increased to 40 mg daily. Triglycerides pending to monitor propofol/TPN. Hypernatremia improving with TPN modifications, low-volume free water added to enteral tube feedings. Continue to monitor off TPN. Chronic alcohol abuse, alcohol withdrawal may still be underlying much of need for sedation/hypertension-Serax initiated at 30 mg every 6 hours. Requesting alcohol shortly after extubation; continue Serax/when necessary lorazepam. PT/OT ordered; seen by speech therapy postextubation today. 06/15/17 15:51 Patient has tolerated extubation well and has titrated from 8 L supplemental oxygen to 4 L supplemental oxygen currently. Refused BiPAP last night. Diuresing without diuretics, BUN/creatinine slightly higher today. Taking liquids orally well and will continue to monitor volume/renal function. Convert to oral steroids from current low-dose Solu-Medrol. C. difficile identified overnight-oral Flagyl initiated and probiotics added today. Antibiotics discontinued 06/11 after total of 8 days (ceftriaxone 06/04-06/06; cefepime/clindamycin/vancomycin 06/06-06/08; Unasyn 06/08-06/11). Blood sugars slowly improving-TPN discontinued, Lantus discontinued yesterday. Corrective insulin as needed. Check A1c. Soft diet ordered postextubation with nutritional supplements. Blood pressure remains elevated; on metoprolol 50 twice a day, amlodipine 10 daily, Catapres 2 patch, lisinopril 40/d; nicardipine drip overnight but has been titrated off. Persistent low-grade tachycardia-metoprolol increased to 100 mg twice a day and hydralazine when necessary initiated. Hypernatremia resolving. Other electrolyte abnormalities stabilized. Chronic alcohol abuse, continue Serax at 30 mg every 6 hours. Requested alcohol shortly after extubation. As patient becomes more alert will begin tapering. PT/OT today; would like to begin getting patient out of bed if possible. 06/16/17 20:30 CT scan repeated earlier today due to increased abdominal pain-Moe catheter found to be in urethra with massive distention of the bladder (although patient had urine output of 100-300 mL per hour at the time). Moe catheter replaced with immediate resolution of abdominal pain, nausea, and flushing. Prior to identification of urinary retention blood cultures were obtained due to concern that patient may have sepsis triggering symptoms. No indication of pancreatic or intra-abdominal abscess. Low-fat diet due to recent pancreatitis. Ongoing diarrhea-day to metronidazole/probiotics for C. difficile identified . Doing well postextubation (06/14) On 1 L or RA with good oxygenation over the past 24 hours although oxygenation is in the lower 90s this evening. Diuresing briskly prior to Moe change, appears to have post obstructive diuresis following Moe catheter change with almost 9 L urine output thus far today. May require fluid replacement therapy if blood pressure drops-discussed with nursing. IV Antibiotics discontinued 06/11 after total of 8 days (ceftriaxone 06/04-06/06; cefepime/clindamycin/vancomycin 06/06-06/08; Unasyn 06/08-06/11). Blood sugars slowly improving-TPN discontinued, Lantus discontinued 06/14. Corrective insulin as needed. A1c 6.1. Blood pressure stabilizing; on metoprolol 100 twice a day, amlodipine 10 daily, Catapres 2 patch, lisinopril 40/d; nicardipine drip off past 24 hours. Continue diuresis may be able to begin decreasing blood pressure medications. Hypernatremia resolving. Other electrolyte abnormalities stabilized. Chronic alcohol abuse, continue Serax but will decrease to 30 mg every 8 hours. Continue PT/OT; would like to begin getting patient out of bed if possible. 06/17/2017-Dr. Calderón Assessment: Alcoholic pancreatitis Acute respiratory failure due to ARDS/volume overload-intubated 06/06-06/14 DTs C. difficile colitis Postobstructive diuresis with almost 18 L urine output in the past day and a half Sinus tachycardia, most likely secondary to being intravascularly dry due to postobstructive diuresis less likely to be secondary to alcohol withdrawal as the patient is currently alert and oriented and not tremulous and appears in no distress Abdominal pain 06/16 due to malfunctioning Moe catheter/urinary retention Hypertensive emergency/urgency-resolved, today with occasional borderline hypotension. Chronic alcohol abuse with alcoholic liver disease Hypokalemia- Hypomagnesemia-resolved Hypophosphatemia-resolved Hypocalcemia-resolved Hyperglycemia-A1c 6.1 on 06/15/17 Hypernatremia-resolved Tobacco dependence Obesity-BMI 33.2 on admission Plan: Regarding tachycardia is most likely secondary to intravascular dryness, will give half normal saline at 250 an hour 1-2 L. The patient has already received a 500 cc normal saline bolus. We'll reassess vital signs after IV fluids have been administered. Seroquel dose decreased slightly yesterday from 30 4 times a day to 30 3 times a day-watch closely for increasing signs of withdrawal Continue metronidazole (day 3) and probiotics for C. difficile. Rectal tube DC due to decrease diarrhea. From a respiratory standpoint, patient is doing well and is currently on room air. Continue to monitor blood sugars off of TPN Discontinue steroids which were started for ARDS Repeat basic metabolic profile this afternoon Replace potassium orally Low-dose Lovenox and SCDs for DVT prophylaxis Greater than 1 hour of critical care time spent seeing and evaluating the patient and reviewing the chart. Discussed with the family, patient's nurse, and Dr. Renee. 06/18/2017-Dr. Calderón Assessment: Necrotizing Alcoholic pancreatitis Fevers. White count is decreasing off of steroids. Blood cultures negative so far. Chest x-ray stable. Urinalysis negative. Acute respiratory failure due to ARDS/volume overload-intubated 06/06-06/14-stable on 2 L of oxygen DTs with improving encephalopathy from alcohol withdrawal C. difficile colitis Postobstructive diuresis Sinus tachycardia-improved Abdominal pain 06/16 due to malfunctioning Moe catheter/urinary retention Hypertensive emergency/nucwyig-wyjmdoae-duxncwhk antihypertensives Chronic alcohol abuse with alcoholic liver disease Hypokalemia-mild Hypomagnesemia-resolved Hypophosphatemia-resolved Hypocalcemia-resolved Hyperglycemia-A1c 6.1 on 06/15/17 Hypernatremia-resolved Tobacco dependence Obesity-BMI 33.2 on admission Left arm edema with PICC line-rule out DVT Oral herpes lesions Plan: Monitor blood pressure closely after getting all of blood pressure medications this morning. Continue to monitor for signs or symptoms of infection/sepsis. Appreciate Dr. Rojas' consultation Continue Seroquel for alcohol withdrawal Check venous Doppler left arm to rule out DVT Continue metronidazole (day 4) and probiotics for C. difficile. Continue to monitor blood sugars off of TPN Steroids discontinued yesterday. They had been started for ARDS which has resolved. Replace potassium orally Low-dose Lovenox and SCDs for DVT prophylaxis Greater than 45 minutes of critical care time spent seeing and evaluating the patient and reviewing the chart. Discussed with the family, patient's nurse, and Dr. Rojas. 06/19/2017-Dr. 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 Blood cultures negative so far. Chest x-ray stable. Urinalysis negative. Acute respiratory failure due to ARDS/volume overload-intubated 06/06-06/14-stable on 2 L of oxygen DTs with improving encephalopathy from alcohol withdrawal C. difficile colitis-decreased stools Postobstructive diuresis -weight down 18 kg in the past 3 days Sinus tachycardia-improved Abdominal pain 06/16 due to malfunctioning Moe catheter/urinary retention Hypertensive emergency/kvotpwr-mnfljjsw-mvmqa pressure still elevated, restart Norvasc Chronic alcohol abuse with alcoholic liver disease-the patient states he intends to quit drinking completely after discharge Hypokalemia worse this morning despite replacement yesterday, likely secondary to continued spontaneous diuresis Hypomagnesemia-replacing IV this morning Hypophosphatemia-resolved Hypocalcemia-mild Hyperglycemia-A1c 6.1 on 06/15/17 Hypernatremia-resolved Tobacco dependence Obesity-BMI 33.2 on admission DVT left arm-PICC removed 2016 and started on therapeutic dose Lovenox Oral herpes lesions-started acyclovir 06/18/2017 Plan: Recheck potassium and magnesium and recheck Restart Norvasc for hypertension Consult pharmacy to initiate Coumadin for DVT Continue to monitor for signs or symptoms of infection/sepsis. Appreciate Dr. Rojas' consultation Continue Seroquel for alcohol withdrawal Continue metronidazole (started 06/15/2017) and probiotics for C. difficile. Blood sugars well controlled off of TPN. Will DC Accu-Cheks Steroids discontinued 06/17/2017. They had been started for ARDS which has resolved. We'll stop clamping Moe and monitor urine output. Greater than 40 minutes of critical care time spent seeing and evaluating the patient and reviewing the chart. Discussed with the family and patient's nurse. 06/20/2017-Dr. 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 Blood cultures negative so far. Chest x-ray stable. Urinalysis negative. Acute respiratory failure due to ARDS/volume overload-intubated 06/06-06/14-on room air currently DTs with improving encephalopathy from alcohol withdrawal C. difficile colitis-decreased stools Postobstructive diuresis Fluid overload-now down to admission weight Sinus tachycardia-improved Abdominal pain 06/16 due to malfunctioning Moe catheter/urinary retention Hypertensive emergency/ysnblzn-eclfqtnd-wcgyq pressure lower this morning, hold Norvasc, consider holding lisinopril Chronic alcohol abuse with alcoholic liver disease-the patient states he intends to quit drinking completely after discharge Hypokalemia -improved Hypomagnesemia-replacing IV this morning Hypophosphatemia-resolved Hypocalcemia-mild Hyperglycemia-A1c 6.1 on 06/15/17 Hypernatremia-resolved Tobacco dependence Obesity-BMI 33.2 on admission DVT left arm-PICC removed 06/18/2017 and started on therapeutic dose Lovenox, Coumadin initiated 06/19/2017 Oral herpes lesions-started acyclovir 06/18/2017 Plan: Replace magnesium May need to decrease potassium tomorrow, currently on 20 mEq by mouth 3 times a day Hold Norvasc Continue to monitor for signs or symptoms of infection/sepsis. Decrease Seroquel to 15 mg by mouth 3 times a day Continue metronidazole (started 06/15/2017) and probiotics for C. difficile. Steroids discontinued 06/17/2017. They had been started for ARDS which has resolved. Continue to monitor closely regarding postobstructive diuresis. If the patient is hypotensive or tachycardia worsens, may need to add IV fluids. Greater than 40 minutes of critical care time spent seeing and evaluating the patient and reviewing the chart. Discussed with the family and patient's nurse. 06/21/2017-Dr. 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 Urinalysis negative. Chest x- ray yesterday showed possible basilar atelectasis versus early pneumonitis, today showing more infiltrate in the right base and a small to moderate pleural effusion on the right concerning for parapneumonic effusion No right-sided effusion 06/21/2017 possible pneumonia Acute respiratory failure due to ARDS/volume overload-intubated 06/06-06/14 DTs with improving encephalopathy from alcohol withdrawal-Serax decreased 2016 C. difficile colitis-decreased stools Postobstructive diuresis Fluid overload-improved Sinus tachycardia Abdominal pain 06/16 due to malfunctioning Moe catheter/urinary retention Hypertensive emergency/urgency-improved on clonidine and metoprolol. Norvasc and lisinopril are currently on hold Chronic alcohol abuse with alcoholic liver disease-the patient states he intends to quit drinking completely after discharge Hypokalemia -improved Hypomagnesemia-replacing IV this morning Hypophosphatemia-resolved Hypocalcemia-mild Hyperglycemia-A1c 6.1 on 06/15/17 Hypernatremia-resolved Tobacco dependence Obesity-BMI 33.2 on admission DVT left arm-PICC removed 06/18/2017 and started on therapeutic dose Lovenox, Coumadin initiated 06/19/2017 Oral herpes lesions-started acyclovir 06/18/2017 Plan: Discussed with Dr. Renee. Will hold Coumadin and Lovenox. Will give vitamin K 1 today. Probable thoracentesis later today regarding no effusion. Regarding possible pneumonia, will discuss with Dr. Rojas. May need to initiate antibiotics. Sputum culture shows gram-positive cocci in pairs Check pro-calcitonin and lactate Replace magnesium Replace potassium Continue metronidazole (started 06/15/2017) and probiotics for C. difficile. Steroids discontinued 06/17/2017. They had been started for ARDS which has resolved. Continue to monitor closely regarding postobstructive diuresis. If the patient is hypotensive or tachycardia worsens, may need to add IV fluids. Greater than 45 minutes of critical care time spent seeing and evaluating the patient and reviewing the chart. Discussed with the family and patient's nurse. 06/22/2017-Dr. 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 MAXIMUM TEMPERATURE 100.3. Blood cultures negative so far. Urinalysis negative. Chest x-ray shows right sided infiltrate and bilateral pleural effusions. Cefepime and Vanco started 2016. Elevated lactate morning of 06/21/2017, resolved with 1 L of IV fluids and initiation of antibiotics. No right-sided effusion 06/21/2017-scheduled for thoracentesis 06/22/2017 Healthcare associated pneumonia- Cefepime and Vanco started 06/21/2017. Acute respiratory failure due to ARDS/volume overload-intubated 06/06-06/14 DTs with improving encephalopathy from alcohol withdrawal-Serax decreased 2016 C. difficile mcozuep-chrvrrwwz-pt metronidazole since 06/15/2017 Anemia -slow trend down in hemoglobin since admission. Initiate anemia workup. Postobstructive diuresis -resolved Fluid overload-improved Sinus tachycardia Hypertensive emergency/urgency-improved on clonidine and metoprolol. Norvasc and lisinopril are currently on hold Chronic alcohol abuse with alcoholic liver disease-the patient states he intends to quit drinking completely after discharge Hypomagnesemia-stable now at 1.4 despite multiple doses of IV magnesium. Hypocalcemia-mild Tobacco dependence Obesity-BMI 33.2 on admission DVT left arm-PICC removed 06/18/2017 and started on therapeutic dose Lovenox, Coumadin initiated 06/19/2017 Oral herpes lesions-started acyclovir 06/18/2017 Plan: Thoracentesis today with Dr. Renee. Will need Gram stain and culture of fluid. INR has improved after vitamin K. Lovenox is on hold. Dr. Renee to restart Lovenox for DVT left arm post thoracentesis. Continue cefepime and Vanco for now for healthcare associated pneumonia. Continue metronidazole for C. difficile. Continue acyclovir for recurrent herpes outbreak of mouth. Start oral magnesium and monitor magnesium level Restart lisinopril for hypertension but at lower dose of 20 mg instead of 40 mg. We'll increase further if needed Initiate anemia workup CATHRYN Moe later today after thoracentesis if patient doing well. Greater than 45 minutes of critical care time spent seeing and evaluating the patient and reviewing the chart. Discussed with the family and patient's nurse 06/23/2017-Dr. 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 Blood cultures negative so far. Urinalysis negative. Chest x-ray shows right sided infiltrate and bilateral pleural effusions. Cefepime and Vanco started 06/21/2017. Elevated lactate morning of 06/21/2017, resolved with 1 L of IV fluids and initiation of antibiotics. Small right-sided pleural effusion-thoracentesis on 06/22/2017 revealed very minimal bloody return but no significant fluid. Healthcare associated pneumonia- Cefepime and Vanco started 06/21/2017. Acute respiratory failure due to ARDS/volume overload-intubated 06/06-06/14 DTs with improving encephalopathy from alcohol withdrawal-Serax decreased 2016 C. difficile whorfyv-omhnkjoqc-pp metronidazole since 06/15/2017 Anemia -slow trend down in hemoglobin since admission. Mild iron deficiency anemia, borderline low B 12 Postobstructive diuresis -resolved Fluid overload-improved Sinus tachycardia Hypertensive emergency/urgency-improved on clonidine, Norvasc, lisinopril and metoprolol. Chronic alcohol abuse with alcoholic liver disease-the patient states he intends to quit drinking completely after discharge Hypomagnesemia-stable now at 1.4 despite multiple doses of IV magnesium. Hypocalcemia-resolved Tobacco dependence Obesity-BMI 33.2 on admission DVT left arm-PICC removed 06/18/2017 anticoagulation initiated, was held for recent transfuse this 06/22/2017 and then restarted Oral herpes lesions-started acyclovir 06/18/2017 Mild hemoptysis Plan: Restart Lovenox and Coumadin today. Discussed with pharmacy Continue cefepime and Vanco for now for healthcare associated pneumonia. Continue metronidazole for C. difficile. Continue acyclovir for recurrent herpes outbreak of mouth. Start oral magnesium Start oral iron and oral vitamin B-12 for anemia, mild iron deficiency, borderline low B 12 CATHRYN Moe Increase metoprolol for tachycardia Change to Xopenex because of the patient's tachycardia We'll ask the marriage and family social worker to see the patient regarding alcohol treatment after discharge Greater than 45 minutes of critical care time spent seeing and evaluating the patient and reviewing the chart. Discussed with the family, pharmacy, RT and patient's nurse. 06/25/17 18:23 Patient is breathing well and on room air. Blood cultures negative after 4 days. Chest x-ray 06/21 demonstrated right sided infiltrate and small bilateral pleural effusions. Cefepime and Vanco started 06/21/2017, vancomycin discontinued 06/25. Chest x-ray reordered for today. Anticipate discontinuing cefepime after 7 days. Continue metronidazole for C. difficile, day 1114. Continue acyclovir for recurrent herpes outbreak of mouth. Continue to monitor hemoglobin which is trending down slowly-likely due primarily to phlebotomy and possible underlying chronic disease. On iron and B- 12 supplements for mild iron deficiency anemia, borderline low B 12. Blood pressure stable on multiple medications (clonidine, Norvasc, lisinopril and metoprolol), heart rate improving with increased dose metoprolol (78-112 today). Encephalopathy dramatically improved since I last saw him, taper Serax to 3 times daily.
[2017-06-25] MEDS: MORPHINE SULFATE 4 MG SYRINGE IVP PRN (19:41)
[2017-06-25] MEDS: SALINE FLUSH 10ml SYRINGE IVF PRN (19:42)
[2017-06-25] MEDS ORDERED: ALTEPLASE (Cathflo*) 2mg INJECTION IV ONE (23:15)
[2017-06-26] MEDS: CEFEPIME 1 GM in NS 100 ML IV SCH ×5 (00:27→23:38)
[2017-06-26] MEDS: NS FLUSH BAG 500ml IV PRN (00:27)
[2017-06-26] MEDS: HYDROCODONE/APAP 7.5 MG/325 MG TABLET PO PRN ×5 (02:13→22:09)
[2017-06-26] MEDS: SALINE FLUSH 10ml SYRINGE IVF PRN ×2 (05:10→23:28)
[2017-06-26] MEDS: MetroNIDAZOLE 500 MG TABLET PO SCH ×3 (08:01→17:10)
[2017-06-26] MEDS: FAMOTIDINE 20 MG TABLET PO SCH ×2 (08:02→21:19)
[2017-06-26] MEDS: ACYCLOVIR 200 MG CAPSULE PO SCH ×3 (08:02→21:18)
[2017-06-26] MEDS: LACTOBACILLUS (15B cfu) CAPSULE PO SCH ×3 (08:03→17:10)
[2017-06-26] MEDS: FOLIC ACID 1 MG TABLET PO SCH (08:03)
[2017-06-26] MEDS: AMLODIPINE 10 MG TABLET PO SCH (08:03)
[2017-06-26] MEDS: CYANOCOBALAMIN (B-12) 500mcg TABLET PO SCH (08:03)
[2017-06-26] MEDS: FERROUS SULFATE 324 MG TABLET PO SCH ×2 (08:03→17:10)
[2017-06-26] MEDS: OXAZEPAM 15 MG CAPSULE PO SCH ×4 (08:03→21:18)
[2017-06-26] MEDS: CALCIUM 600 + VIT D 400 TABLET PO SCH ×2 (08:04→21:18)
[2017-06-26] MEDS: NICOTINE 21 MG PATCH TD SCH (08:04)
[2017-06-26] MEDS: LISINOPRIL 20 MG TABLET PO SCH (08:04)
[2017-06-26] MEDS: MAGNESIUM OXIDE 400 MG TABLET PO SCH ×2 (08:04→21:19)
[2017-06-26] MEDS: ENOXAPARIN 120 MG/0.8 ML INJECTION SQ SCH ×2 (08:06→21:19)
--- NOTE | 2017-06-26 08:44 | Pharmacy Consult ---
Pharmacy Consult-Warfarin - Laboratory Information 06/09/17 06/20/17 06/21/17 04:23 10:30 04:08 INR 1.22 H 2.30 H 2.58 H 06/22/17 06/23/17 06/24/17 04:23 04:16 05:37 INR 1.46 H 1.41 H 1.53 H 06/25/17 06/26/17 04:27 04:15 INR 1.84 H 2.04 H - Consult Information 36 y.o. Male on Warfarin for treatment of DVT. Goal INR = 2.0 to 3.0. Will give Warfarin 4 mg po today. Pharmacy will monitor and adjust as needed. Thank you for the protocol, Alicia Ocasio [facility] date INR dose 06/19 7.5 mg 06/20 2.30 -- held for thoracentesis 06/21 2.58 -- " 06/22 1.46 -- " 06/23 1.41 5 mg (vitamin K 5 mg x 1 dose prior to procedure) 06/24 1.53 5 mg 06/25 1.84 5 mg 06/26 2.04 plan: 4 mg
[2017-06-26] MEDS: NICOTINE PATCH REMOVAL TD SCH (08:46)
[2017-06-26] MEDS ORDERED: WARFARIN 4 MG TABLET PO SCH (12:00)
--- NOTE | 2017-06-26 17:07 | Progress Note ---
<Claudia Moseley - Last Filed: 06/26/17 17:03> Subjective: Nii is seen in follow up. Reports that he is concerned with two small reddened areas on left ewing. (Dime sized) He states that he is using some barrier cream due to rash on his buttocks. Stool is now soft formed. No further diarrhea. Cough is present but improving- does report that he is coughing up small amounts of blood at time. He does have a faint rash on back, denies itching. Some RUQ pain, 4/10. No other acute c/o reported. Objective Vital signs: Temperature 99.4 F 06/26/17 12:18 Pulse Rate 112 H 06/26/17 15:43 Respiratory Rate 20 06/26/17 15:43 Blood Pressure 142/85 H 06/26/17 15:43 Pulse Oximetry 95 06/26/17 15:43 Oxygen Delivery Method Room Air Oxygen Flow Rate 2 Fraction of Inspired Oxygen 50 SaO2/FiO2 Ratio 206 Rhythm: Normal Sinus Rhythm Height/Weight/BMI: Height 1.85 m Weight 110.9 kg Body Mass Index 39.4 - Constitutional Present: no acute distress, well nourished, well developed, obese Comments: Faint tremor noted during visit. - Routine HEENT Exam Head: Present: normocephalic, atraumatic Eye: Present: EOMI, PERRL, normal accommodation ENT: Present: mucous membranes dry - Routine Respiratory Exam Present: dyspnea (mild), decreased breath sounds, rhonchi (Coarse thoughout lung pinzon. ), distant breath sounds - Routine Cardiovascular Exam Present: RRR, S1, S2, no murmur - Routine Abdominal Exam Present: soft, tenderness (Mild RUQ pain), non distended - Routine Exam Comments: Voiding well- clear yellow. - Routine Extremities Exam Present: edema Comments: Redness, two dime size superficial abscesses left ewing. No drainage or warmth - Routine Musculoskeletal Exam Musculoskeletal: Present: no clubbing or cyanosis, moving extremities well - Routine Skin Exam Present: intact, dry, warm - Routine Neurological Exam Present: alert, oriented X3, moving all extremities, tremors - Routine Psychiatric Exam Present: normal affect, cooperative Results - Labs CBC & Chem 7: 06/25/17 04:27 06/25/17 04:27 Microbiology Results: Microbiology 06/20/17 20:30 Peripheral/Iv Start Blood Culture - Final No Growth After 5 Days 06/20/17 20:31 Peripheral/Iv Start Blood Culture - Final No Growth After 5 Days 06/17/17 11:52 Cath/Port/Line/Picc Blood Culture - Final No Growth After 5 Days 06/17/17 11:56 Cath/Port/Line/Picc Blood Culture - Final No Growth After 5 Days 06/20/17 16:30 Sputum, Expectorated Gram Stain - Final 06/20/17 16:30 Sputum, Expectorated Sputum Culture - Final Normal Respiratory Dinah including Yeast Present 06/16/17 10:45 Cath/Port/Line/Picc Blood Culture - Final No Growth After 5 Days 06/16/17 10:55 Cath/Port/Line/Picc Blood Culture - Final No Growth After 5 Days 06/06/17 11:34 Peripheral/Iv Start Blood Culture - Final No Growth After 5 Days 06/06/17 11:34 Peripheral/Iv Start Blood Culture - Final No Growth After 5 Days 06/06/17 11:00 Sputum, Suctioned Gram Stain - Final 06/06/17 11:00 Sputum, Suctioned Sputum Culture - Final Normal Respiratory Dinah - ABG Interpretation ABG results: 06/05/17 06/06/17 06/06/17 17:41 04:35 09:25 ABG pH 7.360 7.380 7.460 H ABG pCO2 55 H 53 H 42 ABG pO2 114 H 64 L 133 H ABG HCO3 31 H 31 H 30 H ABG Total CO2 32.8 H 33.0 H 31.2 H ABG O2 Saturation 98.0 92.0 L 99.0 H ABG Base Excess 4.4 H 5.0 H 5.5 H 06/06/17 06/07/17 06/08/17 15:05 09:55 07:50 ABG pH 7.450 7.370 7.391 ABG pCO2 41 52 H 50 H ABG pO2 65 L 82 98 ABG HCO3 29 H 30 H 31 H ABG Total CO2 29.8 H 31.7 H 32 H ABG O2 Saturation 93.0 L 96.0 97.0 ABG Base Excess 4.1 H 3.7 H 5.0 H 06/09/17 06/14/17 06/14/17 08:35 10:10 14:42 ABG pH 7.470 H 7.460 H 7.480 H ABG pCO2 44 41 36 ABG pO2 88 65 L 65 L ABG HCO3 32 H 29 H 27 H ABG Total CO2 33.4 H 30.5 H 27.9 H ABG O2 Saturation 97.0 94.0 L 94.0 L ABG Base Excess 7.4 H 4.9 H 3.3 H - Imaging and Cardiology Chest x-ray Status: image reviewed by me, pending (Improving infiltrates. Retrocardiac discoid atelectasis on lateral view. ) Assessment and Plan (1) Pancreatitis Problem details: POA: ETOH induced. RUQ US negative for obstructive stones. MRCP nondiagnostic due to motion artifact however no obvious gallstones, pancreatitis head thickened, intrahepatic ducts nondilated. Current visit: Yes Status: Acute 06/04/17 03:34 due to continued drinking. RUQ US negative for obstructive stones. Patient started on aggressive IVF, electrolyte replacement and morphine PRN. Repeat labs at 7:00 am. Patient does have elevated lacate, likely due to acute pancreatitis. Continue supportive care. 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 Healthcare associated pneumonia- Cefepime and Vanco started 06/21/2017. Acute respiratory failure due to ARDS/volume overload-intubated 06/06-06/14 DTs with improving encephalopathy from alcohol withdrawal C. difficile colitis- metronidazole started 06/15/2017 Anemia Postobstructive diuresis -resolved Fluid overload-improved Sinus tachycardia Hypertensive emergency/urgency Chronic alcohol abuse with alcoholic liver disease Hypomagnesemia Hypocalcemia-resolved Tobacco dependence Obesity-BMI 33.2 on admission DVT left arm-PICC removed 06/18/2017 anticoagulation initiated, was held for recent thoracentesis 06/22/2017 and then restarted Oral herpes lesions-started acyclovir 06/18/2017 Mild hemoptysis-improved Plan: 06/26/17 Slow improvement. HCAP/VAP- continue Cefepime. Dr. Rojas following. CXR is clearing. Continue IS/Acapella valve. C.Diff +: Flagyl x at least 10 days. May need to continue while on abx. Possible early cellulitis left leg- observe for now. Hesitant to add additional abx given C.Diff. DVT Picc left arm- Warfarin. BP remains elevated- Lisinopril, Metoprolol, Clonidine, Amlodipine. Will add Lasix, KCL given HTN and to assist with clearing pulmonary infiltrates. Some mild hemoptysis. Likely prolonged intubation, but instructed pt to notify us if persists or worsens. Monitor on anticoagulation. He continues to suffer from sx of ETOH w/d- DT, HTN, tachycardia. Encephalopathy clearing. Check ammonia level in AM. Tapering serax. will decrease frequency of Morphine. Need to wean narcotics as tolerated. Repeat labs in AM. Chart, documentation, imaging reviewed during this visit. - Time spent with patient 25 - 35 minutes Sepsis Assessment - Evaluation Sepsis screening result: No Definite Risk Hospital Course Summary Disclaimer: The visit summary below is not to be considered part of the above Progress Note. Hospital Course: 06/04/17 1) Alcohol use and abuse with ongoing pancreatitis, this could be related to ETOH, or due to gallstones (U/S could not see distal CBD - bilirrubin high) or both. - Check Abd/Pelvic CT with IV contrast re: Extent of pancreatic swelling ? abscess ? hemorrhage ? also Pyelonephritis ? - Check MRCP - pt could be obstructed since Bilirrubin is high. Pt states he noticed his skin is yellow. - Aggressive hydration with NS 500cc/hr x 6 hrs then reasses 2) UTI - very high lactate - high WBC - On Rocephin will continue for now. 3) Hypokalemia/Hypomagenesemia - Will give Mg + K 4) Lactic acidosis - due to ? sepsis ? hypoperfusion ? - Will recheck later today. 5) Elevated hemoglobin - Will follow serially. 06/05/17 1) ALCOHOL ABUSE WITH A) SEVERE AGITATION/CONFUSION ? OF HALLUCINATIONS MOST LIKELY DUE TO ALCOHOL WITHDRAWALS - On Propofol drip - Tachycardic - Will also give Ativan IV MD. - Check CPK (R/O Rhabdo due to agitation) - Aggressive hydration and electrolyte replenishment. B) Pancreatitis most likely related to ETOH MRCP Impression: 1. No cholelithiasis or intrahepatic bile duct dilatation. Evaluation of the extrahepatic common duct is poor due to motion artifact and patient body habitus. No obvious common duct stone. 2. Enlargement of the pancreatic head which could be due to inflammation from pancreatitis or potentially neoplasm. Recommend further evaluation with a contrast-enhanced CT of the abdomen. - Lipase coming down - Check CA 19-9 prior to D/C and follow closely his pancreatic anatomy by CT/ MRI. Transferred to CCU due to alcohol withdrawal. 06/06/17 1) PULMONARY ASSESMENT A) Pt has developed ALI/ARDS - ABG on FIO2 of 80% showed PaO2 of 133 with CO2 of 42 - huge a-A gradient that has increased since yesterday. - Pt was intubated successfully by ED MD - Saturations are 91 on 100% FIO2. ET tube appears to be well positioned. - Pt requires high PEEP. - Could be related to pancreatitis, or PNA - Pt has a L sided effussion - could be related to pancreatitis. Must R/O Boherhave's syndrome will try a CT chest with gastrograffin injection in the mid esophagus. - Start coverage for HAP - Vanco + cefepime + steroids - Add Mucomyst for possible mucus plugg. - Case discussed with his NOK - significant other, she consented for intubation. - Reculture blood & sputum B) Obstructive Sleep Apnea (New Dx) - Was on CPAP - now intubated. 2) ALCOHOL ABUSE WITH MULTIPLE COMPLICATIONS - A) SEVERE AGITATION/CONFUSION ? OF HALLUCINATIONS MOST LIKELY DUE TO ALCOHOL WITHDRAWALS - On propofol since yesterday. - On Propofol drip - Continue. - Tachycardic/hypertensive - CPK - 1261 Yesterday - C/W rhadbomyolisis - will rehceck - Aggressive hydration and electrolyte replenishment. B) Pancreatitis most likely related to ETOH - Lipase coming down - Check CA 19-9 prior to D/C and follow closely his pancreatic anatomy by CT/MRI. - Add Banana bags - C) Hypokalemia on admission - K is high today. - Stop NS with K - Recheck later. D) Hypomagnesemia - now improved. E) Severe hypophosphatemia - Risk of hemolysis - CHF & could be causing low Platelets. - PO4 is under 1 - Spoke with Pharm D Little De Souza - Will give 90 Mmol of Na Phosphate F) Dehydration - Appears improved now, will hold off on aggressive hydration will place on Banana bag @ 50ml/hr x 3 Liters. G) Rhabdomyolisis - cuuld be due to his severe agitation. - Recheck CPK now. 3) INFECTIOUS DISEASE ASSESMENT A) UTI - very high lactate - high WBC - On Rocephin will continue for now. B) ? Of HAP ? - Will cover with Vanco + Cefepime - Add Mucomyst for possible mucus plug - Continue Duonebs - Add Steroids. - Lactate is dropping 3) CARDIOVASCULAR ASSESSMENT A) Hypertension - moderate to severe - On BB PRN will schedule with parameters B) Will check EKG due to low Ca and due to severe agitation - R.O MN. - Check 2-D echo - Consult Cardiology (BNP was very high and has Pleural effussion - Alcoholic [employer] ?) PREVENTION DVT - SCD'S PUD - PPI. 06/07/[address] Renee for Pulm evaluation and to help with ventilator management. Continue IV antibiotics - possible aspiration pneumonia/pneumonitis Continue Sedation - with current decreased pulmonary statue, likely too early to work on weaning sedation. Start TPN for nutritional support. Will stop IVF when TPN ready. Continue to monitor lab due to pt's severity of illness. Patient remains critically ill, ICU care warranted. 06/08/17 Continue with mechanical ventilation as per Dr Renee. In discussion with Dr Renee, will deescalate IV antibiotic use (likely respiratory failure from ARDS due to pancreatitis, still some concern for possible aspiration) Will stop Vancomycin, cefepime and clindamycin. Initiate Unasyn for coverage. Will continue Solu-Medrol at 40mg IV q 8 hours. Will stop Mucomyst - monitor for increase secretions. Blood pressure with elevation today. Bumex 1mg given this morning and afternoon to help decrease volume. Urine output appropriate, but pressures remain high. Start Nipride drip to ease down blood pressure. TPN continues-discussed with pharm about electrolyte adjustments. 10 units of Lantus given this morning to help sugars - did monitor sugars more frequently and gave additions SQ doses of insulin. Will start 20 units of Lantus this evening. Insulin sliding scale changed to high dose regimen. Continue propofol for sedation. Patient remains critically ill. CCU care an support required. 06/09/17 Recheck Lipase and CPK this am show normalization. Continue with mechanical ventilation as per Dr Renee. Continue Unasyn for antimicrobial coverage. Additional insulin to be given to help improve glycemic control. Extra SQ dosing during day. Increase Lantus to 45 units at night. Sugars elevated due to TPN and Solu-Medrol. Bumex 1mg given this morning to help decrease volume. Will give additional Bumex 1mg this afternoon. Nipride drip continues for BP control. TPN continues-discussed with pharm about electrolyte adjustments. Will remove sodium to decrease sodium level and OSMO. Increase KPhos. Continue propofol for sedation. Patient remains critically ill. CCU care an support required. 06/10/17 15:56 Patient continues to require ventilatory assistance with high pressures and FiO2 of 60% increased to 70% this afternoon after desaturating. Weight up significantly since admission, volume status +18.7 L from admission, edema on exam-will begin diuresing with scheduled Lasix. Continue propofol; discussed conversion to Precedex with Dr. Renee but with respiratory instability will not make changes at this time. Check triglycerides in a.m. Continue Unasyn/steroids. Remains hyperglycemic; Lantus increased to 50 units and corrective scale modified upward. Blood pressures modestly elevated; on IV metoprolol, Catapres patch, and nicardipine drip. Convert to enteral metoprolol per NG. Begin low-volume feedings per NG; dietary consultation for recommendations. Continue TPN for nutritional support. Patient remains critically ill. 06/11/17 16:18 Patient continues to require ventilatory assistance with FiO2 of 50% and PEEP of 8-both improved from yesterday. Continue diuresis with goal of equal/negative fluid balance daily. X-ray most consistent with volume overload-no focal infiltrate. Patient has been on antibiotics since 06/04 (ceftriaxone 06/04-06/06; cefepime/ clindamycin/vancomycin 06/06-06/08; Unasyn 06/08-current); sputum culture normal dinah -we'll discontinue antibiotics. On Solu-Medrol for pulmonary inflammation-discussed with Dr. Renee-decreased dose to 40 mg every 12 hours and continue to monitor. Remains hyperglycemic; Lantus increased to 50 units daily at bedtime with 20 units added every morning. Continue corrective scale insulin. Blood pressures modestly elevated; on by mouth metoprolol, Catapres patch, and nicardipine drip. Amlodipine added. Begin low-volume feedings per NG with Glucotrol; dietary consultation for recommendations. Continue TPN for nutritional support. Triglycerides pending to monitor propofol/ TPN. Hypernatremia slightly improved with TPN modifications, low-volume free water added to enteral tube feedings. 06/12/17 12:54 Patient continues to require ventilatory assistance with FiO2 of 50% and PEEP of 7. Continue diuresis with goal of equal/negative fluid balance daily. Bumex increased to 1 mg IV every 6 hours. Antibiotics discontinued yesterday (06/11) after total of 8 days (ceftriaxone 06/04 -06/06; cefepime/clindamycin/vancomycin 06/06-06/08; Unasyn 06/08-current). sputum culture normal dinah-we'll discontinue antibiotics. On Solu-Medrol for pulmonary inflammation 40 mg every 12 hours and continue to monitor. Remains hyperglycemic; Lantus increased to 20 units every morning and 50 units daily at bedtime yesterday. Fasting glucose 242 today. Continue corrective scale insulin. Anticipate beginning to titrate off TPN in the next couple of days-corrective scale modified but will not increase basal insulin at present. Blood pressures modestly elevated; on metoprolol, Catapres patch, and nicardipine drip. Amlodipine added yesterday-dose increased to 10 mg daily today and lisinopril added at 20 mg daily. Hope to titrate nicardipine off in next 24 hours. Tolerating Glucotrol at 25 mL per hour-rate increased to 40 mL per hour; dietary consultation for recommendations. Continue TPN for nutritional support. Triglycerides pending to monitor propofol/ TPN. Hypernatremia slightly improved with TPN modifications, low-volume free water added to enteral tube feedings. Potassium down today with diuresis-replaced and early and modified in TPN. 06/13/17 14:26 Patient continues to require ventilatory assistance with FiO2 of 50% and PEEP of 7. On Solu-Medrol for pulmonary inflammation 40 mg every 12 hours and continue to monitor. BUN/creatinine beginning to climb, Lasix and then Bumex have been ineffective in producing net diuresis. Significant edema but fluid is largely and subcutaneous tissues. Frequency of Bumex decreased to avoid worsening of renal function, XIAO hose added an attempt to mobilize fluid. Antibiotics discontinued yesterday 06/11 after total of 8 days (ceftriaxone 06/04-; cefepime/clindamycin/vancomycin 06/06-06/08; Unasyn 06/08-current). Blood sugars slowly [id number] in the past 24 hours; Lantus 20 units every morning and 50 units daily at bedtime currently. Blood pressures modestly elevated; on metoprolol 25 twice a day, amlodipine 10 daily, Catapres 2 patch, lisinopril 20/day and nicardipine drip. Tolerating Glucotrol at 25 mL per hour-intended to increase rate to 40 mL per hour yesterday however order was missed; will increase rate to 50 mL per hour 12 hours and then 75 mL per hour. Discussed with nursing. Decrease TPN infusion rate to 50% current infusion rate if continues to tolerate enteral feeds at higher rates. Continue TPN for nutritional support. Triglycerides pending to monitor propofol/ TPN. Hypernatremia improving with TPN modifications, low-volume free water added to enteral tube feedings. Patient now able to indicate throat discomfort but denies abdominal pain. Restlessness frequently described. Chronic alcohol abuse, alcohol withdrawal may still be underlying much of need for sedation/hypertension-Serax initiated at 30 mg every 6 hours. Wean propofol as able, chest x-ray/ABG in a.m. 06/14/17 17:39 Extubated midafternoon. Requiring 8 L supplemental oxygen to maintain saturation and appears to be slightly labored at the time of my assessment. High probability that BiPAP will be needed overnight for support. Continue Solu-Medrol for pulmonary inflammation 40 mg every 12 hours and continue to monitor. BUN/creatinine up further today, diuretics on hold. Significant edema but fluid is largely and subcutaneous tissues. XIAO hose added an attempt to mobilize fluid. Antibiotics discontinued yesterday 06/11 after total of 8 days (ceftriaxone 06/04-; cefepime/clindamycin/vancomycin 06/06-06/08; Unasyn 06/08-current). Blood sugars slowly improving-TPN being discontinued, Lantus discontinued as a result. Continue to monitor blood sugars and corrective scale insulin available as needed. OG removed when patient extubated-tube feedings discontinued. Soft diet ordered postextubation with nutritional supplements. Blood pressures modestly elevated; on metoprolol 25 twice a day, amlodipine 10 daily, Catapres 2 patch, lisinopril 20/day and nicardipine drip. Lisinopril increased to 40 mg daily. Triglycerides pending to monitor propofol/TPN. Hypernatremia improving with TPN modifications, low-volume free water added to enteral tube feedings. Continue to monitor off TPN. Chronic alcohol abuse, alcohol withdrawal may still be underlying much of need for sedation/hypertension-Serax initiated at 30 mg every 6 hours. Requesting alcohol shortly after extubation; continue Serax/when necessary lorazepam. PT/OT ordered; seen by speech therapy postextubation today. 06/15/17 15:51 Patient has tolerated extubation well and has titrated from 8 L supplemental oxygen to 4 L supplemental oxygen currently. Refused BiPAP last night. Diuresing without diuretics, BUN/creatinine slightly higher today. Taking liquids orally well and will continue to monitor volume/renal function. Convert to oral steroids from current low-dose Solu-Medrol. C. difficile identified overnight-oral Flagyl initiated and probiotics added today. Antibiotics discontinued 06/11 after total of 8 days (ceftriaxone 06/04-06/06; cefepime/clindamycin/vancomycin 06/06-06/08; Unasyn 06/08-06/11). Blood sugars slowly improving-TPN discontinued, Lantus discontinued yesterday. Corrective insulin as needed. Check A1c. Soft diet ordered postextubation with nutritional supplements. Blood pressure remains elevated; on metoprolol 50 twice a day, amlodipine 10 daily, Catapres 2 patch, lisinopril 40/d; nicardipine drip overnight but has been titrated off. Persistent low-grade tachycardia-metoprolol increased to 100 mg twice a day and hydralazine when necessary initiated. Hypernatremia resolving. Other electrolyte abnormalities stabilized. Chronic alcohol abuse, continue Serax at 30 mg every 6 hours. Requested alcohol shortly after extubation. As patient becomes more alert will begin tapering. PT/OT today; would like to begin getting patient out of bed if possible. 06/16/17 20:30 CT scan repeated earlier today due to increased abdominal pain-Moe catheter found to be in urethra with massive distention of the bladder (although patient had urine output of 100-300 mL per hour at the time). Moe catheter replaced with immediate resolution of abdominal pain, nausea, and flushing. Prior to identification of urinary retention blood cultures were obtained due to concern that patient may have sepsis triggering symptoms. No indication of pancreatic or intra-abdominal abscess. Low-fat diet due to recent pancreatitis. Ongoing diarrhea-day to metronidazole/probiotics for C. difficile identified . Doing well postextubation (06/14) On 1 L or RA with good oxygenation over the past 24 hours although oxygenation is in the lower 90s this evening. Diuresing briskly prior to Moe change, appears to have post obstructive diuresis following Moe catheter change with almost 9 L urine output thus far today. May require fluid replacement therapy if blood pressure drops-discussed with nursing. IV Antibiotics discontinued 06/11 after total of 8 days (ceftriaxone 06/04-06/06; cefepime/clindamycin/vancomycin 06/06-06/08; Unasyn 06/08-06/11). Blood sugars slowly improving-TPN discontinued, Lantus discontinued 06/14. Corrective insulin as needed. A1c 6.1. Blood pressure stabilizing; on metoprolol 100 twice a day, amlodipine 10 daily, Catapres 2 patch, lisinopril 40/d; nicardipine drip off past 24 hours. Continue diuresis may be able to begin decreasing blood pressure medications. Hypernatremia resolving. Other electrolyte abnormalities stabilized. Chronic alcohol abuse, continue Serax but will decrease to 30 mg every 8 hours. Continue PT/OT; would like to begin getting patient out of bed if possible. 06/17/2017-Dr. Calderón Assessment: Alcoholic pancreatitis Acute respiratory failure due to ARDS/volume overload-intubated 06/06-06/14 DTs C. difficile colitis Postobstructive diuresis with almost 18 L urine output in the past day and a half Sinus tachycardia, most likely secondary to being intravascularly dry due to postobstructive diuresis less likely to be secondary to alcohol withdrawal as the patient is currently alert and oriented and not tremulous and appears in no distress Abdominal pain 06/16 due to malfunctioning Moe catheter/urinary retention Hypertensive emergency/urgency-resolved, today with occasional borderline hypotension. Chronic alcohol abuse with alcoholic liver disease Hypokalemia- Hypomagnesemia-resolved Hypophosphatemia-resolved Hypocalcemia-resolved Hyperglycemia-A1c 6.1 on 06/15/17 Hypernatremia-resolved Tobacco dependence Obesity-BMI 33.2 on admission Plan: Regarding tachycardia is most likely secondary to intravascular dryness, will give half normal saline at 250 an hour 1-2 L. The patient has already received a 500 cc normal saline bolus. We'll reassess vital signs after IV fluids have been administered. Seroquel dose decreased slightly yesterday from 30 4 times a day to 30 3 times a day-watch closely for increasing signs of withdrawal Continue metronidazole (day 3) and probiotics for C. difficile. Rectal tube DC due to decrease diarrhea. From a respiratory standpoint, patient is doing well and is currently on room air. Continue to monitor blood sugars off of TPN Discontinue steroids which were started for ARDS Repeat basic metabolic profile this afternoon Replace potassium orally Low-dose Lovenox and SCDs for DVT prophylaxis Greater than 1 hour of critical care time spent seeing and evaluating the patient and reviewing the chart. Discussed with the family, patient's nurse, and Dr. Renee. 06/18/2017-Dr. Calderón Assessment: Necrotizing Alcoholic pancreatitis Fevers. White count is decreasing off of steroids. Blood cultures negative so far. Chest x-ray stable. Urinalysis negative. Acute respiratory failure due to ARDS/volume overload-intubated 06/06-06/14-stable on 2 L of oxygen DTs with improving encephalopathy from alcohol withdrawal C. difficile colitis Postobstructive diuresis Sinus tachycardia-improved Abdominal pain 06/16 due to malfunctioning Moe catheter/urinary retention Hypertensive emergency/tlhpnrm-aoxxjwaf-sledwukf antihypertensives Chronic alcohol abuse with alcoholic liver disease Hypokalemia-mild Hypomagnesemia-resolved Hypophosphatemia-resolved Hypocalcemia-resolved Hyperglycemia-A1c 6.1 on 06/15/17 Hypernatremia-resolved Tobacco dependence Obesity-BMI 33.2 on admission Left arm edema with PICC line-rule out DVT Oral herpes lesions Plan: Monitor blood pressure closely after getting all of blood pressure medications this morning. Continue to monitor for signs or symptoms of infection/sepsis. Appreciate Dr. Rojas' consultation Continue Seroquel for alcohol withdrawal Check venous Doppler left arm to rule out DVT Continue metronidazole (day 4) and probiotics for C. difficile. Continue to monitor blood sugars off of TPN Steroids discontinued yesterday. They had been started for ARDS which has resolved. Replace potassium orally Low-dose Lovenox and SCDs for DVT prophylaxis Greater than 45 minutes of critical care time spent seeing and evaluating the patient and reviewing the chart. Discussed with the family, patient's nurse, and Dr. Rojas. 06/19/2017-Dr. 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 Blood cultures negative so far. Chest x-ray stable. Urinalysis negative. Acute respiratory failure due to ARDS/volume overload-intubated 06/06-06/14-stable on 2 L of oxygen DTs with improving encephalopathy from alcohol withdrawal C. difficile colitis-decreased stools Postobstructive diuresis -weight down 18 kg in the past 3 days Sinus tachycardia-improved Abdominal pain 06/16 due to malfunctioning Moe catheter/urinary retention Hypertensive emergency/oyzrzlj-iqjmfeeu-lexdi pressure still elevated, restart Norvasc Chronic alcohol abuse with alcoholic liver disease-the patient states he intends to quit drinking completely after discharge Hypokalemia worse this morning despite replacement yesterday, likely secondary to continued spontaneous diuresis Hypomagnesemia-replacing IV this morning Hypophosphatemia-resolved Hypocalcemia-mild Hyperglycemia-A1c 6.1 on 06/15/17 Hypernatremia-resolved Tobacco dependence Obesity-BMI 33.2 on admission DVT left arm-PICC removed 2016 and started on therapeutic dose Lovenox Oral herpes lesions-started acyclovir 06/18/2017 Plan: Recheck potassium and magnesium and recheck Restart Norvasc for hypertension Consult pharmacy to initiate Coumadin for DVT Continue to monitor for signs or symptoms of infection/sepsis. Appreciate Dr. Rojas' consultation Continue Seroquel for alcohol withdrawal Continue metronidazole (started 06/15/2017) and probiotics for C. difficile. Blood sugars well controlled off of TPN. Will DC Accu-Cheks Steroids discontinued 06/17/2017. They had been started for ARDS which has resolved. We'll stop clamping Moe and monitor urine output. Greater than 40 minutes of critical care time spent seeing and evaluating the patient and reviewing the chart. Discussed with the family and patient's nurse. 06/20/2017-Dr. 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 Blood cultures negative so far. Chest x-ray stable. Urinalysis negative. Acute respiratory failure due to ARDS/volume overload-intubated 06/06-06/14-on room air currently DTs with improving encephalopathy from alcohol withdrawal C. difficile colitis-decreased stools Postobstructive diuresis Fluid overload-now down to admission weight Sinus tachycardia-improved Abdominal pain 06/16 due to malfunctioning Moe catheter/urinary retention Hypertensive emergency/efajena-aaveishm-bgzvx pressure lower this morning, hold Norvasc, consider holding lisinopril Chronic alcohol abuse with alcoholic liver disease-the patient states he intends to quit drinking completely after discharge Hypokalemia -improved Hypomagnesemia-replacing IV this morning Hypophosphatemia-resolved Hypocalcemia-mild Hyperglycemia-A1c 6.1 on 06/15/17 Hypernatremia-resolved Tobacco dependence Obesity-BMI 33.2 on admission DVT left arm-PICC removed 06/18/2017 and started on therapeutic dose Lovenox, Coumadin initiated 06/19/2017 Oral herpes lesions-started acyclovir 06/18/2017 Plan: Replace magnesium May need to decrease potassium tomorrow, currently on 20 mEq by mouth 3 times a day Hold Norvasc Continue to monitor for signs or symptoms of infection/sepsis. Decrease Seroquel to 15 mg by mouth 3 times a day Continue metronidazole (started 06/15/2017) and probiotics for C. difficile. Steroids discontinued 06/17/2017. They had been started for ARDS which has resolved. Continue to monitor closely regarding postobstructive diuresis. If the patient is hypotensive or tachycardia worsens, may need to add IV fluids. Greater than 40 minutes of critical care time spent seeing and evaluating the patient and reviewing the chart. Discussed with the family and patient's nurse. 06/21/2017-Dr. 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 Urinalysis negative. Chest x- ray yesterday showed possible basilar atelectasis versus early pneumonitis, today showing more infiltrate in the right base and a small to moderate pleural effusion on the right concerning for parapneumonic effusion No right-sided effusion 06/21/2017 possible pneumonia Acute respiratory failure due to ARDS/volume overload-intubated 06/06-06/14 DTs with improving encephalopathy from alcohol withdrawal-Serax decreased 2016 C. difficile colitis-decreased stools Postobstructive diuresis Fluid overload-improved Sinus tachycardia Abdominal pain 06/16 due to malfunctioning Moe catheter/urinary retention Hypertensive emergency/urgency-improved on clonidine and metoprolol. Norvasc and lisinopril are currently on hold Chronic alcohol abuse with alcoholic liver disease-the patient states he intends to quit drinking completely after discharge Hypokalemia -improved Hypomagnesemia-replacing IV this morning Hypophosphatemia-resolved Hypocalcemia-mild Hyperglycemia-A1c 6.1 on 06/15/17 Hypernatremia-resolved Tobacco dependence Obesity-BMI 33.2 on admission DVT left arm-PICC removed 06/18/2017 and started on therapeutic dose Lovenox, Coumadin initiated 06/19/2017 Oral herpes lesions-started acyclovir 06/18/2017 Plan: Discussed with Dr. Renee. Will hold Coumadin and Lovenox. Will give vitamin K 1 today. Probable thoracentesis later today regarding no effusion. Regarding possible pneumonia, will discuss with Dr. Rojas. May need to initiate antibiotics. Sputum culture shows gram-positive cocci in pairs Check pro-calcitonin and lactate Replace magnesium Replace potassium Continue metronidazole (started 06/15/2017) and probiotics for C. difficile. Steroids discontinued 06/17/2017. They had been started for ARDS which has resolved. Continue to monitor closely regarding postobstructive diuresis. If the patient is hypotensive or tachycardia worsens, may need to add IV fluids. Greater than 45 minutes of critical care time spent seeing and evaluating the patient and reviewing the chart. Discussed with the family and patient's nurse. 06/22/2017-Dr. 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 MAXIMUM TEMPERATURE 100.3. Blood cultures negative so far. Urinalysis negative. Chest x-ray shows right sided infiltrate and bilateral pleural effusions. Cefepime and Vanco started 2016. Elevated lactate morning of 06/21/2017, resolved with 1 L of IV fluids and initiation of antibiotics. No right-sided effusion 06/21/2017-scheduled for thoracentesis 06/22/2017 Healthcare associated pneumonia- Cefepime and Vanco started 06/21/2017. Acute respiratory failure due to ARDS/volume overload-intubated 06/06-06/14 DTs with improving encephalopathy from alcohol withdrawal-Serax decreased 2016 C. difficile bxqgvif-nhffkwgzh-ai metronidazole since 06/15/2017 Anemia -slow trend down in hemoglobin since admission. Initiate anemia workup. Postobstructive diuresis -resolved Fluid overload-improved Sinus tachycardia Hypertensive emergency/urgency-improved on clonidine and metoprolol. Norvasc and lisinopril are currently on hold Chronic alcohol abuse with alcoholic liver disease-the patient states he intends to quit drinking completely after discharge Hypomagnesemia-stable now at 1.4 despite multiple doses of IV magnesium. Hypocalcemia-mild Tobacco dependence Obesity-BMI 33.2 on admission DVT left arm-PICC removed 06/18/2017 and started on therapeutic dose Lovenox, Coumadin initiated 06/19/2017 Oral herpes lesions-started acyclovir 06/18/2017 Plan: Thoracentesis today with Dr. Renee. Will need Gram stain and culture of fluid. INR has improved after vitamin K. Lovenox is on hold. Dr. Renee to restart Lovenox for DVT left arm post thoracentesis. Continue cefepime and Vanco for now for healthcare associated pneumonia. Continue metronidazole for C. difficile. Continue acyclovir for recurrent herpes outbreak of mouth. Start oral magnesium and monitor magnesium level Restart lisinopril for hypertension but at lower dose of 20 mg instead of 40 mg. We'll increase further if needed Initiate anemia workup CATHRYN Moe later today after thoracentesis if patient doing well. Greater than 45 minutes of critical care time spent seeing and evaluating the patient and reviewing the chart. Discussed with the family and patient's nurse 06/23/2017-Dr. 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 Blood cultures negative so far. Urinalysis negative. Chest x-ray shows right sided infiltrate and bilateral pleural effusions. Cefepime and Vanco started 06/21/2017. Elevated lactate morning of 06/21/2017, resolved with 1 L of IV fluids and initiation of antibiotics. Small right-sided pleural effusion-thoracentesis on 06/22/2017 revealed very minimal bloody return but no significant fluid. Healthcare associated pneumonia- Cefepime and Vanco started 06/21/2017. Acute respiratory failure due to ARDS/volume overload-intubated 06/06-06/14 DTs with improving encephalopathy from alcohol withdrawal-Serax decreased 2016 C. difficile [id number] metronidazole since 06/15/2017 Anemia -slow trend down in hemoglobin since admission. Mild iron deficiency anemia, borderline low B 12 Postobstructive diuresis -resolved Fluid overload-improved Sinus tachycardia Hypertensive emergency/urgency-improved on clonidine, Norvasc, lisinopril and metoprolol. Chronic alcohol abuse with alcoholic liver disease-the patient states he intends to quit drinking completely after discharge Hypomagnesemia-stable now at 1.4 despite multiple doses of IV magnesium. Hypocalcemia-resolved Tobacco dependence Obesity-BMI 33.2 on admission DVT left arm-PICC removed 06/18/2017 anticoagulation initiated, was held for recent transfuse this 06/22/2017 and then restarted Oral herpes lesions-started acyclovir 06/18/2017 Mild hemoptysis Plan: Restart Lovenox and Coumadin today. Discussed with pharmacy Continue cefepime and Vanco for now for healthcare associated pneumonia. Continue metronidazole for C. difficile. Continue acyclovir for recurrent herpes outbreak of mouth. Start oral magnesium Start oral iron and oral vitamin B-12 for anemia, mild iron deficiency, borderline low B 12 DC Moe Increase metoprolol for tachycardia Change to Xopenex because of the patient's tachycardia We'll ask the social work supervisor to see the patient regarding alcohol treatment after discharge Greater than 45 minutes of critical care time spent seeing and evaluating the patient and reviewing the chart. Discussed with the family, pharmacy, RT and patient's nurse. 06/25/17 18:23 Patient is breathing well and on room air. Blood cultures negative after 4 days. Chest x-ray 06/21 demonstrated right sided infiltrate and small bilateral pleural effusions. Cefepime and Vanco started 06/21/2017, vancomycin discontinued 06/25. Chest x-ray reordered for today. Anticipate discontinuing cefepime after 7 days. Continue metronidazole for C. difficile, day 1114. Continue acyclovir for recurrent herpes outbreak of mouth. Continue to monitor hemoglobin which is trending down slowly-likely due primarily to phlebotomy and possible underlying chronic disease. On iron and B- 12 supplements for mild iron deficiency anemia, borderline low B 12. Blood pressure stable on multiple medications (clonidine, Norvasc, lisinopril and metoprolol), heart rate improving with increased dose metoprolol (78-112 today). Encephalopathy dramatically improved since I last saw him, taper Serax to 3 times daily. 06/26/17 17:17 06/26/17 Slow improvement. HCAP/VAP- continue Cefepime. Dr. Rojas following. CXR is clearing. Continue IS/Acapella valve. C.Diff +: Flagyl x at least 10 days. May need to continue while on abx. Possible early cellulitis left leg- observe for now. Hesitant to add additional abx given C.Diff. DVT Picc left arm- Warfarin. BP remains elevated- Lisinopril, Metoprolol, Clonidine, Amlodipine. Will add Lasix, KCL given HTN and to assist with clearing pulmonary infiltrates. Some mild hemoptysis. Likely prolonged intubation, but instructed pt to notify us if persists or worsens. Monitor on anticoagulation. He continues to suffer from sx of ETOH w/d- DT, HTN, tachycardia. Encephalopathy clearing. Check ammonia level in AM. Tapering serax. will decrease frequency of Morphine. Need to wean narcotics as tolerated. Repeat labs in AM. Chart, documentation, imaging reviewed during this visit. <Sarah Rowland - Last Filed: 06/26/17 20:35> Objective Vital signs: Temperature 98.6 F 06/26/17 19:42 Pulse Rate 103 H 06/26/17 19:42 Respiratory Rate 18 06/26/17 19:42 Blood Pressure 131/88 06/26/17 19:42 Pulse Oximetry 96 06/26/17 19:42 Oxygen Delivery Method Room Air Oxygen Flow Rate 2 Fraction of Inspired Oxygen 50 SaO2/FiO2 Ratio 206 Height/Weight/BMI: Height 1.85 m Weight 110.9 kg Body Mass Index 39.4 Results - Labs CBC & Chem 7: 06/25/17 04:27 06/25/17 04:27 Microbiology Results: - ABG Interpretation ABG results: 06/05/17 06/06/17 06/06/17 17:41 04:35 09:25 ABG pH 7.360 7.380 7.460 H ABG pCO2 55 H 53 H 42 ABG pO2 114 H 64 L 133 H ABG HCO3 31 H 31 H 30 H ABG Total CO2 32.8 H 33.0 H 31.2 H ABG O2 Saturation 98.0 92.0 L 99.0 H ABG Base Excess 4.4 H 5.0 H 5.5 H 06/06/17 06/07/17 06/08/17 15:05 09:55 07:50 ABG pH 7.450 7.370 7.391 ABG pCO2 41 52 H 50 H ABG pO2 65 L 82 98 ABG HCO3 29 H 30 H 31 H ABG Total CO2 29.8 H 31.7 H 32 H ABG O2 Saturation 93.0 L 96.0 97.0 ABG Base Excess 4.1 H 3.7 H 5.0 H 06/09/17 06/14/17 06/14/17 08:35 10:10 14:42 ABG pH 7.470 H 7.460 H 7.480 H ABG pCO2 44 41 36 ABG pO2 88 65 L 65 L ABG HCO3 32 H 29 H 27 H ABG Total CO2 33.4 H 30.5 H 27.9 H ABG O2 Saturation 97.0 94.0 L 94.0 L ABG Base Excess 7.4 H 4.9 H 3.3 H - Imaging and Cardiology Chest x-ray Status: image reviewed by me (mild increased vascular markings, pleural effusion -improved from prior study) Assessment and Plan (1) Pancreatitis Problem details: POA: ETOH induced. RUQ US negative for obstructive stones. MRCP nondiagnostic due to motion artifact however no obvious gallstones, pancreatitis head thickened, intrahepatic ducts nondilated. Current visit: Yes Status: Acute (2) Acute respiratory failure Problem details: Intubated 06/06-06/14; ARDS/volume overload Current visit: Yes Status: Acute (3) DTs (delirium tremens) Current visit: Yes Status: Acute (4) Hypertension Current visit: Yes Status: Chronic (5) ETOHism Current visit: Yes Status: Chronic Assessment and Plan: I have independently evaluated and examined this patient. I reviewed the chart, the patient's history, and the SOLUTION STRATEGIST/PA's documented findings as above. We discussed and formulated the assessment and plan as above with additions as below: Nii continues to do well. He was able to ambulate with a walker and sit at the courtyard earlier today. He denied dyspnea or nausea, reports he has lightheadedness only while seated in the shower but no other time including when ambulated. He's had no fevers and has no desire to resume alcohol use. Respirations are nonlabored and breath sounds clear Cardiac rhythm is regular with persistent low-grade tachycardia Lesions on the left ewing are not quite as erythematous is yesterday but will require continued observation. Doing well, agree with gentle diuresis. INR therapeutic-discontinue Lovenox tomorrow if INR remains above 2. Today is day 6 cefepime and day 12 metronidazole. Tentatively plan to discontinue cefepime tomorrow or early Wednesday after completing 7 full days. Continue to monitor lesions on the left ewing closely but at present do not believe intervention is needed. Reassess with PT-may be ready to advance to a cane rather than walker. Blood pressure stable, heart rate acceptable. We'll need to convert from clonidine patch to oral administration due to cost. Chest x-ray reviewed by myself, high-risk medications in use (IV narcotics, anticoagulants), high-risk illness Hospital Course Summary Disclaimer: The visit summary below is not to be considered part of the above Progress Note.
[2017-06-26] MEDS ORDERED: MORPHINE SULFATE 4 MG SYRINGE IVP PRN (17:16)
[2017-06-27] MEDS: HYDROCODONE/APAP 7.5 MG/325 MG TABLET PO PRN ×5 (02:40→21:27)
[2017-06-27] MEDS: CEFEPIME 1 GM in NS 100 ML IV SCH ×4 (05:19→23:49)
[2017-06-27] MEDS: NS FLUSH BAG 500ml IV PRN (05:19)
[2017-06-27] MEDS: NICOTINE 21 MG PATCH TD SCH (08:11)
[2017-06-27] MEDS: ENOXAPARIN 120 MG/0.8 ML INJECTION SQ SCH (08:11)
[2017-06-27] MEDS: NICOTINE PATCH REMOVAL TD SCH (08:11)
[2017-06-27] MEDS: MAGNESIUM OXIDE 400 MG TABLET PO SCH ×2 (08:12→21:29)
[2017-06-27] MEDS: ACYCLOVIR 200 MG CAPSULE PO SCH ×3 (08:12→21:28)
[2017-06-27] MEDS: FAMOTIDINE 20 MG TABLET PO SCH ×2 (08:12→21:29)
[2017-06-27] MEDS: OXAZEPAM 15 MG CAPSULE PO SCH ×4 (08:12→21:29)
[2017-06-27] MEDS: LACTOBACILLUS (15B cfu) CAPSULE PO SCH ×3 (08:12→17:07)
[2017-06-27] MEDS: LISINOPRIL 20 MG TABLET PO SCH (08:12)
[2017-06-27] MEDS: AMLODIPINE 10 MG TABLET PO SCH (08:12)
[2017-06-27] MEDS: CYANOCOBALAMIN (B-12) 500mcg TABLET PO SCH (08:12)
[2017-06-27] MEDS: FOLIC ACID 1 MG TABLET PO SCH (08:12)
[2017-06-27] MEDS: CALCIUM 600 + VIT D 400 TABLET PO SCH ×2 (08:12→21:28)
[2017-06-27] MEDS: MetroNIDAZOLE 500 MG TABLET PO SCH ×3 (08:13→17:07)
[2017-06-27] MEDS: FUROSEMIDE 40 MG TABLET PO SCH (08:20)
[2017-06-27] MEDS: FERROUS SULFATE 324 MG TABLET PO SCH ×2 (08:20→17:06)
--- NOTE | 2017-06-27 09:22 | XRay Report ---
INDICATION: pneumonia PROCEDURE: CHEST 2-VIEWS UPRIGHT (PA & LAT) Encounter: Initial COMPARISON: June 22, 2017 FINDINGS: Right PICC line remains in place. Improving aeration of the right lower lobe with residual airspace disease and small pleural effusions. No pneumothorax. Heart size and mediastinal contours are stable. Pulmonary vascularity is somewhat less congested. Impression: Slowly improving right lower lobe pneumonia. .
--- NOTE | 2017-06-27 10:30 | Pharmacy Consult ---
Pharmacy Consult-Warfarin - Laboratory Information 06/09/17 06/20/17 06/21/17 04:23 10:30 04:08 INR 1.22 H 2.30 H 2.58 H 06/22/17 06/23/17 06/24/17 04:23 04:16 05:37 INR 1.46 H 1.41 H 1.53 H 06/25/17 06/26/17 06/27/17 04: 04:15 03:51 INR 1.84 H 2.04 H 2.18 H - Consult Information 36 y.o. Male on Warfarin for treatment of DVT. Goal INR = 2.0 to 3.0. Will give Warfarin 4 mg po today. Lovenox DC'd based on Dr. Rowland's 06/26 note. Pharmacy will monitor and adjust as needed. Thank you for the protocol, Alicia Ocasio [facility] date INR dose 06/19 7.5 mg 06/20 2.30 -- held for thoracentesis 06/21 2.58 -- " 06/22 1.46 -- " 06/23 1.41 5 mg (vitamin K 5 mg x 1 dose prior to procedure) 06/24 1.53 5 mg 06/25 1.84 5 mg 06/26 2.04 4 mg 06/27 2.18 plan: 4 mg
[2017-06-27] MEDS ORDERED: WARFARIN 4 MG TABLET PO SCH (12:00)
[2017-06-27] MEDS: SALINE FLUSH 10ml SYRINGE IVF PRN (12:02)
--- NOTE | 2017-06-27 18:01 | Progress Note ---
Subjective: Nii reports that he is doing well other than some mild right upper quadrant pain. He's had no diarrhea today and has been ambulating in the halls throughout the hospital. He continues to use a walker without other assistance. He denies lightheadedness, dyspnea, palpitations, or nausea. Objective Vital signs: Temperature 98.4 F 06/27/17 15:35 Pulse Rate 112 H 06/27/17 15:35 Respiratory Rate 18 06/27/17 15:35 Blood Pressure 136/99 H 06/27/17 15:35 Pulse Oximetry 95 06/27/17 15:35 Oxygen Delivery Method Room Air I/O 3425/3000 EXAM General-NAD, alert HEENT-conjunctiva clear, oropharynx clear Lungs-respirations nonlabored, breath sounds clear Cardiac-regular rhythm, H3-K1-fpk-grade tachycardia Abd-abdomen soft, mild tenderness right upper quadrant without guarding, diminished bowel sounds Ext-+1 edema bilateral lower extremities; 1 cm erythematous tender lesion mid left ewing-slightly more prominent today than yesterday, 1 cm lesion on distal left ewing is fading Neuro-moving all extremities well Psych-calm, cooperative - Height/Weight/BMI: Height 1.85 m Weight 108.8 kg Body Mass Index 39.4 Results - Labs CBC & Chem 7: 06/27/17 03:51 06/27/17 03:51 Labs: INR 2.18 Magnesium 1.6, phosphorus 4.1, albumin 3.0 Microbiology Results: Microbiology 06/20/17 20:30 Peripheral/Iv Start Blood Culture - Final No Growth After 5 Days 06/20/17 20:31 Peripheral/Iv Start Blood Culture - Final No Growth After 5 Days 06/17/17 11:52 Cath/Port/Line/Picc Blood Culture - Final No Growth After 5 Days 06/17/17 11:56 Cath/Port/Line/Picc Blood Culture - Final No Growth After 5 Days - ABG Interpretation ABG results: Assessment and Plan (1) Pancreatitis Problem details: POA: ETOH induced. RUQ US negative for obstructive stones. MRCP nondiagnostic due to motion artifact however no obvious gallstones, pancreatitis head thickened, intrahepatic ducts nondilated. 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 Healthcare associated pneumonia- Cefepime and Vanco started 06/21/2017. Acute respiratory failure due to ARDS/volume overload-intubated 06/06-06/14 DTs with improving encephalopathy from alcohol withdrawal C. difficile colitis- metronidazole started 06/15/2017 Anemia Postobstructive diuresis -resolved Fluid overload-improved Sinus tachycardia Hypertensive emergency/urgency Chronic alcohol abuse with alcoholic liver disease Hypomagnesemia Hypocalcemia-resolved Tobacco dependence Obesity-BMI 33.2 on admission DVT left arm-PICC removed 06/18/2017 anticoagulation initiated, held for thoracentesis 06/22/2017 and then restarted Oral herpes lesions-started acyclovir 06/18/2017 Mild hemoptysis-improved Plan: Doing well, blood pressure well-controlled on multiple medications but persistent low-grade tachycardia. Mild residual right upper quadrant pain-adequately controlled on oral medications. No evidence of alcohol withdrawal, titrate Serax to 3 times a day-thought it was changed several days ago but apparently order did not process in EMR. Oral intake good, tolerating low-fat diet. Recovering from C. difficile, day 13/14 metronidazole. No residual symptoms. Clinically doing well after treatment for pneumonia, day 7 cefepime-anticipate discontinuing; will discuss with Dr. Rojas tomorrow morning. INR therapeutic 2 days, Lovenox discontinued. - Time spent with patient 25 - 35 minutes Coordination of Care: >50% of visit spent providing counseling/coordination of care Sepsis Assessment - Evaluation Sepsis screening result: No Definite Risk Hospital Course Summary Disclaimer: The visit summary below is not to be considered part of the above Progress Note. Hospital Course: 06/04/17 1) Alcohol use and abuse with ongoing pancreatitis, this could be related to ETOH, or due to gallstones (U/S could not see distal CBD - bilirrubin high) or both. - Check Abd/Pelvic CT with IV contrast re: Extent of pancreatic swelling ? abscess ? hemorrhage ? also Pyelonephritis ? - Check MRCP - pt could be obstructed since Bilirrubin is high. Pt states he noticed his skin is yellow. - Aggressive hydration with NS 500cc/hr x 6 hrs then reasses 2) UTI - very high lactate - high WBC - On Rocephin will continue for now. 3) Hypokalemia/Hypomagenesemia - Will give Mg + K 4) Lactic acidosis - due to ? sepsis ? hypoperfusion ? - Will recheck later today. 5) Elevated hemoglobin - Will follow serially. 06/05/17 1) ALCOHOL ABUSE WITH A) SEVERE AGITATION/CONFUSION ? OF HALLUCINATIONS MOST LIKELY DUE TO ALCOHOL WITHDRAWALS - On Propofol drip - Tachycardic - Will also give Ativan IV KS. - Check CPK (R/O Rhabdo due to agitation) - Aggressive hydration and electrolyte replenishment. B) Pancreatitis most likely related to ETOH MRCP Impression: 1. No cholelithiasis or intrahepatic bile duct dilatation. Evaluation of the extrahepatic common duct is poor due to motion artifact and patient body habitus. No obvious common duct stone. 2. Enlargement of the pancreatic head which could be due to inflammation from pancreatitis or potentially neoplasm. Recommend further evaluation with a contrast-enhanced CT of the abdomen. - Lipase coming down - Check CA 19-9 prior to D/C and follow closely his pancreatic anatomy by CT/ MRI. Transferred to CCU due to alcohol withdrawal. 06/06/17 1) PULMONARY ASSESMENT A) Pt has developed ALI/ARDS - ABG on FIO2 of 80% showed PaO2 of 133 with CO2 of 42 - huge a-A gradient that has increased since yesterday. - Pt was intubated successfully by ED MD - Saturations are 91 on 100% FIO2. ET tube appears to be well positioned. - Pt requires high PEEP. - Could be related to pancreatitis, or PNA - Pt has a L sided effussion - could be related to pancreatitis. Must R/O Boherhave's syndrome will try a CT chest with gastrograffin injection in the mid esophagus. - Start coverage for HAP - Vanco + cefepime + steroids - Add Mucomyst for possible mucus plugg. - Case discussed with his NOK - significant other, she consented for intubation. - Reculture blood & sputum B) Obstructive Sleep Apnea (New Dx) - Was on CPAP - now intubated. 2) ALCOHOL ABUSE WITH MULTIPLE COMPLICATIONS - A) SEVERE AGITATION/CONFUSION ? OF HALLUCINATIONS MOST LIKELY DUE TO ALCOHOL WITHDRAWALS - On propofol since yesterday. - On Propofol drip - Continue. - Tachycardic/hypertensive - CPK - 1261 Yesterday - C/W rhadbomyolisis - will rehceck - Aggressive hydration and electrolyte replenishment. B) Pancreatitis most likely related to ETOH - Lipase coming down - Check CA 19-9 prior to D/C and follow closely his pancreatic anatomy by CT/MRI. - Add Banana bags - C) Hypokalemia on admission - K is high today. - Stop NS with K - Recheck later. D) Hypomagnesemia - now improved. E) Severe hypophosphatemia - Risk of hemolysis - CHF & could be causing low Platelets. - PO4 is under 1 - Spoke with Pharm Jasmine De Souza - Will give 90 Mmol of Na Phosphate F) Dehydration - Appears improved now, will hold off on aggressive hydration will place on Banana bag @ 50ml/hr x 3 Liters. G) Rhabdomyolisis - cuuld be due to his severe agitation. - Recheck CPK now. 3) INFECTIOUS DISEASE ASSESMENT A) UTI - very high lactate - high WBC - On Rocephin will continue for now. B) ? Of HAP ? - Will cover with Vanco + Cefepime - Add Mucomyst for possible mucus plug - Continue Duonebs - Add Steroids. - Lactate is dropping 3) CARDIOVASCULAR ASSESSMENT A) Hypertension - moderate to severe - On BB PRN will schedule with parameters B) Will check EKG due to low Ca and due to severe agitation - R.O VA. - Check 2-D echo - Consult Cardiology (BNP was very high and has Pleural effussion - Alcoholic [employer]AD[employer] ?) PREVENTION DVT - SCD'S PUD - PPI. 06/07/[address] Renee for Pulm evaluation and to help with ventilator management. Continue IV antibiotics - possible aspiration pneumonia/pneumonitis Continue Sedation - with current decreased pulmonary statue, likely too early to work on weaning sedation. Start TPN for nutritional support. Will stop IVF when TPN ready. Continue to monitor lab due to pt's severity of illness. Patient remains critically ill, ICU care warranted. 06/08/17 Continue with mechanical ventilation as per Dr Renee. In discussion with Dr Renee, will deescalate IV antibiotic use (likely respiratory failure from ARDS due to pancreatitis, still some concern for possible aspiration) Will stop Vancomycin, cefepime and clindamycin. Initiate Unasyn for coverage. Will continue Solu-Medrol at 40mg IV q 8 hours. Will stop Mucomyst - monitor for increase secretions. Blood pressure with elevation today. Bumex 1mg given this morning and afternoon to help decrease volume. Urine output appropriate, but pressures remain high. Start Nipride drip to ease down blood pressure. TPN continues-discussed with pharm about electrolyte adjustments. 10 units of Lantus given this morning to help sugars - did monitor sugars more frequently and gave additions SQ doses of insulin. Will start 20 units of Lantus this evening. Insulin sliding scale changed to high dose regimen. Continue propofol for sedation. Patient remains critically ill. CCU care an support required. 06/09/17 Recheck Lipase and CPK this am show normalization. Continue with mechanical ventilation as per Dr Renee. Continue Unasyn for antimicrobial coverage. Additional insulin to be given to help improve glycemic control. Extra SQ dosing during day. Increase Lantus to 45 units at night. Sugars elevated due to TPN and Solu-Medrol. Bumex 1mg given this morning to help decrease volume. Will give additional Bumex 1mg this afternoon. Nipride drip continues for BP control. TPN continues-discussed with pharm about electrolyte adjustments. Will remove sodium to decrease sodium level and OSMO. Increase KPhos. Continue propofol for sedation. Patient remains critically ill. CCU care an support required. 06/10/17 15:56 Patient continues to require ventilatory assistance with high pressures and FiO2 of 60% increased to 70% this afternoon after desaturating. Weight up significantly since admission, volume status +18.7 L from admission, edema on exam-will begin diuresing with scheduled Lasix. Continue propofol; discussed conversion to Precedex with Dr. Renee but with respiratory instability will not make changes at this time. Check triglycerides in a.m. Continue Unasyn/steroids. Remains hyperglycemic; Lantus increased to 50 units and corrective scale modified upward. Blood pressures modestly elevated; on IV metoprolol, Catapres patch, and nicardipine drip. Convert to enteral metoprolol per NG. Begin low-volume feedings per NG; dietary consultation for recommendations. Continue TPN for nutritional support. Patient remains critically ill. 06/11/17 16:18 Patient continues to require ventilatory assistance with FiO2 of 50% and PEEP of 8-both improved from yesterday. Continue diuresis with goal of equal/negative fluid balance daily. X-ray most consistent with volume overload-no focal infiltrate. Patient has been on antibiotics since 06/04 (ceftriaxone 06/04-06/06; cefepime/ clindamycin/vancomycin 06/06-06/08; Unasyn 06/08-current); sputum culture normal dinah -we'll discontinue antibiotics. On Solu-Medrol for pulmonary inflammation-discussed with Dr. Renee-decreased dose to 40 mg every 12 hours and continue to monitor. Remains hyperglycemic; Lantus increased to 50 units daily at bedtime with 20 units added every morning. Continue corrective scale insulin. Blood pressures modestly elevated; on by mouth metoprolol, Catapres patch, and nicardipine drip. Amlodipine added. Begin low-volume feedings per NG with Glucotrol; dietary consultation for recommendations. Continue TPN for nutritional support. Triglycerides pending to monitor propofol/ TPN. Hypernatremia slightly improved with TPN modifications, low-volume free water added to enteral tube feedings. 06/12/17 12:54 Patient continues to require ventilatory assistance with FiO2 of 50% and PEEP of 7. Continue diuresis with goal of equal/negative fluid balance daily. Bumex increased to 1 mg IV every 6 hours. Antibiotics discontinued yesterday (06/11) after total of 8 days (ceftriaxone 06/04 -06/06; cefepime/clindamycin/vancomycin 06/06-06/08; Unasyn 06/08-current). sputum culture normal dinah-we'll discontinue antibiotics. On Solu-Medrol for pulmonary inflammation 40 mg every 12 hours and continue to monitor. Remains hyperglycemic; Lantus increased to 20 units every morning and 50 units daily at bedtime yesterday. Fasting glucose 242 today. Continue corrective scale insulin. Anticipate beginning to titrate off TPN in the next couple of days-corrective scale modified but will not increase basal insulin at present. Blood pressures modestly elevated; on metoprolol, Catapres patch, and nicardipine drip. Amlodipine added yesterday-dose increased to 10 mg daily today and lisinopril added at 20 mg daily. Hope to titrate nicardipine off in next 24 hours. Tolerating Glucotrol at 25 mL per hour-rate increased to 40 mL per hour; dietary consultation for recommendations. Continue TPN for nutritional support. Triglycerides pending to monitor propofol/ TPN. Hypernatremia slightly improved with TPN modifications, low-volume free water added to enteral tube feedings. Potassium down today with diuresis-replaced and early and modified in TPN. 06/13/17 14:26 Patient continues to require ventilatory assistance with FiO2 of 50% and PEEP of 7. On Solu-Medrol for pulmonary inflammation 40 mg every 12 hours and continue to monitor. BUN/creatinine beginning to climb, Lasix and then Bumex have been ineffective in producing net diuresis. Significant edema but fluid is largely and subcutaneous tissues. Frequency of Bumex decreased to avoid worsening of renal function, XIAO siu added an attempt to mobilize fluid. Antibiotics discontinued yesterday 06/11 after total of 8 days (ceftriaxone 06/04-; cefepime/clindamycin/vancomycin 06/06-06/08; Unasyn 06/08-current). Blood sugars slowly [id number] in the past 24 hours; Lantus 20 units every morning and 50 units daily at bedtime currently. Blood pressures modestly elevated; on metoprolol 25 twice a day, amlodipine 10 daily, Catapres 2 patch, lisinopril 20/day and nicardipine drip. Tolerating Glucotrol at 25 mL per hour-intended to increase rate to 40 mL per hour yesterday however order was missed; will increase rate to 50 mL per hour 12 hours and then 75 mL per hour. Discussed with nursing. Decrease TPN infusion rate to 50% current infusion rate if continues to tolerate enteral feeds at higher rates. Continue TPN for nutritional support. Triglycerides pending to monitor propofol/ TPN. Hypernatremia improving with TPN modifications, low-volume free water added to enteral tube feedings. Patient now able to indicate throat discomfort but denies abdominal pain. Restlessness frequently described. Chronic alcohol abuse, alcohol withdrawal may still be underlying much of need for sedation/hypertension-Serax initiated at 30 mg every 6 hours. Wean propofol as able, chest x-ray/ABG in a.m. 06/14/17 17:39 Extubated midafternoon. Requiring 8 L supplemental oxygen to maintain saturation and appears to be slightly labored at the time of my assessment. High probability that BiPAP will be needed overnight for support. Continue Solu-Medrol for pulmonary inflammation 40 mg every 12 hours and continue to monitor. BUN/creatinine up further today, diuretics on hold. Significant edema but fluid is largely and subcutaneous tissues. XIAO siu added an attempt to mobilize fluid. Antibiotics discontinued yesterday 06/11 after total of 8 days (ceftriaxone 06/04-; cefepime/clindamycin/vancomycin 06/06-06/08; Unasyn 06/08-current). Blood sugars slowly improving-TPN being discontinued, Lantus discontinued as a result. Continue to monitor blood sugars and corrective scale insulin available as needed. OG removed when patient extubated-tube feedings discontinued. Soft diet ordered postextubation with nutritional supplements. Blood pressures modestly elevated; on metoprolol 25 twice a day, amlodipine 10 daily, Catapres 2 patch, lisinopril 20/day and nicardipine drip. Lisinopril increased to 40 mg daily. Triglycerides pending to monitor propofol/TPN. Hypernatremia improving with TPN modifications, low-volume free water added to enteral tube feedings. Continue to monitor off TPN. Chronic alcohol abuse, alcohol withdrawal may still be underlying much of need for sedation/hypertension-Serax initiated at 30 mg every 6 hours. Requesting alcohol shortly after extubation; continue Serax/when necessary lorazepam. PT/OT ordered; seen by speech therapy postextubation today. 06/15/17 15:51 Patient has tolerated extubation well and has titrated from 8 L supplemental oxygen to 4 L supplemental oxygen currently. Refused BiPAP last night. Diuresing without diuretics, BUN/creatinine slightly higher today. Taking liquids orally well and will continue to monitor volume/renal function. Convert to oral steroids from current low-dose Solu-Medrol. C. difficile identified overnight-oral Flagyl initiated and probiotics added today. Antibiotics discontinued 06/11 after total of 8 days (ceftriaxone 06/04-06/06; cefepime/clindamycin/vancomycin 06/06-06/08; Unasyn 06/08-06/11). Blood sugars slowly improving-TPN discontinued, Lantus discontinued yesterday. Corrective insulin as needed. Check A1c. Soft diet ordered postextubation with nutritional supplements. Blood pressure remains elevated; on metoprolol 50 twice a day, amlodipine 10 daily, Catapres 2 patch, lisinopril 40/d; nicardipine drip overnight but has been titrated off. Persistent low-grade tachycardia-metoprolol increased to 100 mg twice a day and hydralazine when necessary initiated. Hypernatremia resolving. Other electrolyte abnormalities stabilized. Chronic alcohol abuse, continue Serax at 30 mg every 6 hours. Requested alcohol shortly after extubation. As patient becomes more alert will begin tapering. PT/OT today; would like to begin getting patient out of bed if possible. 06/16/17 20:30 CT scan repeated earlier today due to increased abdominal pain-Moe catheter found to be in urethra with massive distention of the bladder (although patient had urine output of 100-300 mL per hour at the time). Moe catheter replaced with immediate resolution of abdominal pain, nausea, and flushing. Prior to identification of urinary retention blood cultures were obtained due to concern that patient may have sepsis triggering symptoms. No indication of pancreatic or intra-abdominal abscess. Low-fat diet due to recent pancreatitis. Ongoing diarrhea-day to metronidazole/probiotics for C. difficile identified . Doing well postextubation (06/14) On 1 L or RA with good oxygenation over the past 24 hours although oxygenation is in the lower 90s this evening. Diuresing briskly prior to Moe change, appears to have post obstructive diuresis following Moe catheter change with almost 9 L urine output thus far today. May require fluid replacement therapy if blood pressure drops-discussed with nursing. IV Antibiotics discontinued 06/11 after total of 8 days (ceftriaxone 06/04-06/06; cefepime/clindamycin/vancomycin 06/06-06/08; Unasyn 06/08-06/11). Blood sugars slowly improving-TPN discontinued, Lantus discontinued 06/14. Corrective insulin as needed. A1c 6.1. Blood pressure stabilizing; on metoprolol 100 twice a day, amlodipine 10 daily, Catapres 2 patch, lisinopril 40/d; nicardipine drip off past 24 hours. Continue diuresis may be able to begin decreasing blood pressure medications. Hypernatremia resolving. Other electrolyte abnormalities stabilized. Chronic alcohol abuse, continue Serax but will decrease to 30 mg every 8 hours. Continue PT/OT; would like to begin getting patient out of bed if possible. 06/17/2017-Dr. Calderón Assessment: Alcoholic pancreatitis Acute respiratory failure due to ARDS/volume overload-intubated 06/06-06/14 DTs C. difficile colitis Postobstructive diuresis with almost 18 L urine output in the past day and a half Sinus tachycardia, most likely secondary to being intravascularly dry due to postobstructive diuresis less likely to be secondary to alcohol withdrawal as the patient is currently alert and oriented and not tremulous and appears in no distress Abdominal pain 06/16 due to malfunctioning Moe catheter/urinary retention Hypertensive emergency/urgency-resolved, today with occasional borderline hypotension. Chronic alcohol abuse with alcoholic liver disease Hypokalemia- Hypomagnesemia-resolved Hypophosphatemia-resolved Hypocalcemia-resolved Hyperglycemia-A1c 6.1 on 06/15/17 Hypernatremia-resolved Tobacco dependence Obesity-BMI 33.2 on admission Plan: Regarding tachycardia is most likely secondary to intravascular dryness, will give half normal saline at 250 an hour 1-2 L. The patient has already received a 500 cc normal saline bolus. We'll reassess vital signs after IV fluids have been administered. Seroquel dose decreased slightly yesterday from 30 4 times a day to 30 3 times a day-watch closely for increasing signs of withdrawal Continue metronidazole (day 3) and probiotics for C. difficile. Rectal tube DC due to decrease diarrhea. From a respiratory standpoint, patient is doing well and is currently on room air. Continue to monitor blood sugars off of TPN Discontinue steroids which were started for ARDS Repeat basic metabolic profile this afternoon Replace potassium orally Low-dose Lovenox and SCDs for DVT prophylaxis Greater than 1 hour of critical care time spent seeing and evaluating the patient and reviewing the chart. Discussed with the family, patient's nurse, and Dr. Renee. 06/18/2017-Dr. Calderón Assessment: Necrotizing Alcoholic pancreatitis Fevers. White count is decreasing off of steroids. Blood cultures negative so far. Chest x-ray stable. Urinalysis negative. Acute respiratory failure due to ARDS/volume overload-intubated 06/06-06/14-stable on 2 L of oxygen DTs with improving encephalopathy from alcohol withdrawal C. difficile colitis Postobstructive diuresis Sinus tachycardia-improved Abdominal pain 06/16 due to malfunctioning Moe catheter/urinary retention Hypertensive emergency/vvgqyhl-ispgftrb-wybiewdb antihypertensives Chronic alcohol abuse with alcoholic liver disease Hypokalemia-mild Hypomagnesemia-resolved Hypophosphatemia-resolved Hypocalcemia-resolved Hyperglycemia-A1c 6.1 on 06/15/17 Hypernatremia-resolved Tobacco dependence Obesity-BMI 33.2 on admission Left arm edema with PICC line-rule out DVT Oral herpes lesions Plan: Monitor blood pressure closely after getting all of blood pressure medications this morning. Continue to monitor for signs or symptoms of infection/sepsis. Appreciate Dr. oRjas' consultation Continue Seroquel for alcohol withdrawal Check venous Doppler left arm to rule out DVT Continue metronidazole (day 4) and probiotics for C. difficile. Continue to monitor blood sugars off of TPN Steroids discontinued yesterday. They had been started for ARDS which has resolved. Replace potassium orally Low-dose Lovenox and SCDs for DVT prophylaxis Greater than 45 minutes of critical care time spent seeing and evaluating the patient and reviewing the chart. Discussed with the family, patient's nurse, and Dr. Rojas. 06/19/2017-Dr. 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 Blood cultures negative so far. Chest x-ray stable. Urinalysis negative. Acute respiratory failure due to ARDS/volume overload-intubated 06/06-06/14-stable on 2 L of oxygen DTs with improving encephalopathy from alcohol withdrawal C. difficile colitis-decreased stools Postobstructive diuresis -weight down 18 kg in the past 3 days Sinus tachycardia-improved Abdominal pain 06/16 due to malfunctioning Moe catheter/urinary retention Hypertensive emergency/tekuryd-igdfbbrn-rmsxj pressure still elevated, restart Norvasc Chronic alcohol abuse with alcoholic liver disease-the patient states he intends to quit drinking completely after discharge Hypokalemia worse this morning despite replacement yesterday, likely secondary to continued spontaneous diuresis Hypomagnesemia-replacing IV this morning Hypophosphatemia-resolved Hypocalcemia-mild Hyperglycemia-A1c 6.1 on 06/15/17 Hypernatremia-resolved Tobacco dependence Obesity-BMI 33.2 on admission DVT left arm-PICC removed 2016 and started on therapeutic dose Lovenox Oral herpes lesions-started acyclovir 06/18/2017 Plan: Recheck potassium and magnesium and recheck Restart Norvasc for hypertension Consult pharmacy to initiate Coumadin for DVT Continue to monitor for signs or symptoms of infection/sepsis. Appreciate Dr. Rojas' consultation Continue Seroquel for alcohol withdrawal Continue metronidazole (started 06/15/2017) and probiotics for C. difficile. Blood sugars well controlled off of TPN. Will DC Accu-Cheks Steroids discontinued 06/17/2017. They had been started for ARDS which has resolved. We'll stop clamping Moe and monitor urine output. Greater than 40 minutes of critical care time spent seeing and evaluating the patient and reviewing the chart. Discussed with the family and patient's nurse. 06/20/2017-Dr. 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 Blood cultures negative so far. Chest x-ray stable. Urinalysis negative. Acute respiratory failure due to ARDS/volume overload-intubated 06/06-06/14-on room air currently DTs with improving encephalopathy from alcohol withdrawal C. difficile colitis-decreased stools Postobstructive diuresis Fluid overload-now down to admission weight Sinus tachycardia-improved Abdominal pain 06/16 due to malfunctioning Moe catheter/urinary retention Hypertensive emergency/mhdljda-thytvxoj-alqir pressure lower this morning, hold Norvasc, consider holding lisinopril Chronic alcohol abuse with alcoholic liver disease-the patient states he intends to quit drinking completely after discharge Hypokalemia -improved Hypomagnesemia-replacing IV this morning Hypophosphatemia-resolved Hypocalcemia-mild Hyperglycemia-A1c 6.1 on 06/15/17 Hypernatremia-resolved Tobacco dependence Obesity-BMI 33.2 on admission DVT left arm-PICC removed 06/18/2017 and started on therapeutic dose Lovenox, Coumadin initiated 06/19/2017 Oral herpes lesions-started acyclovir 06/18/2017 Plan: Replace magnesium May need to decrease potassium tomorrow, currently on 20 mEq by mouth 3 times a day Hold Norvasc Continue to monitor for signs or symptoms of infection/sepsis. Decrease Seroquel to 15 mg by mouth 3 times a day Continue metronidazole (started 06/15/2017) and probiotics for C. difficile. Steroids discontinued 06/17/2017. They had been started for ARDS which has resolved. Continue to monitor closely regarding postobstructive diuresis. If the patient is hypotensive or tachycardia worsens, may need to add IV fluids. Greater than 40 minutes of critical care time spent seeing and evaluating the patient and reviewing the chart. Discussed with the family and patient's nurse. 06/21/2017-Dr. 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 Urinalysis negative. Chest x- ray yesterday showed possible basilar atelectasis versus early pneumonitis, today showing more infiltrate in the right base and a small to moderate pleural effusion on the right concerning for parapneumonic effusion No right-sided effusion 06/21/2017 possible pneumonia Acute respiratory failure due to ARDS/volume overload-intubated 06/06-06/14 DTs with improving encephalopathy from alcohol withdrawal-Serax decreased 2016 C. difficile colitis-decreased stools Postobstructive diuresis Fluid overload-improved Sinus tachycardia Abdominal pain 06/16 due to malfunctioning Moe catheter/urinary retention Hypertensive emergency/urgency-improved on clonidine and metoprolol. Norvasc and lisinopril are currently on hold Chronic alcohol abuse with alcoholic liver disease-the patient states he intends to quit drinking completely after discharge Hypokalemia -improved Hypomagnesemia-replacing IV this morning Hypophosphatemia-resolved Hypocalcemia-mild Hyperglycemia-A1c 6.1 on 06/15/17 Hypernatremia-resolved Tobacco dependence Obesity-BMI 33.2 on admission DVT left arm-PICC removed 06/18/2017 and started on therapeutic dose Lovenox, Coumadin initiated 06/19/2017 Oral herpes lesions-started acyclovir 06/18/2017 Plan: Discussed with Dr. Renee. Will hold Coumadin and Lovenox. Will give vitamin K 1 today. Probable thoracentesis later today regarding no effusion. Regarding possible pneumonia, will discuss with Dr. Rojas. May need to initiate antibiotics. Sputum culture shows gram-positive cocci in pairs Check pro-calcitonin and lactate Replace magnesium Replace potassium Continue metronidazole (started 06/15/2017) and probiotics for C. difficile. Steroids discontinued 06/17/2017. They had been started for ARDS which has resolved. Continue to monitor closely regarding postobstructive diuresis. If the patient is hypotensive or tachycardia worsens, may need to add IV fluids. Greater than 45 minutes of critical care time spent seeing and evaluating the patient and reviewing the chart. Discussed with the family and patient's nurse. 06/22/2017-Dr. 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 MAXIMUM TEMPERATURE 100.3. Blood cultures negative so far. Urinalysis negative. Chest x-ray shows right sided infiltrate and bilateral pleural effusions. Cefepime and Vanco started 2016. Elevated lactate morning of 06/21/2017, resolved with 1 L of IV fluids and initiation of antibiotics. No right-sided effusion 06/21/2017-scheduled for thoracentesis 06/22/2017 Healthcare associated pneumonia- Cefepime and Vanco started 06/21/2017. Acute respiratory failure due to ARDS/volume overload-intubated 06/06-06/14 DTs with improving encephalopathy from alcohol withdrawal-Serax decreased 2016 C. difficile iqmergd-xbrnyhdth-ij metronidazole since 06/15/2017 Anemia -slow trend down in hemoglobin since admission. Initiate anemia workup. Postobstructive diuresis -resolved Fluid overload-improved Sinus tachycardia Hypertensive emergency/urgency-improved on clonidine and metoprolol. Norvasc and lisinopril are currently on hold Chronic alcohol abuse with alcoholic liver disease-the patient states he intends to quit drinking completely after discharge Hypomagnesemia-stable now at 1.4 despite multiple doses of IV magnesium. Hypocalcemia-mild Tobacco dependence Obesity-BMI 33.2 on admission DVT left arm-PICC removed 06/18/2017 and started on therapeutic dose Lovenox, Coumadin initiated 06/19/2017 Oral herpes lesions-started acyclovir 06/18/2017 Plan: Thoracentesis today with Dr. Renee. Will need Gram stain and culture of fluid. INR has improved after vitamin K. Lovenox is on hold. Dr. Renee to restart Lovenox for DVT left arm post thoracentesis. Continue cefepime and Vanco for now for healthcare associated pneumonia. Continue metronidazole for C. difficile. Continue acyclovir for recurrent herpes outbreak of mouth. Start oral magnesium and monitor magnesium level Restart lisinopril for hypertension but at lower dose of 20 mg instead of 40 mg. We'll increase further if needed Initiate anemia workup DC Moe later today after thoracentesis if patient doing well. Greater than 45 minutes of critical care time spent seeing and evaluating the patient and reviewing the chart. Discussed with the family and patient's nurse 06/23/2017-Dr. 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 Blood cultures negative so far. Urinalysis negative. Chest x-ray shows right sided infiltrate and bilateral pleural effusions. Cefepime and Vanco started 06/21/2017. Elevated lactate morning of 06/21/2017, resolved with 1 L of IV fluids and initiation of antibiotics. Small right-sided pleural effusion-thoracentesis on 06/22/2017 revealed very minimal bloody return but no significant fluid. Healthcare associated pneumonia- Cefepime and Vanco started 06/21/2017. Acute respiratory failure due to ARDS/volume overload-intubated 06/06-06/14 DTs with improving encephalopathy from alcohol withdrawal-Serax decreased 2016 C. difficile uhvtgtd-elslutlyr-xo metronidazole since 06/15/2017 Anemia -slow trend down in hemoglobin since admission. Mild iron deficiency anemia, borderline low B 12 Postobstructive diuresis -resolved Fluid overload-improved Sinus tachycardia Hypertensive emergency/urgency-improved on clonidine, Norvasc, lisinopril and metoprolol. Chronic alcohol abuse with alcoholic liver disease-the patient states he intends to quit drinking completely after discharge Hypomagnesemia-stable now at 1.4 despite multiple doses of IV magnesium. Hypocalcemia-resolved Tobacco dependence Obesity-BMI 33.2 on admission DVT left arm-PICC removed 06/18/2017 anticoagulation initiated, was held for recent transfuse this 06/22/2017 and then restarted Oral herpes lesions-started acyclovir 06/18/2017 Mild hemoptysis Plan: Restart Lovenox and Coumadin today. Discussed with pharmacy Continue cefepime and Vanco for now for healthcare associated pneumonia. Continue metronidazole for C. difficile. Continue acyclovir for recurrent herpes outbreak of mouth. Start oral magnesium Start oral iron and oral vitamin B-12 for anemia, mild iron deficiency, borderline low B 12 DC Moe Increase metoprolol for tachycardia Change to Xopenex because of the patient's tachycardia We'll ask the medical social consultant to see the patient regarding alcohol treatment after discharge Greater than 45 minutes of critical care time spent seeing and evaluating the patient and reviewing the chart. Discussed with the family, pharmacy, RT and patient's nurse. 06/25/17 18:23 Patient is breathing well and on room air. Blood cultures negative after 4 days. Chest x-ray 06/21 demonstrated right sided infiltrate and small bilateral pleural effusions. Cefepime and Vanco started 06/21/2017, vancomycin discontinued 06/25. Chest x-ray reordered for today. Anticipate discontinuing cefepime after 7 days. Continue metronidazole for C. difficile, day 09/14. Continue acyclovir for recurrent herpes outbreak of mouth. Continue to monitor hemoglobin which is trending down slowly-likely due primarily to phlebotomy and possible underlying chronic disease. On iron and B- 12 supplements for mild iron deficiency anemia, borderline low B 12. Blood pressure stable on multiple medications (clonidine, Norvasc, lisinopril and metoprolol), heart rate improving with increased dose metoprolol (78-112 today). Encephalopathy dramatically improved since I last saw him, taper Serax to 3 times daily. 06/26/17 17:17 06/26/17 Slow improvement. HCAP/VAP- continue Cefepime. Dr. Rojas following. CXR is clearing. Continue IS/Acapella valve. C.Diff +: Flagyl x at least 10 days. May need to continue while on abx. Possible early cellulitis left leg- observe for now. Hesitant to add additional abx given C.Diff. DVT Picc left arm- Warfarin. BP remains elevated- Lisinopril, Metoprolol, Clonidine, Amlodipine. Will add Lasix, KCL given HTN and to assist with clearing pulmonary infiltrates. Some mild hemoptysis. Likely prolonged intubation, but instructed pt to notify us if persists or worsens. Monitor on anticoagulation. He continues to suffer from sx of ETOH w/d- DT, HTN, tachycardia. Encephalopathy clearing. Check ammonia level in AM. Tapering serax. will decrease frequency of Morphine. Need to wean narcotics as tolerated. Repeat labs in AM. Chart, documentation, imaging reviewed during this visit. 06/27/17 18:13 Doing well, blood pressure well-controlled on multiple medications but persistent low-grade tachycardia. Mild residual right upper quadrant pain-adequately controlled on oral medications. No evidence of alcohol withdrawal, titrate Serax to 3 times a day-thought it was changed several days ago but apparently order did not process in EMR. Oral intake good, tolerating low-fat diet. Recovering from C. difficile, day 13/14 metronidazole. No residual symptoms. Clinically doing well after treatment for pneumonia, day 7 cefepime-anticipate discontinuing; will discuss with Dr. Rojas tomorrow morning. INR therapeutic 2 days, Lovenox discontinued.
[2017-06-28] MEDS: HYDROCODONE/APAP 7.5 MG/325 MG TABLET PO PRN ×3 (04:34→12:39)
[2017-06-28] MEDS: CEFEPIME 1 GM in NS 100 ML IV SCH (05:09)
[2017-06-28] MEDS: SALINE FLUSH 10ml SYRINGE IVF PRN ×2 (05:10→14:31)
[2017-06-28 07:24] VITALS: BP 137/89; RESP 16; TEMP 98; O2SAT 95
[2017-06-28] MEDS: FUROSEMIDE 40 MG TABLET PO SCH (08:30)
--- NOTE | 2017-06-28 08:31 | Pharmacy Consult ---
Pharmacy Consult-Warfarin - Laboratory Information 06/09/17 06/20/17 06/21/17 04:23 10:30 04:08 INR 1.22 H 2.30 H 2.58 H 06/22/17 06/23/17 06/24/17 04:23 04:16 05:37 INR 1.46 H 1.41 H 1.53 H 06/25/17 06/26/17 06/27/17 04:27 04:15 03:51 INR 1.84 H 2.04 H 2.18 H 06/28/17 03:45 INR 2.19 H - Consult Information 36 y.o. Male on Warfarin for treatment of DVT. Goal INR = 2.0 to 3.0. Will give Warfarin 4 mg po today. Potential drug-drug interactions exist between Cefepime + Warfarin and Metronidazole + Warfarin both medication combinations may increase INR and risk of bleeding. These interactions seem to be stable at this time but as antibiotics are discontinued there may be changes in INR, likely a decrease in INR. Pharmacy will monitor and adjust as needed. Thank you for the protocol, Alicia Ocasio [facility] date INR dose 06/19 7.5 mg 06/20 2.30 -- held for thoracentesis 06/21 2.58 -- " 06/22 1.46 -- " 06/23 1.41 5 mg (vitamin K 5 mg x 1 dose prior to procedure) 06/24 1.53 5 mg 06/25 1.84 5 mg 06/26 2.04 4 mg 06/27 2.18 4 mg 06/28 2.19 plan: 4 mg
[2017-06-28] MEDS: CALCIUM 600 + VIT D 400 TABLET PO SCH (08:33)
[2017-06-28] MEDS: FOLIC ACID 1 MG TABLET PO SCH (08:35)
[2017-06-28] MEDS: MAGNESIUM OXIDE 400 MG TABLET PO SCH (08:35)
[2017-06-28] MEDS: OXAZEPAM 15 MG CAPSULE PO SCH ×2 (08:35→14:48)
[2017-06-28] MEDS: LACTOBACILLUS (15B cfu) CAPSULE PO SCH ×2 (08:38→11:22)
[2017-06-28] MEDS: MetroNIDAZOLE 500 MG TABLET PO SCH ×2 (08:38→11:23)
[2017-06-28] MEDS: FERROUS SULFATE 324 MG TABLET PO SCH (08:38)
[2017-06-28] MEDS: CYANOCOBALAMIN (B-12) 500mcg TABLET PO SCH (08:40)
[2017-06-28] MEDS: LISINOPRIL 20 MG TABLET PO SCH (08:40)
[2017-06-28] MEDS: ACYCLOVIR 200 MG CAPSULE PO SCH (08:41)
[2017-06-28] MEDS: AMLODIPINE 10 MG TABLET PO SCH (08:41)
[2017-06-28] MEDS: NICOTINE 21 MG PATCH TD SCH (08:41)
[2017-06-28] MEDS: FAMOTIDINE 20 MG TABLET PO SCH (08:41)
[2017-06-28] MEDS: NICOTINE PATCH REMOVAL TD SCH (08:42)
--- NOTE | 2017-06-28 09:07 | Progress Note ---
Subjective Date: 06/28/17 Subjective: He denies any fever, nausea, diarrhea, itching, rash, or abdominal pain. He denies any shortness of breath. States he is using the incentive spirometer. He reports his stools are formed. He is hoping to go home today. Exam Vital Signs: Temperature 98.0 F 06/28/17 07:00 Pulse Rate 115 H 06/28/17 07:00 Respiratory Rate 16 06/28/17 07:00 Blood Pressure 137/89 06/28/17 07:00 Pulse Oximetry 95 06/28/17 07:00 Oxygen Delivery Method Room Air Oxygen Flow Rate 2 Fraction of Inspired Oxygen 50 SaO2/FiO2 Ratio 206 Height/Weight/BMI: Height 1.85 m Weight 107.1 kg Body Mass Index 39.4 - Constitutional Present: no acute distress, well nourished, well developed - Routine HEENT Exam Head: Present: normocephalic Eye: Present: EOMI ENT: Present: mucous membranes moist, dentition normal Comments: scab L lower lip - Routine Neck Exam Present: supple - Routine Respiratory Exam Present: CTA bilaterally, diminished air movement (at bases bilaterally) - Routine Cardiovascular Exam Present: RRR. Absent: murmur - Routine Abdominal Exam Present: soft, normoactive bowel sounds, non distended. Absent: tenderness - Routine Extremities Exam Absent: cyanosis, clubbing, edema - Routine Skin Exam Present: intact. Absent: rash Comments: PICC site without redness - Routine Neurological Exam Present: alert, oriented X3, CN II-XII intact - Routine Psychiatric Exam Present: normal affect, normal thought process Results - Labs CBC & Chem 7: 06/27/17 03:51 06/27/17 03:51 Microbiology Results: Microbiology 06/20/17 20:30 Peripheral/Iv Start Blood Culture - Final No Growth After 5 Days 06/20/17 20:31 Peripheral/Iv Start Blood Culture - Final No Growth After 5 Days 06/17/17 11:52 Cath/Port/Line/Picc Blood Culture - Final No Growth After 5 Days 06/17/17 11:56 Cath/Port/Line/Picc Blood Culture - Final No Growth After 5 Days 06/20/17 16:30 Sputum, Expectorated Gram Stain - Final 06/20/17 16:30 Sputum, Expectorated Sputum Culture - Final Normal Respiratory Hilda including Yeast Present 06/16/17 10:45 Cath/Port/Line/Picc Blood Culture - Final No Growth After 5 Days 06/16/17 10:55 Cath/Port/Line/Picc Blood Culture - Final No Growth After 5 Days 06/06/17 11:34 Peripheral/Iv Start Blood Culture - Final No Growth After 5 Days 06/06/17 11:34 Peripheral/Iv Start Blood Culture - Final No Growth After 5 Days 06/06/17 11:00 Sputum, Suctioned Gram Stain - Final 06/06/17 11:00 Sputum, Suctioned Sputum Culture - Final Normal Respiratory Hilda - ABG Interpretation ABG results: 06/05/17 06/06/17 06/06/17 17:41 04:35 09:25 ABG pH 7.360 7.380 7.460 H ABG pCO2 55 H 53 H 42 ABG pO2 114 H 64 L 133 H ABG HCO3 31 H 31 H 30 H ABG Total CO2 32.8 H 33.0 H 31.2 H ABG O2 Saturation 98.0 92.0 L 99.0 H ABG Base Excess 4.4 H 5.0 H 5.5 H 06/06/17 06/07/17 06/08/17 15:05 09:55 07:50 ABG pH 7.450 7.370 7.391 ABG pCO2 41 52 H 50 H ABG pO2 65 L 82 98 ABG HCO3 29 H 30 H 31 H ABG Total CO2 29.8 H 31.7 H 32 H ABG O2 Saturation 93.0 L 96.0 97.0 ABG Base Excess 4.1 H 3.7 H 5.0 H 06/09/17 06/14/17 06/14/17 08:35 10:10 14:42 ABG pH 7.470 H 7.460 H 7.480 H ABG pCO2 44 41 36 ABG pO2 88 65 L 65 L ABG HCO3 32 H 29 H 27 H ABG Total CO2 33.4 H 30.5 H 27.9 H ABG O2 Saturation 97.0 94.0 L 94.0 L ABG Base Excess 7.4 H 4.9 H 3.3 H Impression: Sepsis secondary to GI source, improving R infiltrate and pleural effusion, ? 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 difficile. Today is also D#8 of cefepime for pneumonia. Will stop. Will also stop the acyclovir. I think he can be discharged home. Follow up with ID prn. Sepsis Assessment - Evaluation Sepsis screening result: No Definite Risk
[2017-06-28] MEDS ORDERED: WARFARIN 4 MG TABLET PO ONE (12:00)
--- NOTE | 2017-06-28 13:52 | Discharge Instructions ---
Discharge Plan - Med Rec/Dispo Chris Instructions: Pancreatitis (GEN) Prescriptions: New Amlodipine [Norvasc] 10 mg PO DAILY #30 tablet B,C/Folic/Zinc/Copper Ox/Vit E [Stress B-Complex Tablet] 1 each PO DAILY # 100 tablet CloNIDine [Catapres] 1 tab PO BID #60 tablet Ferrous Sulfate [Feosol] 324 mg PO BIDWM tablet Lisinopril [Prinivil] 20 mg PO DAILY #30 tablet LORazepam [Ativan] 0.5 mg PO TID #30 tab Warfarin Sodium 5 mg PO DAILY #30 tablet Famotidine [Pepcid] 20 mg PO BID #60 tablet Hydrocodone/APAP 7.5/325 [[place] 7.5/325] 1 tab PO Q4H PRN #50 tab PRN Reason: Pain Metoprolol Tartrate [Lopressor] 150 mg NG BIDWM #90 tablet Discontinued Potassium Chloride 20 meq PO BID Discharge Instructions/Outpatient Orders: Final Provider Discharge Instructions Location: Determined By Patient - Disposition 01 Discharged Home, Self-Care
[2017-06-28 14:45] VITALS: PULSE 114
[2017-06-28] MEDS ORDERED: NEOMYCIN/POLYMYXIN/BACITRACIN OINT PACKET TP ONE (15:34)
--- NOTE | 2017-06-28 20:50 | Discharge Summary ---
Discharge Information Date of admission: 06/04/17 02:08 Anticipated date of discharge: 06/28/17 Attending Physician: Sarah Rowland MD Primary care physician: [facility] Consults: Paulo Renee Shelley D - Discharge Diagnosis Discharge Diagnosis: Necrotizing pancreatitis Acute hypoxic respiratory failure DTs with acute encephalopathy/alcohol withdrawal Sepsis secondary to GI source C. difficile colitis Left upper extremity DVT - Procedures Procedures: Intubation 06/06/17 PICC line placements Thoracentesis on 06/22/2017 revealed very minimal bloody return but no significant fluid. - Laboratory Labs: Admission labs (06/04/17) white count 10.4, hemoglobin 18.7, MCV 104.5, platelet count 123K; sodium 134, potassium 2.4 BUN 5, creatinine 0.7, bilirubin 4.3, AST 147, ALT 66, alkaline phosphatase 126, lipase 2368, and lactic acid 10.5. Additional studies obtained during the hospital course include: CPK 1261 on 06/05 with normalization over several days. A1c 6.1% on 06/15/17 Serum iron 23, TIBC 199, iron saturation 12%; B-12 361 and folic acid 8.3 on TSH 8.26, free T4 0.99 on 06/22 C. difficile toxin +06/1406/27/17 03:51 06/27/17 03:51 - Microbiology Microbiology 06/20/17 20:30 Peripheral/Iv Start Blood Culture - Final No Growth After 5 Days 06/20/17 20:31 Peripheral/Iv Start Blood Culture - Final No Growth After 5 Days 06/17/17 11:52 Cath/Port/Line/Picc Blood Culture - Final No Growth After 5 Days 06/17/17 11:56 Cath/Port/Line/Picc Blood Culture - Final No Growth After 5 Days 06/20/17 16:30 Sputum, Expectorated Gram Stain - Final 06/20/17 16:30 Sputum, Expectorated Sputum Culture - Final Normal Respiratory Hilda including Yeast Present 06/16/17 10:45 Cath/Port/Line/Picc Blood Culture - Final No Growth After 5 Days 06/16/17 10:55 Cath/Port/Line/Picc Blood Culture - Final No Growth After 5 Days 06/06/17 11:34 Peripheral/Iv Start Blood Culture - Final No Growth After 5 Days 06/06/17 11:34 Peripheral/Iv Start Blood Culture - Final No Growth After 5 Days 06/06/17 11:00 Sputum, Suctioned Gram Stain - Final 06/06/17 11:00 Sputum, Suctioned Sputum Culture - Final Normal Respiratory Hilda - Radiology Radiology: CXR/KUB on admission revealed no acute cardiopulmonary disease and no evidence of obstruction or free air in the abdominal films. Bowel gas pattern was nonspecific. Multiple chest x-rays were obtained during the hospital course demonstrating variable degrees of volume overload, patchy infiltrates-initially at the left base, later extensive bilateral infiltrates, subsequent pleural effusions/ atelectasis. The final week of the patient's hospitalization infiltrate/ effusion was present in the right lower lobe and the final chest x-ray on 06/26 demonstrated slowly resolving right lower lobe infiltrate with small residual pleural effusions. Abdominal ultrasound on 06/04/17: Demonstrated gallbladder sludge but no evidence of acute cholecystitis. MRCP on 06/04/17: 1. No cholelithiasis or intrahepatic bile duct dilatation. Evaluation of the extrahepatic common duct is poor due to motion artifact and patient body habitus. No obvious common duct stone. 2. Enlargement of the pancreatic head which could be due to inflammation from pancreatitis or potentially neoplasm. Recommend further evaluation with a contrast-enhanced CT of the abdomen. High-resolution CT of the chest on 06/06/17: 1. No obvious tear in the esophagus as there is no significant abnormal air collections identified. 2. Patchy infiltrative changes throughout most pulmonary segments with most prominent findings in the lung bases particularly on the left side where combination of sizable pleural effusion and infiltrate or atelectasis is identified. CT of the abdomen and pelvis on 06/16/17: 1. 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 2. Malpositioning of the Moe catheter with bladder distention and hydronephrosis. 3. Anasarca and volume overload. Left upper extremity venous Doppler on 06/18/17 demonstrated occluded left brachial vein. History of Present Illness HPI: 36yo man with PMH of HTN, obesity and alcoholism [facility]icky [facility]. Pt had similar sx when he presented to this ER 3 months ago. At that time he was noted to have LE cellulitis b/l and sequelae of alcoholism (electrolyte disturbances, hepatitis, etc). Pt has followed up with his PCM and has been dx'ed/treated for HTN. Tonight, pt has crampy, colicky abd pain that makes catching his breath difficult. He reports nausea and vomiting. Reports is has been dark colored fluid. He reports continued drinking. He denies HX of pancreatitis in the past. He was found to have severe pancreatitis in the ED, RUQ US was negative for gallstone obstruction. He was admitted for further evaluation and treatment. Hospital Course This is a general summary of the patient's hospital course. For more details refer to the complete medical record. 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 difficile colitis DVT left upper extremity Anemia, macrocytic Postobstructive diuresis-resolved Small right-sided pleural effusion Fluid overload-improved Sinus tachycardia Chronic alcohol abuse with alcoholic liver disease Hypokalemia-POA Hyponatremia-POA; hypernatremia-not POA Hypophosphatemia Hypomagnesemia-POA Hypocalcemia-resolved Tobacco dependence Obesity-BMI 33.2 on admission Oral herpes simplex, treated Hospital course: Mr. Mcintyre was hospitalized on 06/04 with nausea, vomiting, and abdominal pain. He was found to have severe pancreatitis without evidence of gallstones. Disease was believed to be due to chronic alcohol abuse. Pancreatitis was treated in a conventional fashion with hydration, electrolyte replacement, and pain management. An MRCP was obtained demonstrating no evidence of ductal obstruction although the pancreatic head was enlarged/inflamed. Dehydration was present on admission as evidenced by hemoconcentration. Patient was transferred to the CCU on 06/05 due to evolving alcohol withdrawal and within the next 24 hours developed overt ARDS with progressive hypoxic respiratory failure requiring intubation and ventilatory support. While intubated the patient required sedation with high-dose medications. Dr. Renee was consulted for assistance managing the ventilator. He remained intubated through 06/14. Chest x-rays demonstrated varying degrees of infiltrates, atelectasis, and pleural effusions throughout the hospital course. Thoracentesis was performed on 06/22 for pleural effusion on the right although only small volume blood-tinged fluid was obtained. Respiratory status improved progressively through the hospital course and he was on room air at discharge. Patient was treated for alcohol withdrawal throughout the hospital course with titrating dosage of Serax. He was converted to lorazepam 0.5 mg 3 times daily at discharge due to cost and will continue to titrate this off over the next 10- 12 days. Patient plans follow-up with AA and [facility] to assist in abstinence plans. Associated with alcohol withdrawal and respiratory failure patient developed hypertensive urgency requiring initiation of IV medications for management. Hypertension persisted throughout the hospitalization and medications were modified and multiple occasions with ultimate 4 drug regimen. He was converted from a clonidine patch to oral clonidine on the date of discharge. Low-grade tachycardia has persisted despite improved blood pressure control requiring high -dose metoprolol. Over time it may be possible to wean the patient off of clonidine and increase lisinopril to permit a 3 drug regimen. The patient was treated with antibiotics through much of the hospitalization. He was initially on broad-spectrum antibiotics for pancreatitis with later narrowing to Unasyn for probable aspiration associated with respiratory failure requiring intubation. Shortly after completing Unasyn the patient developed diarrhea and tested positive for C. difficile colitis on 06/14 at which time metronidazole therapy was initiated. He completed treatment for C. difficile on the date of discharge. Several days after C. difficile was identified he developed fever and chills thought due to sepsis of GI origin. Oral HSV was present and treatment initiated. There was question of possible right lower lobe infiltrate/VAP for which patient completed a one-week course of cefepime prior to hospitalization. He became grossly volume overloaded with volume replacement therapy through the early part of the hospital course requiring diuresis. Moe catheter became obstructed around 06/16; following replacement he developed high-volume postobstructive diuresis and volume replacement therapy was needed on a short- term basis. At discharge the patient's weight is slightly below admission weight although there is mild residual edema likely due to the low albumin. On 06/18 DVT in the left upper extremity was identified. Anticoagulation was initiated and shortly thereafter the left upper extremity PICC line was removed and a new PICC was placed in the right upper extremity. Warfarin was therapeutic at discharge and the patient had been off Lovenox for 24 hours. Warfarin dose was increased to 5 mg daily at discharge after discontinuation of antibiotics and INR will need to be rechecked in 2-3 days to assure stable INR. Extensive electrolyte replacement therapy was needed throughout the hospitalization and patient was on TPN during the time he was intubated in the ICU. Patient became quite debilitated during his ICU stay and was evaluated by PT/ OT. At discharge he was ambulating with a cane and making good progress toward full functional independence. The patient developed progressive anemia during the hospitalization without significant blood loss beyond repeated phlebotomy. Iron level was slightly low but compatible with chronic disease, B-12 was low normal. Iron supplement and B vitamin supplementations were initiated during the hospital course and ongoing supplementations were recommended at discharge. On 06/28 the patient was felt stable for discharge. He is ambulating with a single-point cane and he described no concerns. He has minor residual right upper quadrant pain but is tolerating a low-fat diet without difficulty. He has plans in place for follow-up with AA and [facility] and seems committed to alcohol abstinence. He denied dyspnea or lightheadedness. The patient is alert and fully cooperative. Lungs are clear other than mild decreased breath sounds at the bases. Abdomen is soft with minimal tenderness. There is a small erythematous slightly raised area over the left ewing which will need to be reevaluated in several days as it may represent an early soft tissue infection. Discharge medications were reviewed with the patient and his girlfriend in detail. He is aware that he will need to have blood work checked in 2-3 days and should have his blood pressure rechecked in the same period of time. Warm soaks will be used on the lesion on the left ewing and if it doesn't resolve it needs to be reevaluated at [facility] in several days. Follow-up appointment at [facility] to be scheduled in the near future for general follow-up. Time spent with patient: discharge greater than 30 minutes Discharge Plan - Med Rec/Dispo Referrals/Follow Up: Rakel Norris APRN [Advanced Practice Nurse] - (APPOINTMENT WITH RAKEL NORRIS AT [facility] AT [address] ON 07/02/2017 AT 9:45 AM--[phone]. HAVE INR LAB DRAWN ON 06/30/[address] [place] [address] AT 8:15 AM.(TAKE SCRIPT) ASK FOR PAPER WORK FOR FINANCIAL ASSISTANCE WITH [facility] AT [facility].) [facility]ven Instructions: Warfarin (By mouth), Pancreatitis (GEN) Prescriptions: New Amlodipine [Norvasc] 10 mg PO DAILY #30 tablet B,C/Folic/Zinc/Copper Ox/Vit E [Stress B-Complex Tablet] 1 each PO DAILY # 100 tablet CloNIDine [Catapres] 1 tab PO BID #60 tablet Ferrous Sulfate [Feosol] 324 mg PO BIDWM tablet Lisinopril [Prinivil] 20 mg PO DAILY #30 tablet LORazepam [Ativan] 0.5 mg PO TID #30 tab Warfarin Sodium 5 mg PO DAILY #30 tablet Famotidine [Pepcid] 20 mg PO BID #60 tablet Hydrocodone/APAP 7.5/325 [[place] 7.5/325] 1 tab PO Q4H PRN #50 tab PRN Reason: Pain Metoprolol Tartrate [Lopressor] 150 mg NG BIDWM #90 tablet Discontinued Potassium Chloride 20 meq PO BID Discharge Instructions/Outpatient Orders: Final Provider Discharge Instructions Location: Determined By Patient - Disposition 01 Discharged Home, Self-Care
== END 2017-06-28 16:32 | disposition home or self-care (01) | DRG 438 ==
LOC: ED 22:47 → MED 06-04 02:08 → CCU 06-05 01:33 → MED 06-24 16:29
PROVIDERS: ADMIT Internal Medicine; ATTEND Internal Medicine